=== PATIENT | male | born 1965 | race Caucasian/White ===

== ENCOUNTER → 2018-03-29 | Day surgery (SDC) | payer OTHER ==
[2018-03-27 14:57] VITALS: BMI 25.5
[~2018-03-29] MED LIST: ACETAMINOPHEN TAB 325 MG TAB PO PRN; HYDROcodone/APAP 5-325MG 1 EACH TAB PO PRN; LIDOCAINE 1% INJ 10MG/ML (20 ML MDV) ONE; LIDOCAINE 1% INJ 10MG/ML (20 ML MDV) SQ ONE; MIDAZOLAM 2 MG/2 ML VIAL IVP ONE; MIDAZOLAM 2 MG/2 ML VIAL ONE; SODIUM CHLORIDE 0.9% 1,000 ML IV SCH; ceFAZolin 1,000 MG in SODIUM CHLORIDE 0.9% IRRIGATIO 250 ML IRRIGATION ONE; fentaNYL (PF) 50 MCG/ML 2 ML AMP IVP ONE; fentaNYL (PF) 50 MCG/ML 2 ML AMP ONE
[2018-03-29 08:36] VITALS: PULSE 60; RESP 18; TEMP 97.8
[2018-03-29] MEDS: ceFAZolin IN SWFI 2 GM/20 ML SYRINGE IVP ONE ×2 (09:51→09:53)
--- NOTE | 2018-03-29 10:44 | P.PCN ---
Date of Procedure: 03/29/18 Preoperative Diagnosis: History of permanent pacemaker implantation, battery depletion Postoperative Diagnosis: The same Procedure(s) Performed: Generator change Description of Procedure: HISTORY: This is a 53-year-old gentleman with history of permanent pacemaker implantation who has reached [facility] several months ago. Patient is advised to have battery replacement. CONSENT: I have discussed the risks and benefits as related to the above mentioned procedure and both sedation/analgesia as well as necessary blood product administration. The patient has indicated understanding and acceptance of the risks of the procedure discussed. PROCEDURE: Patient was brought to the lab in a fasting state. Patient was given IV Versed and fentanyl for sedation. The skin over the existing pulse generator was infiltrated with lidocaine. An incision was made in the skin and was deepened until the pectoral fascia was exposed. Hemostasis was obtained. The existing pulse generator was pulled out of the pocket. The leads were disconnected and were checked for thresholds. Conscious Sedation: Versed 1.5mg Fentanyl 25 g Duration 32 minutes THRESHOLDS: ATRIAL: The minimum patient threshold is 0.3 at pulse width of 0.5 and impedance is 939 ohms. P-wave: 1.5 mV VENTRICULAR: The minimum patient threshold was 1.3 V at a pulse width of 0.5 ms. The impedance is 814 ohms R- wave: 8.1 mV THE LEADS: ATRIAL: This is manufactured by [employer]. Model number is 5554 and the serial number is [facility] [id number] VENTRICULAR: This is manufactured by [employer] and model number is [id number]. Serial number is [facility] [id number] THE EXPLANTED DEVICE: This is manufactured by [employer]. Model number is [id number] and the serial number is [id number]. THE NEW DEVICE: This is manufactured by [employer]. Model number is [id number] and the serial number is [id number]. The leads were then connected to a new pulse generator. Pacemaker seems to function normally. The pocket was irrigated with antibiotics. The pocket was closed in the usual fashion. Pectoral fascia was closed with 2-0 Prolene, the subcutaneous tissue was closed with 3-0 Prolene and the skin was closed with 4- 0 Prolene. Patient tolerated the procedure well . Patient will be monitored on the telemetry unit for 2-3 hours. If stable patient be discharged home later today. PLAN: Patient will monitor for the next few hours. Patient will be discharged home, if stable. Patient will resume his home medications. He is also given a prescription for Keflex for prophylaxis FALLOW UP: With the Dr. Deluna in one week
[2018-03-29 13:03] VITALS: BP 125/79
== END ==
LOC: CATHEP 08:09
PROVIDERS: ATTEND Internal Medicine Cardiovascular Disease
DX: Z45.010 Encounter for checking and testing of cardiac pacemaker pulse generator [battery] (principal); I44.2 Atrioventricular block, complete; I34.0 Nonrheumatic mitral (valve) insufficiency; I12.9 Hypertensive chronic kidney disease with stage 1 through stage 4 chronic kidney disease, or unspecified chronic kidney disease; N18.9 Chronic kidney disease, unspecified; R60.9 Edema, unspecified; F17.210 Nicotine dependence, cigarettes, uncomplicated; Z79.82 Long term (current) use of aspirin; Z79.51 Long term (current) use of inhaled steroids; Z79.899 Other long term (current) drug therapy
CPT/HCPCS: 33228; C1785; J2250; J2001; J3010; J0690

== ENCOUNTER → 2018-06-10 | Outpatient (CLI) | payer OTHER ==
[2018-06-10 10:30] LABS: HCT 49.1 % (39.0-53.0); HGB 15.9 gm/dL (13.0-17.5); MCH 28.7 pg (25.0-35.0); MCHC 32.4 g/dL (31.0-37.0); MCV 88.6 fL (80.0-100.0); Mean Platelet Volume 7.8; Platelet Count 178 k/uL (150-450); RBC 5.54 m/uL (4.30-5.90); RDW 13.8 % (11.5-15.5); WBC 4.5 k/uL (3.8-10.6)
[2018-06-10 10:35] LABS: Potassium 4.8 mmol/L (3.5-5.1)
== END | disposition home or self-care (01) ==
LOC: LABPAT 09:04
PROVIDERS: ATTEND Internal Medicine Interventional Cardiology
DX: Z01.812 Encounter for preprocedural laboratory examination (principal); I34.0 Nonrheumatic mitral (valve) insufficiency; R06.02 Shortness of breath; I10 Essential (primary) hypertension
CPT/HCPCS: 36415; 80051; 82565; 84520; 85027

== ENCOUNTER 2018-10-17 11:18 | Observation (INO) | payer OTHER ==
[2018-10-17] MEDS ORDERED: SODIUM CHLORIDE 0.9% 500 ML 500 ML IV ONE (11:39)
--- NOTE | 2018-10-17 11:41 | ED ---
General Adult HPI - General Chief complaint: Shortness of Breath Stated complaint: SOB, dizzy Time Seen by Provider: 10/17/18 11:20 Source: patient, EMS, RN notes reviewed Mode of arrival: EMS Limitations: no limitations - History of Present Illness Initial comments: This is a 53-year-old male with a past medical history significant for anxiety pacemaker placement severe mitral valve dysfunction. Patient states she is post get a mitral valve replacement in the near future. Patient states today he was home and became very short of breath and anytime he stood up and try to do anything he thought he was going to pass out. Separate multiple times morning and at that point time he decided come to be evaluated. Patient denies chest pain or palpitations. Patient denies any recent fever chills or cough. Patient states she smoked but quit in 2001. Patient denies any abdominal pain patient denies any nausea vomiting. Patient denies any headache patient denies any numbness weakness. Patient denies any recent injury or trauma. Patient denies swelling to the legs or calf tenderness. - Related Data Home Medications Medication Instructions Recorded Confirmed Aspirin EC [Ecotrin Low Dose] 81 mg PO DAILY 06/01/14 10/17/18 clonazePAM [KlonoPIN] 1 mg PO TID 06/01/14 10/17/18 Allopurinol [Zyloprim] 100 mg PO DAILY 03/27/18 10/17/18 Enalapril [Vasotec] 2.5 mg PO DAILY 03/27/18 10/17/18 Fluticasone Propionate [Flonase 1 spray EA NOSTRIL DAILY PRN 03/27/18 10/17/18 Allergy Relief] Mirtazapine [Remeron] 45 tab PO HS 03/27/18 10/17/18 Metoprolol Tartrate [Lopressor] 25 mg PO BID 10/17/18 10/17/18 PARoxetine [Paxil] 20 mg PO DAILY 10/17/18 10/17/18 busPIRone HCL [Buspar] 7.5 mg PO BID 10/17/18 10/17/18 Allergies Allergy/AdvReac Type Severity Reaction Status Date / Time No Known Allergies Allergy Verified 10/17/18 11:42 Review of Systems ROS Statement: Those systems with pertinent positive or pertinent negative responses have been documented in the HPI. ROS Other: All systems not noted in ROS Statement are negative. Past Medical History Past Medical History: Chest Pain / Angina, COPD, Hypertension, Osteoarthritis (OA), Renal Disease Additional Past Medical History / Comment(s): PACEMAKER -2000/battery repl acement 2009, polycystic kidney disease/ stage 3; hx kidney stones ; 2 RLL nodules, pt states mitral valve prolapse need valve replacement ; hx pleurisy History of Any Multi-Drug Resistant Organisms: None Reported Past Surgical History: Hernia Repair, Orthopedic Surgery, Pacemaker Additional Past Surgical History / Comment(s): 2000 permanent pacer with battery change 2009, L LEG TIBIA/FIBIA FX WITH REPAIR, UMBILICAL HERNIA REPAIR, EGD and colonoscopy both normal. blood patch post spinal anesthesia. Past Anesthesia/Blood Transfusion Reactions: No Reported Reaction Additional Past Anesthesia/Blood Transfusion Reaction / Comment(s): NEVER RECIEVED BLOOD. Pt had spinal anesthesia with spinal headache and blood patch. Type of Cardiac Device: Permanent Pacemaker Device Placement Date:: 2000 Past Psychological History: Anxiety, Panic Disorder Past Alcohol Use History: None Reported - Past Family History Father Family Medical History: Cancer, Myocardial Infarction ([place]) Additional Family Medical History / Comment(s): FATHER BONE CA AT AGE 70. Mother Family Medical History: Cancer, Deep Vein Thrombosis (DVT), Renal Disease Additional Family Medical History / Comment(s): MOTHER OF LYMPHOMA. MOTHER HAD TRANSPLANT OF KIDNEY. General Exam - General Exam Comments Initial Comments: GENERAL: Patient is well-developed and well-nourished. Patient is nontoxic and well- hydrated and is in mild distress. ENT: Neck is soft and supple. No significant lymphadenopathy is noted. Oropharynx is clear. Moist mucous membranes. Neck has full range of motion without eliciting any pain. EYES: The sclera were anicteric and conjunctiva were pink and moist. Extraocular movements were intact and pupils were equal round and reactive to light. Eyelids were unremarkable. PULMONARY: Unlabored respirations. Good breath sounds bilaterally. No audible rales rhonchi or wheezing was noted. CARDIOVASCULAR: There is a regular rate and rhythm without any murmurs gallops or rubs. ABDOMEN: Soft and nontender with normal bowel sounds. No palpable organomegaly was noted. There is no palpable pulsatile mass. SKIN: Skin is clear with no lesions or rashes and otherwise unremarkable. NEUROLOGIC: Patient is alert and oriented x3. Cranial nerves II through XII are grossly intact. Motor and sensory are also intact. Normal speech, volume and content. Symmetrical smile. MUSCULOSKELETAL: Normal extremities with adequate strength and full range of motion. No lower extremity swelling or edema. No calf tenderness. LYMPHATICS: No significant lymphadenopathy is noted PSYCHIATRIC: Normal psychiatric evaluation. Limitations: no limitations Course Vital Signs 10/17/18 10/17/18 10/17/18 11:21 11:49 12:25 Temperature 98 F Pulse Rate 81 Pulse Rate [ 60 Sitting] Pulse Rate [ 65 Standing] Pulse Rate [ 60 Supine] Respiratory 20 18 Rate Blood Pressure 136/98 Blood Pressure 134/91 [Sitting] Blood Pressure 135/93 [Standing] Blood Pressure 140/94 [Supine] O2 Sat by Pulse 100 Oximetry Medical Decision Making - Medical Decision Making EKG shows atrial paced rhythm at 60 bpm MO interval is 220 QRS is 86 QT interval 400 QTC is 400. Patient's EKG shows no ST segment elevation or depression or T wave abnormalities are noted. Chest x-ray shows no acute abnormality. Patient states anytime she stands up in the room he still feels dizzy. Patient does not feel comfortable going home. I spoke with Dr. Mi she agreed to admit the patient admitted the patient wrote admitting orders. - Lab Data Result diagrams: 10/17/18 11:40 10/17/18 11:40 Lab Results 10/17/18 10/17/18 10/17/18 Range/Units 11:40 11:40 11:40 WBC 4.9 (3.8-10.6) k/uL RBC 5.30 (4.30-5.90) m/uL Hgb 15.0 (13.0-17.5) gm/dL Hct 46.9 (39.0-53.0) % MCV 88.5 (80.0-100.0) fL MCH 28.3 (25.0-35.0) pg MCHC 32.0 (31.0-37.0) g/dL RDW 14.4 (11.5-15.5) % Plt Count 187 (150-450) k/uL Neutrophils % 67 % Lymphocytes % 17 % Monocytes % 9 % Eosinophils % 5 % Basophils % 1 % Neutrophils # 3.3 (1.3-7.7) k/uL Lymphocytes # 0.8 L (1.0-4.8) k/uL Monocytes # 0.5 (0-1.0) k/uL Eosinophils # 0.3 (0-0.7) k/uL Basophils # 0.0 (0-0.2) k/uL PT 10.5 (9.0-12.0) sec INR 1.0 (<1.2) APTT 24.4 (22.0-30.0) sec Sodium 140 (137-145) mmol/L Potassium 4.4 (3.5-5.1) mmol/L Chloride 107 (98-107) mmol/L Carbon Dioxide 24 (22-30) mmol/L Anion Gap 9 mmol/L BUN 24 H (9-20) mg/dL Creatinine 1.89 H (0.66-1.25) mg/dL Est GFR (CKD-EPI)AfAm 46 (>60 ml/min/1.73 sqM) Est GFR (CKD-EPI)NonAf 40 (>60 ml/min/1.73 sqM) Glucose 118 H (74-99) mg/dL Calcium 9.7 (8.4-10.2) mg/dL Total Bilirubin 0.6 (0.2-1.3) mg/dL AST 29 (17-59) U/L ALT 23 (21-72) U/L Alkaline Phosphatase 86 (38-126) U/L Troponin I (0.000-0.034) ng/mL Total Protein 6.4 (6.3-8.2) g/dL Albumin 3.7 (3.5-5.0) g/dL 10/17/18 Range/Units 11:40 WBC (3.8-10.6) k/uL RBC (4.30-5.90) m/uL Hgb (13.0-17.5) gm/dL Hct (39.0-53.0) % MCV (80.0-100.0) fL MCH (25.0-35.0) pg MCHC (31.0-37.0) g/dL RDW (11.5-15.5) % Plt Count (150-450) k/uL Neutrophils % % Lymphocytes % % Monocytes % % Eosinophils % % Basophils % % Neutrophils # (1.3-7.7) k/uL Lymphocytes # (1.0-4.8) k/uL Monocytes # (0-1.0) k/uL Eosinophils # (0-0.7) k/uL Basophils # (0-0.2) k/uL PT (9.0-12.0) sec INR (<1.2) APTT (22.0-30.0) sec Sodium (137-145) mmol/L Potassium (3.5-5.1) mmol/L Chloride (98-107) mmol/L Carbon Dioxide (22-30) mmol/L Anion Gap mmol/L BUN (9-20) mg/dL Creatinine (0.66-1.25) mg/dL Est GFR (CKD-EPI)AfAm (>60 ml/min/1.73 sqM) Est GFR (CKD-EPI)NonAf (>60 ml/min/1.73 sqM) Glucose (74-99) mg/dL Calcium (8.4-10.2) mg/dL Total Bilirubin (0.2-1.3) mg/dL AST (17-59) U/L ALT (21-72) U/L Alkaline Phosphatase (38-126) U/L Troponin I <0.012 (0.000-0.034) ng/mL Total Protein (6.3-8.2) g/dL Albumin (3.5-5.0) g/dL Disposition Clinical Impression: Dyspnea, Near syncope Disposition: ADMITTED IP TO THIS HOSP Referrals: Mukesh Hernandez DO [Primary Care Provider] - 1-2 days Time of Disposition: 13:07
[2018-10-17 12:14] LABS: Basophils % (A) 1 %; Eosinophils # (A) 0.3 k/uL (0-0.7); Eosinophils % (A) 5 %; HCT 46.9 % (39.0-53.0); Lymphocytes # (A) 0.8 k/uL (1.0-4.8); Lymphocytes % (A) 17 %; MCH 28.3 pg (25.0-35.0); MCV 88.5 fL (80.0-100.0); Mean Platelet Volume 7.3; Monocytes # (A) 0.5 k/uL (0-1.0); Monocytes % (A) 9 %; Neutrophils # (A) 3.3 k/uL (1.3-7.7); Neutrophils % (A) 67 %; Platelet Count 187 k/uL (150-450); RDW 14.4 % (11.5-15.5); WBC 4.9 k/uL (3.8-10.6)
[2018-10-17 12:21] LABS: Partial Thromboplastin Time 24.4 sec (22.0-30.0); Prothrombin Time 10.5 sec (9.0-12.0)
[2018-10-17 12:22] LABS: Albumin 3.7 g/dL (3.5-5.0); Calcium 9.7 mg/dL (8.4-10.2); Potassium 4.4 mmol/L (3.5-5.1); Total Bilirubin 0.6 mg/dL (0.2-1.3); Total Protein 6.4 g/dL (6.3-8.2)
--- NOTE | 2018-10-17 12:35 | XR ---
EXAMINATION TYPE: XR chest 2V DATE OF EXAM: 10/17/2018 COMPARISON: 06/12/2018 HISTORY: Difficulty breathing TECHNIQUE: Frontal and lateral views of the chest are obtained. FINDINGS: There is no focal air space opacity, pleural effusion, or pneumothorax seen. Dual lead lef t-sided cardiac device is seen. The cardiac silhouette size is within normal limits. The osseous st ructures are intact. IMPRESSION: No acute cardiopulmonary process.
[2018-10-17] MEDS ORDERED: NITROGLYCERIN SL TABS 0.4 MG TAB SUBLINGUAL PRN (13:07)
[2018-10-17] MEDS ORDERED: ACETAMINOPHEN TAB 325 MG TAB PO PRN (15:05)
[2018-10-17] MEDS: busPIRone HCl 5 MG TAB PO SCH (20:02)
[2018-10-17] MEDS: MIRTAZAPINE 45 MG TABLET PO SCH (20:03)
[2018-10-17] MEDS: METOPROLOL TARTRATE 25 MG TAB PO SCH (20:03)
[2018-10-17] MEDS: clonazePAM 1 MG TAB PO SCH (20:04)
--- NOTE | 2018-10-17 21:58 | HP ---
HISTORY AND PHYSICAL DATE OF ADMISSION AND DATE OF SERVICE: 10/17/2018 PRESENTING COMPLAINT: Chest pressure, head spinning. HISTORY OF PRESENTING COMPLAINT: This is a pleasant 53-year-old patient of Dr. Mukesh Hernandez and naturopath Dr. Deluna. Chronic stable medical conditions include hypertension, osteoarthritis, polycystic kidney disease with stage IV renal failure, chronic cervical spine and back pain, gout, reflex sympathetic dystrophy of the left leg, obstructive sleep apnea -- does not use CPAP machine -- and anxiety. The patient is supposed to follow up with Dr. Ordaz, cardiothoracic service, on October 25 for surgery evaluation. The patient in May had a cardiac catheterization by Dr. Ragsdale and was found to have normal coronaries. PASCALE showed severe mitral regurgitation with myxomatous valves and the left atrium was enlarged. The ejection fraction is preserved around 55%. The patient has been short of breath for about 2 months and the patient's blood pressure has been running a bit high. The patient has noticed some headache that he has in the morning, which he was told was probably from his high blood pressure. The patient now has presented with an episode of head spinning, especially and more so on bending over. He also is becoming more dizzy with chest pressure to where he was nearly going to pass out. Therefore he decided to present to the ER. No obvious arrhythmia was noted. Patient was admitted for the same. REVIEW OF SYSTEMS: CONSTITUTIONAL: Tired. HEENT: As above. RESPIRATORY: As above. CARDIOVASCULAR: As above. GASTROINTESTINAL: None. GENITOURINARY: None. MUSCULOSKELETAL: Arthritic pain in the joints. DERMATOLOGICAL: None. HEMATOLOGICAL: None. LYMPHATICS: None. PSYCHIATRY: Anxiety, controlled. NEUROLOGICAL: None. Patient has chronic RSD pain in the left lower extremity. PAST MEDICAL HISTORY: 1. COPD. 2. Hypertension. 3. Osteoarthritis. 4. Severe mitral regurgitation. 5. Polycystic kidney disease. 6. Stage IV kidney disease. 7. Chronic cervix and back pain. 8. Gout. 9. RSD of the left leg. 10.Obstructive sleep apnea. Does not use CPAP machine. 11.Anxiety. PAST SURGICAL HISTORY: 1. Hernia repair. 2. Pacemaker placed in 2001. Last generator change was in 2018. 3. PASCALE. 4. Umbilical hernia repair. 5. Left leg tib-fib fracture with hardware, since removed. 6. Left thumb surgery with rods. 7. EGD. 8. Colonoscopy. 9. Blood patch after spinal anesthesia for headache. PSYCH HISTORY: History of anxiety and panic attacks. SOCIAL HISTORY: Lives by himself. The patient does painting and sand blasting. No alcohol. Smoked about 18 years; stopped in 2001. FAMILY HISTORY: Father of bone cancer at age of 70. Had aortic aneurysm, myocardial infarction. HOME MEDICATIONS: 1. Paxil 20 mg a day. 2. Remeron 45 mg at bedtime. 3. Lopressor 25 mg b.i.d. 4. BuSpar 7.5 p.o. b.i.d. 5. Klonopin 1 mg p.o. t.i.d. 6. Flonase 1 spray each nostril daily p.r.n. 7. Vasotec 2.5 p.o. daily. 8. Aspirin 81 mg p.o. daily. 9. Allopurinol 100 mg p.o. daily. ALLERGIES: NONE. PHYSICAL EXAMINATION: Temperature 98, pulse 72, respiration 18, blood pressure 127/75, pulse ox 95% on room air. GENERAL APPEARANCE: Average build. Sitting up, awake but anxious-appearing. EYES: Pupils equal. Conjunctivae normal. HEENT: External appearance of nose and ears normal. Oral cavity normal. NECK: JVD not raised. Mass not palpable. RESPIRATORY: Effort normal. LUNGS: Fair air entry. CARDIOVASCULAR: Systolic murmur is present. No edema. ABDOMEN: Soft, nontender. Liver and spleen not palpable. LYMPHATIC: No lymph node palpable in neck or axillae. PSYCHIATRY: Alert and oriented x3. Mood and affect normal. NEUROLOGICAL: Pupils equal. Cranial nerves grossly intact. Power and sensation grossly intact. INVESTIGATIONS: White count 4.9, hemoglobin 15.0, potassium 4.4, BUN 24, creatinine 1.89. Troponin x2 negative. EKG tracing, personally reviewed by me, shows normal sinus rhythm and possibly atrial paced rhythm. Chest x-ray film, personally reviewed by me, shows lung farrell to be clear. Pacemaker is noted. ASSESSMENT: 1. This is a patient who has known severe mitral regurgitation, due for mitral valve surgery, has been short of breath for 2 months. Cardiac catheterization done recently showed normal coronaries. He presented with an of spinning head and some chest pressure, nearly passing out. The patient has underlying enlarged left atrium. Strongly possible that patient may have had paroxysmal arrhythmia/atrial flutter/fibrillation that may be causing his symptoms. The patient was admitted for the same. No evidence of congestive heart failure. 2. Chronic obstructive pulmonary disease in an ex-smoker. 3. Essential hypertension. 4. Primary osteoarthritis. 5. Severe mitral regurgitation with normal coronaries. 6. Polycystic kidney disease with chronic kidney disease, stage IV. 7. Chronic cervical and lower back pain from arthritis. 8. Chronic gout. 9. Reflex sympathetic dystrophy of the left lower extremity. 10.Obstructive sleep apnea. Does not use CPAP machine. 11.Anxiety not otherwise specified. PLAN: Home medications are resumed. Serial cardiac enzymes are in place. We will keep the patient on telemetry. Further decision as per Cardiology. Will also get Dr. Ordaz's cardiothoracic team to see the patient. Care was discussed with the patient. [id number] / PATRICIA: [id number] /
[2018-10-18 04:06] LABS: Cholesterol 106 mg/dL (<200); HDL Cholesterol 24 mg/dL (40-60); LDL Cholesterol,Calculated 56 mg/dL (0-99); Triglycerides 131 mg/dL (<150)
[2018-10-18] MEDS: busPIRone HCl 5 MG TAB PO SCH ×2 (10:12→20:42)
[2018-10-18] MEDS: METOPROLOL TARTRATE 25 MG TAB PO SCH ×2 (10:12→20:42)
[2018-10-18] MEDS: ALLOPURINOL 100 MG TAB PO SCH (10:13)
[2018-10-18] MEDS: clonazePAM 1 MG TAB PO SCH ×3 (10:13→20:43)
[2018-10-18] MEDS: PARoxetine 20 MG TAB PO SCH (10:13)
[2018-10-18] MEDS: ASPIRIN 325 MG TAB PO SCH (10:13)
[2018-10-18] MEDS: LISINOPRIL 5 MG TAB PO SCH (10:13)
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
[2018-10-18] MEDS ORDERED: MECLIZINE 25 MG TAB PO STA (12:41)
--- NOTE | 2018-10-18 12:53 | P.CRDCN ---
History of Present Illness History of present illness: This is a pleasant 53-year-old male past medical history significant for severe mitral regurgitation, mitral valve prolapse, permanent pacemaker implantation, hypertension, COPD and polycystic kidney disease. He follows with Dr. Deluna in the office. We have been asked to see him in consultation secondary to shortness of breath. In May 2018 he underwent cardiac catheterization and PASCALE revealing normal coronary arteries with severe mitral regurgitation and a bileaflet mitral valve prolapse. He has been recommended at that time to see cardiothoracic surgery regarding the possibility of mitral valve repair. He states he has been feeling increasingly short of breath and lightheaded with exertion for the previous 2 weeks. His symptoms initially started approximately around the time of his heart catheterization but has gotten progressively worse. He has been scheduled to see Dr. Ordaz next week to set up his mitral valve repair or replacement pending dental clearance. Orthostatic vital signs obtained on admission are negative for changes. He denies symptoms of chest discomfort, palpitations, nausea or vomiting associated with the shortness of breath and dizziness. He is seen and examined resting comfortably in bed in no acute distress and is asymptomatic at this time. Telemetry tracings reviewed and at 5:00 in the morning reveal an 8 beat run of ventricular tachycardia followed by a 19 beat run. EKG reveals atrial paced rhythm with inferior Q waves. No acute ST or T wave abnormalities noted. Chest x-ray is negative for an acute cardiopulmonary process. Laboratory data reviewed, WBC 4.9, hemoglobin 15, platelets 187, sodium 140, potassium 4.4, creatinine 1.89, cardiac enzymes negative 3, LDL 56 HDL 24. Current cardiac medications include aspirin 81 mg daily, enalapril 2.5 mg daily, Lopressor 25 mg twice a day. At the time of my exam: CONSTITUTIONAL: Denies fever. Denies chills. EYES: Denies blurred vision. Denies vision changes. Denies eye pain. EARS, NOSE, MOUTH & THROAT: Denies headache. Denies sore throat. Denies ear pain. CARDIOVASCULAR: Denies chest pain. Denies shortness of breath. Denies orthopnea. Denies PND. Denies palpitations. RESPIRATORY: Denies cough. GASTROINTESTINAL: Denies abdominal pain. Denies diarrhea. Denies constipation. Denies nausea. Denies vomiting. MUSCULOSKELETAL: Denies myalgias. INTEGUMENTARY: Denies pruitis. Denies rash. NEUROLOGIC: Denies numbness. Denies tingling. Denies weakness. PSYCHIATRIC: Denies anxiety. Denies depression. ENDOCRINE: Denies fatigue. Denies weight change. Denies polydipsia. Denies polyurina. GENITOURINARY: Denies burning, hematuria or urgency with micturation. HEMATOLOGIC: Denies history of anemia. Denies bleeding. Blood pressure 124/82 heart rate 56 afebrile maintaining oxygen saturation on room air GENERAL: This is a 53-year-old male in no apparent distress at the time of my examination. HEENT: Head is atraumatic, normocephalic. Pupils are equal, round. Sclerae anicteric. Conjunctivae are clear. Mucous membranes of the mouth are moist. Neck is supple. There is no jugular venous distention. No carotid bruit is heard. LUNGS: Clear to auscultation no wheezes, rales or rhonchi. No chest wall tenderness is noted on palpation or with deep breathing. HEART: Regular rate and rhythm with holosystolic murmur at the apex, no rubs or gallops. S1 and S2 heard. ABDOMEN: Soft, nontender. Bowel sounds are heard. No organomegaly noted. EXTREMITIES: No evidence of peripheral edema and no calf tenderness noted. VASCULAR: Radial and dorsalis pedis pulses palpated, no evidence of clubbing. NEUROLOGIC: Patient is awake, alert and oriented x3. ASSESSMENT Dizziness and shortness of breath with exertion possibly could be vertigo-like response Nonsustained ventricular tachycardia Severe mitral regurgitation Mitral valve prolapse History of permanent pacemaker implantation Hypertension COPD PLAN Repeat echocardiogram and assess LV function. Give a dose of Antivert 25 mg now and increase activity and assess her ongoing symptoms of dizziness. Continue metoprolol, enalapril and aspirin as previously ordered. Check TSH and magnesium level. Appreciate recommendation from cardiothoracic surgery. Thank you kindly for this consultation. Nurse Practitioner note has been reviewed, I agree with a documented findings and plan of care. Patient was seen and examined. Past Medical History Past Medical History: Chest Pain / Angina, COPD, Hypertension, Osteoarthritis (OA), Renal Disease Additional Past Medical History / Comment(s): Severe mitral dysfunction-to have surgery soon, pleurisy x2, polycyctic kidney disease stage IV, migraines, chronic cervical and back pain, DDD, gout bilateral feet, RSD affecting legs, PATSY without device d/t kept getting respiratory infections History of Any Multi-Drug Resistant Organisms: None Reported Past Surgical History: Hernia Repair, Orthopedic Surgery, Pacemaker Additional Past Surgical History / Comment(s): Permanent pacemaker originally placed 2001, last gen change 2018, PASCALE, umbilical hernia repair, L leg tib/fib fracture with hardware-since removed, L thumb surgery-has rods, EGD, colonoscopy, blood patch after spinal anesthesia for headache Past Anesthesia/Blood Transfusion Reactions: No Reported Reaction Additional Past Anesthesia/Blood Transfusion Reaction / Comment(s): NEVER RECIEVED BLOOD. Pt had spinal anesthesia with spinal headache and blood patch. Type of Cardiac Device: Permanent Pacemaker Device Placement Date:: 2001 Smoking Status: Former smoker - Past Family History Father Family Medical History: Cancer, Myocardial Infarction (MD) Additional Family Medical History / Comment(s): FATHER BONE CA AT AGE 70. HE HAD AORTIC ANEURYSM WITH SURGERY. Mother Family Medical History: Cancer, Deep Vein Thrombosis (DVT), Renal Disease Additional Family Medical History / Comment(s): MOTHER OF LYMPHOMA. MOTHER HAD TRANSPLANT OF KIDNEY. Sister(s) Family Medical History: Deep Vein Thrombosis (DVT), Pulmonary Embolus, Renal Disease Additional Family Medical History / Comment(s): POLYCYSTIC KIDNEY DISEASE WITH TRANSPLANT, Medications and Allergies Home Medications Medication Instructions Recorded Confirmed Type Aspirin EC [Ecotrin Low Dose] 81 mg PO DAILY 06/01/14 10/17/18 History clonazePAM [KlonoPIN] 1 mg PO TID 06/01/14 10/17/18 History Allopurinol [Zyloprim] 100 mg PO DAILY 03/27/18 10/17/18 History Enalapril [Vasotec] 2.5 mg PO DAILY 03/27/18 10/17/18 History Fluticasone Propionate [Flonase 1 spray EA NOSTRIL DAILY PRN 03/27/18 10/17/18 History Allergy Relief] Mirtazapine [Remeron] 45 tab PO HS 03/27/18 10/17/18 History Metoprolol Tartrate [Lopressor] 25 mg PO BID 10/17/18 10/17/18 History PARoxetine [Paxil] 20 mg PO DAILY 10/17/18 10/17/18 History busPIRone HCL [Buspar] 7.5 mg PO BID 10/17/18 10/17/18 History Allergies Allergy/AdvReac Type Severity Reaction Status Date / Time No Known Allergies Allergy Verified 10/17/18 11:42 Physical Exam Vitals: Vital Signs Temp Pulse Pulse Pulse Pulse Pulse Resp 10/18/18 07:10 97.9 F 64 18 10/18/18 03:48 97.6 F 58 L 16 10/18/18 03:29 58 L 16 10/18/18 00:00 58 L 16 10/17/18 23:23 97.7 F 58 L 16 10/17/18 20:00 98.0 F 60 16 10/17/18 16:00 98 F 52 L 18 10/17/18 15:45 60 16 10/17/18 14:50 98.1 F 60 16 10/17/18 12:25 60 65 60 10/17/18 11:49 18 10/17/18 11:21 98 F 81 20 BP BP BP BP BP Pulse Ox 10/18/18 07:10 99/60 96 10/18/18 03:48 113/76 98 10/18/18 03:29 10/18/18 00:00 10/17/18 23:23 117/71 95 10/17/18 20:00 132/87 95 10/17/18 16:00 127/75 95 10/17/18 15:45 97 10/17/18 14:50 129/83 97 10/17/18 12:25 134/91 135/93 140/94 10/17/18 11:49 10/17/18 11:21 136/98 100 Intake and Output 10/17/18 10/18/18 10/18/18 22:59 06:59 14:59 Other: Voiding Method Toilet Toilet # Voids 1 2 Results 10/17/18 11:40 10/17/18 11:40 Cardiac Enzymes 10/17/18 10/17/18 10/17/18 Range/Units 11:40 11:40 17:17 AST 29 (17-59) U/L Troponin I <0.012 <0.012 (0.000-0.034) ng/mL 10/17/18 Range/Units 23:36 AST (17-59) U/L Troponin I <0.012 (0.000-0.034) ng/mL Coagulation 10/17/18 Range/Units 11:40 PT 10.5 (9.0-12.0) sec APTT 24.4 (22.0-30.0) sec Lipids 10/17/18 Range/Units 11:40 Triglycerides 131 (<150) mg/dL Cholesterol 106 (<200) mg/dL HDL Cholesterol 24 L (40-60) mg/dL CBC 10/17/18 Range/Units 11:40 WBC 4.9 (3.8-10.6) k/uL RBC 5.30 (4.30-5.90) m/uL Hgb 15.0 (13.0-17.5) gm/dL Hct 46.9 (39.0-53.0) % Plt Count 187 (150-450) k/uL Comprehensive Metabolic Panel 10/17/18 Range/Units 11:40 Sodium 140 (137-145) mmol/L Potassium 4.4 (3.5-5.1) mmol/L Chloride 107 (98-107) mmol/L Carbon Dioxide 24 (22-30) mmol/L BUN 24 H (9-20) mg/dL Creatinine 1.89 H (0.66-1.25) mg/dL Glucose 118 H (74-99) mg/dL Calcium 9.7 (8.4-10.2) mg/dL AST 29 (17-59) U/L ALT 23 (21-72) U/L Alkaline Phosphatase 86 (38-126) U/L Total Protein 6.4 (6.3-8.2) g/dL Albumin 3.7 (3.5-5.0) g/dL Current Medications Generic Name Dose Route Start Last Admin Trade Name Freq PRN Reason Stop Dose Admin Acetaminophen 650 mg 10/17/18 15:05 10/17/18 15:20 Tylenol Tab PO 650 mg Q6HR PRN Administration Fever and/ or Pain Allopurinol 100 mg 10/18/18 09:00 Zyloprim PO DAILY [facility] Aspirin 325 mg 10/18/18 09:00 Aspirin PO DAILY [facility] Buspirone HCl 7.5 mg 10/17/18 21:00 10/17/18 20:02 Buspar PO 7.5 mg BID [facility] Administration Clonazepam 1 mg 10/17/18 22:00 10/17/18 20:04 Klonopin PO Not Given TID [facility] Lisinopril 5 mg 10/18/18 09:00 Zestril PO DAILY [facility] Metoprolol Tartrate 25 mg 10/17/18 21:00 10/17/18 20:03 Lopressor PO 25 mg BID [facility] Administration Mirtazapine 45 mg 10/17/18 21:00 10/17/18 20:03 Remeron PO 45 mg HS [facility] Administration Nitroglycerin 0.4 mg 10/17/18 13:07 Nitrostat SUBLINGUAL Q5M PRN Chest Pain Paroxetine HCl 20 mg 10/18/18 09:00 Paxil PO DAILY [facility] Intake and Output 10/17/18 10/18/18 10/18/18 22:59 06:59 14:59 Other: Voiding Method Toilet Toilet # Voids 1 2 10/17/18 11:40 10/17/18 11:40
[2018-10-18 14:06] LABS: Magnesium 1.9 mg/dL (1.6-2.3)
--- NOTE | 2018-10-18 19:11 | ECHOF ---
Referral Reason:sob, hx mr and mvp MEASUREMENTS -------- HEIGHT: 152.4 cm WEIGHT: 82.6 kg BP: RVIDd: 3.0 cm (< 3.3) IVSd: 1.2 cm (0.6 - 1.1) LVIDd: 4.5 cm (3.9 - 5.3) LVPWd: 1.5 cm (0.6 - 1.1) IVSs: 1.3 cm LVIDs: 3.5 cm LVPWs: 1.7 cm LA Diam: 4.3 cm (2.7 - 3.8) LAESV Index (A-L): 37.49 ml/m Ao Diam: 2.9 cm (2.0 - 3.7) AV Cusp: 1.9 cm (1.5 - 2.6) LA Diam: 4.1 cm (2.7 - 3.8) MV EXCURSION: 22.213 mm (> 18.000) MV EF SLOPE: 75 mm/s (70 - 150) EPSS: 0.2 cm MV E Carlos: 0.88 m/s MV DecT: 149 ms MV A Carlos: 0.64 m/s MV E/A Ratio: 1.37 RAP: 5.00 mmHg RVSP: 17.98 mmHg FINDINGS -------- Paced rhythm. This was a technically good study. The left ventricular size is normal. There is mild concentric left ventricular hypertrophy. Overa ll left ventricular systolic function is low-normal with, an EF between 50 - 55 %. The right ventricle is normal in size. The left atrium is mildly dilated. LA is moderately dilated 34-39 ml/m2 The right atrial size is normal. There is mild aortic valve sclerosis. There is no evidence of aortic regurgitation. [id number] mitral regurgitation is present. Pt had PASCALE 06/12/18 noted myomatous MV Leaflets with Prolapse with severe MR. Mild tricuspid regurgitation present. There is no evidence of pulmonary hypertension. The right v entricular systolic pressure, as measured by Doppler, is 17.98mmHg. Trace/mild (physiologic) pulmonic regurgitation. The aortic root size is normal. There is no pericardial effusion. CONCLUSIONS -------- 1. The left ventricular size is normal. 2. There is mild concentric left ventricular hypertrophy. 3. Overall left ventricular systolic function is low-normal with, an EF between 50 - 55 %. 4. The right ventricle is normal in size. 5. The left atrium is mildly dilated. 6. LA is moderately dilated 34-39 ml/m2 7. The right atrial size is normal. 8. There is mild aortic valve sclerosis. 9. Pt had PASCALE 06/12/18 noted myomatous MV Leaflets with Prolapse with severe MR. 10. Mild tricuspid regurgitation present. 11. There is no evidence of pulmonary hypertension. 12. The right ventricular systolic pressure, as measured by Doppler, is 17.98mmHg. 13. Trace/mild (physiologic) pulmonic regurgitation. 14. The aortic root size is normal. 15. There is no pericardial effusion. ALTERNATIVE ENERGY TECHNICIAN: Joycelyn Vela RDCS
[2018-10-18] MEDS: MIRTAZAPINE 45 MG TABLET PO SCH (20:43)
--- NOTE | 2018-10-18 22:26 | PN ---
PROGRESS NOTE DATE OF SERVICE: 10/18/2018 PRESENTING COMPLAINT: Near-syncope. INTERVAL HISTORY: This is a patient with severe mitral regurgitation, pending surgery, with a negative cardiac catheterization. He presented with head spinning. The patient is pending today to get his AICD checked. The patient may have had an episode of BPPV. Doing better today. Sitting in bed. Has been out of bed. REVIEW OF SYSTEMS: Done for constitutional, cardiovascular, GI, pulmonary; relevant findings as above. CURRENT MEDICATIONS: Reviewed. PHYSICAL EXAMINATION: Temperature 98, pulse 62, respiration 16, blood pressure 138/87, pulse ox 96% on room air. GENERAL APPEARANCE: Sitting up, comfortable. EYES: Pupils equal. Conjunctivae normal. NECK: JVD not raised. Mass not palpable. RESPIRATORY: Effort normal. Lungs are clear. CARDIOVASCULAR: Systolic murmur. No edema. ABDOMEN: Soft, non-tender. Liver and spleen not palpable. PSYCHIATRY: Alert and oriented x3. Mood and affect normal. INVESTIGATIONS: Magnesium 1.9. TSH 1.4. ASSESSMENT: 1. Episode of severe dizziness. Could be underlying BPPV. Rule out underlying arrhythmia. AICD pacemaker check to be done. 2. Severe mitral regurgitation, non-rheumatic, pending surgery. 3. Recent cardiac catheterization showing normal coronaries. 4. Chronic obstructive pulmonary disease in an ex-smoker. 5. Essential hypertension. 6. Primary osteoarthritis. 7. Polycystic kidney disease with chronic kidney disease, stage IV. 8. Chronic cervical and low back pain from arthritis. 9. Chronic gout. 10.Reflex sympathetic dystrophy of the left lower extremity. 11.Obstructive sleep apnea. Does not use CPAP machine. 12.Anxiety not otherwise specified. PLAN: Care was discussed with the patient. Encouraged to ambulate. Waiting for a pacemaker check. Follow with Cardiology. MMODL / IJN: [id number] /
[2018-10-19] MEDS: ASPIRIN 325 MG TAB PO SCH (08:56)
[2018-10-19] MEDS: METOPROLOL TARTRATE 25 MG TAB PO SCH (08:57)
[2018-10-19] MEDS: PARoxetine 20 MG TAB PO SCH (08:57)
[2018-10-19] MEDS: clonazePAM 1 MG TAB PO SCH (08:57)
[2018-10-19] MEDS: ALLOPURINOL 100 MG TAB PO SCH (08:57)
[2018-10-19] MEDS: busPIRone HCl 5 MG TAB PO SCH (08:57)
[2018-10-19] MEDS: LISINOPRIL 5 MG TAB PO SCH (08:57)
--- NOTE | 2018-10-19 10:34 | P.PN ---
Subjective This is a pleasant 53-year-old male past medical history significant for severe mitral regurgitation, mitral valve prolapse, permanent pacemaker implantation, hypertension, COPD and polycystic kidney disease. He follows with Dr. Deluna in the office. Patient was seen and examined resting comfortably in bed in no acute distress. [employer] pacemaker interrogation reveals 2 episodes of nonsustained ventricular tachycardia yesterday morning. He has been up and ambulating without difficulty with no further symptoms of dizziness. He continues to have mild shortness of breath at baseline. Blood pressure 112/79 heart rate 61 afebrile maintaining oxygen saturation on room air. Laboratory data reviewed, magnesium 1.9 and TSH 1.48. Repeat echocardiogram reveals normal LV size and systolic function with ejection fraction 50-55%, mildly dilated left atrium, mild aortic valve sclerosis, mild tricuspid regurgitation and persistent mitral regurgitation. GENERAL: This is a 53-year-old male in no apparent distress at the time of my examination. HEENT: Head is atraumatic, normocephalic. Pupils are equal, round. Sclerae anicteric. Conjunctivae are clear. Mucous membranes of the mouth are moist. Neck is supple. There is no jugular venous distention. No carotid bruit is heard. LUNGS: Clear to auscultation no wheezes, rales or rhonchi. No chest wall tenderness is noted on palpation or with deep breathing. HEART: Regular rate and rhythm with holosystolic murmur at the apex, no rubs or gallops. S1 and S2 heard. EXTREMITIES: No evidence of peripheral edema and no calf tenderness noted. ASSESSMENT Dizziness and shortness of breath with exertion possibly could be vertigo-like response Nonsustained ventricular tachycardia Severe mitral regurgitation Mitral valve prolapse History of permanent pacemaker implantation Hypertension COPD PLAN Patient is stable from a cardiac perspective. Continue beta mirta therapy as previously ordered. Follow-up as are the scheduled on Sunday with cardiothoracic surgery. Nurse Practitioner note has been reviewed, I agree with a documented findings and plan of care. Patient was seen and examined. Objective - Vital Signs Vital signs: Vital Signs Temp 97.7 F 10/19/18 08:00 Pulse 61 10/19/18 08:00 Resp 18 10/19/18 08:00 BP 112/79 10/19/18 08:00 Pulse Ox 95 10/19/18 08:00 Intake & Output 10/18/18 10/19/1819 18:59 06:59 18:59 Intake Total 240 1275 Balance 240 1275 Intake: Oral 240 1275 Other: Voiding Method Toilet Toilet # Voids 2 2 - Labs CBC & Chem 7: 10/17/18 11:40 10/17/18 11:40
[2018-10-19 12:03] VITALS: BP 113/78; PULSE 56; RESP 16; TEMP 97.5
--- NOTE | 2018-10-20 08:51 | DS ---
DISCHARGE SUMMARY DATE OF ADMISSION: 10/17/18 DATE OF DISCHARGE: 10/19/18 FINAL DIAGNOSES: 1. Episodes of severe dizziness, could be BPPV. Episodes of nonsustained ventricular tachycardia, which could be causing his symptoms. 2. Severe mitral regurgitation, nonrheumatic, pending surgery. 3. Recent cardiac catheterization showing normal coronaries. 4. Chronic obstructive pulmonary disease in an ex-smoker. 5. Essential hypertension. 6. Primary osteoarthritis. 7. Polycystic kidney disease chronic kidney disease stage 4. 8. Chronic cervical and lower back pain from arthritis. 9. Chronic gout. 10.Reflex sympathetic dystrophy of the left lower extremity. 11.Obstructive sleep apnea does not use CPAP machine. 12.Anxiety, not otherwise specified. HOSPITAL COURSE: This patient has got severe mitral regurgitation with recent normal cardiac catheterization pending mitral surgery presented with episodes of severe dizziness, primarily postural that will be BPPV which Antivert would not be helpful. Pacemaker did confirm 2 episodes of nonsustained ventricular tachycardia, which could have resulted in the symptoms. Sallie maneuver was described to the patient and also pulled up on the Internet and discussed with him and his . They understand the same. The patient was cleared by Cardiology to go home. PHYSICAL EXAMINATION: Temperature 97.5, pulse 66, respiratory 16, blood pressure 113/78, pulse 95% on room air. Heart: Systolic murmur. INVESTIGATIONS: Potassium 4.4, BUN 24, creatinine 1.18. TSH normal. Troponins negative. 2D echo shows preserved LV function. Severe MR. DISCHARGE MEDICATIONS: 1. Aspirin 81 mg a day. 2. Klonopin 1 mg p.o. t.i.d. 3. Allopurinol 100 mg p.o. daily. 4. Vasotec 2.5 p.o. daily. 5. Flonase 1 spray each nostril daily p.r.n. 6. Remeron 45 mg p.o. q.h.s. 7. Lopressor 25 p.o. b.i.d. 8. Paxil 20 mg p.o. daily. 9. BuSpar 7.5 p.o. b.i.d. FOLLOWUP: Follow up with Dr. Ordaz on 10/25/18 at 11:00 a.m. Follow up with Dr. Hernandez in 2 days. Sallie maneuver described to the patient. Discussion and discharge planning more than 35 minutes. MMODL / IJN: [id number] /
== END 2018-10-19 15:24 | disposition home or self-care (01) ==
LOC: EC 11:18 → 1SOBS 13:07
PROVIDERS: ADMIT Hospitalist; ATTEND Hospitalist
DX: R42 Dizziness and giddiness (principal); R51 Headache; R07.89 Other chest pain; I47.2 Ventricular tachycardia; I34.0 Nonrheumatic mitral (valve) insufficiency; J44.9 Chronic obstructive pulmonary disease, unspecified; Z87.891 Personal history of nicotine dependence; I12.9 Hypertensive chronic kidney disease with stage 1 through stage 4 chronic kidney disease, or unspecified chronic kidney disease; N18.4 Chronic kidney disease, stage 4 (severe); Q61.3 Polycystic kidney, unspecified; I34.1 Nonrheumatic mitral (valve) prolapse; M47.816 Spondylosis without myelopathy or radiculopathy, lumbar region; M47.812 Spondylosis without myelopathy or radiculopathy, cervical region; M1A.9XX0 Chronic gout, unspecified, without tophus (tophi); G90.522 Complex regional pain syndrome I of left lower limb; G47.33 Obstructive sleep apnea (adult) (pediatric); F41.0 Panic disorder [episodic paroxysmal anxiety]; Z95.810 Presence of automatic (implantable) cardiac defibrillator; Z87.442 Personal history of urinary calculi; Z79.82 Long term (current) use of aspirin; Z79.899 Other long term (current) drug therapy; Z80.7 Family history of other malignant neoplasms of lymphoid, hematopoietic and related tissues; Z82.49 Family history of ischemic heart disease and other diseases of the circulatory system; Z83.2 Family history of diseases of the blood and blood-forming organs and certain disorders involving the immune mechanism; Z80.8 Family history of malignant neoplasm of other organs or systems
CPT/HCPCS: 99285; 36415; 93005; 93306; 80061; 80053; 84443; 83735; 84484; 85025; 85610; 85730; 71046; G0378 ×3

== ENCOUNTER → 2018-11-05 | Outpatient (CLI) | payer OTHER ==
[2018-11-05 14:04] LABS: Calcium 9.6 mg/dL (8.4-10.2); Magnesium 1.8 mg/dL (1.6-2.3); Potassium 5.3 mmol/L (3.5-5.1); Total Bilirubin 0.6 mg/dL (0.2-1.3); Total Protein 6.4 g/dL (6.3-8.2)
--- NOTE | 2018-11-05 14:17 | P.PN ---
Progress Note - Text Progress Note Date: 11/05/18 5 meter walk test completed: #1 3.51 sec #2 3.17 sec #3 3.16 sec
[2018-11-05 14:25] LABS: Partial Thromboplastin Time 25.6 sec (22.0-30.0)
[2018-11-05 14:43] LABS: Appearance,Urine Clear (Clear); Bilirubin,Urine Negative (Negative); Blood,Urine Negative (Negative); Color,Urine Colorless; Glucose,Urine (UA) Negative (Negative); Ketones,Urine Negative (Negative); Leukocyte Esterase,Urine Negative (Negative); Nitrite,Urine Negative (Negative); Protein,Urine Negative (Negative); Specific Gravity,Urine 1.004 (1.001-1.035); Urobilinogen,Urine <2.0 mg/dL (<2.0)
[2018-11-05 15:03] LABS: HGB 14.9 gm/dL (13.0-17.5); MCH 27.8 pg (25.0-35.0); MCHC 31.8 g/dL (31.0-37.0); MCV 87.4 fL (80.0-100.0); Mean Platelet Volume 7.8; Platelet Count 201 k/uL (150-450); RBC 5.37 m/uL (4.30-5.90); RDW 14.7 % (11.5-15.5); WBC 7.3 k/uL (3.8-10.6)
--- NOTE | 2018-11-05 16:44 | XR ---
EXAMINATION: XR chest 2V DATE AND TIME: 11/05/2018 4:21 PM CLINICAL INDICATION: PHH; Mitral valve insufficiency I34.1 TECHNIQUE: Departmental protocol COMPARISON: 10/17/2018 FINDINGS: There is evidence of a 1 cm opacity superimposed over the lateral right lower lung zone on the fronta l radiograph; not definitely confirmed on the lateral radiograph. The lungs are otherwise clear and w ell-expanded bilaterally. The pleural spaces are negative. Cardiac pacemaker noted. The cardiomediastinal silhouette is unremarkable. The skeletal structures and soft tissues are negative for acute findings. IMPRESSION: 1 cm opacity superimposed over the right lateral lung zone, for which nonurgent CT characterization i s advised, preferably with IV contrast.
[2018-11-05 19:10] LABS: Hepatitis A Antibody IgM Non-Reactive (Non-Reactive); Hepatitis B Core IgM Non-Reactive (Non-Reactive)
[2018-11-05 23:03] LABS: Hemoglobin A1C 6.1 % (4.0-6.0)
--- NOTE | 2018-11-06 11:56 | P.ARTDOP ---
Arterial Doppler LOWER EXTREMITY ARTERIAL DOPPLER: DATE OF SERVICE: 11/05/2018 Reason for study: Preop CABG. Doppler waveforms: Multiphasic bilaterally throughout. Pulse volume recording: .. Pressure gradients: None. Ankle-brachial indices: Greater than 1 bilaterally. Toe pressures: [] on the right, [] on the left Impression: Normal study.
--- NOTE | 2018-11-06 11:58 | P.VSCSTY ---
Greater Saphenous Vein Mapping This is bilateral lower extremity greater saphenous vein mapping. Date of service 11/05/2018 Vein quality and ultrasound appearance no intraluminal thrombus or wall changes. Vein size groin right 3.5 x 2.5 groin left 4.6 x 3.2 High thigh right 4.1 x 3.0 high thigh left 3.9 x 2.9 Mid thigh right 3.5 x 2.5 mid thigh left 3.5 x 2.7 Above-knee right 3.1 x 2.3 above-knee left to 2.9 x 2.3 Below knee right to 2.5 x 2.3 below-knee left 3.3 by 3.0 Mid calf right 2.7 x 2.1 mid calf left 3.4 x 2.4 Ankle right 3.1 x 2.0 ankle left 2.5 x 2.2 Impression usable bilateral greater saphenous vein.
== END | disposition home or self-care (01) ==
LOC: LABWHC1 13:10
PROVIDERS: ATTEND Surgery
DX: Z01.810 Encounter for preprocedural cardiovascular examination (principal); Z01.812 Encounter for preprocedural laboratory examination; R93.89 Abnormal findings on diagnostic imaging of other specified body structures
CPT/HCPCS: 36415; 71046; 80053; 80061; 80074; 81003; 83036; 83735; 84443; 85027; 85610; 85730; 87070; 87086; 93005; 93922; 93970

== ENCOUNTER → 2018-11-07 | Outpatient (CLI) | payer OTHER ==
--- NOTE | 2018-11-07 16:37 | CT ---
EXAMINATION TYPE: CT chest wo con DATE OF EXAM: 11/07/2018 COMPARISON: Prior chest x-ray 11/05/[address] dated 06/01/2014 HISTORY: Abnormal cxr. Presurgical for mitral valve replacement. CT DLP: 594 mGycm. Automated Exposure Control for Dose Reduction was Utilized. TECHNIQUE: CT scan of the thorax is performed without IV contrast. FINDINGS: LUNGS: The lungs are remarkable for a spiculated oval mass at the posterior costophrenic angle level which is developed in the interval from prior CT and measures approximately 1.9 x 3.2 x 2.3 cm, some groundglass opacity is present surrounding the lesion. No pleural or pericardial effusion. Some linea r densities persist in the in the right lower lobe and there is improvement in much of the previous i dentified nodular density at this level MEDIASTINUM: Lack of IV contrast is noted to limit evaluation for mediastinal and especially hilar ad enopathy. In the right paratracheal location there is a node which now measures approximately 1.1 cm OTHER: Multiple cystic foci within the liver and kidneys is again noted. Duodenal diverticulum again noted. IMPRESSION: Interval development of a soft tissue mass in the right lower lobe and possible mediastin al adenopathy. Noncontrast exam. 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 This message alert has been sent to Brayan Polanco via the preferences provided by the clinician for the receipt of Radiology Critical Findings. [employer] ID [id number].
== END ==
LOC: RADCTMAIN 14:37
PROVIDERS: ATTEND Surgery
DX: R22.2 Localized swelling, mass and lump, trunk (principal)
CPT/HCPCS: 71250

== ENCOUNTER 2018-11-09 11:52 | Emergency (ER) | payer OTHER ==
[2018-11-09 12:16] VITALS: RESP 18
[2018-11-09] MEDS ORDERED: IBUPROFEN 800 MG TAB PO STA (12:32)
[2018-11-09] MEDS ORDERED: ACETAMINOPHEN TAB 500 MG TAB PO STA (12:32)
--- NOTE | 2018-11-09 12:36 | ED ---
General Adult HPI - General Chief complaint: Dizziness Stated complaint: Sob Time Seen by Provider: 11/09/18 12:00 Source: EMS, RN notes reviewed Mode of arrival: EMS Limitations: no limitations - History of Present Illness Initial comments: This is a 53-year-old male who presents emergency Department complaining of a headache dizziness and a slight cough. Patient states he has had a headache on and off for 3 weeks and occasionally some dizziness but lately has gotten considerably worse and today got to the point where he was very unsteady and states that he decided come the emergency department. Patient denies any fever chills. Patient denies any chest pain or palpitations. Patient states she has a cough is nonproductive. Patient denies any abdominal pain patient denies nausea vomiting. Patient states she does have some diarrhea. Patient states about a month ago he was evaluated for similar symptoms in the did not find anything wrong with him. Patient states he has history of polycystic kidney disease. Patient also states he is supposed to have a valve replacement. Patient also states that they recently found a nodule that has grown in his chest on the right side. - Related Data Home Medications Medication Instructions Recorded Confirmed Aspirin EC [Ecotrin Low Dose] 81 mg PO DAILY 06/01/14 11/09/18 clonazePAM [KlonoPIN] 1 mg PO TID 06/01/14 11/09/18 Allopurinol [Zyloprim] 100 mg PO DAILY 03/27/18 11/09/18 Enalapril [Vasotec] 2.5 mg PO DAILY 03/27/18 11/09/18 Fluticasone Propionate [Flonase 1 spray EA NOSTRIL DAILY PRN 03/27/18 11/09/18 Allergy Relief] Mirtazapine [Remeron] 45 tab PO HS 03/27/18 11/09/18 Metoprolol Tartrate [Lopressor] 25 mg PO BID 10/17/18 11/09/18 PARoxetine [Paxil] 20 mg PO DAILY 10/17/18 11/09/18 busPIRone HCL [Buspar] 7.5 mg PO BID 10/17/18 11/09/18 Acetaminophen [Tylenol Arthritis] 650 mg PO DAILY PRN 11/05/18 11/09/18 Albuterol Inhaler [Ventolin Hfa 1 - 2 puff INHALATION RT-Q6H PRN 11/05/18 11/09/18 Inhaler] Previous Rx's Medication Instructions Recorded Amoxicillin/Potassium Clav 1 each PO Q12HR #20 tab 11/09/18 [Augmentin 875-125 Tablet] Allergies Allergy/AdvReac Type Severity Reaction Status Date / Time No Known Allergies Allergy Verified 11/09/18 12:04 Review of Systems ROS Statement: Those systems with pertinent positive or pertinent negative responses have been documented in the HPI. ROS Other: All systems not noted in ROS Statement are negative. Past Medical History Past Medical History: Asthma, Cancer, Chest Pain / Angina, COPD, Hypertension, Osteoarthritis (OA), Renal Disease Additional Past Medical History / Comment(s): Severe mitral dysfunction-to have surgery soon, pleurisy x2, polycyctic kidney disease stage IV, migraines, chronic cervical and back pain, DDD, gout bilateral feet, RSD affecting legs, PATSY without device d/t kept getting respiratory infections, right lower lobe cancer History of Any Multi-Drug Resistant Organisms: None Reported Past Surgical History: Hernia Repair, Pacemaker Additional Past Surgical History / Comment(s): Permanent pacemaker originally placed 2001, last gen change 2017, PASCALE, umbilical hernia repair, L leg tib/fib fracture with hardware-since removed, L thumb surgery-has rods, EGD, colonoscopy, blood patch after spinal anesthesia for headache Past Anesthesia/Blood Transfusion Reactions: No Reported Reaction Additional Past Anesthesia/Blood Transfusion Reaction / Comment(s): NEVER RECIEVED BLOOD. Pt had spinal anesthesia with spinal headache and blood patch. Type of Cardiac Device: Permanent Pacemaker Device Placement Date:: 2001 Past Psychological History: Anxiety, Panic Disorder Smoking Status: Former smoker Past Alcohol Use History: None Reported Past Drug Use History: None Reported - Past Family History Father Family Medical History: Cancer, Myocardial Infarction ([place]) Additional Family Medical History / Comment(s): FATHER BONE CA AT AGE 70. HE HAD AORTIC ANEURYSM WITH SURGERY. Mother Family Medical History: Cancer, Deep Vein Thrombosis (DVT), Renal Disease Additional Family Medical History / Comment(s): MOTHER OF LYMPHOMA. MOTHER HAD TRANSPLANT OF KIDNEY. Sister(s) Family Medical History: Deep Vein Thrombosis (DVT), Pulmonary Embolus, Renal Disease Additional Family Medical History / Comment(s): POLYCYSTIC KIDNEY DISEASE WITH TRANSPLANT, General Exam - General Exam Comments Initial Comments: GENERAL: Patient is well-developed and well-nourished. Patient is nontoxic and well- hydrated and is in mild distress. I think the patient's temperature he had 101.3 temperature ENT: Neck is soft and supple. No significant lymphadenopathy is noted. Oropharynx is clear. Moist mucous membranes. Neck has full range of motion without eliciting any pain. EYES: The sclera were anicteric and conjunctiva were pink and moist. Extraocular movements were intact and pupils were equal round and reactive to light. Eyelids were unremarkable. PULMONARY: Unlabored respirations. Good breath sounds bilaterally. No audible rales rhonchi or wheezing was noted. CARDIOVASCULAR: There is a regular rate and rhythm without any murmurs gallops or rubs. ABDOMEN: Soft and nontender with normal bowel sounds. No palpable organomegaly was noted. There is no palpable pulsatile mass. SKIN: Skin is clear with no lesions or rashes and otherwise unremarkable. NEUROLOGIC: Patient is alert and oriented x3. Cranial nerves II through XII are grossly intact. Motor and sensory are also intact. Normal speech, volume and content. Symmetrical smile. MUSCULOSKELETAL: Normal extremities with adequate strength and full range of motion. No lower extremity swelling or edema. No calf tenderness. LYMPHATICS: No significant lymphadenopathy is noted PSYCHIATRIC: Patient is moderately anxious. Limitations: no limitations Course Vital Signs 11/09/18 11/09/18 11/09/18 12:10 12:19 12:39 Temperature 97.9 F 101.3 F H Pulse Rate 72 Pulse Rate [ 74 Sitting] Pulse Rate [ 67 Standing] Pulse Rate [ 71 Supine] Respiratory 18 Rate Blood Pressure 121/74 Blood Pressure 146/87 [Sitting] Blood Pressure 144/94 [Standing] Blood Pressure 140/87 [Supine] O2 Sat by Pulse 99 97 Oximetry Medical Decision Making - Medical Decision Making EKG shows normal sinus rhythm at 69 bpm DC interval is 190 QRS is 86 QT interval 364 QTC is 390. Patient's EKG shows no ST segment elevation or depression no T-wave abnormalities are noted. CT of the brain shows acute right maxilla sinusitis. Chest x-ray showed no acute abnormality. I went back to reevaluate the patient he was feeling much better he had no headache at this time and he didn't feel dizzy at this time. - Lab Data Result diagrams: 11/09/18 13:00 11/09/18 13:00 Lab Results 11/09/18 11/09/18 11/09/18 Range/Units 13:00 13:00 13:00 WBC 8.3 (3.8-10.6) k/uL RBC 5.31 (4.30-5.90) m/uL Hgb 14.9 (13.0-17.5) gm/dL Hct 47.2 (39.0-53.0) % MCV 88.9 (80.0-100.0) fL MCH 28.0 (25.0-35.0) pg MCHC 31.5 (31.0-37.0) g/dL RDW 14.1 (11.5-15.5) % Plt Count 173 (150-450) k/uL Neutrophils % 80 % Lymphocytes % 8 % Monocytes % 7 % Eosinophils % 3 % Basophils % 0 % Neutrophils # 6.6 (1.3-7.7) k/uL Lymphocytes # 0.7 L (1.0-4.8) k/uL Monocytes # 0.6 (0-1.0) k/uL Eosinophils # 0.3 (0-0.7) k/uL Basophils # 0.0 (0-0.2) k/uL Sodium 141 (137-145) mmol/L Potassium 4.6 (3.5-5.1) mmol/L Chloride 105 (98-107) mmol/L Carbon Dioxide 27 (22-30) mmol/L Anion Gap 9 mmol/L BUN 23 H (9-20) mg/dL Creatinine 2.30 H (0.66-1.25) mg/dL Est GFR (CKD-EPI)AfAm 37 (>60 ml/min/1.73 sqM) Est GFR (CKD-EPI)NonAf 32 (>60 ml/min/1.73 sqM) Glucose 103 H (74-99) mg/dL Calcium 9.7 (8.4-10.2) mg/dL Total Bilirubin 0.7 (0.2-1.3) mg/dL AST 24 (17-59) U/L ALT 32 (21-72) U/L Alkaline Phosphatase 89 (38-126) U/L Total Protein 7.1 (6.3-8.2) g/dL Albumin 4.3 (3.5-5.0) g/dL Influenza Type A RNA Not Detected (Not Detectd) Influenza Type B (PCR) Not Detected (Not Detectd) Disposition Clinical Impression: Sinusitis Disposition: HOME SELF-CARE Condition: Good Instructions (If sedation given, give patient instructions): Sinusitis (ED) Prescriptions: Amoxicillin/Potassium Clav [Augmentin 875-125 Tablet] 1 each PO Q12HR #20 tab Is patient prescribed a controlled substance at d/c from ED?: No Referrals: Mukesh Hernandez DO [Primary Care Provider] - 1-2 days Time of Disposition: 14:10
[2018-11-09] MEDS ORDERED: LORazepam 2 MG/ML INJ IV STA (12:42)
[2018-11-09 13:11] LABS: Basophils % (A) 0 %; Eosinophils # (A) 0.3 k/uL (0-0.7); Eosinophils % (A) 3 %; HCT 47.2 % (39.0-53.0); HGB 14.9 gm/dL (13.0-17.5); Lymphocytes # (A) 0.7 k/uL (1.0-4.8); Lymphocytes % (A) 8 %; MCHC 31.5 g/dL (31.0-37.0); MCV 88.9 fL (80.0-100.0); Mean Platelet Volume 7.6; Monocytes # (A) 0.6 k/uL (0-1.0); Monocytes % (A) 7 %; Neutrophils # (A) 6.6 k/uL (1.3-7.7); Neutrophils % (A) 80 %; Platelet Count 173 k/uL (150-450); RBC 5.31 m/uL (4.30-5.90); RDW 14.1 % (11.5-15.5); WBC 8.3 k/uL (3.8-10.6)
[2018-11-09 13:27] LABS: Albumin 4.3 g/dL (3.5-5.0); Calcium 9.7 mg/dL (8.4-10.2); Potassium 4.6 mmol/L (3.5-5.1); Total Bilirubin 0.7 mg/dL (0.2-1.3); Total Protein 7.1 g/dL (6.3-8.2)
--- NOTE | 2018-11-09 13:47 | CT ---
EXAMINATION TYPE: CT brain wo con DATE OF EXAM: 11/09/2018 COMPARISON: NONE HISTORY: Headache and fever for 3 weeks. History of lung cancer CT DLP: 1099.4 mGycm Automated exposure control for dose reduction was used. FINDINGS: Central structures are midline. There is no evidence of hydrocephalus. No acute focal lesion, mass ef fect or midline shift is seen. I do not see evidence of intracranial blood. There is an air-fluid level in the right maxillary sinus. The remainder the paranasal sinuses and mas toids are clear. The bony calvarium is intact. IMPRESSION: 1. NO ACUTE INTRACRANIAL ABNORMALITY. 2. ACUTE ON CHRONIC RIGHT MAXILLARY SINUSITIS.
--- NOTE | 2018-11-09 13:50 | XR ---
EXAMINATION TYPE: XR chest 2V DATE OF EXAM: 11/09/2018 HISTORY: Difficulty breathing . REFERENCE: Previous study dated 11/05/2018. FINDINGS: Bipolar pacemaker is in place on the left. The lungs are clear. Pleural space are clear. The heart is not enlarged. IMPRESSION: NO ACTIVE INTRATHORACIC DISEASE.
[2018-11-09 14:20] VITALS: BP 116/78; PULSE 65; TEMP 101.1
== END 2018-11-09 14:22 | disposition home or self-care (01) ==
LOC: EC 11:52
DX: J32.0 Chronic maxillary sinusitis (principal); R19.7 Diarrhea, unspecified; R42 Dizziness and giddiness; J44.9 Chronic obstructive pulmonary disease, unspecified; I10 Essential (primary) hypertension; M19.90 Unspecified osteoarthritis, unspecified site; M10.9 Gout, unspecified; F41.0 Panic disorder [episodic paroxysmal anxiety]; Z87.891 Personal history of nicotine dependence; Z79.82 Long term (current) use of aspirin; Z79.899 Other long term (current) drug therapy; Z85.118 Personal history of other malignant neoplasm of bronchus and lung; Z86.79 Personal history of other diseases of the circulatory system; Z95.0 Presence of cardiac pacemaker
CPT/HCPCS: 36415; 93005; 80053; 85025; 87040; 87502; 71046; 70450; 99285; 96374; J2060

== ENCOUNTER → 2018-11-15 | Outpatient (CLI) | payer OTHER ==
--- NOTE | 2018-11-18 07:28 | PE ---
EXAMINATION TYPE: PET CT fusion skull to thigh DATE OF EXAM: 11/15/2018 CLINICAL HISTORY: 53-year-old male with a solitary right pulmonary nodule, initial staging TECHNIQUE: Following the intravenous administration of 13.4 mCi of F-18 FDG, whole body images are performed from the skull base to the midthigh. Images are reviewed on the computer in the coronal, a xial, and sagittal planes. Reconstructed rotating images are created on independent workstation and reviewed on the computer. A localization and attenuation correction CT is performed in conjunction with the PET scan. Glucose level: 73 mg/dL CTDI: 4.93 mGy DLP: 497.09 mGy-cm COMPARISON: Correlation CT chest 11/07/2018 and 06/01/2014 FINDINGS: PET: Physiologic FDG uptake within the neck. The previous 3.2 cm posterior right lower lobe mass shows marked interval enlargement now measuring 6 .9 x 4.1 cm representing a masslike area of consolidation in the posterior right base. There is some surrounding groundglass and septal thickening suggesting inflammatory change. Max SUV 9.8. Enlarged, hypermetabolic right infrahilar lymph node measures 1.7 cm. Hypermetabolic subcarinal lymph node measures 1 cm. Right peritracheal lymph node measures 1 cm. Max SUV 4.7. Average liver SUV 2.1. Numerous small hepatic cysts are redemonstrated measuring up to 2.1 cm. These show no increased uptak e. Innumerable cysts replacing the kidneys, right greater than left. Small cysts show varying density co mpatible with internal hemorrhagic or proteinaceous debris. There is asymmetric FDG excretion from the right renal collecting system seen. This suggests relative ly decreased function of the left kidney which is overall smaller in size as well. Intense long segment FDG uptake involving the right side of the colon and proximal two thirds of the transverse colon most compatible with physiologic muscular uptake. Otherwise, physiologic FDG uptake in the abdomen and pelvis. ATTENUATION CORRECTION CT: Mild lobulated mucosal thickening right maxillary sinus. Leftward nasal septal deviation. Mastoid air cells well pneumatized. No cervical lymphadenopathy. Left anterior chest wall pacemaker generator with right atrial and right ventricular leads. Heart nor mal size with small pericardial effusion measuring 1 cm thick. This is new/increased from 11/07/2018. Aorta normal caliber with bovine configuration to the aortic arch. Mild emphysematous change. Stable 6 mm right mid lung pulmonary nodule back to 2014 compatible with a benign etiology. No pleural effus ion. No dilated small bowel, free fluid, or free air. No mesenteric or retroperitoneal lymphadenopathy. No rmal appendix. Pelvic phleboliths. Moderate circumferential bladder wall thickening. No abnormal fluid collection in the pelvis or pelvic lymphadenopathy. IMPRESSION: 1. Marked interval enlargement of the previous 3.2 cm posterior right basilar opacity as seen on 11/07. There is intense hypermetabolism noted, now with masslike consolidation measuring up to 6.9 cm . The dramatic interval increase in size in such a short period of time makes neoplasm less likely an d is more suggestive of an infectious/inflammatory etiology. Pneumonia including primary TB are consi derations. Careful clinical correlation is recommended. Follow-up CT to ensure clearance with treatme nt. 2. Hypermetabolic right infrahilar (1.7 cm) and mediastinal (1.0 cm) lymphadenopathy likely reactive. Again, close follow-up recommended. 3. 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 Cysts contain varying degrees of proteinaceous and hemorrhagic debris. The lack of contrast limits complete assessment of t he innumerable kidney lesions/cysts. 4. Incidental: Small pericardial effusion (1cm thick). Moderate circumferential bladder wall thicken ing; correlate to exclude cystitis.
== END ==
LOC: RADPETMAIN 14:58
PROVIDERS: ATTEND Internal Medicine Critical Care Medicine
DX: R91.8 Other nonspecific abnormal finding of lung field (principal); R59.0 Localized enlarged lymph nodes; N28.89 Other specified disorders of kidney and ureter; N28.1 Cyst of kidney, acquired
CPT/HCPCS: 78815; A9552

== ENCOUNTER 2018-11-25 09:40 | Day surgery (SDC) | payer OTHER ==
[2018-11-21 09:02] VITALS: BMI 25.4
[~2018-11-25 09:40] MED LIST changes: -ACETAMINOPHEN TAB 325 MG TAB PO PRN; +ALBUTEROL NEB (CONC) 2.5 MG/0.5 ML INHALATION ONE; -HYDROcodone/APAP 5-325MG 1 EACH TAB PO PRN; +LACTATED RINGERS 1,000 ML IV SCH; +LIDOCAINE 1% 20 ML VIAL (10MG/ML) FOR IV START INTRADERMA PRN; -LIDOCAINE 1% INJ 10MG/ML (20 ML MDV) ONE; -LIDOCAINE 1% INJ 10MG/ML (20 ML MDV) SQ ONE; +LIDOCAINE 2% (PF) 20 MG/ML 10 ML AMP INHALATION ONE; +LIDOCAINE VISCOUS 300 MG/15 ML CUP MUCOUS MEM ONE; -MIDAZOLAM 2 MG/2 ML VIAL IVP ONE; -MIDAZOLAM 2 MG/2 ML VIAL ONE; +ONDANSETRON 4 MG/2 ML VIAL IVP ONE; -ceFAZolin 1,000 MG in SODIUM CHLORIDE 0.9% IRRIGATIO 250 ML IRRIGATION ONE; -fentaNYL (PF) 50 MCG/ML 2 ML AMP IVP ONE; -fentaNYL (PF) 50 MCG/ML 2 ML AMP ONE
--- NOTE | 2018-11-25 12:03 | CT ---
EXAMINATION TYPE: CT Chest poly Hinkle Protocol DATE OF EXAM: 11/25/2018 COMPARISON: PET/CT dated 11/15/2018 HISTORY: Bronchial navigation. CT DLP: 583 mGycm Automated exposure control for dose reduction was used. FINDINGS: The previously seen hypermetabolic right lower lobe pulmonary mass currently measures approximately 6 .9 x 3.8 cm, similar to the prior measurements of 6.9 x 4.1 cm. Minimal surrounding atelectasis is ag ain seen. Elongated ovoid nodule in the interlobar fissure likely represents a pericardial lymph node on series 6 image 39. Mild background degenerative changes seen of the lungs. Minimal dependent subs egmental atelectasis is present. Innumerable partially visualized hepatic and renal cysts are seen one of which is hyperdense in the r ight kidney with an average Hounsfield unit of 65 measuring approximately 1.5 cm on series 5 image 65 . This is incompletely imaged. Duodenal diverticulum is incidentally noted. Some of the hepatic lesio ns are too small to accurately characterized. No increased uptake within on the prior PET/CT in the l iver. Right infrahilar lymph node on the prior PET/CT measures 1.7 cm and currently measures 1.3 cm in shor t axis. Right paratracheal lymph node previously measured 1.0 cm in short axis and now measures 1.1 c m in short axis, similar to the prior. No abnormal supraclavicular adenopathy is seen. Trace pericard ial effusion is noted. Left-sided multilead cardiac device is seen. Minimal degenerative changes of t he spine. IMPRESSION: 1. REDEMONSTRATION OF RIGHT LOWER LOBE PULMONARY MASS WITH MEDIASTINAL ADENOPATHY. EXAM WAS PERFORMED FOR NAVIGATIONAL BRONCHOSCOPY. 2. AUTOSOMAL DOMINANT POLYCYSTIC KIDNEY DISEASE WITH INNUMERABLE ASSOCIATED HEPATIC CYSTS.
[2018-11-25] MEDS ORDERED: MIDAZOLAM 2 MG/2 ML VIAL ONE (12:40)
[2018-11-25] MEDS ORDERED: ROCURONIUM BROMIDE 10 MG/ML 10 ML VIAL IV ONE (12:40)
[2018-11-25] MEDS ORDERED: GLYCOPYRROLATE 0.2 MG/ML 2 ML VIAL ONE (12:40)
[2018-11-25] MEDS ORDERED: ETOMIDATE 2 MG/ML 10 ML VIAL ONE (12:40)
[2018-11-25 13:55] VITALS: TEMP 97.5
--- NOTE | 2018-11-25 14:27 | XR ---
EXAMINATION TYPE: XR chest 1V portable DATE OF EXAM: 11/25/2018 COMPARISON: 11/19/2018 HISTORY: Postop after bronchoscopy with right middle lobe biopsy. TECHNIQUE: Single frontal view of the chest is obtained. FINDINGS: The known right lower lobe pulmonary mass is not seen radiographically due to overlying li kaleigh. Minimal left basilar subsegmental atelectasis is noted. Cardiomediastinal silhouette is within n ormal limits. Dual lead left-sided cardiac device is noted. No postprocedural pneumothorax is appreci ated. IMPRESSION: No postprocedural pneumothorax status post right middle lobe bronchoscopic biopsy. The r ight basilar mass is obscured by overlying liver. Minimal left basilar atelectasis is seen.
[2018-11-25 14:37] VITALS: BP 143/83; PULSE 66; RESP 18
--- NOTE | 2018-11-25 17:10 | P.PCN ---
Date of Procedure: 11/25/18 Preoperative Diagnosis: Right lower lobe mass Postoperative Diagnosis: Right lower lobe mass Procedure(s) Performed: navigational bronchoscopy with transbronchial biopsy, bronchial lavage (BAL) Anesthesia: ROCIO Surgeon: Frank Saavedra Estimated Blood Loss (ml): 0 Pathology: other Condition: stable Disposition: same day Operative Findings: This is a 53-year-old male patient was identified to have a right lower lobe mass which has been growing in size and that showed increased metabolic activity on a recent PET scan. Based on this, a diagnostic bronchoscopy was indicated This procedure was done in the operating room. The Vpads were applied to the patient's chest. The patient initially had a CAT scan of the chest for planning purposes. The CAT scan was uploaded into the [employer] navigational system. The right lower lobe lesion was mapped and all of the information was uploaded into a yesterday for and then downloaded into the [employer] Navigational tower. The patient was brought into the operating room. The patient was intubated and placed on a mechanical ventilator. The intubation procedure was done by [employer]. An adapter was attached to the orotracheal tube. Following that the flexible bronchoscope was introduced into the airway and a navigational bronchoscopy was initiated. Airway inspection was done and the visualized airways included the distal trachea, bilateral mainstem bronchi, right upper lobe bronchus, bronchus intermedius, right middle lobe bronchus, right lower lobe bronchus, left upper lobe bronchus and left lower lobe bronchus along with various segments and subsegments. All of these airways were patent with the exception of the lateral and the posterior segment of the right lower lobe which required atelectatic.. Following this, using the navigational guidance, the flexible bronchoscope was then directed to the posterior and the lateral segment of the right lower lobe. Using a navigational forceps, the different segments were used to approach the right lower lobe lesion. All of them led into. Multiple transbronchial biop sies were obtained. . At the end of the procedure, a bronchial alveolar lavage (BAL) was done without a total of 60 mL of saline was infused and 30 mL of aspirate was obtained from the lateral segment of the right middle lobe. No complications were encountered during the procedure. No bleeding. Total amount of blood loss was less than 5 mL. The bronchoscope was removed and the patient was subsequently extubated and transferred to recovery in stable condition. Chest x-ray will be done to rule out pneumothorax. If no complications, the patient was discharged home to be followed up with me to discuss results of the biopsy within a few weeks time.
[2018-11-25 20:28] LABS: Appearance,BF Bloody; Color,BF Red; Nucleated Cells, Body Fluid 450 /uL
[2018-11-25 20:29] LABS: RBC, Body Fluid 26750 /uL
[2018-11-25 20:56] LABS: Mononuclear WBC,Body Fluid 59 %; Polynuclear WBC,Body Fluid 32 %
== END 2018-11-25 15:08 | disposition home or self-care (01) ==
LOC: ORWHC2ENDO 09:40
PROVIDERS: ATTEND Internal Medicine Critical Care Medicine
DX: J84.89 Other specified interstitial pulmonary diseases (principal); J45.909 Unspecified asthma, uncomplicated; I34.0 Nonrheumatic mitral (valve) insufficiency; F41.9 Anxiety disorder, unspecified; Z80.7 Family history of other malignant neoplasms of lymphoid, hematopoietic and related tissues; M15.9 Polyosteoarthritis, unspecified; G90.4 Autonomic dysreflexia; R00.1 Bradycardia, unspecified; Z95.0 Presence of cardiac pacemaker; Z87.891 Personal history of nicotine dependence; M10.9 Gout, unspecified; Q61.3 Polycystic kidney, unspecified; I12.9 Hypertensive chronic kidney disease with stage 1 through stage 4 chronic kidney disease, or unspecified chronic kidney disease; N18.4 Chronic kidney disease, stage 4 (severe); G47.33 Obstructive sleep apnea (adult) (pediatric); Z79.82 Long term (current) use of aspirin; Z79.891 Long term (current) use of opiate analgesic
CPT/HCPCS: 88108; 88305; 89050; 88312; 87070; 87205; 71045; 71250; 31628; 31624; 31627; J2250; J2405

== ENCOUNTER → 2018-12-09 | Day surgery (SDC) | payer OTHER ==
[~2018-12-09] MED LIST changes: -ALBUTEROL NEB (CONC) 2.5 MG/0.5 ML INHALATION ONE; +ALPRAZolam 0.5 MG TAB PO STA; +HYDROcodone/APAP 5-325MG 1 EACH TAB PO PRN; -LACTATED RINGERS 1,000 ML IV SCH; -LIDOCAINE 1% 20 ML VIAL (10MG/ML) FOR IV START INTRADERMA PRN; -LIDOCAINE 2% (PF) 20 MG/ML 10 ML AMP INHALATION ONE; -LIDOCAINE VISCOUS 300 MG/15 ML CUP MUCOUS MEM ONE; -ONDANSETRON 4 MG/2 ML VIAL IVP ONE; -SODIUM CHLORIDE 0.9% 1,000 ML IV SCH
[2018-12-09 09:48] VITALS: RESP 20; TEMP 98.1
[2018-12-09 10:15] LABS: Mean Platelet Volume 7.7; Platelet Count 157 k/uL (150-450)
[2018-12-09 10:21] LABS: Prothrombin Time 10.9 sec (9.0-12.0)
--- NOTE | 2018-12-09 11:55 | XR ---
EXAMINATION TYPE: XR chest 2V DATE OF EXAM: 12/09/2018 COMPARISON: 11/25/2018 HISTORY: 53-year-old male status post right lung biopsy TECHNIQUE: Frontal and lateral views FINDINGS: Heart normal size. Aorta and pulmonary vasculature within normal limits. Left anterior chest wall pac emaker generator with right atrial and right ventricular leads. No appreciable pneumothorax. Focal me dial right basilar opacity corresponding to the patient's known mass. IMPRESSION: Focal medial right basilar opacity corresponding to patient's known masslike consolidation. No apprec iable pneumothorax.
--- NOTE | 2018-12-09 12:52 | CT ---
EXAMINATION TYPE: CT biopsy lung RT DATE OF EXAM: 12/09/2018 COMPARISON: CT scan 11/25/2018 HISTORY: Right lung mass with positive PET scan CT DLP: 817 mGycm The procedure is discussed with the patient, the risks, complications, benefits and alternatives, wer e discussed and any questions were answered. Informed consent was obtained. The patient is placed p prakash on the CT table, prepped and draped in the usual sterile fashion. Utilizing a 18-gauge core biopsy needle access into the right lower lobe mass was achieved with a sin gle sample obtained. Pathology pending. All elements of maximal barrier technique were utilized. T he patient remained stable throughout the procedure with no immediate postprocedural complication. IMPRESSION: 1. Successful CT guided core biopsy of a right lung mass
[2018-12-09 13:20] VITALS: PULSE 60
[2018-12-09 13:53] VITALS: BP 136/77
--- NOTE | 2018-12-09 13:55 | XR ---
EXAMINATION TYPE: XR chest 2V DATE OF EXAM: 12/09/2018 COMPARISON: Prior chest x-ray same dated earlier time. HISTORY: Post lung biopsy TECHNIQUE: Frontal and lateral views of the chest are obtained. FINDINGS: No interval change IMPRESSION: No evident complication status post lung biopsy.
== END ==
LOC: RADPROMAIN 09:16
PROVIDERS: ATTEND Internal Medicine Critical Care Medicine
DX: J84.89 Other specified interstitial pulmonary diseases (principal)
CPT/HCPCS: 36415; 71046; 77012; 85049; 85610; 88305

== ENCOUNTER 2018-12-22 15:17 | Observation (INO) | payer OTHER ==
[2018-12-22] MEDS ORDERED: SODIUM CHLORIDE 0.9% 1,000 ML IV STA (16:08)
[2018-12-22] MEDS ORDERED: MORPHINE SULFATE 4 MG/ML SYRINGE IV STA (16:08)
--- NOTE | 2018-12-22 16:17 | ED ---
General Adult HPI - General Chief complaint: Fall Stated complaint: RIB PAIN FROM FALL Time Seen by Provider: 12/22/18 15:55 Source: patient, RN notes reviewed, old records reviewed Mode of arrival: EMS Limitations: no limitations - History of Present Illness Initial comments: Patient is a 53-year-old male presents emergency Department today with compla ints of onset of right sided pleuritic chest pain worse with taking a deep breath and movements arms. Patient reports that yesterday he did trip and fall on outstretched hand. He states that since that time though he did not land on his ribs or have any chest pains. Patient reports that his symptoms started today while he is at home. Patient states that he has a history of lung nodules and had a recent CT-guided lung biopsy by Dr. Saavedra. Patient states that he does feel short of breath and had a few episodes of near syncopal. She also relates that he has been having intermittent fevers and chills, complains of night sweats. He states is been going on for the past 2-3 days. - Related Data Home Medications Medication Instructions Recorded Confirmed Aspirin EC [Ecotrin Low Dose] 81 mg PO DAILY 06/01/14 12/09/18 clonazePAM [KlonoPIN] 1 mg PO BID 06/01/14 12/09/18 Allopurinol [Zyloprim] 100 mg PO DAILY 03/27/18 12/09/18 Enalapril [Vasotec] 2.5 mg PO DAILY 03/27/18 12/09/18 Fluticasone Propionate [Flonase 1 spray EA NOSTRIL DAILY PRN 03/27/18 12/09/18 Allergy Relief] Mirtazapine [Remeron] 45 tab PO HS 03/27/18 12/09/18 Metoprolol Tartrate [Lopressor] 25 mg PO BID 10/17/18 12/09/18 PARoxetine [Paxil] 20 mg PO DAILY 10/17/18 12/09/18 busPIRone HCL [Buspar] 7.5 mg PO BID 10/17/18 12/09/18 Acetaminophen [Tylenol Arthritis] 650 mg PO DAILY PRN 11/05/18 12/09/18 Albuterol Inhaler [Ventolin Hfa 1 - 2 puff INHALATION RT-Q6H PRN 11/05/18 12/09/18 Inhaler] Allergies Allergy/AdvReac Type Severity Reaction Status Date / Time No Known Allergies Allergy Verified 12/09/18 10:29 Review of Systems ROS Statement: Those systems with pertinent positive or pertinent negative responses have been documented in the HPI. ROS Other: All systems not noted in ROS Statement are negative. Past Medical History Past Medical History: Asthma, Cancer, Chest Pain / Angina, COPD, Hypertension, Osteoarthritis (OA), Renal Disease Additional Past Medical History / Comment(s): Current cough, recent sinus infection, Severe mitral dysfunction-to have surgery soon, pleurisy x2, polycyctic kidney disease stage IV, migraines, chronic cervical and back pain, DDD, gout bilateral feet, RSD affecting legs, PATSY without device d/t kept getting respiratory infections, right lower lobe cancer History of Any Multi-Drug Resistant Organisms: None Reported Past Surgical History: Hernia Repair, Pacemaker Additional Past Surgical History / Comment(s): Pacemaker originally placed 2001, last gen change 2017, PASCALE, umbilical hernia repair, L leg tib/fib fracture with hardware-since removed, L thumb surgery-has rods, EGD, colonoscopy, blood patch after spinal anesthesia for headache Past Anesthesia/Blood Transfusion Reactions: Previous Problems w/ Anesthesia Additional Past Anesthesia/Blood Transfusion Reaction / Comment(s): NEVER RECIEVED BLOOD. Pt had spinal anesthesia with spinal headache and blood patch. Type of Cardiac Device: Permanent Pacemaker Device Placement Date:: 2001 Past Psychological History: Anxiety, Panic Disorder Smoking Status: Former smoker Past Alcohol Use History: None Reported Past Drug Use History: None Reported - Past Family History Father Family Medical History: Cancer, Myocardial Infarction ([place]) Additional Family Medical History / Comment(s): FATHER BONE CA AT AGE 70. HE HAD AORTIC ANEURYSM WITH SURGERY. Mother Family Medical History: Cancer, Deep Vein Thrombosis (DVT), Renal Disease Additional Family Medical History / Comment(s): MOTHER OF LYMPHOMA. MOTHER HAD TRANSPLANT OF KIDNEY. Sister(s) Family Medical History: Deep Vein Thrombosis (DVT), Pulmonary Embolus, Renal Disease Additional Family Medical History / Comment(s): POLYCYSTIC KIDNEY DISEASE WITH TRANSPLANT, General Exam - General Exam Comments Initial Comments: 53-year-old male. Alert and oriented. Patient appears in moderate discomfort. Limitations: no limitations General appearance: alert, in no apparent distress Head exam: Present: atraumatic, normocephalic, normal inspection Eye exam: Present: normal appearance, PERRL, EOMI. Absent: scleral icterus, conjunctival injection, periorbital swelling ENT exam: Present: normal exam Neck exam: Present: normal inspection. Absent: tenderness, meningismus, lymphadenopathy Respiratory exam: Present: normal lung sounds bilaterally, other (Reports pain with inspiration over the right lower lung field. Patient reports his history and the area over his masses or biopsy was completed.). Absent: respiratory distress, wheezes, rales, rhonchi, stridor Cardiovascular Exam: Present: regular rate, normal rhythm, normal heart sounds. Absent: systolic murmur, diastolic murmur, rubs, gallop, clicks GI/Abdominal exam: Present: soft, normal bowel sounds. Absent: distended, tenderness, guarding, rebound, rigid Extremities exam: Present: normal inspection, full ROM, normal capillary refill, other (Worsening and palpable mass over the left lower calf. Patient reports he fell 2 weeks ago causing bruising and swelling.). Absent: tenderness, pedal edema, joint swelling, calf tenderness Back exam: Present: normal inspection Psychiatric exam: Present: normal affect, normal mood Skin exam: Present: warm, dry, intact, normal color. Absent: rash Course Vital Signs 12/22/18 12/22/18 15:43 18:04 Temperature 98.2 F Pulse Rate 60 61 Respiratory 18 18 Rate Blood Pressure 129/77 144/100 O2 Sat by Pulse 97 98 Oximetry Medical Decision Making - Medical Decision Making 23-year-old male with recent history of lung biopsy presents emergency department today with onset of pleuritic right-sided chest pain, intermittent fevers and chills. He complains of near syncopal episodes as well as well. Upon arrival vital signs are stable. He arrived via EMS concerning was unable to drive as he was feeling lightheaded and weak. Patient reports that he had a trip and fall yesterday and landed on his outstretched hands but he denied any chest pain at that time. Patient has a history of polycystic kidney disease. At this time Patient shows evidence of acute kidney injury, creatinine increased at 2.62. Urinalysis completed. Patient does follow with Dr. Johnson. At this time with patient's intermittent fevers near syncope and description of patient's pain of concern for possibility of PE. Patient has elevated d-dimer of 3.0. Due to decreased kidney function and cannot do a computed tomography scan with contrast. Patient will receive a VQ scan. Patient and this time was initiated on high intensity heparin. I did discuss the case with Dr. obregon. I elected that the Patient for acute kidney injury, elevated d-dimer, pleuritic chest pain. Follow-up with results from his recent lung biopsy by Dr. Saavedra. Also noted the patient's chest x-ray does show possibility of atelectasis or posterior pneumonia. He denies any significant coughing and no leukocytosis. Will hold on antibiotics at this time. - Lab Data Result diagrams: 12/22/18 16:42 12/22/18 16:42 Lab Results 12/22/18 12/22/18 12/22/18 Range/Units 16:42 16:42 16:42 WBC 7.8 (3.8-10.6) k/uL RBC 5.09 (4.30-5.90) m/uL Hgb 14.0 (13.0-17.5) gm/dL Hct 44.8 (39.0-53.0) % MCV 88.1 (80.0-100.0) fL MCH 27.6 (25.0-35.0) pg MCHC 31.3 (31.0-37.0) g/dL RDW 14.5 (11.5-15.5) % Plt Count 377 D (150-450) k/uL Neutrophils % 66 % Lymphocytes % 13 % Monocytes % 8 % Eosinophils % 13 % Basophils % 1 % Neutrophils # 5.1 (1.3-7.7) k/uL Lymphocytes # 1.0 (1.0-4.8) k/uL Monocytes # 0.6 (0-1.0) k/uL Eosinophils # 1.0 H (0-0.7) k/uL Basophils # 0.0 (0-0.2) k/uL Hypochromasia Slight PT 10.4 (9.0-12.0) sec INR 1.0 (<1.2) APTT 27.7 (22.0-30.0) sec D-Dimer 3.00 H (<0.60) mg/L FEU Sodium 142 (137-145) mmol/L Potassium 4.8 (3.5-5.1) mmol/L Chloride 106 (98-107) mmol/L Carbon Dioxide 24 (22-30) mmol/L Anion Gap 12 mmol/L BUN 33 H (9-20) mg/dL Creatinine 2.62 H (0.66-1.25) mg/dL Est GFR (CKD-EPI)AfAm 31 (>60 ml/min/1.73 sqM) Est GFR (CKD-EPI)NonAf 27 (>60 ml/min/1.73 sqM) Glucose 96 (74-99) mg/dL Calcium 9.5 (8.4-10.2) mg/dL Magnesium 2.3 (1.6-2.3) mg/dL Total Bilirubin 0.5 (0.2-1.3) mg/dL AST 42 (17-59) U/L ALT 56 (21-72) U/L Alkaline Phosphatase 128 H (38-126) U/L Troponin I (0.000-0.034) ng/mL Total Protein 7.9 (6.3-8.2) g/dL Albumin 4.4 (3.5-5.0) g/dL Urine Color Urine Appearance (Clear) Urine pH (5.0-8.0) Ur Specific Marion (1.001-1.035) Urine Protein (Negative) Urine Glucose (UA) (Negative) Urine Ketones (Negative) Urine Blood (Negative) Urine Nitrite (Negative) Urine Bilirubin (Negative) Urine Urobilinogen (<2.0) mg/dL Ur Leukocyte Esterase (Negative) Urine RBC (0-5) /hpf Urine WBC (0-5) /hpf Amorphous Sediment (None) /hpf Urine Bacteria (None) /hpf Hyaline Casts (0-2) /lpf Urine Mucus (None) /hpf 12/22/18 12/22/18 Range/Units 16:42 18:00 WBC (3.8-10.6) k/uL RBC (4.30-5.90) m/uL Hgb (13.0-17.5) gm/dL Hct (39.0-53.0) % MCV (80.0-100.0) fL MCH (25.0-35.0) pg MCHC (31.0-37.0) g/dL RDW (11.5-15.5) % Plt Count (150-450) k/uL Neutrophils % % Lymphocytes % % Monocytes % % Eosinophils % % Basophils % % Neutrophils # (1.3-7.7) k/uL Lymphocytes # (1.0-4.8) k/uL Monocytes # (0-1.0) k/uL Eosinophils # (0-0.7) k/uL Basophils # (0-0.2) k/uL Hypochromasia PT (9.0-12.0) sec INR (<1.2) APTT (22.0-30.0) sec D-Dimer (<0.60) mg/L FEU Sodium (137-145) mmol/L Potassium (3.5-5.1) mmol/L Chloride (98-107) mmol/L Carbon Dioxide (22-30) mmol/L Anion Gap mmol/L BUN (9-20) mg/dL Creatinine (0.66-1.25) mg/dL Est GFR (CKD-EPI)AfAm (>60 ml/min/1.73 sqM) Est GFR (CKD-EPI)NonAf (>60 ml/min/1.73 sqM) Glucose (74-99) mg/dL Calcium (8.4-10.2) mg/dL Magnesium (1.6-2.3) mg/dL Total Bilirubin (0.2-1.3) mg/dL AST (17-59) U/L ALT (21-72) U/L Alkaline Phosphatase (38-126) U/L Troponin I <0.012 (0.000-0.034) ng/mL Total Protein (6.3-8.2) g/dL Albumin (3.5-5.0) g/dL Urine Color Colorless Urine Appearance Clear (Clear) Urine pH 5.0 (5.0-8.0) Ur Specific Marion 1.004 (1.001-1.035) Urine Protein Negative (Negative) Urine Glucose (UA) Negative (Negative) Urine Ketones Negative (Negative) Urine Blood Moderate H (Negative) Urine Nitrite Negative (Negative) Urine Bilirubin Negative (Negative) Urine Urobilinogen <2.0 (<2.0) mg/dL Ur Leukocyte Esterase Negative (Negative) Urine RBC 1 (0-5) /hpf Urine WBC 5 (0-5) /hpf Amorphous Sediment Rare H (None) /hpf Urine Bacteria Rare H (None) /hpf Hyaline Casts 1 (0-2) /lpf Urine Mucus Rare H (None) /hpf 12/22/18 18:39 Atrial paced rhythm, abnormal EKG. Ventricular rate of 61 beats were minute period. It was 22 ms. QS ration 80 ms. QT QTc is 48/410 ms. - Radiology Data Radiology results: report reviewed Mild subsegmental atelectasis or posterior pneumonia. Follow-up as recommended. No pneumothorax is evident. Disposition Clinical Impression: Polycystic kidney, RENETTA (acute kidney injury), Elevated d-dimer, Pleuritic chest pain, Right lower lobe lung mass, Near syncope Disposition: ADMITTED IP TO THIS HOSP Condition: Stable Is patient prescribed a controlled substance at d/c from ED?: No Referrals: Mukesh Hernandez DO [Primary Care Provider] - 1-2 days Time of Disposition: 19:01
[2018-12-22 16:57] LABS: Basophils % (A) 1 %; Eosinophils % (A) 13 %; HCT 44.8 % (39.0-53.0); Hypochromasia Slight; Lymphocytes % (A) 13 %; MCH 27.6 pg (25.0-35.0); MCHC 31.3 g/dL (31.0-37.0); MCV 88.1 fL (80.0-100.0); Mean Platelet Volume 7.4; Monocytes # (A) 0.6 k/uL (0-1.0); Monocytes % (A) 8 %; Neutrophils # (A) 5.1 k/uL (1.3-7.7); Neutrophils % (A) 66 %; RBC 5.09 m/uL (4.30-5.90); RDW 14.5 % (11.5-15.5); WBC 7.8 k/uL (3.8-10.6)
[2018-12-22 16:59] LABS: Platelet Count 377 k/uL (150-450)
[2018-12-22 17:09] LABS: Albumin 4.4 g/dL (3.5-5.0); Calcium 9.5 mg/dL (8.4-10.2); Magnesium 2.3 mg/dL (1.6-2.3); Potassium 4.8 mmol/L (3.5-5.1); Total Bilirubin 0.5 mg/dL (0.2-1.3); Total Protein 7.9 g/dL (6.3-8.2)
[2018-12-22 17:14] LABS: Partial Thromboplastin Time 27.7 sec (22.0-30.0); Prothrombin Time 10.4 sec (9.0-12.0)
[2018-12-22] MEDS ORDERED: HEPARIN SODIUM,PORCINE 5,000 UNIT/ML 1 ML VIAL IV PRN (18:16)
[2018-12-22] MEDS ORDERED: HEPARIN SODIUM,PORCINE 10,000 UNIT/ML 1 ML VIAL IV ONE (18:16)
--- NOTE | 2018-12-22 18:18 | XR ---
EXAMINATION TYPE: XR chest 2V DATE OF EXAM: 12/22/2018 COMPARISON: 12/09/2018 INDICATION: Chest pain right lower rib pain following fall TECHNIQUE: Frontal and lateral views of the chest are obtained. FINDINGS: The heart size is normal. The pulmonary vasculature is normal. Mild bibasilar infiltrates are present. This may be slightly greater on the lateral projection. Corre late for subsegmental atelectasis. Small posterior pneumonia should be considered. No pneumothorax is evident. No displaced rib fractures are identified. Pacemaker overlies left chest.. Preliminary res ults were discussed with the PA by Dr. Melendez by telephone at time of interpretation. IMPRESSION: 1. Mild subsegmental atelectasis or posterior pneumonia. Follow-up is recommended. 2. No pneumothorax is evident.
[2018-12-22] MEDS ORDERED: HYDROmorphone 1 MG/ML 1 ML SYRINGE IVP STA (18:30)
[2018-12-22 18:41] LABS: Amorphous Sediment,Urine Rare /hpf; Appearance,Urine Clear (Clear); Bacteria,Urine Rare /hpf; Bilirubin,Urine Negative (Negative); Blood,Urine Moderate (Negative); Color,Urine Colorless; Glucose,Urine (UA) Negative (Negative); Hyaline Casts,Urine 1 /lpf (0-2); Ketones,Urine Negative (Negative); Leukocyte Esterase,Urine Negative (Negative); Mucus,Urine Rare /hpf; Nitrite,Urine Negative (Negative); Protein,Urine Negative (Negative); RBC,Urine 1 /hpf (0-5); Specific Gravity,Urine 1.004 (1.001-1.035); Urobilinogen,Urine <2.0 mg/dL (<2.0); WBC,Urine 5 /hpf (0-5)
[2018-12-22] MEDS: HEPARIN SOD,PORK IN 0.45% NACL 25,000 UNIT in 0.45% NACL 1 250ML.BAG IV SCH (18:59)
[2018-12-22] MEDS ORDERED: ONDANSETRON 4 MG/2 ML VIAL IVP PRN (19:02)
[2018-12-22] MEDS ORDERED: NALOXONE 0.4 MG/ML 1 ML VIAL IV PRN (19:02)
[2018-12-22] MEDS: SODIUM CHLORIDE 0.9% 1,000 ML IV SCH (19:04)
[2018-12-22] MEDS ORDERED: LORazepam 1 MG TAB PO STA (19:33)
--- NOTE | 2018-12-22 19:54 | US ---
EXAMINATION TYPE: US venous doppler duplex LE LT DATE OF EXAM: 12/22/2018 7:23 PM COMPARISON: NONE CLINICAL HISTORY: Pain. Fell and hit left calf 1 week ago, pain in left leg, lump left calf SIDE PERFORMED: Left TECHNIQUE: The lower extremity deep venous system is examined utilizing real time linear array sonog nico with graded compression, doppler sonography and color-flow sonography. VESSELS IMAGED: External Iliac Vein (EIV) Common Femoral Vein Deep Femoral Vein Greater Saphenous Vein * Femoral Vein Popliteal Vein Small Saphenous Vein * Proximal Calf Veins (* superficial vessels) Left Leg: Negative for DVT At the left calf at the patient's area of his palpable lump, there is a anechoic area visualized john uring 3.0 x 1.0 x 2.6 cm IMPRESSION: 1. Left lower extremity ultrasound negative for deep venous thrombosis. 2. At the palpable abnormality in the calf there is a complex appearing collection. Correlate for hem atoma.
--- NOTE | 2018-12-22 21:10 | NM ---
EXAMINATION TYPE: NM pul vent and perfuse DATE OF EXAM: 12/22/2018 COMPARISON: 12/22/2018 HISTORY: Right pleuritic chest pain elevated d-dimer TECHNIQUE: Utilizing inhalation of 37 mCi Tc 99m DTPA aerosol and intravenous injection of 4.85 mCi of Tc 99m MAA, ventilation and perfusion images are acquired post injection in multiple projections. FINDINGS: Small defect is in the inferior right lung base on the LPO image. This appears to be matched. Moderat dorian large mismatched defects are not evident. No triple matched defects are evident. IMPRESSION: Low probability for pulmonary embolism
[2018-12-22 21:51] VITALS: BMI 25.5
[2018-12-22] MEDS ORDERED: FLUTICASONE 50MCG/SPRAY NASAL 16GM EA NOSTRIL PRN (22:44)
[2018-12-23] MEDS: traMADol 50 MG TAB PO PRN ×3 (00:08→11:03)
[2018-12-23] MEDS: SODIUM CHLORIDE 0.9% 1,000 ML IV SCH ×2 (05:48→14:16)
[2018-12-23] MEDS ORDERED: MORPHINE SULFATE 2 MG/ML SYRINGE IVP STA (06:40)
[2018-12-23] MEDS: METOPROLOL TARTRATE 25 MG TAB PO SCH ×2 (07:13→14:15)
[2018-12-23] MEDS: busPIRone HCl 5 MG TAB PO SCH ×2 (07:18→14:15)
[2018-12-23] MEDS ORDERED: HEPARIN SODIUM,PORCINE 5,000 UNIT/ML 1 ML VIAL IV STA (08:20)
[2018-12-23] MEDS ORDERED: PANTOPRAZOLE 40 MG/10 ML VIAL IV SCH (09:00)
[2018-12-23] MEDS ORDERED: ASPIRIN 81 MG PO SCH (09:00)
[2018-12-23] MEDS ORDERED: ALLOPURINOL 100 MG TAB PO SCH (09:00)
[2018-12-23 09:05] LABS: Basophils % (A) 1 %; Eosinophils # (A) 0.6 k/uL (0-0.7); Eosinophils % (A) 9 %; HCT 37.8 % (39.0-53.0); HGB 11.5 gm/dL (13.0-17.5); Hypochromasia Marked; Lymphocytes # (A) 0.6 k/uL (1.0-4.8); Lymphocytes % (A) 10 %; MCH 27.9 pg (25.0-35.0); MCHC 30.3 g/dL (31.0-37.0); MCV 91.8 fL (80.0-100.0); Mean Platelet Volume 7.5; Monocytes # (A) 0.5 k/uL (0-1.0); Monocytes % (A) 8 %; Neutrophils # (A) 4.5 k/uL (1.3-7.7); Neutrophils % (A) 71 %; Platelet Count 275 k/uL (150-450); RBC 4.12 m/uL (4.30-5.90); RDW 14.3 % (11.5-15.5); WBC 6.3 k/uL (3.8-10.6)
[2018-12-23] MEDS: HEPARIN SOD,PORK IN 0.45% NACL 25,000 UNIT in 0.45% NACL 1 250ML.BAG IV SCH (10:23)
[2018-12-23 10:51] LABS: Poikilocytosis (M) Present
[2018-12-23 12:08] VITALS: BP 124/87; RESP 22; TEMP 98.2
[2018-12-23] MEDS ORDERED: HYDROmorphone 0.5 MG/0.5 ML SYRINGE IM PRN (12:19)
[2018-12-23] MEDS ORDERED: HYDROmorphone 0.5 MG/0.5 ML SYRINGE IVP PRN (12:28)
[2018-12-23 14:54] VITALS: PULSE 60
--- NOTE | 2018-12-23 15:05 | P.NPCON ---
History of Present Illness - Reason for Consult Consult date: 12/23/18 acute renal failure - Chief Complaint Chest pain with pleuritic characteristic - History of Present Illness This is a 53-year-old male known with ultrasound dominant polycystic kidney disease who came in because of right-sided anterior chest wall pleuritic chest pain for last 2 or 3 days. The pain now has also moved over to the right flank area as well as right groin area. No fever chills no cough. He did fall just before this pain but the pain did not occur immediately after the fall. Workup has shown no evidence of pulmonary embolism based on a lung perfusion scan. Patient known with chronic kidney disease creatinine has been 1.89 dated 10/17/2018 and currently is 2.6 History have some minimal hematuria. Other than this he has been known with a suspicion lung cancer and had a lung biopsy on 12/09/2018 supposedly is negative. His had multiple scans including PET scans He is scheduled to have valve surgery but with the possibility of lung cancer and this has been on hold. Patient is not on JYNARQUE for his autosomal dominant polycystic kidney disease, pending clearance from the cancer No history of any rash to suggest zoster at this time. Dysuria frequency. No shortness of breath. Past Medical History Past Medical History: Asthma, Cancer, Chest Pain / Angina, COPD, Hypertension, Osteoarthritis (OA), Renal Disease Additional Past Medical History / Comment(s): Current cough, recent sinus infection, Severe mitral dysfunction-to have surgery soon, pleurisy x2, polycyctic kidney disease stage IV, migraines, chronic cervical and back pain, DDD, gout bilateral feet, RSD affecting legs, PATSY without device d/t kept getting respiratory infections, right lower lobe nodule History of Any Multi-Drug Resistant Organisms: None Reported Past Surgical History: Hernia Repair, Pacemaker Additional Past Surgical History / Comment(s): Pacemaker originally placed 2001, last gen change 2017, PASCALE, umbilical hernia repair, L leg tib/fib fracture with hardware-since removed, L thumb surgery-has rods, EGD, colonoscopy, blood patch after spinal anesthesia for headache, 12/09/18 lung biopsy Past Anesthesia/Blood Transfusion Reactions: Previous Problems w/ Anesthesia Additional Past Anesthesia/Blood Transfusion Reaction / Comment(s): NEVER RECIEVED BLOOD. Pt had spinal anesthesia with spinal headache and blood patch. Type of Cardiac Device: Permanent Pacemaker Device Placement Date:: 2001 Past Psychological History: Anxiety, Panic Disorder Additional Psychological History / Comment(s): PT LIVES AT HOME. PT PERFORMS HIS OWN ADL'S AND IS SELF EFFICIENT. HE DRIVES. HE WORKS. Smoking Status: Former smoker Past Alcohol Use History: None Reported Additional Past Alcohol Use History / Comment(s): Pt started smoking in 1983 and quit in 2001. Past Drug Use History: None Reported - Past Family History Father Family Medical History: Cancer, Myocardial Infarction ([place]) Additional Family Medical History / Comment(s): FATHER BONE CA AT AGE 70. HE HAD AORTIC ANEURYSM WITH SURGERY. Mother Family Medical History: Cancer, Deep Vein Thrombosis (DVT), Renal Disease Additional Family Medical History / Comment(s): MOTHER OF LYMPHOMA. MOTHER HAD TRANSPLANT OF KIDNEY. Sister(s) Family Medical History: Deep Vein Thrombosis (DVT), Pulmonary Embolus, Renal Disease Additional Family Medical History / Comment(s): POLYCYSTIC KIDNEY DISEASE WITH TRANSPLANT, Medications and Allergies Home Medications Medication Instructions Recorded Confirmed Type Aspirin EC [Ecotrin Low Dose] 81 mg PO DAILY 06/01/14 12/22/18 History clonazePAM [KlonoPIN] 1 mg PO TID 06/01/14 12/22/18 History Allopurinol [Zyloprim] 100 mg PO DAILY 03/27/18 12/22/18 History Enalapril [Vasotec] 2.5 mg PO DAILY 03/27/18 12/22/18 History Fluticasone Propionate [Flonase 1 spray EA NOSTRIL DAILY PRN 03/27/18 12/22/18 History Allergy Relief] Mirtazapine [Remeron] 45 mg PO HS 03/27/18 12/23/18 History Metoprolol Tartrate [Lopressor] 25 mg PO BID@0900,1400 10/17/18 12/22/18 History PARoxetine [Paxil] 20 mg PO DAILY 10/17/18 12/22/18 History busPIRone HCL [Buspar] 7.5 mg PO BID@0900,1400 10/17/18 12/22/18 History Allergies Allergy/AdvReac Type Severity Reaction Status Date / Time No Known Allergies Allergy Verified 12/22/18 21:14 Physical Exam Vitals: Vital Signs Temp Pulse Pulse Resp BP BP Pulse Ox 12/23/18 14:52 60 22 12/23/18 11:30 98.2 F 62 22 124/87 98 12/23/18 05:08 98.1 F 61 24 148/80 98 12/22/18 23:00 98.2 F 58 L 18 135/83 98 12/22/18 21:10 98 F 63 18 135/83 96 12/22/18 19:39 61 18 126/90 98 12/22/18 18:04 61 18 144/100 98 12/22/18 15:43 98.2 F 60 18 129/77 97 Intake and Output 12/22/18 12/23/18 12/23/18 22:59 06:59 14:59 Intake Total 590 2480.591 Balance 590 2480.591 Intake: Intake, IV Titration 1330.591 Amount Heparin Sod,Pork in 0.45% 230.591 NaCl 25,000 unit In 0.45 % NaCl 1 250ml.bag @ 18 UNITS/KG/HR 14.533 mls/hr IV .[id number] [facility] Rx#: [id number] Sodium Chloride 0.9% 1, 1100 000 ml @ 100 mls/hr IV . Q10H [facility] Rx#:[id number] Oral 590 1150 Other: Voiding Method Toilet Toilet Urinal # Voids 1 1 4 Weight 80.739 kg On examination is awake alert oriented but in pain HEENT exam no JVP neck is supple no facial asymmetry Lungs are clear to auscultation with fair air entry somewhat diminished inspira tory effort because of the pain Heart sounds are unremarkable for any murmur rub gallop Abdomen soft nontender. He was guarding his abdomen because of the pain Extremity exam reveals no edema Neurologically awake alert oriented focal motor deficit Results - Lab Results Most recent lab results Calcium 9.5 mg/dL (8.4-10.2) 12/22/18 16:42 Magnesium 2.3 mg/dL (1.6-2.3) 12/22/18 16:42 12/23/18 07:14 12/22/18 16:42 Assessment and Plan Assessment: Impression 1. Autosomal dominant polycystic kidney disease. Chronic kidney disease stage III creatinine 1.89 baseline dated 10/17/2018. 2. Acute kidney injury secondary to pain and prerenal state creatinine up to 2.6. 3. Admitted with pleuritic acute chest pain. Rule out PE by lung scan. Possibility of herpes zoster is being considered although thought to be unlikely. Other possibilities cyst rupture and pain after the fall. 4. Anemia with hemoglobin going down from 14 yesterday to 11.5 today. Recommendation 1. Patient can be discharged. 2. Watch for appearance of zoster lesions. 3. Follow-up anemia
--- NOTE | 2018-12-23 15:23 | P.HPIM ---
History of Present Illness 53-year-old male came in with complaints of chest pain musculoskeletal has been going on for last 2-3 days had a fall before this but the the fall and chest pain doesn't coincide. Patient denied any diaphoresis no radiation of chest pain localized to the chest to some pleuritic competent denied any fever chills patient does not have any pneumonia on the chest x-ray patient does have autosomal dominant polycystic kidney disease with chronic Kidney disease stage IV baseline creatinine of 1.8 now up to 2.6. Patient is now complaining of pain in the right the flank area. Patient underwent extensive workup patient does not have any pneumonia chest pain is noncardiac in nature did have elevated d- dimer because of which patient underwent a VQ scan which was negative for any pulmonary embolism and patient also had swelling of the left the leg which did not show any DVT swelling appears to be secondary to hematoma from his recent fall no fractures were evident. She appears to have coasto-chondritis and musculoskeletal pain, my suspicion is low for pleurisy or pericarditis unfortunately we cannot use any other an assays patient may use extra strength Tylenol and if needed tramadol for pain. Review of Systems REVIEW OF SYSTEMS: CONSTITUTIONAL: No fever, no malaise, no fatigue. HEENT: No recent visual problems or hearing problems. Denied any sore throat. CARDIOVASCULAR: No orthopnea, PND, no palpitations, no syncope. PULMONARY: No shortness of breath, no cough, no hemoptysis. GASTROINTESTINAL: No diarrhea, no nausea, no vomiting, no abdominal pain. NEUROLOGICAL: No headaches, no weakness, no numbness. HEMATOLOGICAL: Denies any bleeding or petechiae. GENITOURINARY: Denies any burning micturition, frequency, or urgency. MUSCULOSKELETAL/RHEUMATOLOGICAL: Denies any joint pain, swelling, or any muscle pain. ENDOCRINE: Denies any polyuria or polydipsia. The rest of the 14-point review of systems is negative. Past Medical History Past Medical History: Asthma, Cancer, Chest Pain / Angina, COPD, Hypertension, Osteoarthritis (OA), Renal Disease Additional Past Medical History / Comment(s): Current cough, recent sinus infection, Severe mitral dysfunction-to have surgery soon, pleurisy x2, polycyctic kidney disease stage IV, migraines, chronic cervical and back pain, DDD, gout bilateral feet, RSD affecting legs, PATSY without device d/t kept getting respiratory infections, right lower lobe nodule History of Any Multi-Drug Resistant Organisms: None Reported Past Surgical History: Hernia Repair, Pacemaker Additional Past Surgical History / Comment(s): Pacemaker originally placed 2001, last gen change 2017, PASCALE, umbilical hernia repair, L leg tib/fib fracture with hardware-since removed, L thumb surgery-has rods, EGD, colonoscopy, blood patch after spinal anesthesia for headache, 12/09/18 lung biopsy Past Anesthesia/Blood Transfusion Reactions: Previous Problems w/ Anesthesia Additional Past Anesthesia/Blood Transfusion Reaction / Comment(s): NEVER RECIEVED BLOOD. Pt had spinal anesthesia with spinal headache and blood patch. Type of Cardiac Device: Permanent Pacemaker Device Placement Date:: 2001 Past Psychological History: Anxiety, Panic Disorder Additional Psychological History / Comment(s): PT LIVES AT HOME. PT PERFORMS HIS OWN ADL'S AND IS SELF EFFICIENT. HE DRIVES. HE WORKS. Smoking Status: Former smoker Past Alcohol Use History: None Reported Additional Past Alcohol Use History / Comment(s): Pt started smoking in 1983 and quit in 2001. Past Drug Use History: None Reported - Past Family History Father Family Medical History: Cancer, Myocardial Infarction ([place]) Additional Family Medical History / Comment(s): FATHER BONE CA AT AGE 70. HE HAD AORTIC ANEURYSM WITH SURGERY. Mother Family Medical History: Cancer, Deep Vein Thrombosis (DVT), Renal Disease Additional Family Medical History / Comment(s): MOTHER OF LYMPHOMA. MOTHER HAD TRANSPLANT OF KIDNEY. Sister(s) Family Medical History: Deep Vein Thrombosis (DVT), Pulmonary Embolus, Renal Disease Additional Family Medical History / Comment(s): POLYCYSTIC KIDNEY DISEASE WITH TRANSPLANT, Medications and Allergies Home Medications Medication Instructions Recorded Confirmed Type Aspirin EC [Ecotrin Low Dose] 81 mg PO DAILY 06/01/14 12/22/18 History clonazePAM [KlonoPIN] 1 mg PO TID 06/01/14 12/22/18 History Allopurinol [Zyloprim] 100 mg PO DAILY 03/27/18 12/22/18 History Enalapril [Vasotec] 2.5 mg PO DAILY 03/27/18 12/22/18 History Fluticasone Propionate [Flonase 1 spray EA NOSTRIL DAILY PRN 03/27/18 12/22/18 History Allergy Relief] Mirtazapine [Remeron] 45 mg PO HS 03/27/18 12/23/18 History Metoprolol Tartrate [Lopressor] 25 mg PO BID@0900,1400 10/17/18 12/22/18 History PARoxetine [Paxil] 20 mg PO DAILY 10/17/18 12/22/18 History busPIRone HCL [Buspar] 7.5 mg PO BID@0900,1400 10/17/18 12/22/18 History traMADol HCl [Ultram] 50 mg PO QID PRN #12 tab 12/23/18 Rx Allergies Allergy/AdvReac Type Severity Reaction Status Date / Time No Known Allergies Allergy Verified 12/22/18 21:14 Physical Exam Vitals: Vital Signs Temp Pulse Pulse Resp BP BP Pulse Ox 12/23/18 14:52 60 22 12/23/18 11:30 98.2 F 62 22 124/87 98 12/23/18 05:08 98.1 F 61 24 148/80 98 12/22/18 23:00 98.2 F 58 L 18 135/83 98 12/22/18 21:10 98 F 63 18 135/83 96 12/22/18 19:39 61 18 126/90 98 12/22/18 18:04 61 18 144/100 98 12/22/18 15:43 98.2 F 60 18 129/77 97 Intake and Output 12/23/18 12/23/18 12/23/18 06:59 14:59 22:59 Intake Total 590 2480.591 Balance 590 2480.591 Intake: Intake, IV Titration 1330.591 Amount Heparin Sod,Pork in 0.45% 230.591 NaCl 25,000 unit In 0.45 % NaCl 1 250ml.bag @ 18 UNITS/KG/HR 14.533 mls/hr IV .[id number] [facility] Rx#: [id number] Sodium Chloride 0.9% 1, 1100 000 ml @ 100 mls/hr IV . Q10H [facility] Rx#:[id number] Oral 590 1150 Other: Voiding Method Toilet Urinal # Voids 1 4 PHYSICAL EXAMINATION: GENERAL: The patient is alert and oriented x3, not in any acute distress. Well developed, well nourished. HEENT: Pupils are round and equally reacting to light. EOMI. No scleral icterus. No conjunctival pallor. Normocephalic, atraumatic. No pharyngeal erythema. No thyromegaly. CARDIOVASCULAR: S1 and S2 present. No murmurs, rubs, or gallops. Tenderness of the chest PULMONARY: Chest is clear to auscultation, no wheezing or crackles. ABDOMEN: Soft, nontender, nondistended, normoactive bowel sounds. No palpable organomegaly. MUSCULOSKELETAL: No joint swelling or deformity. EXTREMITIES: No cyanosis, clubbing, or pedal edema. NEUROLOGICAL: Gross neurological examination did not reveal any focal deficits. SKIN: No rashes. Results CBC & Chem 7: 12/23/18 07:14 12/22/18 16:42 Labs: Abnormal Lab Results - Last 24 Hours (Table) 12/22/18 12/22/18 12/22/18 Range/Units 16:42 16:42 16:42 RBC (4.30-5.90) m/uL Hgb (13.0-17.5) gm/dL Hct (39.0-53.0) % MCHC (31.0-37.0) g/dL Lymphocytes # (1.0-4.8) k/uL Eosinophils # 1.0 H (0-0.7) k/uL APTT (22.0-30.0) sec D-Dimer 3.00 H (<0.60) mg/L FEU BUN 33 H (9-20) mg/dL Creatinine 2.62 H (0.66-1.25) mg/dL Alkaline Phosphatase 128 H (38-126) U/L Urine Blood (Negative) Amorphous Sediment (None) /hpf Urine Bacteria (None) /hpf Urine Mucus (None) /hpf 12/22/18 12/23/18 12/23/18 Range/Units 18:00 00:19 07:14 RBC 4.12 L (4.30-5.90) m/uL Hgb 11.5 L (13.0-17.5) gm/dL Hct 37.8 L (39.0-53.0) % MCHC 30.3 L (31.0-37.0) g/dL Lymphocytes # 0.6 L (1.0-4.8) k/uL Eosinophils # (0-0.7) k/uL APTT 68.4 H (22.0-30.0) sec D-Dimer (<0.60) mg/L FEU BUN (9-20) mg/dL Creatinine (0.66-1.25) mg/dL Alkaline Phosphatase (38-126) U/L Urine Blood Moderate H (Negative) Amorphous Sediment Rare H (None) /hpf Urine Bacteria Rare H (None) /hpf Urine Mucus Rare H (None) /hpf 12/23/18 Range/Units 07:14 RBC (4.30-5.90) m/uL Hgb (13.0-17.5) gm/dL Hct (39.0-53.0) % MCHC (31.0-37.0) g/dL Lymphocytes # (1.0-4.8) k/uL Eosinophils # (0-0.7) k/uL APTT 37.9 H (22.0-30.0) sec D-Dimer (<0.60) mg/L FEU BUN (9-20) mg/dL Creatinine (0.66-1.25) mg/dL Alkaline Phosphatase (38-126) U/L Urine Blood (Negative) Amorphous Sediment (None) /hpf Urine Bacteria (None) /hpf Urine Mucus (None) /hpf Thrombosis Risk Factor Assmnt - Choose All That Apply Each Factor Represents 1 point: Abnormal pulmonary function (COPD), Age 41-60 years Thrombosis Risk Factor Assessment Total Risk Factor Score: 2 Thrombosis Risk Factor Assessment Level: Low Risk Assessment and Plan Plan: -Chest pain mostly secondary to costochondritis/musculoskeletal. Ruled out pul monary embolism no suspicion for pleurisy no pneumonia. -Acute renal failure on chronic kidney disease nephrology evaluated the patient patient has minimally elevated creatinine were the baseline patient will be monitored as an outpatient. From a nephrology perspective to be discharged -Autosomal dominant polycystic kidney disease -COPD without any acute exacerbation -Hypertension -Severe mitral regurgitation -Chronic low back pain degenerative joint disease -Anxiety disorder Patient will be discharged today and tramadol as mentioned above asked him to avoid even tramadol and try and use extra strength Tylenol.
--- NOTE | 2018-12-23 15:23 | P.DS ---
Providers Date of admission: 12/22/18 19:05 Attending physician: Levi Foster MD Consults: 12/22/18 19:02 Consult Physician Stat Consulting Provider: Aileen Johnson Consult Reason/Comments: opal, pckd Do you want consulting provider notified?: Yes Primary care physician: Mukesh Hernandez [facility] Course: Please of her dementia for further details Patient Condition at Discharge: Stable Plan - Discharge Summary Discharge Rx Participant: No New Discharge Prescriptions: New traMADol HCl [Ultram] 50 mg PO QID PRN #12 tab PRN Reason: Pain Continue clonazePAM [KlonoPIN] 1 mg PO TID Aspirin EC [Ecotrin Low Dose] 81 mg PO DAILY Enalapril [Vasotec] 2.5 mg PO DAILY Allopurinol [Zyloprim] 100 mg PO DAILY Mirtazapine [Remeron] 45 mg PO HS Fluticasone Propionate [Flonase Allergy Relief] 1 spray EA NOSTRIL DAILY PRN PRN Reason: Allergy Symptoms PARoxetine [Paxil] 20 mg PO DAILY Metoprolol Tartrate [Lopressor] 25 mg PO BID@0900,1400 busPIRone HCL [Buspar] 7.5 mg PO BID@0900,1400 Discharge Medication List Aspirin EC [Ecotrin Low Dose] 81 mg PO DAILY 06/01/14 [History] clonazePAM [KlonoPIN] 1 mg PO TID 06/01/14 [History] Allopurinol [Zyloprim] 100 mg PO DAILY 03/27/18 [History] Enalapril [Vasotec] 2.5 mg PO DAILY 03/27/18 [History] Fluticasone Propionate [Flonase Allergy Relief] 1 spray EA NOSTRIL DAILY PRN 03/27/18 [History] Mirtazapine [Remeron] 45 mg PO HS 03/27/18 [History] Metoprolol Tartrate [Lopressor] 25 mg PO BID@0900,1400 10/17/18 [History] PARoxetine [Paxil] 20 mg PO DAILY 10/17/18 [History] busPIRone HCL [Buspar] 7.5 mg PO BID@0900,1400 10/17/18 [History] traMADol HCl [Ultram] 50 mg PO QID PRN #12 tab 12/23/18 [Rx] Follow up Appointment(s)/Referral(s): Mukesh Hernandez, [Primary Care Provider] - 3 Days (Patient to call Dr. Hernandez's office Sunday morning to schedule follow up appointment. The office is closed at time of discharge. ) Patient Instructions/Handouts: Tramadol (By mouth), Acute Kidney Injury (DC), Syncope (DC), Autosomal Dominant Polycystic Kidney Disease (DC)
[2018-12-23] MEDS ORDERED: MIRTAZAPINE 45 MG TABLET PO SCH ×2 (21:00)
== END 2018-12-23 16:10 | disposition home or self-care (01) ==
LOC: EC 15:17 → INTOOBSV 19:05 → 3NMEDONC 19:05
PROVIDERS: ADMIT Internal Medicine; ATTEND Internal Medicine
DX: M94.0 Chondrocostal junction syndrome [Tietze] (principal); J98.11 Atelectasis; N17.9 Acute kidney failure, unspecified; I12.9 Hypertensive chronic kidney disease with stage 1 through stage 4 chronic kidney disease, or unspecified chronic kidney disease; N18.3 Chronic kidney disease, stage 3 (moderate); Q61.2 Polycystic kidney, adult type; R07.81 Pleurodynia; D64.9 Anemia, unspecified; F41.0 Panic disorder [episodic paroxysmal anxiety]; G47.33 Obstructive sleep apnea (adult) (pediatric); G89.29 Other chronic pain; M54.2 Cervicalgia; M54.5 Low back pain; M10.9 Gout, unspecified; G43.909 Migraine, unspecified, not intractable, without status migrainosus; I34.0 Nonrheumatic mitral (valve) insufficiency; R55 Syncope and collapse; R79.89 Other specified abnormal findings of blood chemistry; J44.9 Chronic obstructive pulmonary disease, unspecified; R91.8 Other nonspecific abnormal finding of lung field; F41.9 Anxiety disorder, unspecified; M47.9 Spondylosis, unspecified; Z99.89 Dependence on other enabling machines and devices; R22.42 Localized swelling, mass and lump, left lower limb; W01.0XXA Fall on same level from slipping, tripping and stumbling without subsequent striking against object, initial encounter; Z79.82 Long term (current) use of aspirin; Z79.899 Other long term (current) drug therapy; Z87.891 Personal history of nicotine dependence; Z95.0 Presence of cardiac pacemaker; Z80.7 Family history of other malignant neoplasms of lymphoid, hematopoietic and related tissues; Z82.49 Family history of ischemic heart disease and other diseases of the circulatory system; Z82.71 Family history of polycystic kidney; Z83.2 Family history of diseases of the blood and blood-forming organs and certain disorders involving the immune mechanism; Z80.8 Family history of malignant neoplasm of other organs or systems
CPT/HCPCS: 96376 ×2; 96366 ×3; 96375 ×2; 96361; 96365; 99285; 36415; 93005; 85379; 80053; 83735; 84484; 85025 ×2; 85610; 85730 ×2; 81001; 71046; 93971; 78582; G0378 ×2; A9540; A9567; J2270 ×2; J1644 ×4; J1170 ×2; C9113

== ENCOUNTER → 2019-01-17 | Outpatient (CLI) | payer OTHER ==
--- NOTE | 2019-01-17 14:50 | CT ---
EXAMINATION TYPE: CT chest wo con DATE OF EXAM: 01/17/2019 COMPARISON: Prior CT dated 11/25/2018, nuclear medicine PET/CT 11/15/2018 HISTORY: Abn findings of lung CT DLP: 555 mGycm. Automated Exposure Control for Dose Reduction was Utilized. TECHNIQUE: CT scan of the thorax is performed without IV contrast. FINDINGS: Lack of injury is contrast could compromise sensitivity LUNGS: The lungs are showing a similar area of increased density in the posterior costophrenic angle level measuring approximately 4.3 cm in greatest transverse dimension by approximately 2 cm in anteri or to posterior dimension by 3.7 cm, interval development of an effusion which is small There is no p neumothorax seen. The tracheobronchial tree is patent. MEDIASTINUM: Lack of IV contrast is noted to limit evaluation for mediastinal and especially hilar ad enopathy. There are no definitive greater than 1 cm hilar or mediastinal lymph nodes. No cardiomega ly or pericardial effusion is seen. OTHER: Multiple low dense foci are again noted scattered throughout the liver and kidneys as on prior , there may be a duodenal diverticulum. Leads present within the heart. IMPRESSION: Abnormal density in the right lung base has diminished in the interval. Interval developm ent of a right pleural effusion.
== END | disposition home or self-care (01) ==
LOC: RADCTMAIN 12:58
PROVIDERS: ATTEND Internal Medicine Critical Care Medicine
DX: J90 Pleural effusion, not elsewhere classified (principal); R91.8 Other nonspecific abnormal finding of lung field
CPT/HCPCS: 71250; 82565; 84520

== ENCOUNTER → 2019-02-11 | Outpatient (CLI) | payer OTHER | END | disposition home or self-care (01) | LOC: LABWHC1 15:02 | PROVIDERS: ATTEND Internal Medicine Critical Care Medicine | DX: Z01.82 Encounter for allergy testing (principal); J85.2 Abscess of lung without pneumonia | CPT/HCPCS: 36415; 82164; 86001; 86606; 86609 ==

== ENCOUNTER → 2019-05-13 | Outpatient (CLI) | payer OTHER ==
[2019-05-13 10:20] LABS: HGB 14.7 gm/dL (13.0-17.5); MCH 28.8 pg (25.0-35.0); MCHC 31.3 g/dL (31.0-37.0); Mean Platelet Volume 7.8; Platelet Count 177 k/uL (150-450); RBC 5.11 m/uL (4.30-5.90); RDW 14.9 % (11.5-15.5); WBC 5.9 k/uL (3.8-10.6)
[2019-05-13 10:42] LABS: Appearance,Urine Clear (Clear); Bilirubin,Urine Negative (Negative); Blood,Urine Moderate (Negative); Color,Urine Light Yellow; Glucose,Urine (UA) Negative (Negative); Ketones,Urine Negative (Negative); Leukocyte Esterase,Urine Negative (Negative); Mucus,Urine Rare /hpf; Nitrite,Urine Negative (Negative); Protein,Urine Negative (Negative); RBC,Urine 2 /hpf (0-5); Urobilinogen,Urine <2.0 mg/dL (<2.0); WBC,Urine 1 /hpf (0-5)
[2019-05-13 10:43] LABS: Partial Thromboplastin Time 24.9 sec (22.0-30.0); Prothrombin Time 10.5 sec (9.0-12.0)
[2019-05-13 10:46] LABS: Calcium 9.8 mg/dL (8.4-10.2); Magnesium 1.6 mg/dL (1.6-2.3); Potassium 4.7 mmol/L (3.5-5.1); Total Bilirubin 0.6 mg/dL (0.2-1.3); Total Protein 6.7 g/dL (6.3-8.2)
--- NOTE | 2019-05-13 12:46 | US ---
EXAMINATION TYPE: US carotid duplex BILAT DATE OF EXAM: 05/13/2019 COMPARISON: NONE CLINICAL HISTORY: OPEN HEART. EXAM MEASUREMENTS: RIGHT: Peak Systolic Velocity (PSV) cm/sec ----- Right CCA: 52.2 ----- Right ICA: 51.0 ----- Right ECA: 61.0 ICA/CCA ratio: 1.0 RIGHT: End Diastole cm/sec ----- Right CCA: 20.0 ----- Right ICA: 28.1 ----- Right ECA: 1 8.8 LEFT: Peak Systolic Velocity (PSV) cm/sec ----- Left CCA: 69.8 ----- Left ICA: 65.4 ----- Left ECA: 62.1 ICA/CCA ratio: 1.3 LEFT: End Diastole cm/sec ----- Left CCA: 31.1 ----- Left ICA: 25.5 ----- Left ECA: 19.0 VERTEBRALS (direction of flow): Right Vertebral: Antegrade Left Vertebral: Antegrade Rhythm: Normal No significant velocity elevations, minimal plaque IMPRESSION: Mild degree of grayscale atheromatous plaquing with no sonographically evident hemodynam ically significant stenosis within either visualized carotid arterial system. Criteria for Assigning % of Stenosis / Diameter reduction (Estimation based on the indirect measurements of the internal carotid artery velocities (ICA PSV). 1. Normal (no stenosis)=ICA PSV < 125 cm/s: ratio < 2.0: ICA EDV<40 cm/s. 2. Less than 50% stenosis=ICA PSV < 125 cm/s: ratio < 2.0: ICA EDV<40 cm/s. 3. 50 to 69% stenosis=ICA PSV of 125 to 230 cm/s: ration 2.0 ? 4.0: ICA EDV 40-100 cm/s. 4. Greater than 70% stenosis to near occlusion= ICA PSV > 230 cm/s: ratio > 4.0: ICA EDV > 100 cm/s. 5. Near occlusion= ICA PSV velocities may be low or undetectable: variable ratio and ICA EDV. 6. Total occlusion=unable to detect flow.
--- NOTE | 2019-05-13 14:45 | XR ---
EXAMINATION TYPE: XR chest 2V DATE OF EXAM: 05/13/2019 COMPARISON: Prior chest x-ray 12/22/2018, 03/21/2019 HISTORY: Preop TECHNIQUE: Frontal and lateral views of the chest are obtained. FINDINGS: Generator is in left pectoral region, there are leads in right atrium and ventricle. There is no focal air space opacity, pleural effusion, or pneumothorax seen. The cardiac silhouette size i s within normal limits. The osseous structures are intact. IMPRESSION: No acute cardiopulmonary process.
[2019-05-13 16:18] LABS: Hepatitis A Antibody IgM Non-Reactive (Non-Reactive); Hepatitis B Core IgM Non-Reactive (Non-Reactive); Hepatitis B Surface Antigen Non-Reactive (Non-Reactive); Hepatitis C IgG Antibody Non-Reactive (Non-Reactive)
== END | disposition home or self-care (01) ==
LOC: LABWHC1 09:25
PROVIDERS: ATTEND Surgery
DX: Z01.818 Encounter for other preprocedural examination (principal); I65.23 Occlusion and stenosis of bilateral carotid arteries; Z01.812 Encounter for preprocedural laboratory examination
CPT/HCPCS: 71046; 80053; 80061; 80074; 81001; 83036; 83735; 84443; 85027; 85610; 85730; 87070; 87086; 93005; 93880

== ENCOUNTER 2019-05-19 05:32 | Inpatient (IN) | payer OTHER ==
[~2019-05-19 05:32] MED LIST changes: +ALBUMIN HUMAN 25% 50 ML IV ONE; -ALPRAZolam 0.5 MG TAB PO STA; +ASPIRIN 325 MG TAB PO ONE; +ATORVASTATIN 10 MG TAB PO ONE; +CALCIUM CHLORIDE 100 MG/ML 10 ML SYRINGE IV ONE; +CHLORHEXIDINE GLUCONATE 15 ML CUP MUCOUS MEM ONE; +CLEVIDIPINE BUTYRATE 25 MG in EMPTY BAG 1 BAG IV ONE; +DEXTROSE 5% IN WATER 1,000 ML with POTASSIUM CHLORIDE 110 MEQ, MAGNESIUM SULFATE 16 MEQ... IV ONE; +DEXTROSE 5% IN WATER 1,000 ML with POTASSIUM CHLORIDE 25 MEQ, SODIUM CHLORIDE 2.5MEQ/ML... IRRIGATION ONE; +HEPARIN SODIUM 1,000 UN/ML (10ML VL) IV ONE; +HEPARIN SODIUM,PORCINE 5,000 UNIT in SODIUM CHLORIDE 0.9% 500 ML 500 ML IV ONE; -HYDROcodone/APAP 5-325MG 1 EACH TAB PO PRN; +INSULIN REGULAR 100 UNIT in SODIUM CHLORIDE 0.9% 100 ML IV ONE; +LACTATED RINGERS 1,000 ML IV ONE; +MAGNESIUM SULFATE MG 500 MG/ML IV ONE; +MANNITOL 25% 12.5 GM/50 ML VIAL IV ONE; +METOPROLOL TARTRATE 12.5 MG TAB PO ONE; +NITROGLYCERIN-D5W PMX 25 MG/250 ML BTL IV ONE; +NITROGLYCERIN-D5W PMX 50 MG in DEXTROSE/WATER 1 250ML.BAG IV ONE; +PAPAVERINE 360 MG in SODIUM CHLORIDE 0.9% 90 ML IV ONE; +PHENYLEPHRINE 10 MG/ML VIAL IV ONE; +PHENYLEPHRINE 40 MG in SODIUM CHLORIDE 0.9% 250 ML IV ONE; +PROPOFOL 1,000 MG/100 ML VIAL IV ONE; +PROTAMINE SULFATE 10 MG/ML 25 ML VIAL IV ONE; +PROTAMINE SULFATE 250 MG in EMPTY BAG 1 BAG IV ONE; +SODIUM BICARB 8.4% 50 ML SYR (1 MEQ/ML) IV ONE; +SODIUM CHLORIDE 0.9% 1,000 ML IV ONE; +TRANEXAMIC ACID 2,000 MG in SODIUM CHLORIDE 0.9% 80 ML IV ONE; +VANCOMYCIN 1,000 MG VIAL MISCELLANE ONE; +ceFAZolin 1,000 MG in SODIUM CHLORIDE 0.9% IRRIGATIO 1,000 ML IRRIGATION ONE; +ceFAZolin 2,000 MG in SODIUM CHLORIDE 0.9% 30 ML IVPB ONE
[2019-05-19] MEDS ORDERED: NOREPINEPHRINE 4 MG in SODIUM CHLORIDE 0.9% 250 ML IV ONE (06:00)
[2019-05-19] MEDS ORDERED: LIDOCAINE 1% 20 ML VIAL (10MG/ML) FOR IV START INTRADERMA ONE (06:15)
[2019-05-19] MEDS ORDERED: TRANEXAMIC ACID 1,000 MG/10 ML VIAL ONE (07:35)
[2019-05-19] MEDS ORDERED: SODIUM CHLORIDE 0.9% 250 ML BAG ONE (07:35)
[2019-05-19] MEDS ORDERED: CALCIUM CHLORIDE 100 MG/ML 10 ML SYRINGE ONE (07:35)
[2019-05-19] MEDS ORDERED: NITROGLYCERIN-D5W PMX 50 MG/250 ML BOTTLE IV ONE (07:35)
[2019-05-19] MEDS ORDERED: SUCCINYLCHOLINE CHLORIDE 100 MG/5 ML SYR IV ONE (07:35)
[2019-05-19] MEDS ORDERED: PROTAMINE SULFATE 10 MG/ML 25 ML VIAL IV ONE (07:35)
[2019-05-19] MEDS ORDERED: PROPOFOL 10 MG/ML 20 ML VIAL IV ONE (07:35)
[2019-05-19] MEDS ORDERED: fentaNYL (PF) 50 MCG/ML 2 ML AMP ONE (07:35)
[2019-05-19] MEDS ORDERED: ROCURONIUM BROMIDE 10 MG/ML 10 ML VIAL IV ONE (07:35)
[2019-05-19] MEDS ORDERED: MAGNESIUM SULFATE 4 MEQ/ML 10ML VIAL ONE (07:35)
[2019-05-19] MEDS ORDERED: fentaNYL (PF) 50 MCG/ML 50 ML VIAL ONE (07:35)
[2019-05-19] MEDS ORDERED: HEPARIN SODIUM,PORCINE 5,000 UNIT/ML 1 ML VIAL ONE (07:35)
[2019-05-19] MEDS ORDERED: MIDAZOLAM 2 MG/2 ML VIAL ONE (07:35)
[2019-05-19] MEDS ORDERED: HEPARIN SODIUM,PORCINE 10,000 UNIT/ML 1 ML VIAL ONE (07:35)
[2019-05-19] MEDS ORDERED: VECURONIUM 10 MG VIAL IV ONE (07:35)
[2019-05-19] MEDS ORDERED: INSULIN REGULAR 100 UNIT/ML VIAL ONE (07:35)
[2019-05-19] MEDS ORDERED: PROTAMINE SULFATE 10 MG/ML 5 ML VIAL IV ONE (07:35)
[2019-05-19] MEDS ORDERED: DESMOPRESSIN ACETATE 4 MCG/ML VIAL (MDV) ONE (07:35)
[2019-05-19] MEDS ORDERED: LIDOCAINE 2% SYG (PF) 100 MG/5 ML ONE (07:35)
[2019-05-19] MEDS ORDERED: DESMOPRESSIN ACETATE 26 MCG in SODIUM CHLORIDE 0.9% 50 ML IV ONE (08:50)
[2019-05-19 09:43] LABS: ABG Base Excess -0.7 mmol/L; ABG Glucose Whole Blood 125 mg/dL (75-99); ABG HCO3 24 mmol/L (21-25); ABG Hematocrit 40 % (34.0-46.0); ABG Ionized Calcium 4.5 mg/dL (4.5-5.3); ABG Lactic Acid Whole Blood 0.9 mmol/L (0.5-1.6); ABG Oxygen Saturation 98.6 % (94-97); ABG PCO2 40 mmHg (35-45); ABG PH 7.39 (7.35-7.45); ABG PO2 117 mmHg (83-108); ABG Potassium Whole Blood 4.9 mmol/L (3.4-4.5); ABG Sodium Whole Blood 140 mmol/L (135-146); ABG TCO2 25 mmol/L (19-24)
[2019-05-19 10:34] LABS: ABG Base Excess -2.4 mmol/L; ABG Glucose Whole Blood 235 mg/dL (75-99); ABG HCO3 23 mmol/L (21-25); ABG Hematocrit 26 % (34.0-46.0); ABG Lactic Acid Whole Blood 0.8 mmol/L (0.5-1.6); ABG Oxygen Saturation 99.8 % (94-97); ABG PCO2 44 mmHg (35-45); ABG PH 7.33 (7.35-7.45); ABG PO2 353 mmHg (83-108); ABG Sodium Whole Blood 132 mmol/L (135-146); ABG TCO2 25 mmol/L (19-24)
[2019-05-19 11:07] LABS: ABG Base Excess -3.6 mmol/L; ABG Glucose Whole Blood 194 mg/dL (75-99); ABG HCO3 23 mmol/L (21-25); ABG Hematocrit 28 % (34.0-46.0); ABG Ionized Calcium 4.2 mg/dL (4.5-5.3); ABG Oxygen Saturation 99.6 % (94-97); ABG PCO2 50 mmHg (35-45); ABG PH 7.27 (7.35-7.45); ABG PO2 333 mmHg (83-108); ABG Sodium Whole Blood 136 mmol/L (135-146); ABG TCO2 25 mmol/L (19-24)
[2019-05-19 11:41] LABS: ABG Base Excess -1.5 mmol/L; ABG Glucose Whole Blood 139 mg/dL (75-99); ABG HCO3 23 mmol/L (21-25); ABG Hematocrit 28 % (34.0-46.0); ABG Lactic Acid Whole Blood 1.8 mmol/L (0.5-1.6); ABG Oxygen Saturation 99.8 % (94-97); ABG PCO2 39 mmHg (35-45); ABG PH 7.39 (7.35-7.45); ABG PO2 316 mmHg (83-108); ABG Potassium Whole Blood 5.6 mmol/L (3.4-4.5); ABG Sodium Whole Blood 138 mmol/L (135-146); ABG TCO2 25 mmol/L (19-24)
[2019-05-19 12:13] LABS: ABG Potassium Whole Blood 7.1 mmol/L (3.4-4.5)
[2019-05-19 12:52] LABS: ABG Base Excess -0.7 mmol/L; ABG Glucose Whole Blood 121 mg/dL (75-99); ABG HCO3 24 mmol/L (21-25); ABG Hematocrit 33 % (34.0-46.0); ABG Ionized Calcium 4.2 mg/dL (4.5-5.3); ABG Oxygen Saturation 98.3 % (94-97); ABG PCO2 38 mmHg (35-45); ABG PH 7.41 (7.35-7.45); ABG PO2 106 mmHg (83-108); ABG Potassium Whole Blood 4.5 mmol/L (3.4-4.5); ABG Sodium Whole Blood 140 mmol/L (135-146); ABG TCO2 25 mmol/L (19-24)
[2019-05-19] MEDS ORDERED: LACTATED RINGERS 1,000 ML IV SCH (13:26)
[2019-05-19] MEDS ORDERED: ALBUMIN HUMAN 5% 250 ML in EMPTY BAG 1 BAG IVPB PRN (13:26)
[2019-05-19] MEDS ORDERED: BENZOCAINE/MENTHOL LOZENG 1 EACH LOZENGE MUCOUS MEM PRN (13:26)
[2019-05-19] MEDS ORDERED: Potassium Replacement Protocol 1 EACH MISC MISCELLANE PRN (13:26)
[2019-05-19] MEDS ORDERED: CALCIUM GLUCONATE 2 GM in SODIUM CHLORIDE 0.9% 100 ML IVPB PRN (13:26)
[2019-05-19] MEDS ORDERED: AMIODARONE 360 MG in DEXTROSE 5% IN WATER 200 ML IV PRN ×2 (13:26)
[2019-05-19] MEDS ORDERED: MORPHINE SULFATE 2 MG/ML SYRINGE IVP PRN (13:26)
[2019-05-19] MEDS ORDERED: IPRATROPIUM-ALBUTEROL 3 ML NEB INHALATION PRN (13:26)
[2019-05-19] MEDS ORDERED: PROPOFOL 1,000 MG in EMPTY BAG 1 BAG IV SCH (13:26)
[2019-05-19] MEDS ORDERED: ONDANSETRON 4 MG/2 ML VIAL IVP PRN (13:26)
[2019-05-19] MEDS ORDERED: Magnesium Replacement Protocol 1 EACH MISC MISCELLANE PRN (13:26)
[2019-05-19] MEDS ORDERED: Phosphorus Replacement Protoco 1 EACH MISC MISCELLANE PRN (13:26)
[2019-05-19] MEDS ORDERED: METOCLOPRAMIDE 5 MG/ML 2 ML VIAL IVP PRN (13:26)
[2019-05-19] MEDS ORDERED: CLEVIDIPINE BUTYRATE 25 MG in EMPTY BAG 1 BAG IV SCH (13:26)
[2019-05-19] MEDS ORDERED: AMIODARONE 300 MG in DEXTROSE 5% IN WATER 250 ML IV PRN ×2 (13:26)
[2019-05-19] MEDS ORDERED: DEXTROSE 5% IN WATER 100 ML with AMIODARONE 150 MG IV PRN (13:26)
[2019-05-19 13:44] LABS: Glucose,Whole Blood 110 mg/dL (75-99)
[2019-05-19 13:57] LABS: Basophils % (A) 0 %; Eosinophils # (A) 0.2 k/uL (0-0.7); Eosinophils % (A) 2 %; HCT 33.9 % (39.0-53.0); Lymphocytes # (A) 0.8 k/uL (1.0-4.8); Lymphocytes % (A) 9 %; MCH 30.1 pg (25.0-35.0); MCHC 33.4 g/dL (31.0-37.0); MCV 90.2 fL (80.0-100.0); Monocytes # (A) 0.6 k/uL (0-1.0); Monocytes % (A) 6 %; Neutrophils # (A) 7.6 k/uL (1.3-7.7); Neutrophils % (A) 82 %; Platelet Count 120 k/uL (150-450); RBC 3.76 m/uL (4.30-5.90); RDW 14.3 % (11.5-15.5); WBC 9.2 k/uL (3.8-10.6)
[2019-05-19 14:00] LABS: HGB 11.3 gm/dL (13.0-17.5)
--- NOTE | 2019-05-19 14:04 | OP ---
OPERATIVE REPORT DATE OF THE SURGERY: 05/19/2019. SURGEON: Dr. Pamela Ordaz. HAND ETCHER: 1. Allen Ann. 2. Ronnell Chavarria. PREOPERATIVE DIAGNOSIS: Severe mitral valve regurgitation with Díaz disease, mild tricuspid valve regurgitation, status post dual-chamber pacemaker remotely, chronic kidney disease, hypertension. POSTOPERATIVE DIAGNOSIS: Severe mitral valve regurgitation with Díaz disease, mild tricuspid valve regurgitation, status post dual-chamber pacemaker remotely, chronic kidney disease, hypertension. PROCEDURE: 1. Mitral valve repair using a complete ring annuloplasty with a 32 mm physio 2 ring. 2. Exclusion of the left atrial appendage using a 35 mm AtriClip. 3. Intraoperative transesophageal echocardiogram and epiaortic scanning. INDICATION FOR SURGERY: Patient in supine position. Right internal jugular Viper-Fidencio catheter and right radial arterial line were placed. Cardiac index was 2.3 and PA pressure was 45/22. Subsequently, he was brought to the operative room where general endotracheal anesthesia was induced uneventfully. Patient received 2 g of cefazolin intravenously. Collazo catheter was inserted. The chest, abdomen and both lower extremities were prepped and draped using ChloraPrep. Ioban was used to cover the skin. Transesophageal echocardiogram basically showed a myxomatous mitral valve with no obvious prolapse with leak along the coaptation line, but more so along A1, P1 and commissure. There was mild tricuspid valve regurgitation. Systolic function was mildly decreased. Right ventricular function was normal. Left atrial appendage was clear of clot. Midline sternotomy was performed and no bone wax was used. Both pleura remained intact. A Dejuan mitral retractor was used. Mediastinal fat was transected between 2 ties and epiaortic scanning revealed normal ascending aorta. Pericardium was opened in an inverted T-fashion and a pericardial cradle was created. Findings include a normal soft aorta and a normal-sized heart. After systemic heparinization, after placement of respective pledgeted pursestring, aortic cannulation with a 21-Burkinan soft flow cannula, direct SVC cannulation with a 28- Burkinan right angle cannula and IVC cannulation at the junction with the right atrium with a 30-Burkinan straight cannula was performed. Antegrade as well as retrograde cardioplegia catheter were placed. Cardiopulmonary bypass was initiated and patient's temperature was allowed to drift down to 34 degrees Celsius. Subsequently, the aorta was clamped and during aortic clamping myocardial protection was achieved with initial dose of antegrade cold blood cardioplegia was adequate arrest at 200 mL followed by a dose of retrograde cold blood cardioplegia. All subsequent doses were given retrograde at 15 minute intervals. Both cava were encircled, stretched but not tightened. Interatrial groove was developed and a standard transverse left atrial artery was performed. The atrium was not dilated and exposure was reasonable. However, the mitral valve was myxomatous with Díaz disease and redundant leaflets and evidence of dilated anulus. To better study the valve, I started by placing annuloplasty sutures posteriorly from trigone to trigone using Tycron 2-0 nonpledgeted. I completed the annuloplasty suture on the anterior anulus also. With those sutures under tension, I tested the valve and at this point, there was no leak. There was no obvious prolapse as I checked the valve with a nerve hook, but obviously redundant tissue. I selected a 32 ring, although the valve was probably measured at around 32 also and this is just to avoid MÓNICA in view of the fact that the patient had a long anterior leaflet and a high posterior leaflet as well as an angle between the aorta and the mitral valve that was more than 120 degree so 32 mm physio 2 ring was selected, brought into the field and a 13 annuloplasty suture passed symmetrically into the ring that seated nicely. All the needles were cut and the sutures tied using the cor knot device. Testing at this point revealed excellent seal with very good height of coaptation as evident by methylene blue marking of the coaptation line. With that, rewarming was started as we closed the left atriotomy in 1 layer using Prolene 3 0 pledgeted on each corner and meeting in the midline. CO2 was flowing over the field as long as the left atrium was opened. De-airing maneuver were done before completing the closure of the left atriotomy. The patient was given lidocaine and magnesium and the head was put in Trendelenburg position and de- airing maneuvers were followed before unclamping the aorta with aortic roots vent on maximum. Patient regained paced beats at 60. After a period of reperfusion, we were able to wean off cardioplegia bypass without the need of any inotropic or vasopressor support. PASCALE at this point showed excellent mitral valve repair with no mitral regurgitation, no MÓNICA and no mitral stenosis. With that test dose and full dose protamine was given. Decannulation followed. The IVC cannulation site required reinforcement with a nonpledgeted Prolene 4-0. No pacing wires were placed. Two 19-Burkinan Kolton drains were placed substernally. The pericardium was approximated over the heart loosely all along its aspect and over the aorta. Both pleura remained intact, although there were very thin and there was no evidence of pneumothorax. After ensuring adequate hemostasis and hemodynamic and after correct sponge, instrument, and needle count, the sternum was closed using 5 [id number] pineal cable after interposing fibrillar between the sternal edges. Thorough irrigation of cefazolin followed. The rest of the closure proceeded in layers. Skin glue was applied. The patient did not receive any blood bank product but di receive 300 mL of Cell Saver blood. He was transferred to the ICU with excellent hemodynamics with a PA pressure of 30/21, cardiac index of 2.4, mean artery pressure of 75, and a continuous sinus rhythm with normal AV conduction. MMODL / IJN: [id number] / [id number]
[2019-05-19 14:05] LABS: ABG Base Excess -1.3 mmol/L; ABG HCO3 24 mmol/L (21-25); ABG Oxygen Saturation 99.6 % (94-97); ABG PCO2 43 mmHg (35-45); ABG PH 7.36 (7.35-7.45); ABG PO2 332 mmHg (83-108); ABG TCO2 25 mmol/L (19-24); Allen Test Performed? Yes
[2019-05-19 14:08] LABS: INR 1.2 (<1.2); Partial Thromboplastin Time 23.2 sec (22.0-30.0); Prothrombin Time 12.1 sec (9.0-12.0)
[2019-05-19 14:18] LABS: Albumin 2.3 g/dL (3.5-5.0); Magnesium 2.9 mg/dL (1.6-2.3); Potassium 4.8 mmol/L (3.5-5.1); Total Bilirubin 0.4 mg/dL (0.2-1.3); Total Protein 4.2 g/dL (6.3-8.2)
--- NOTE | 2019-05-19 14:21 | XR ---
EXAMINATION TYPE: XR chest 1V portable DATE OF EXAM: 05/19/2019 COMPARISON: 05/13/2019 INDICATION: Postop cardiac surgery TECHNIQUE: Single frontal view of the chest is obtained. FINDINGS: The heart size is normal. The pulmonary vasculature is normal. The lungs are clear. Sternotomy wires are present from prior cardiac valve surgery. Endotracheal tube has its tip above enrique. Nasogastric tube coils within the distal esophageal regio n directed superiorly. Adjustment can be performed. Right Sonora-Fidencio catheter is present with the tip in the right main pulmonary artery region. IMPRESSION: 1. No acute pulmonary process. 2. Lines and catheters discussed above. 3. The tip of the nasogastric tube is curled directed superiorly within the distal esophageal region. This could be readvanced for more typical positioning into the left upper quadrant.
[2019-05-19 14:38] LABS: Glucose,Whole Blood 119 mg/dL (75-99)
[2019-05-19] MEDS ORDERED: DEXMEDETOMIDINE/0.9% NACL(PMX) 400 MCG in EMPTY BAG 1 BAG IV SCH (14:45)
[2019-05-19 15:44] LABS: Glucose,Whole Blood 162 mg/dL (75-99)
[2019-05-19] MEDS ORDERED: IPRATROPIUM-ALBUTEROL 3 ML NEB INHALATION SCH (16:00)
[2019-05-19] MEDS: clonazePAM 1 MG TAB PO SCH ×2 (16:17→21:51)
[2019-05-19 16:31] LABS: Basophils % (A) 0 %; Eosinophils # (A) 0.1 k/uL (0-0.7); Eosinophils % (A) 1 %; HCT 37.2 % (39.0-53.0); HGB 11.5 gm/dL (13.0-17.5); Lymphocytes # (A) 1.3 k/uL (1.0-4.8); Lymphocytes % (A) 11 %; MCH 28.2 pg (25.0-35.0); MCHC 30.9 g/dL (31.0-37.0); MCV 91.2 fL (80.0-100.0); Mean Platelet Volume 7.6; Monocytes # (A) 0.9 k/uL (0-1.0); Monocytes % (A) 8 %; Neutrophils # (A) 9.3 k/uL (1.3-7.7); Neutrophils % (A) 79 %; Platelet Count 139 k/uL (150-450); RBC 4.08 m/uL (4.30-5.90); RDW 14.8 % (11.5-15.5); WBC 11.8 k/uL (3.8-10.6)
[2019-05-19 16:42] LABS: ABG Base Excess -2.7 mmol/L; ABG HCO3 24 mmol/L (21-25); ABG Oxygen Saturation 98.7 % (94-97); ABG PCO2 48 mmHg (35-45); ABG PO2 152 mmHg (83-108); ABG TCO2 25 mmol/L (19-24); Allen Test Performed? Yes
[2019-05-19 17:14] LABS: Glucose,Whole Blood 154 mg/dL (75-99)
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
[2019-05-19 18:22] LABS: Glucose,Whole Blood 145 mg/dL (75-99)
[2019-05-19 19:09] LABS: Glucose,Whole Blood 132 mg/dL (75-99)
[2019-05-19] MEDS: IPRATROPIUM-ALBUTEROL 3 ML NEB INHALATION SCH ×2 (19:34→19:35)
[2019-05-19 19:50] LABS: Basophils # (A) 0.1 k/uL (0-0.2); Basophils % (A) 0 %; Eosinophils % (A) 0 %; HCT 36.3 % (39.0-53.0); HGB 11.9 gm/dL (13.0-17.5); Lymphocytes # (A) 0.5 k/uL (1.0-4.8); Lymphocytes % (A) 5 %; MCH 29.6 pg (25.0-35.0); MCHC 32.6 g/dL (31.0-37.0); MCV 90.7 fL (80.0-100.0); Mean Platelet Volume 7.2; Monocytes # (A) 0.7 k/uL (0-1.0); Monocytes % (A) 7 %; Neutrophils # (A) 9.5 k/uL (1.3-7.7); Neutrophils % (A) 87 %; Platelet Count 138 k/uL (150-450); RBC 4.01 m/uL (4.30-5.90); RDW 14.4 % (11.5-15.5); WBC 10.8 k/uL (3.8-10.6)
[2019-05-19] MEDS: METOPROLOL TARTRATE 12.5 MG TAB PO SCH (20:15)
[2019-05-19] MEDS ORDERED: MUPIROCIN 2% OINT 22 GM TUBE NASAL SCH (21:00)
[2019-05-19] MEDS: busPIRone HCl 5 MG TAB PO SCH (21:59)
[2019-05-19] MEDS: HEPARIN SODIUM,PORCINE 5,000 UNIT/ML 1 ML VIAL SQ SCH (21:59)
--- NOTE | 2019-05-19 22:02 | P.CONS ---
History of Present Illness - Reason for Consult Consult date: 05/19/19 Medical management Requesting physician: Pamela Ordaz - Chief Complaint Mitral valve repair - History of Present Illness Consultation: This is a 54-year-old patient of Dr. Cira Hernandez. Chronic stable medical conditions include COPD, hypertension, osteoarthritis, polycystic kidney disease stage IV, gout,RSD affecting the legs, obstructive sleep apnea without a device. Also has a pacemaker. Patient has undergone mitral valve annuloplasty. Currently in the ICU. On nasal cannula. Drips include IV amiodarone, IV clevidipine, IVdexmedetomidine, IV LR,. Patient's awake following simple commands. Admitting review of systems cannot be done as patient rather tired Past medical history to include: COPD, hypertension, or strength redness, polycystic kidney disease with stage IV chronic kidney disease, gout, obstructive sleep apnea without a device, has a pacemaker,RSD affecting the legs, anxiety Social history: Patient smoked from 1993 through 2001. No alcohol. Physical examination: VITAL SIGNS: 97.9, 71, 33, 107/72, 98% on nasal cannula GENERAL: Average built, sitting up, tired. EYES: Pupils equal. Conjunctiva normal. HEENT: External appearance of nose and ears normal, oral cavity grossly normal. NECK: JVD unable to assess; masses not palpable. HEART: First and second heart sounds are normal; no edema. LUNGS: Respiratory rate increased, diminished breath sounds. ABDOMEN: Soft, nontender, liver spleen not palpable, no masses palpable. PSYCH: Tired, unable to assessl. NEUROLOGICAL: Cranial nerves grossly intact; no facial asymmetry, power and sensation grossly intact. LYMPHATICS: No lymph nodes palpable in the axilla and neck INVESTIGATIONS, reviewed in the clinical context: White count 10.8 hemoglobin 11.9 platelets 138 bun 26 creatinine 2.1 Accu-Cheks noted On 05/13/2019 hemoglobin was 14.7 platelets were 137 bun 27 creatinine 2.7 Assessment: -Severe mitral valve regurgitation leading to complete ring annuloplasty -COPD in an ex-smoker -Essential hypertension -Polycystic kidney disease -Stage IV chronic kidney disease polycystic kidney disease -Gout -Obstructive sleep apnea does not use a device -Has a permanent pacemaker -RSD affecting the lower extremities -Anxiety not otherwise specified -Acute postop blood loss anemia as expected from surgery -Thrombocytopenia, dilutional Plan: Patient the ICU. On nasal cannula. Patient on the above drips. Able to follow simple commands. Follow closely. Thank you Dr. Ordaz Past Medical History Past Medical History: Asthma, Chest Pain / Angina, COPD, Hypertension, Osteoarthritis (OA), Pneumonia, Renal Disease, Sleep Apnea/CPAP/BIPAP Additional Past Medical History / Comment(s): Severe mitral dysfunction, pleurisy x2, polycystic kidney disease stage IV, rare migraines, chronic cervical and back pain, DDD, gout bilateral feet, RSD affecting legs, PATSY without device, pneumonia in October History of Any Multi-Drug Resistant Organisms: None Reported Past Surgical History: Hernia Repair, Pacemaker Additional Past Surgical History / Comment(s): Pacemaker originally placed 2001, last gen change 2017, PASCALE, umbilical hernia repair, L leg tib/fib fracture with hardware-since removed, L thumb surgery-has rods, EGD, colonoscopy, 12/09/18 lung biopsy, bronchoscopy Past Anesthesia/Blood Transfusion Reactions: Previous Problems w/ Anesthesia Additional Past Anesthesia/Blood Transfusion Reaction / Comm: NEVER RECEIVED BLOOD. Pt had spinal anesthesia with spinal headache and blood patch. Type of Cardiac Device: Permanent Pacemaker Device Placement Date:: 2001 Smoking Status: Former smoker - Past Family History Father Family Medical History: Cancer, Myocardial Infarction ([place]) Additional Family Medical History / Comment(s): FATHER BONE CA AT AGE 70. HE HAD AORTIC ANEURYSM WITH SURGERY. Mother Family Medical History: Cancer, Deep Vein Thrombosis (DVT), Renal Disease Additional Family Medical History / Comment(s): MOTHER OF LYMPHOMA. MOTHER HAD TRANSPLANT OF KIDNEY. Sister(s) Family Medical History: Deep Vein Thrombosis (DVT), Pulmonary Embolus, Renal Disease Additional Family Medical History / Comment(s): POLYCYSTIC KIDNEY DISEASE WITH TRANSPLANT, Medications and Allergies Home Medications Medication Instructions Recorded Confirmed Type Aspirin EC [Ecotrin Low Dose] 81 mg PO DAILY 06/01/14 05/19/19 History clonazePAM [KlonoPIN] 1 mg PO TID 06/01/14 05/19/19 History Allopurinol [Zyloprim] 100 mg PO DAILY 03/27/18 05/19/19 History Enalapril [Vasotec] 2.5 mg PO DAILY 03/27/18 05/19/19 History Fluticasone Propionate [Flonase 1 spray EA NOSTRIL DAILY 03/27/18 05/19/19 History Allergy Relief] Mirtazapine [Remeron] 45 mg PO HS 03/27/18 05/19/19 History Metoprolol Tartrate [Lopressor] 25 mg PO BID@0900,1400 10/17/18 05/19/19 History PARoxetine [Paxil] 20 mg PO DAILY 10/17/18 05/19/19 History busPIRone HCL [Buspar] 7.5 mg PO BID@0900,1400 10/17/18 05/19/19 History Albuterol Inhaler [Ventolin Hfa 1 - 2 puff INHALATION RT-Q6H PRN 05/13/19 05/19/19 History Inhaler] Famotidine [Pepcid AC] 10 mg PO DAILY 05/13/19 05/19/19 History Allergies Allergy/AdvReac Type Severity Reaction Status Date / Time No Known Allergies Allergy Verified 05/19/19 05:57 Physical Exam Vitals: Vital Signs Temp Pulse Pulse Resp BP BP BP 05/19/19 20:00 97.9 F 71 33 H 107/72 05/19/19 19:47 69 05/19/19 19:40 14 05/19/19 19:36 69 05/19/19 19:00 74 14 107/72 05/19/19 18:00 75 12 107/72 05/19/19 17:00 89 17 05/19/19 16:11 95 05/19/19 16:00 97.5 F L 86 14 107/72 05/19/19 15:46 93 05/19/19 15:00 71 15 05/19/19 14:00 61 12 05/19/19 13:32 62 12 87/56 05/19/19 05:54 97.8 F 66 16 137/90 139/88 Pulse Ox 05/19/19 20:00 98 05/19/19 19:47 05/19/19 19:40 98 05/19/19 19:36 05/19/19 19:00 98 05/19/19 18:00 97 05/19/19 17:00 97 05/19/19 16:11 05/19/19 16:00 98 05/19/19 15:46 05/19/19 15:00 98 05/19/19 14:00 100 05/19/19 13:32 100 05/19/19 05:54 94 L Intake and Output 05/19/19 05/19/19 05/19/19 06:59 14:59 22:59 Intake Total 200 32 400 Output Total 1550 370 Balance 200 -1518 30 Intake: IV 200 32 400 Injectate 150 LR 250 Intake, IV Titration 0 Amount Dexmedetomidine/0.9% NaCl 0 (Pmx) 400 mcg In Empty Bag 1 bag @ Titrate IV . [facility] Rx#:[id number] Output: Urine 1000 370 Estimated Blood Loss 550 Other: Voiding Method Indwelling Catheter ABP, PAP, CO, CI - Last 8 Hours Arterial Blood Pressure 120/73 Arterial Blood Pressure 121/76 Arterial Blood Pressure 129/79 Arterial Blood Pressure 127/74 Arterial Blood Pressure 107/66 Arterial Blood Pressure 99/59 Arterial Blood Pressure 92/52 Pulmonary Artery Pressure 25/16 Pulmonary Artery Pressure 30/23 Pulmonary Artery Pressure 26/20 Pulmonary Artery Pressure 26/21 Pulmonary Artery Pressure 25/18 Pulmonary Artery Pressure 26/18 Pulmonary Artery Pressure 22/13 Cardiac Output 5.2 Cardiac Output 5.2 Cardiac Output 5.4 Cardiac Output 5.4 Cardiac Output 6.0 Cardiac Output 7.3 Cardiac Output 4.8 Cardiac Index 2.5 Cardiac Index 2.5 Cardiac Index 2.6 Cardiac Index 2.6 Cardiac Index 2.9 Cardiac Index 3.5 Cardiac Index 2.3 Results CBC & Chem 7: 05/19/19 19:02 05/19/19 13:30 Labs: Abnormal Lab Results - Last 24 Hours (Table) 05/13/19 05/19/19 05/19/19 Range/Units 09:35 09:46 10:37 WBC (3.8-10.6) k/uL RBC (4.30-5.90) m/uL Hgb (13.0-17.5) gm/dL Hct (39.0-53.0) % MCHC (31.0-37.0) g/dL Plt Count (150-450) k/uL Neutrophils # (1.3-7.7) k/uL Lymphocytes # (1.0-4.8) k/uL PT (9.0-12.0) sec INR (<1.2) ABG pH 7.33 L (7.35-7.45) ABG pCO2 (35-45) mmHg ABG pO2 117 H 353 H (83-108) mmHg ABG Total CO2 25 H 25 H (19-24) mmol/L ABG O2 Saturation 98.6 H 99.8 H (94-97) % ABG Hematocrit 26 L (34.0-46.0) % ABG Sodium 132 L (135-146) mmol/L ABG Potassium 4.9 H 7.1 H* (3.4-4.5) mmol/L ABG Ionized Calcium 4.0 L (4.5-5.3) mg/dL ABG Glucose 125 H 235 H (75-99) mg/dL ABG Lactic Acid (0.5-1.6) mmol/L Hemoglobin 12.9 L 8.5 L (13.0-17.5) gm/dL Chloride (98-107) mmol/L BUN (9-20) mg/dL Creatinine (0.66-1.25) mg/dL Glucose (74-99) mg/dL POC Glucose (mg/dL) (75-99) mg/dL Calcium (8.4-10.2) mg/dL Magnesium (1.6-2.3) mg/dL Total Protein (6.3-8.2) g/dL Albumin (3.5-5.0) g/dL Arterial Blood Potassium 4.9 H 7.1 H* (3.4-4.5) mmol/L Arterial Blood Glucose 125 H 235 H (75-99) mg/dL Crossmatch See Detail 05/19/19 05/19/19 05/19/19 Range/Units 11:10 11:45 12:55 WBC (3.8-10.6) k/uL RBC (4.30-5.90) m/uL Hgb (13.0-17.5) gm/dL Hct (39.0-53.0) % MCHC (31.0-37.0) g/dL Plt Count (150-450) k/uL Neutrophils # (1.3-7.7) k/uL Lymphocytes # (1.0-4.8) k/uL PT (9.0-12.0) sec INR (<1.2) ABG pH 7.27 L (7.35-7.45) ABG pCO2 50 H (35-45) mmHg ABG pO2 333 H 316 H (83-108) mmHg ABG Total CO2 25 H 25 H 25 H (19-24) mmol/L ABG O2 Saturation 99.6 H 99.8 H 98.3 H (94-97) % ABG Hematocrit 28 L 28 L 33 L (34.0-46.0) % ABG Sodium (135-146) mmol/L ABG Potassium 6.0 H 5.6 H (3.4-4.5) mmol/L ABG Ionized Calcium 4.2 L 4.0 L 4.2 L (4.5-5.3) mg/dL ABG Glucose 194 H 139 H 121 H (75-99) mg/dL ABG Lactic Acid 1.8 H 2.0 H (0.5-1.6) mmol/L Hemoglobin 9.0 L 9.0 L 10.6 L (13.0-17.5) gm/dL Chloride (98-107) mmol/L BUN (9-20) mg/dL Creatinine (0.66-1.25) mg/dL Glucose (74-99) mg/dL POC Glucose (mg/dL) (75-99) mg/dL Calcium (8.4-10.2) mg/dL Magnesium (1.6-2.3) mg/dL Total Protein (6.3-8.2) g/dL Albumin (3.5-5.0) g/dL Arterial Blood Potassium 6.0 H 5.6 H (3.4-4.5) mmol/L Arterial Blood Glucose 194 H 139 H 121 H (75-99) mg/dL Crossmatch 05/19/19 05/19/19 05/19/19 Range/Units 13:30 13:30 13:30 WBC (3.8-10.6) k/uL RBC 3.76 L (4.30-5.90) m/uL Hgb 11.3 L D (13.0-17.5) gm/dL Hct 33.9 L (39.0-53.0) % MCHC (31.0-37.0) g/dL Plt Count 120 L (150-450) k/uL Neutrophils # (1.3-7.7) k/uL Lymphocytes # 0.8 L (1.0-4.8) k/uL PT 12.1 H (9.0-12.0) sec INR 1.2 H (<1.2) ABG pH (7.35-7.45) ABG pCO2 (35-45) mmHg ABG pO2 (83-108) mmHg ABG Total CO2 (19-24) mmol/L ABG O2 Saturation (94-97) % ABG Hematocrit (34.0-46.0) % ABG Sodium (135-146) mmol/L ABG Potassium (3.4-4.5) mmol/L ABG Ionized Calcium (4.5-5.3) mg/dL ABG Glucose (75-99) mg/dL ABG Lactic Acid (0.5-1.6) mmol/L Hemoglobin (13.0-17.5) gm/dL Chloride 111 H (98-107) mmol/L BUN 26 H (9-20) mg/dL Creatinine 2.10 H (0.66-1.25) mg/dL Glucose 109 H (74-99) mg/dL POC Glucose (mg/dL) (75-99) mg/dL Calcium 8.0 L (8.4-10.2) mg/dL Magnesium 2.9 H (1.6-2.3) mg/dL Total Protein 4.2 L (6.3-8.2) g/dL Albumin 2.3 L (3.5-5.0) g/dL Arterial Blood Potassium (3.4-4.5) mmol/L Arterial Blood Glucose (75-99) mg/dL Crossmatch 05/19/19 05/19/19 05/19/19 Range/Units 13:42 14:03 14:36 WBC (3.8-10.6) k/uL RBC (4.30-5.90) m/uL Hgb (13.0-17.5) gm/dL Hct (39.0-53.0) % MCHC (31.0-37.0) g/dL Plt Count (150-450) k/uL Neutrophils # (1.3-7.7) k/uL Lymphocytes # (1.0-4.8) k/uL PT (9.0-12.0) sec INR (<1.2) ABG pH (7.35-7.45) ABG pCO2 (35-45) mmHg ABG pO2 332 H (83-108) mmHg ABG Total CO2 25 H (19-24) mmol/L ABG O2 Saturation 99.6 H (94-97) % ABG Hematocrit (34.0-46.0) % ABG Sodium (135-146) mmol/L ABG Potassium (3.4-4.5) mmol/L ABG Ionized Calcium (4.5-5.3) mg/dL ABG Glucose (75-99) mg/dL ABG Lactic Acid (0.5-1.6) mmol/L Hemoglobin (13.0-17.5) gm/dL Chloride (98-107) mmol/L BUN (9-20) mg/dL Creatinine (0.66-1.25) mg/dL Glucose (74-99) mg/dL POC Glucose (mg/dL) 110 H 119 H (75-99) mg/dL Calcium (8.4-10.2) mg/dL Magnesium (1.6-2.3) mg/dL Total Protein (6.3-8.2) g/dL Albumin (3.5-5.0) g/dL Arterial Blood Potassium (3.4-4.5) mmol/L Arterial Blood Glucose (75-99) mg/dL Crossmatch 05/19/19 05/19/19 05/19/19 Range/Units 15:41 16:02 16:40 WBC 11.8 H (3.8-10.6) k/uL RBC 4.08 L (4.30-5.90) m/uL Hgb 11.5 L (13.0-17.5) gm/dL Hct 37.2 L (39.0-53.0) % MCHC 30.9 L (31.0-37.0) g/dL Plt Count 139 L (150-450) k/uL Neutrophils # 9.3 H (1.3-7.7) k/uL Lymphocytes # (1.0-4.8) k/uL PT (9.0-12.0) sec INR (<1.2) ABG pH 7.30 L (7.35-7.45) ABG pCO2 48 H (35-45) mmHg ABG pO2 152 H (83-108) mmHg ABG Total CO2 25 H (19-24) mmol/L ABG O2 Saturation 98.7 H (94-97) % ABG Hematocrit (34.0-46.0) % ABG Sodium (135-146) mmol/L ABG Potassium (3.4-4.5) mmol/L ABG Ionized Calcium (4.5-5.3) mg/dL ABG Glucose (75-99) mg/dL ABG Lactic Acid (0.5-1.6) mmol/L Hemoglobin (13.0-17.5) gm/dL Chloride (98-107) mmol/L BUN (9-20) mg/dL Creatinine (0.66-1.25) mg/dL Glucose (74-99) mg/dL POC Glucose (mg/dL) 162 H (75-99) mg/dL Calcium (8.4-10.2) mg/dL Magnesium (1.6-2.3) mg/dL Total Protein (6.3-8.2) g/dL Albumin (3.5-5.0) g/dL Arterial Blood Potassium (3.4-4.5) mmol/L Arterial Blood Glucose (75-99) mg/dL Crossmatch 05/19/19 05/19/19 05/19/19 Range/Units 17:13 18:21 19:02 WBC 10.8 H (3.8-10.6) k/uL RBC 4.01 L (4.30-5.90) m/uL Hgb 11.9 L (13.0-17.5) gm/dL Hct 36.3 L (39.0-53.0) % MCHC (31.0-37.0) g/dL Plt Count 138 L (150-450) k/uL Neutrophils # 9.5 H (1.3-7.7) k/uL Lymphocytes # 0.5 L (1.0-4.8) k/uL PT (9.0-12.0) sec INR (<1.2) ABG pH (7.35-7.45) ABG pCO2 (35-45) mmHg ABG pO2 (83-108) mmHg ABG Total CO2 (19-24) mmol/L ABG O2 Saturation (94-97) % ABG Hematocrit (34.0-46.0) % ABG Sodium (135-146) mmol/L ABG Potassium (3.4-4.5) mmol/L ABG Ionized Calcium (4.5-5.3) mg/dL ABG Glucose (75-99) mg/dL ABG Lactic Acid (0.5-1.6) mmol/L Hemoglobin (13.0-17.5) gm/dL Chloride (98-107) mmol/L BUN (9-20) mg/dL Creatinine (0.66-1.25) mg/dL Glucose (74-99) mg/dL POC Glucose (mg/dL) 154 H 145 H (75-99) mg/dL Calcium (8.4-10.2) mg/dL Magnesium (1.6-2.3) mg/dL Total Protein (6.3-8.2) g/dL Albumin (3.5-5.0) g/dL Arterial Blood Potassium (3.4-4.5) mmol/L Arterial Blood Glucose (75-99) mg/dL Crossmatch 05/19/19 Range/Units 19:04 WBC (3.8-10.6) k/uL RBC (4.30-5.90) m/uL Hgb (13.0-17.5) gm/dL Hct (39.0-53.0) % MCHC (31.0-37.0) g/dL Plt Count (150-450) k/uL Neutrophils # (1.3-7.7) k/uL Lymphocytes # (1.0-4.8) k/uL PT (9.0-12.0) sec INR (<1.2) ABG pH (7.35-7.45) ABG pCO2 (35-45) mmHg ABG pO2 (83-108) mmHg ABG Total CO2 (19-24) mmol/L ABG O2 Saturation (94-97) % ABG Hematocrit (34.0-46.0) % ABG Sodium (135-146) mmol/L ABG Potassium (3.4-4.5) mmol/L ABG Ionized Calcium (4.5-5.3) mg/dL ABG Glucose (75-99) mg/dL ABG Lactic Acid (0.5-1.6) mmol/L Hemoglobin (13.0-17.5) gm/dL Chloride (98-107) mmol/L BUN (9-20) mg/dL Creatinine (0.66-1.25) mg/dL Glucose (74-99) mg/dL POC Glucose (mg/dL) 132 H (75-99) mg/dL Calcium (8.4-10.2) mg/dL Magnesium (1.6-2.3) mg/dL Total Protein (6.3-8.2) g/dL Albumin (3.5-5.0) g/dL Arterial Blood Potassium (3.4-4.5) mmol/L Arterial Blood Glucose (75-99) mg/dL Crossmatch
[2019-05-19 22:05] LABS: Glucose,Whole Blood 131 mg/dL (75-99)
[2019-05-19 23:17] LABS: Glucose,Whole Blood 128 mg/dL (75-99)
[2019-05-19] MEDS ORDERED: INSULIN REGULAR 100 UNIT in SODIUM CHLORIDE 0.9% 100 ML IV SCH (23:45)
[2019-05-20] MEDS ORDERED: HYDROcodone/APAP 5-325MG 1 EACH TAB PO PRN (01:03)
[2019-05-20 01:23] LABS: Glucose,Whole Blood 118 mg/dL (75-99)
[2019-05-20 02:08] LABS: Glucose,Whole Blood 125 mg/dL (75-99)
[2019-05-20 03:05] LABS: Glucose,Whole Blood 124 mg/dL (75-99)
[2019-05-20 04:19] LABS: Glucose,Whole Blood 150 mg/dL (75-99)
[2019-05-20 04:37] LABS: Ionized Calcium 4.8 mg/dL (4.5-5.3)
[2019-05-20 04:51] LABS: Albumin 3.1 g/dL (3.5-5.0); Calcium 7.9 mg/dL (8.4-10.2); Magnesium 2.3 mg/dL (1.6-2.3); Potassium 5.9 mmol/L (3.5-5.1); Total Bilirubin 0.2 mg/dL (0.2-1.3); Total Protein 5.2 g/dL (6.3-8.2)
[2019-05-20 04:53] LABS: Basophils % (A) 0 %; Eosinophils % (A) 0 %; HCT 34.3 % (39.0-53.0); HGB 11.2 gm/dL (13.0-17.5); Lymphocytes # (A) 0.4 k/uL (1.0-4.8); Lymphocytes % (A) 6 %; MCH 30.1 pg (25.0-35.0); MCHC 32.7 g/dL (31.0-37.0); MCV 91.8 fL (80.0-100.0); Mean Platelet Volume 7.2; Monocytes # (A) 0.5 k/uL (0-1.0); Monocytes % (A) 7 %; Neutrophils # (A) 6.5 k/uL (1.3-7.7); Neutrophils % (A) 86 %; Platelet Count 105 k/uL (150-450); RBC 3.73 m/uL (4.30-5.90); RDW 14.5 % (11.5-15.5); WBC 7.6 k/uL (3.8-10.6)
[2019-05-20] MEDS: HYDROcodone/APAP 5-325MG 1 EACH TAB PO PRN ×2 (05:10→17:38)
[2019-05-20] MEDS: HEPARIN SODIUM,PORCINE 5,000 UNIT/ML 1 ML VIAL SQ SCH ×3 (05:11→21:31)
[2019-05-20 05:56] LABS: Glucose,Whole Blood 147 mg/dL (75-99)
[2019-05-20 07:02] LABS: Glucose,Whole Blood 125 mg/dL (75-99)
[2019-05-20] MEDS: IPRATROPIUM-ALBUTEROL 3 ML NEB INHALATION SCH ×4 (07:26→20:23)
[2019-05-20] MEDS ORDERED: SODIUM CHLORIDE 0.9% 500 ML 500 ML IV SCH (07:45)
[2019-05-20] MEDS ORDERED: CALCIUM GLUCONATE 1 GM in SODIUM CHLORIDE 0.9% 100 ML IVPB ONE (08:00)
[2019-05-20 08:03] LABS: Glucose,Whole Blood 127 mg/dL (75-99)
[2019-05-20] MEDS: ALLOPURINOL 100 MG TAB PO SCH (08:14)
[2019-05-20] MEDS: PANTOPRAZOLE 40 MG TABLET PO SCH (08:14)
[2019-05-20] MEDS: ASPIRIN 325 MG TAB PO SCH (08:15)
[2019-05-20] MEDS: ATORVASTATIN 40 MG TAB PO SCH (08:15)
[2019-05-20] MEDS: busPIRone HCl 5 MG TAB PO SCH ×2 (08:15→21:30)
[2019-05-20] MEDS: PARoxetine 20 MG TAB PO SCH (08:16)
[2019-05-20] MEDS: clonazePAM 1 MG TAB PO SCH ×3 (08:16→21:30)
[2019-05-20] MEDS: METOPROLOL TARTRATE 12.5 MG TAB PO SCH ×2 (08:16→21:29)
--- NOTE | 2019-05-20 08:31 | XR ---
EXAMINATION TYPE: XR chest 1V portable DATE OF EXAM: 05/20/2019 Comparison: 05/19/2019 Clinical History: 54-year-old male Post Operative Cardiac Surgery Findings: Left anterior chest wall pacemaker generator with right atrial and right ventricular leads. Median st ernotomy wires. Annuloplasty ring. Right greater than left bibasilar opacities are demonstrated. Righ t IJ [place]-Fidencio catheter with tip in the interval right pulmonary artery. Mild diffuse interstitial pr ominence persists. Suspect a trace 5 mm right apical pneumothorax. Impression: 1. Increasing small right greater left pleural effusions with adjacent atelectasis and/or consolidati on. Background of mild pulmonary vascular congestion. 2. Trace 5 mm right apical pneumothorax now seen. 3. Right IJ [place]-Fidencio catheter tip in the interlobar right pulmonary artery. Findings called to nurse Brian on 2S[facility] at 8:28 AM.
--- NOTE | 2019-05-20 08:59 | P.PN ---
Subjective Progress Note Date: 05/20/19 Principal diagnosis: Severe mitral valve regurgitation with Díaz disease, mild tricuspid valve regurgitation, past medical history significant for polycystic renal disease with chronic kidney disease, hypertension, remote history of smoking quit in 2001, chronic obstructive pulmonary disease, occasional marijuana use, anxiety, gastroesophageal reflux disease and post-dual chamber permanent pacemaker placement. POD #1 mitral valve repair using a complete ring annuloplasty with a 32 mm physio-2 ring, exclusion of the left atrial appendage using a 35 mm Atriclip, intraoperative transesophageal echocardiogram and epi-aortic scanning. Postoperative thrombocytopenia, an expected outcome from hemodilution. The patient is sitting up to the bedside chair in the intensive care unit. He is in no acute distress. He is complaining of surgical type pain to his chest tube insertion sites and denies any complaints of shortness of breath. He was successfully extubated last evening at 5:24 PM and his oxygen saturation are 97% on 3 L nasal cannula, he is achieving 750-1000 mL on his incentive spirometry. He remained hemodynamically stable and is currently on no inotropic or pressor support. Right IJ Yuma-Fidencio catheter is in place and his current hemodynamics are showing a cardiac output of 4.6, cardiac index 2.2, PA pressures 24/15, and CVP of 10 mmHg. Mediastinal chest tubes remain in place to low continuous wall suction -20 cm H2O. No air leak is present. Draining thin serosanguineous drainage with 300 mL output since surgery. He is afebrile. Laboratory results are showing a WBCs 7.6, Hgb 11.2, platelets 105, potassium 5.9, BUN 25, and a of creatinine 2.06. Objective - Vital Signs Vital signs: Vital Signs Temp 98.6 F 05/20/19 00:00 Pulse 65 05/20/19 07:38 Resp 11 L 05/20/19 07:00 BP 100/73 05/20/19 00:00 Pulse Ox 97 05/20/19 07:00 Intake & Output 05/19/19 05/20/19 05/20/19 18:59 06:59 18:59 Intake Total 277.921 921.152 Output Total 1550 1710 Balance -1272.079 -788.848 Weight 87.8 kg Intake: IV 272 910 Injectate 90 200 LR 150 650 Pressure bags 60 Intake, IV Titration 5.921 11.152 Amount Dexmedetomidine/0.9% NaCl 1.706 (Pmx) 400 mcg In Empty Bag 1 bag @ Titrate IV . Q0M [facility] Rx#:[id number] Insulin Regular 100 unit 4.040 11.152 In Sodium Chloride 0.9% 100 ml @ Per Protocol IV .Q0M [facility] Rx#:[id number] Propofol 1,000 mg In 0.175 Empty Bag 1 bag @ Titrate IV .Q0M [facility] Rx#: [id number] Output: Chest Tube Drainage 60 Mediastinal 60 Urine 1000 1650 Estimated Blood Loss 550 Other: Voiding Method Indwelling Catheter Indwelling Catheter ABP, PAP, CO, CI - Last Documented Arterial Blood Pressure 109/64 Pulmonary Artery Pressure 23/14 Cardiac Output 4.5 Cardiac Index 2.2 - Constitutional General appearance: Present: average body habitus, cooperative, no acute distress - Respiratory Details: Lungs sounds essentially clear to his bilateral upper lobes, diminished to his bilateral bases. Respirations are symmetrical and nonlabored. No wheezes, rho nchi or crackles appreciated. Oxygen saturation is 97% on 3 L nasal cannula. Achieving 750-1000 mL on his incentive spirometry. Mediastinal chest tubes in place to low continuous wall suction -20 cm H2O. Draining thin serosanguineous drainage. No air leak is present. - Cardiovascular Details: Regular rhythm and rate. S1 and S2 present, negative for S3, gallop or murmur. Bedside telemetry showing normal sinus rhythm heart rate 60. Sternum is stable. Heart hugger is in place and he is demonstrating appropriate use. Knee-high ROSARIO hose and sequential compression devices in place to his bilateral lower extremities. No edema present. Permanent pacemaker in place to his left subclavicular chest. - Gastrointestinal Gastrointestinal Comment(s): Abdomen is soft, nontender and nondistended. Active bowel sounds present all 4 abdominal quadrants. Passing flatus. No guarding or rigidity. No organomegaly appreciated. - Genitourinary Genitourinary Comment(s): Collazo catheter for accurate I&O. Draining clear yellow urine. - Integumentary Integumentary Comment(s): Skin is warm and dry. No clubbing or cyanosis is present. No rash or abnormal pigmentation is present. Midline sternal incision is clean, dry and approxim ated. No drainage or redness is present. Exofin dressing is clean dry and in place. - Neurologic Neurologic Comment(s): No focal deficits. Neurologic: Present: CNII-XII intact - Musculoskeletal Musculoskeletal: Present: gait normal, generalized weakness, strength equal bilaterally - Psychiatric Psychiatric: Present: A&O x's 3, appropriate affect, intact judgment & insight - Allied health notes Allied health notes reviewed: nursing - Labs CBC & Chem 7: 05/20/19 04:00 05/20/19 04:00 Labs: Abnormal Lab Results - Last 24 Hours (Table) 05/13/19 05/19/19 05/19/19 Range/Units 09:35 09:46 10:37 WBC (3.8-10.6) k/uL RBC (4.30-5.90) m/uL Hgb (13.0-17.5) gm/dL Hct (39.0-53.0) % MCHC (31.0-37.0) g/dL Plt Count (150-450) k/uL Neutrophils # (1.3-7.7) k/uL Lymphocytes # (1.0-4.8) k/uL PT (9.0-12.0) sec INR (<1.2) ABG pH 7.33 L (7.35-7.45) ABG pCO2 (35-45) mmHg ABG pO2 117 H 353 H (83-108) mmHg ABG Total CO2 25 H 25 H (19-24) mmol/L ABG O2 Saturation 98.6 H 99.8 H (94-97) % ABG Hematocrit 26 L (34.0-46.0) % ABG Sodium 132 L (135-146) mmol/L ABG Potassium 4.9 H 7.1 H* (3.4-4.5) mmol/L ABG Ionized Calcium 4.0 L (4.5-5.3) mg/dL ABG Glucose 125 H 235 H (75-99) mg/dL ABG Lactic Acid (0.5-1.6) mmol/L Hemoglobin 12.9 L 8.5 L (13.0-17.5) gm/dL Potassium (3.5-5.1) mmol/L Chloride (98-107) mmol/L BUN (9-20) mg/dL Creatinine (0.66-1.25) mg/dL Glucose (74-99) mg/dL POC Glucose (mg/dL) (75-99) mg/dL Calcium (8.4-10.2) mg/dL Magnesium (1.6-2.3) mg/dL Total Protein (6.3-8.2) g/dL Albumin (3.5-5.0) g/dL Arterial Blood Potassium 4.9 H 7.1 H* (3.4-4.5) mmol/L Arterial Blood Glucose 125 H 235 H (75-99) mg/dL Crossmatch See Detail 05/19/19 05/19/19 05/19/19 Range/Units 11:10 11:45 12:55 WBC (3.8-10.6) k/uL RBC (4.30-5.90) m/uL Hgb (13.0-17.5) gm/dL Hct (39.0-53.0) % MCHC (31.0-37.0) g/dL Plt Count (150-450) k/uL Neutrophils # (1.3-7.7) k/uL Lymphocytes # (1.0-4.8) k/uL PT (9.0-12.0) sec INR (<1.2) ABG pH 7.27 L (7.35-7.45) ABG pCO2 50 H (35-45) mmHg ABG pO2 333 H 316 H (83-108) mmHg ABG Total CO2 25 H 25 H 25 H (19-24) mmol/L ABG O2 Saturation 99.6 H 99.8 H 98.3 H (94-97) % ABG Hematocrit 28 L 28 L 33 L (34.0-46.0) % ABG Sodium (135-146) mmol/L ABG Potassium 6.0 H 5.6 H (3.4-4.5) mmol/L ABG Ionized Calcium 4.2 L 4.0 L 4.2 L (4.5-5.3) mg/dL ABG Glucose 194 H 139 H 121 H (75-99) mg/dL ABG Lactic Acid 1.8 H 2.0 H (0.5-1.6) mmol/L Hemoglobin 9.0 L 9.0 L 10.6 L (13.0-17.5) gm/dL Potassium (3.5-5.1) mmol/L Chloride (98-107) mmol/L BUN (9-20) mg/dL Creatinine (0.66-1.25) mg/dL Glucose (74-99) mg/dL POC Glucose (mg/dL) (75-99) mg/dL Calcium (8.4-10.2) mg/dL Magnesium (1.6-2.3) mg/dL Total Protein (6.3-8.2) g/dL Albumin (3.5-5.0) g/dL Arterial Blood Potassium 6.0 H 5.6 H (3.4-4.5) mmol/L Arterial Blood Glucose 194 H 139 H 121 H (75-99) mg/dL Crossmatch 05/19/19 05/19/19 05/19/19 Range/Units 13:30 13:30 13:30 WBC (3.8-10.6) k/uL RBC 3.76 L (4.30-5.90) m/uL Hgb 11.3 L D (13.0-17.5) gm/dL Hct 33.9 L (39.0-53.0) % MCHC (31.0-37.0) g/dL Plt Count 120 L (150-450) k/uL Neutrophils # (1.3-7.7) k/uL Lymphocytes # 0.8 L (1.0-4.8) k/uL PT 12.1 H (9.0-12.0) sec INR 1.2 H (<1.2) ABG pH (7.35-7.45) ABG pCO2 (35-45) mmHg ABG pO2 (83-108) mmHg ABG Total CO2 (19-24) mmol/L ABG O2 Saturation (94-97) % ABG Hematocrit (34.0-46.0) % ABG Sodium (135-146) mmol/L ABG Potassium (3.4-4.5) mmol/L ABG Ionized Calcium (4.5-5.3) mg/dL ABG Glucose (75-99) mg/dL ABG Lactic Acid (0.5-1.6) mmol/L Hemoglobin (13.0-17.5) gm/dL Potassium (3.5-5.1) mmol/L Chloride 111 H (98-107) mmol/L BUN 26 H (9-20) mg/dL Creatinine 2.10 H (0.66-1.25) mg/dL Glucose 109 H (74-99) mg/dL POC Glucose (mg/dL) (75-99) mg/dL Calcium 8.0 L (8.4-10.2) mg/dL Magnesium 2.9 H (1.6-2.3) mg/dL Total Protein 4.2 L (6.3-8.2) g/dL Albumin 2.3 L (3.5-5.0) g/dL Arterial Blood Potassium (3.4-4.5) mmol/L Arterial Blood Glucose (75-99) mg/dL Crossmatch 05/19/19 05/19/19 05/19/19 Range/Units 13:42 14:03 14:36 WBC (3.8-10.6) k/uL RBC (4.30-5.90) m/uL Hgb (13.0-17.5) gm/dL Hct (39.0-53.0) % MCHC (31.0-37.0) g/dL Plt Count (150-450) k/uL Neutrophils # (1.3-7.7) k/uL Lymphocytes # (1.0-4.8) k/uL PT (9.0-12.0) sec INR (<1.2) ABG pH (7.35-7.45) ABG pCO2 (35-45) mmHg ABG pO2 332 H (83-108) mmHg ABG Total CO2 25 H (19-24) mmol/L ABG O2 Saturation 99.6 H (94-97) % ABG Hematocrit (34.0-46.0) % ABG Sodium (135-146) mmol/L ABG Potassium (3.4-4.5) mmol/L ABG Ionized Calcium (4.5-5.3) mg/dL ABG Glucose (75-99) mg/dL ABG Lactic Acid (0.5-1.6) mmol/L Hemoglobin (13.0-17.5) gm/dL Potassium (3.5-5.1) mmol/L Chloride (98-107) mmol/L BUN (9-20) mg/dL Creatinine (0.66-1.25) mg/dL Glucose (74-99) mg/dL POC Glucose (mg/dL) 110 H 119 H (75-99) mg/dL Calcium (8.4-10.2) mg/dL Magnesium (1.6-2.3) mg/dL Total Protein (6.3-8.2) g/dL Albumin (3.5-5.0) g/dL Arterial Blood Potassium (3.4-4.5) mmol/L Arterial Blood Glucose (75-99) mg/dL Crossmatch 05/19/19 05/19/19 05/19/19 Range/Units 15:41 16:02 16:40 WBC 11.8 H (3.8-10.6) k/uL RBC 4.08 L (4.30-5.90) m/uL Hgb 11.5 L (13.0-17.5) gm/dL Hct 37.2 L (39.0-53.0) % MCHC 30.9 L (31.0-37.0) g/dL Plt Count 139 L (150-450) k/uL Neutrophils # 9.3 H (1.3-7.7) k/uL Lymphocytes # (1.0-4.8) k/uL PT (9.0-12.0) sec INR (<1.2) ABG pH 7.30 L (7.35-7.45) ABG pCO2 48 H (35-45) mmHg ABG pO2 152 H (83-108) mmHg ABG Total CO2 25 H (19-24) mmol/L ABG O2 Saturation 98.7 H (94-97) % ABG Hematocrit (34.0-46.0) % ABG Sodium (135-146) mmol/L ABG Potassium (3.4-4.5) mmol/L ABG Ionized Calcium (4.5-5.3) mg/dL ABG Glucose (75-99) mg/dL ABG Lactic Acid (0.5-1.6) mmol/L Hemoglobin (13.0-17.5) gm/dL Potassium (3.5-5.1) mmol/L Chloride (98-107) mmol/L BUN (9-20) mg/dL Creatinine (0.66-1.25) mg/dL Glucose (74-99) mg/dL POC Glucose (mg/dL) 162 H (75-99) mg/dL Calcium (8.4-10.2) mg/dL Magnesium (1.6-2.3) mg/dL Total Protein (6.3-8.2) g/dL Albumin (3.5-5.0) g/dL Arterial Blood Potassium (3.4-4.5) mmol/L Arterial Blood Glucose (75-99) mg/dL Crossmatch 05/19/19 05/19/19 05/19/19 Range/Units 17:13 18:21 19:02 WBC 10.8 H (3.8-10.6) k/uL RBC 4.01 L (4.30-5.90) m/uL Hgb 11.9 L (13.0-17.5) gm/dL Hct 36.3 L (39.0-53.0) % MCHC (31.0-37.0) g/dL Plt Count 138 L (150-450) k/uL Neutrophils # 9.5 H (1.3-7.7) k/uL Lymphocytes # 0.5 L (1.0-4.8) k/uL PT (9.0-12.0) sec INR (<1.2) ABG pH (7.35-7.45) ABG pCO2 (35-45) mmHg ABG pO2 (83-108) mmHg ABG Total CO2 (19-24) mmol/L ABG O2 Saturation (94-97) % ABG Hematocrit (34.0-46.0) % ABG Sodium (135-146) mmol/L ABG Potassium (3.4-4.5) mmol/L ABG Ionized Calcium (4.5-5.3) mg/dL ABG Glucose (75-99) mg/dL ABG Lactic Acid (0.5-1.6) mmol/L Hemoglobin (13.0-17.5) gm/dL Potassium (3.5-5.1) mmol/L Chloride (98-107) mmol/L BUN (9-20) mg/dL Creatinine (0.66-1.25) mg/dL Glucose (74-99) mg/dL POC Glucose (mg/dL) 154 H 145 H (75-99) mg/dL Calcium (8.4-10.2) mg/dL Magnesium (1.6-2.3) mg/dL Total Protein (6.3-8.2) g/dL Albumin (3.5-5.0) g/dL Arterial Blood Potassium (3.4-4.5) mmol/L Arterial Blood Glucose (75-99) mg/dL Crossmatch 05/19/19 05/19/19 05/19/19 Range/Units 19:04 22:04 23:15 WBC (3.8-10.6) k/uL RBC (4.30-5.90) m/uL Hgb (13.0-17.5) gm/dL Hct (39.0-53.0) % MCHC (31.0-37.0) g/dL Plt Count (150-450) k/uL Neutrophils # (1.3-7.7) k/uL Lymphocytes # (1.0-4.8) k/uL PT (9.0-12.0) sec INR (<1.2) ABG pH (7.35-7.45) ABG pCO2 (35-45) mmHg ABG pO2 (83-108) mmHg ABG Total CO2 (19-24) mmol/L ABG O2 Saturation (94-97) % ABG Hematocrit (34.0-46.0) % ABG Sodium (135-146) mmol/L ABG Potassium (3.4-4.5) mmol/L ABG Ionized Calcium (4.5-5.3) mg/dL ABG Glucose (75-99) mg/dL ABG Lactic Acid (0.5-1.6) mmol/L Hemoglobin (13.0-17.5) gm/dL Potassium (3.5-5.1) mmol/L Chloride (98-107) mmol/L BUN (9-20) mg/dL Creatinine (0.66-1.25) mg/dL Glucose (74-99) mg/dL POC Glucose (mg/dL) 132 H 131 H 128 H (75-99) mg/dL Calcium (8.4-10.2) mg/dL Magnesium (1.6-2.3) mg/dL Total Protein (6.3-8.2) g/dL Albumin (3.5-5.0) g/dL Arterial Blood Potassium (3.4-4.5) mmol/L Arterial Blood Glucose (75-99) mg/dL Crossmatch 05/20/19 05/20/19 05/20/19 Range/Units 01:22 02:07 03:04 WBC (3.8-10.6) k/uL RBC (4.30-5.90) m/uL Hgb (13.0-17.5) gm/dL Hct (39.0-53.0) % MCHC (31.0-37.0) g/dL Plt Count (150-450) k/uL Neutrophils # (1.3-7.7) k/uL Lymphocytes # (1.0-4.8) k/uL PT (9.0-12.0) sec INR (<1.2) ABG pH (7.35-7.45) ABG pCO2 (35-45) mmHg ABG pO2 (83-108) mmHg ABG Total CO2 (19-24) mmol/L ABG O2 Saturation (94-97) % ABG Hematocrit (34.0-46.0) % ABG Sodium (135-146) mmol/L ABG Potassium (3.4-4.5) mmol/L ABG Ionized Calcium (4.5-5.3) mg/dL ABG Glucose (75-99) mg/dL ABG Lactic Acid (0.5-1.6) mmol/L Hemoglobin (13.0-17.5) gm/dL Potassium (3.5-5.1) mmol/L Chloride (98-107) mmol/L BUN (9-20) mg/dL Creatinine (0.66-1.25) mg/dL Glucose (74-99) mg/dL POC Glucose (mg/dL) 118 H 125 H 124 H (75-99) mg/dL Calcium (8.4-10.2) mg/dL Magnesium (1.6-2.3) mg/dL Total Protein (6.3-8.2) g/dL Albumin (3.5-5.0) g/dL Arterial Blood Potassium (3.4-4.5) mmol/L Arterial Blood Glucose (75-99) mg/dL Crossmatch 05/20/19 05/20/19 05/20/19 Range/Units 04:00 04:00 04:18 WBC (3.8-10.6) k/uL RBC 3.73 L (4.30-5.90) m/uL Hgb 11.2 L (13.0-17.5) gm/dL Hct 34.3 L (39.0-53.0) % MCHC (31.0-37.0) g/dL Plt Count 105 L (150-450) k/uL Neutrophils # (1.3-7.7) k/uL Lymphocytes # 0.4 L (1.0-4.8) k/uL PT (9.0-12.0) sec INR (<1.2) ABG pH (7.35-7.45) ABG pCO2 (35-45) mmHg ABG pO2 (83-108) mmHg ABG Total CO2 (19-24) mmol/L ABG O2 Saturation (94-97) % ABG Hematocrit (34.0-46.0) % ABG Sodium (135-146) mmol/L ABG Potassium (3.4-4.5) mmol/L ABG Ionized Calcium (4.5-5.3) mg/dL ABG Glucose (75-99) mg/dL ABG Lactic Acid (0.5-1.6) mmol/L Hemoglobin (13.0-17.5) gm/dL Potassium 5.9 H (3.5-5.1) mmol/L Chloride 110 H (98-107) mmol/L BUN 25 H (9-20) mg/dL Creatinine 2.06 H (0.66-1.25) mg/dL Glucose 133 H (74-99) mg/dL POC Glucose (mg/dL) 150 H (75-99) mg/dL Calcium 7.9 L (8.4-10.2) mg/dL Magnesium (1.6-2.3) mg/dL Total Protein 5.2 L (6.3-8.2) g/dL Albumin 3.1 L (3.5-5.0) g/dL Arterial Blood Potassium (3.4-4.5) mmol/L Arterial Blood Glucose (75-99) mg/dL Crossmatch 05/20/19 05/20/19 05/20/19 Range/Units 05:54 06:56 08:02 WBC (3.8-10.6) k/uL RBC (4.30-5.90) m/uL Hgb (13.0-17.5) gm/dL Hct (39.0-53.0) % MCHC (31.0-37.0) g/dL Plt Count (150-450) k/uL Neutrophils # (1.3-7.7) k/uL Lymphocytes # (1.0-4.8) k/uL PT (9.0-12.0) sec INR (<1.2) ABG pH (7.35-7.45) ABG pCO2 (35-45) mmHg ABG pO2 (83-108) mmHg ABG Total CO2 (19-24) mmol/L ABG O2 Saturation (94-97) % ABG Hematocrit (34.0-46.0) % ABG Sodium (135-146) mmol/L ABG Potassium (3.4-4.5) mmol/L ABG Ionized Calcium (4.5-5.3) mg/dL ABG Glucose (75-99) mg/dL ABG Lactic Acid (0.5-1.6) mmol/L Hemoglobin (13.0-17.5) gm/dL Potassium (3.5-5.1) mmol/L Chloride (98-107) mmol/L BUN (9-20) mg/dL Creatinine (0.66-1.25) mg/dL Glucose (74-99) mg/dL POC Glucose (mg/dL) 147 H 125 H 127 H (75-99) mg/dL Calcium (8.4-10.2) mg/dL Magnesium (1.6-2.3) mg/dL Total Protein (6.3-8.2) g/dL Albumin (3.5-5.0) g/dL Arterial Blood Potassium (3.4-4.5) mmol/L Arterial Blood Glucose (75-99) mg/dL Crossmatch - Imaging and Cardiology Chest x-ray: report reviewed, image reviewed Assessment and Plan Assessment: 1. Severe mitral valve regurgitation with Díaz disease, status post mitral valve repair 2. Mild tricuspid valve regurgitation 3. History of polycystic renal disease with chronic kidney disease 4. Hypertension 5. Remote history of nicotine dependence quit smoking in 2001 6. Chronic obstructive pulmonary disease 7. Occasional marijuana use 8. Anxiety 9. Gastroesophageal reflux disease 10. Post dual-chamber pacemaker placement. Plan: 1. Continue aspirin, statin, and beta mirta. Will increase beta mirta therapy as tolerated. 2. Have his permanent pacemaker interrogated today, please increase the pacemaker rate to 70 BPM. 3. Wean O2 as tolerated. Encourage incentive spirometry use 10 times every hour while awake. 4. Increase activity, ambulate as tolerated. PT/OT/cardiac rehab consulted. 5. Will monitor daily labs and chest x-rays. Electrolyte replacement per protocol. 6. Discontinue Yuma-Fidencio catheter. Connect Cordis to continue CVP monitoring. 7. GI/DVT prophylaxis. 8. Insulin management per primary care service. 9. Pain control with current medication regimen. No Toradol secondary to his history of chronic kidney disease. Avoid nephrotoxic agents. 10. Continue chest tubes for another 24 hours. Continue Collazo for another 24 hours for strict accurate intake and output. 11. 1 g of calcium gluconate 1 now IV piggyback. 12. Discontinue his lactated Ringer's and start 0.9 normal saline at KVO. 13. More recommendations to follow based on patient's clinical course. Time with Patient: Greater than 30
[2019-05-20] MEDS ORDERED: METOPROLOL TARTRATE 12.5 MG TAB PO SCH (09:00)
[2019-05-20] MEDS ORDERED: MAGNESIUM HYDROXIDE 2,400 MG/10 ML CUP PO PRN (09:00)
[2019-05-20] MEDS ORDERED: PANTOPRAZOLE 40 MG/10 ML VIAL IVP SCH (09:00)
[2019-05-20] MEDS ORDERED: BISACODYL 10 MG SUPP RECTAL PRN (09:00)
[2019-05-20 10:58] LABS: Glucose,Whole Blood 166 mg/dL (75-99)
[2019-05-20 10:59] VITALS: BMI 27.8
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
--- NOTE | 2019-05-20 11:59 | P.NPCON ---
History of Present Illness - Reason for Consult chronic renal failure - History of Present Illness Reason for consultation: Chronic kidney disease History of present illness: Patient is a 54-year-old male seen in renal consultation for chronic kidney disease. Patient has chronic kidney disease stage IIIB/4 with baseline creatinine in the range of 2-2.3. Etiology is polycystic kidney disease. Patient has history of severe mitral regurgitation and underwent mitral valve repair on May 19. He is currently resting in bed. Denies any active chest pain or shortness of breath. Urine output is good. No hematuria or dysuria. Denies use of nonsteroidals. Hemodynamically stable. Potassium level was 5.9 this morning and IV fluids were changed from lactated Ringer's to normal saline. Oral intake is good. Patient states she was ambulating this morning. No other complaints at this time. Vital signs are stable. General: The patient appeared well nourished and normally developed. HEENT: Head exam is unremarkable. Neck is without jugular venous distension. LUNGS: Lungs are clear to auscultation and percussion. Breath sounds decreased. HEART: Rate and Rhythm are regular. First and second heart sounds normal. No murmurs, rubs or gallops. ABDOMEN: Abdominal exam reveals normal bowel sounds. Non-tender and non- distended. EXTREMITITES: No clubbing, cyanosis, or edema. Past Medical History Past Medical History: Asthma, Chest Pain / Angina, COPD, Hypertension, Osteoarthritis (OA), Pneumonia, Renal Disease, Sleep Apnea/CPAP/BIPAP Additional Past Medical History / Comment(s): Severe mitral dysfunction, pleurisy x2, polycystic kidney disease stage IV, rare migraines, chronic cervical and back pain, DDD, gout bilateral feet, RSD affecting legs, PATSY without device, pneumonia in October History of Any Multi-Drug Resistant Organisms: None Reported Past Surgical History: Hernia Repair, Pacemaker Additional Past Surgical History / Comment(s): Pacemaker originally placed 2001, last gen change 2018, PASCALE, umbilical hernia repair, L leg tib/fib fracture with hardware-since removed, L thumb surgery-has rods, EGD, colonoscopy, 12/09/18 lung biopsy, bronchoscopy Past Anesthesia/Blood Transfusion Reactions: Previous Problems w/ Anesthesia Additional Past Anesthesia/Blood Transfusion Reaction / Comment(s): NEVER RECEIVED BLOOD. Pt had spinal anesthesia with spinal headache and blood patch. Type of Cardiac Device: Permanent Pacemaker Device Placement Date:: 2001 Smoking Status: Former smoker - Past Family History Father Family Medical History: Cancer, Myocardial Infarction (IA) Additional Family Medical History / Comment(s): FATHER BONE CA AT AGE 70. HE HAD AORTIC ANEURYSM WITH SURGERY. Mother Family Medical History: Cancer, Deep Vein Thrombosis (DVT), Renal Disease Additional Family Medical History / Comment(s): MOTHER OF LYMPHOMA. MOTHER HAD TRANSPLANT OF KIDNEY. Sister(s) Family Medical History: Deep Vein Thrombosis (DVT), Pulmonary Embolus, Renal Disease Additional Family Medical History / Comment(s): POLYCYSTIC KIDNEY DISEASE WITH TRANSPLANT, Medications and Allergies Home Medications Medication Instructions Recorded Confirmed Type Aspirin EC [Ecotrin Low Dose] 81 mg PO DAILY 06/01/14 05/19/19 History clonazePAM [KlonoPIN] 1 mg PO TID 06/01/14 05/19/19 History Allopurinol [Zyloprim] 100 mg PO DAILY 03/27/18 05/19/19 History Enalapril [Vasotec] 2.5 mg PO DAILY 03/27/18 05/19/19 History Fluticasone Propionate [Flonase 1 spray EA NOSTRIL DAILY 03/27/18 05/19/19 History Allergy Relief] Mirtazapine [Remeron] 45 mg PO HS 03/27/18 05/19/19 History Metoprolol Tartrate [Lopressor] 25 mg PO BID@0900,1400 10/17/18 05/19/19 History PARoxetine [Paxil] 20 mg PO DAILY 10/17/18 05/19/19 History busPIRone HCL [Buspar] 7.5 mg PO BID@0900,1400 10/17/18 05/19/19 History Albuterol Inhaler [Ventolin Hfa 1 - 2 puff INHALATION RT-Q6H PRN 05/13/19 05/19/19 History Inhaler] Famotidine [Pepcid AC] 10 mg PO DAILY 05/13/19 05/19/19 History Allergies Allergy/AdvReac Type Severity Reaction Status Date / Time No Known Allergies Allergy Verified 05/19/19 05:57 Physical Exam Vitals: Vital Signs Temp Pulse Resp BP Pulse Ox 05/20/19 11:30 60 05/20/19 11:25 60 05/20/19 07:38 65 05/20/19 07:29 60 05/20/19 07:00 60 11 L 97 05/20/19 06:00 60 27 H 96 05/20/19 05:00 60 17 97 05/20/19 04:00 60 10 L 97 05/20/19 03:00 60 10 L 97 05/20/19 02:00 60 11 L 97 05/20/19 01:00 60 11 L 97 05/20/19 00:00 98.6 F 60 20 100/73 100 05/19/19 23:13 60 16 100/73 99 05/19/19 23:00 60 15 100/73 99 05/19/19 22:00 63 23 100/73 98 05/19/19 21:00 65 15 96/70 98 05/19/19 20:00 97.9 F 71 33 H 107/72 98 05/19/19 19:47 69 05/19/19 19:40 14 98 05/19/19 19:36 69 05/19/19 19:00 74 14 107/72 98 05/19/19 18:00 75 12 107/72 97 05/19/19 17:00 89 17 97 05/19/19 16:11 95 05/19/19 16:00 97.5 F L 86 14 107/72 98 05/19/19 15:46 93 05/19/19 15:00 71 15 98 05/19/19 14:00 61 12 100 05/19/19 13:32 62 12 87/56 100 Intake and Output 05/19/19 05/20/19 05/20/19 22:59 06:59 14:59 Intake Total 565.921 601.152 3.956 Output Total 370 1340 Balance 195.921 -738.848 3.956 Intake: IV 560 590 Injectate 210 80 LR 350 450 Pressure bags 60 Intake, IV Titration 5.921 11.152 3.956 Amount Dexmedetomidine/0.9% NaCl 1.706 (Pmx) 400 mcg In Empty Bag 1 bag @ Titrate IV . Q0M [facility] Rx#:[id number] Insulin Regular 100 unit 4.040 11.152 3.956 In Sodium Chloride 0.9% 100 ml @ Per Protocol IV .Q0M [facility] Rx#:[id number] Propofol 1,000 mg In 0.175 Empty Bag 1 bag @ Titrate IV .Q0M [facility] Rx#: [id number] Output: Chest Tube Drainage 60 Mediastinal 60 Urine 370 1280 Other: Voiding Method Indwelling Catheter Indwelling Catheter Weight 87.8 kg 87.8 kg ABP, PAP, CO, CI - Last 8 Hours Arterial Blood Pressure 109/64 Arterial Blood Pressure 114/68 Arterial Blood Pressure 131/75 Arterial Blood Pressure 116/71 Pulmonary Artery Pressure 23/14 Pulmonary Artery Pressure 26/16 Pulmonary Artery Pressure 37/27 Pulmonary Artery Pressure 29/17 Cardiac Output 4.5 Cardiac Index 2.2 Results - Lab Results Most recent lab results ABG pH 7.30 (7.35-7.45) L 05/19/19 16:40 ABG pCO2 48 mmHg (35-45) H 05/19/19 16:40 ABG pO2 152 mmHg (83-108) H 05/19/19 16:40 ABG HCO3 24 mmol/L (21-25) 05/19/19 16:40 ABG O2 Saturation 98.7 % (94-97) H 05/19/19 16:40 Calcium 7.9 mg/dL (8.4-10.2) L 05/20/19 04:00 Magnesium 2.3 mg/dL (1.6-2.3) 05/20/19 04:00 05/20/19 04:00 05/20/19 04:00 Assessment and Plan Plan: Assessment: 1. Chronic kidney disease stage IIIB/4 secondary to polycystic kidney disease with baseline creatinine in the range of 2-2.3. GFR at baseline. 2. Hyperkalemia secondary to chronic kidney disease and lactated Ringer's. No evidence of acidosis. Blood sugar controlled. 3. Severe mitral regurgitation status post mitral valve repair on May 19. Plan: Encouraged oral intake. No need for IV fluids. Repeat potassium level this evening. Avoid nephrotoxins. Thank you for the consultation. I will continue to follow the patient with you during his hospital stay.
[2019-05-20 12:31] LABS: Glucose,Whole Blood 115 mg/dL (75-99)
--- NOTE | 2019-05-20 14:13 | P.PN ---
Subjective This is Jenna Schneider PA-C dictating a progress note on this patient The patient was interviewed and examined by me as well as by Dr. Raines Case discussed with Dr. Raines and he agrees with the plan of care IMPRESSION / ASSESSMENT: Severe mitral regurgitation postop day #1 status post mitral valve replacement Hypertension Polycystic kidney disease Status post permanent pacemaker placement Hyperkalemia PLAN: Continue aspirin and statins Enalapril on hold secondary to hyperkalemia Continue metoprolol HPI/interval history Patient is a 54-year-old male with a past medical history of severe mitral regurgitation, hypertension, polycystic kidney disease, PATSY, permanent pacemaker placement who presented for a mitral valve repair. He follows with Dr. Deluna in the office. Yesterday he underwent a successful mitral valve repair using ring annuloplasty and a left atrial appendage exclusion. He is doing well postoperatively. No arrhythmias on telemetry. Patient seen and examined sitting up in his chair. States he is sore but his pain has been fairly well-controlled. Denies any shortness of breath or dizziness. EXAMINATION Patient is afebrile, pulse 60, respirations 11, blood pressure 109/64, oxygen saturation 97% Patient seen and examined sitting up in his chair, in no acute distress Lungs clear to auscultation bilaterally Heart is regular, no murmurs audible No elevated JVD No lower extremity edema Abdomen soft REVIEW OF LABS, ECG WBC 7.6, hemoglobin 11.2, platelets 105, potassium 5.9, BUN 25, creatinine 2.06, magnesium 2.3 Objective - Vital Signs Vital signs: Vital Signs Temp 98.6 F 05/20/19 00:00 Pulse 60 05/20/19 11:30 Resp 11 L 05/20/19 07:00 BP 100/73 05/20/19 00:00 Pulse Ox 97 05/20/19 07:00 Intake & Output 05/19/19 05/20/19 05/20/19 18:59 06:59 18:59 Intake Total 277.921 921.152 826.744 Output Total 1550 1710 240 Balance -1272.079 -788.848 586.744 Weight 87.8 kg 87.8 kg Intake: IV 272 910 319 Calcium Gluconate 1 gm In 100 Sodium Chloride 0.9% 100 ml @ 100 mls/hr IVPB ONCE ONE Rx#:[id number] Injectate 90 200 LR 150 650 50 Pressure bags 60 39 Sodium Chloride 0.9% 500 80 ml 500 ml @ 20 mls/hr IV .Q24H [facility] Rx#:[id number] ceFAZolin 2 gm In Sodium 50 Chloride 0.9% 50 ml @ 100 mls/hr IVPB Q8HR [facility] Rx# :[id number] Intake, IV Titration 5.921 11.152 7.744 Amount Dexmedetomidine/0.9% NaCl 1.706 (Pmx) 400 mcg In Empty Bag 1 bag @ Titrate IV . Q0M [facility] Rx#:[id number] Insulin Regular 100 unit 4.040 11.152 7.744 In Sodium Chloride 0.9% 100 ml @ Per Protocol IV .Q0M [facility] Rx#:[id number] Propofol 1,000 mg In 0.175 Empty Bag 1 bag @ Titrate IV .Q0M [facility] Rx#: [id number] Oral 500 Output: Chest Tube Drainage 60 30 Mediastinal 60 30 Urine 1000 1650 210 Estimated Blood Loss 550 Other: Voiding Method Indwelling Catheter Indwelling Catheter ABP, PAP, CO, CI - Last Documented Arterial Blood Pressure 109/64 Pulmonary Artery Pressure 23/14 Cardiac Output 4.5 Cardiac Index 2.2 - Labs CBC & Chem 7: 05/20/19 04:00 05/20/19 04:00 Labs: Abnormal Lab Results - Last 24 Hours (Table) 05/13/19 05/19/19 05/19/19 Range/Units 09:35 12:55 13:30 WBC (3.8-10.6) k/uL RBC 3.76 L (4.30-5.90) m/uL Hgb 11.3 L D (13.0-17.5) gm/dL Hct 33.9 L (39.0-53.0) % MCHC (31.0-37.0) g/dL Plt Count 120 L (150-450) k/uL Neutrophils # (1.3-7.7) k/uL Lymphocytes # 0.8 L (1.0-4.8) k/uL PT (9.0-12.0) sec INR (<1.2) ABG pH (7.35-7.45) ABG pCO2 (35-45) mmHg ABG pO2 (83-108) mmHg ABG Total CO2 25 H (19-24) mmol/L ABG O2 Saturation 98.3 H (94-97) % ABG Hematocrit 33 L (34.0-46.0) % ABG Ionized Calcium 4.2 L (4.5-5.3) mg/dL ABG Glucose 121 H (75-99) mg/dL ABG Lactic Acid 2.0 H (0.5-1.6) mmol/L Hemoglobin 10.6 L (13.0-17.5) gm/dL Potassium (3.5-5.1) mmol/L Chloride (98-107) mmol/L BUN (9-20) mg/dL Creatinine (0.66-1.25) mg/dL Glucose (74-99) mg/dL POC Glucose (mg/dL) (75-99) mg/dL Calcium (8.4-10.2) mg/dL Magnesium (1.6-2.3) mg/dL Total Protein (6.3-8.2) g/dL Albumin (3.5-5.0) g/dL Arterial Blood Glucose 121 H (75-99) mg/dL Crossmatch See Detail 05/19/19 05/19/19 05/19/19 Range/Units 13:30 13:30 13:42 WBC (3.8-10.6) k/uL RBC (4.30-5.90) m/uL Hgb (13.0-17.5) gm/dL Hct (39.0-53.0) % MCHC (31.0-37.0) g/dL Plt Count (150-450) k/uL Neutrophils # (1.3-7.7) k/uL Lymphocytes # (1.0-4.8) k/uL PT 12.1 H (9.0-12.0) sec INR 1.2 H (<1.2) ABG pH (7.35-7.45) ABG pCO2 (35-45) mmHg ABG pO2 (83-108) mmHg ABG Total CO2 (19-24) mmol/L ABG O2 Saturation (94-97) % ABG Hematocrit (34.0-46.0) % ABG Ionized Calcium (4.5-5.3) mg/dL ABG Glucose (75-99) mg/dL ABG Lactic Acid (0.5-1.6) mmol/L Hemoglobin (13.0-17.5) gm/dL Potassium (3.5-5.1) mmol/L Chloride 111 H (98-107) mmol/L BUN 26 H (9-20) mg/dL Creatinine 2.10 H (0.66-1.25) mg/dL Glucose 109 H (74-99) mg/dL POC Glucose (mg/dL) 110 H (75-99) mg/dL Calcium 8.0 L (8.4-10.2) mg/dL Magnesium 2.9 H (1.6-2.3) mg/dL Total Protein 4.2 L (6.3-8.2) g/dL Albumin 2.3 L (3.5-5.0) g/dL Arterial Blood Glucose (75-99) mg/dL Crossmatch 05/19/19 05/19/19 05/19/19 Range/Units 14:03 14:36 15:41 WBC (3.8-10.6) k/uL RBC (4.30-5.90) m/uL Hgb (13.0-17.5) gm/dL Hct (39.0-53.0) % MCHC (31.0-37.0) g/dL Plt Count (150-450) k/uL Neutrophils # (1.3-7.7) k/uL Lymphocytes # (1.0-4.8) k/uL PT (9.0-12.0) sec INR (<1.2) ABG pH (7.35-7.45) ABG pCO2 (35-45) mmHg ABG pO2 332 H (83-108) mmHg ABG Total CO2 25 H (19-24) mmol/L ABG O2 Saturation 99.6 H (94-97) % ABG Hematocrit (34.0-46.0) % ABG Ionized Calcium (4.5-5.3) mg/dL ABG Glucose (75-99) mg/dL ABG Lactic Acid (0.5-1.6) mmol/L Hemoglobin (13.0-17.5) gm/dL Potassium (3.5-5.1) mmol/L Chloride (98-107) mmol/L BUN (9-20) mg/dL Creatinine (0.66-1.25) mg/dL Glucose (74-99) mg/dL POC Glucose (mg/dL) 119 H 162 H (75-99) mg/dL Calcium (8.4-10.2) mg/dL Magnesium (1.6-2.3) mg/dL Total Protein (6.3-8.2) g/dL Albumin (3.5-5.0) g/dL Arterial Blood Glucose (75-99) mg/dL Crossmatch 05/19/19 05/19/19 05/19/19 Range/Units 16:02 16:40 17:13 WBC 11.8 H (3.8-10.6) k/uL RBC 4.08 L (4.30-5.90) m/uL Hgb 11.5 L (13.0-17.5) gm/dL Hct 37.2 L (39.0-53.0) % MCHC 30.9 L (31.0-37.0) g/dL Plt Count 139 L (150-450) k/uL Neutrophils # 9.3 H (1.3-7.7) k/uL Lymphocytes # (1.0-4.8) k/uL PT (9.0-12.0) sec INR (<1.2) ABG pH 7.30 L (7.35-7.45) ABG pCO2 48 H (35-45) mmHg ABG pO2 152 H (83-108) mmHg ABG Total CO2 25 H (19-24) mmol/L ABG O2 Saturation 98.7 H (94-97) % ABG Hematocrit (34.0-46.0) % ABG Ionized Calcium (4.5-5.3) mg/dL ABG Glucose (75-99) mg/dL ABG Lactic Acid (0.5-1.6) mmol/L Hemoglobin (13.0-17.5) gm/dL Potassium (3.5-5.1) mmol/L Chloride (98-107) mmol/L BUN (9-20) mg/dL Creatinine (0.66-1.25) mg/dL Glucose (74-99) mg/dL POC Glucose (mg/dL) 154 H (75-99) mg/dL Calcium (8.4-10.2) mg/dL Magnesium (1.6-2.3) mg/dL Total Protein (6.3-8.2) g/dL Albumin (3.5-5.0) g/dL Arterial Blood Glucose (75-99) mg/dL Crossmatch 05/19/19 05/19/19 05/19/19 Range/Units 18:21 19:02 19:04 WBC 10.8 H (3.8-10.6) k/uL RBC 4.01 L (4.30-5.90) m/uL Hgb 11.9 L (13.0-17.5) gm/dL Hct 36.3 L (39.0-53.0) % MCHC (31.0-37.0) g/dL Plt Count 138 L (150-450) k/uL Neutrophils # 9.5 H (1.3-7.7) k/uL Lymphocytes # 0.5 L (1.0-4.8) k/uL PT (9.0-12.0) sec INR (<1.2) ABG pH (7.35-7.45) ABG pCO2 (35-45) mmHg ABG pO2 (83-108) mmHg ABG Total CO2 (19-24) mmol/L ABG O2 Saturation (94-97) % ABG Hematocrit (34.0-46.0) % ABG Ionized Calcium (4.5-5.3) mg/dL ABG Glucose (75-99) mg/dL ABG Lactic Acid (0.5-1.6) mmol/L Hemoglobin (13.0-17.5) gm/dL Potassium (3.5-5.1) mmol/L Chloride (98-107) mmol/L BUN (9-20) mg/dL Creatinine (0.66-1.25) mg/dL Glucose (74-99) mg/dL POC Glucose (mg/dL) 145 H 132 H (75-99) mg/dL Calcium (8.4-10.2) mg/dL Magnesium (1.6-2.3) mg/dL Total Protein (6.3-8.2) g/dL Albumin (3.5-5.0) g/dL Arterial Blood Glucose (75-99) mg/dL Crossmatch 05/19/19 05/19/19 05/20/19 Range/Units 22:04 23:15 01:22 WBC (3.8-10.6) k/uL RBC (4.30-5.90) m/uL Hgb (13.0-17.5) gm/dL Hct (39.0-53.0) % MCHC (31.0-37.0) g/dL Plt Count (150-450) k/uL Neutrophils # (1.3-7.7) k/uL Lymphocytes # (1.0-4.8) k/uL PT (9.0-12.0) sec INR (<1.2) ABG pH (7.35-7.45) ABG pCO2 (35-45) mmHg ABG pO2 (83-108) mmHg ABG Total CO2 (19-24) mmol/L ABG O2 Saturation (94-97) % ABG Hematocrit (34.0-46.0) % ABG Ionized Calcium (4.5-5.3) mg/dL ABG Glucose (75-99) mg/dL ABG Lactic Acid (0.5-1.6) mmol/L Hemoglobin (13.0-17.5) gm/dL Potassium (3.5-5.1) mmol/L Chloride (98-107) mmol/L BUN (9-20) mg/dL Creatinine (0.66-1.25) mg/dL Glucose (74-99) mg/dL POC Glucose (mg/dL) 131 H 128 H 118 H (75-99) mg/dL Calcium (8.4-10.2) mg/dL Magnesium (1.6-2.3) mg/dL Total Protein (6.3-8.2) g/dL Albumin (3.5-5.0) g/dL Arterial Blood Glucose (75-99) mg/dL Crossmatch 05/20/19 05/20/19 05/20/19 Range/Units 02:07 03:04 04:00 WBC (3.8-10.6) k/uL RBC 3.73 L (4.30-5.90) m/uL Hgb 11.2 L (13.0-17.5) gm/dL Hct 34.3 L (39.0-53.0) % MCHC (31.0-37.0) g/dL Plt Count 105 L (150-450) k/uL Neutrophils # (1.3-7.7) k/uL Lymphocytes # 0.4 L (1.0-4.8) k/uL PT (9.0-12.0) sec INR (<1.2) ABG pH (7.35-7.45) ABG pCO2 (35-45) mmHg ABG pO2 (83-108) mmHg ABG Total CO2 (19-24) mmol/L ABG O2 Saturation (94-97) % ABG Hematocrit (34.0-46.0) % ABG Ionized Calcium (4.5-5.3) mg/dL ABG Glucose (75-99) mg/dL ABG Lactic Acid (0.5-1.6) mmol/L Hemoglobin (13.0-17.5) gm/dL Potassium (3.5-5.1) mmol/L Chloride (98-107) mmol/L BUN (9-20) mg/dL Creatinine (0.66-1.25) mg/dL Glucose (74-99) mg/dL POC Glucose (mg/dL) 125 H 124 H (75-99) mg/dL Calcium (8.4-10.2) mg/dL Magnesium (1.6-2.3) mg/dL Total Protein (6.3-8.2) g/dL Albumin (3.5-5.0) g/dL Arterial Blood Glucose (75-99) mg/dL Crossmatch 05/20/19 05/20/19 05/20/19 Range/Units 04:00 04:18 05:54 WBC (3.8-10.6) k/uL RBC (4.30-5.90) m/uL Hgb (13.0-17.5) gm/dL Hct (39.0-53.0) % MCHC (31.0-37.0) g/dL Plt Count (150-450) k/uL Neutrophils # (1.3-7.7) k/uL Lymphocytes # (1.0-4.8) k/uL PT (9.0-12.0) sec INR (<1.2) ABG pH (7.35-7.45) ABG pCO2 (35-45) mmHg ABG pO2 (83-108) mmHg ABG Total CO2 (19-24) mmol/L ABG O2 Saturation (94-97) % ABG Hematocrit (34.0-46.0) % ABG Ionized Calcium (4.5-5.3) mg/dL ABG Glucose (75-99) mg/dL ABG Lactic Acid (0.5-1.6) mmol/L Hemoglobin (13.0-17.5) gm/dL Potassium 5.9 H (3.5-5.1) mmol/L Chloride 110 H (98-107) mmol/L BUN 25 H (9-20) mg/dL Creatinine 2.06 H (0.66-1.25) mg/dL Glucose 133 H (74-99) mg/dL POC Glucose (mg/dL) 150 H 147 H (75-99) mg/dL Calcium 7.9 L (8.4-10.2) mg/dL Magnesium (1.6-2.3) mg/dL Total Protein 5.2 L (6.3-8.2) g/dL Albumin 3.1 L (3.5-5.0) g/dL Arterial Blood Glucose (75-99) mg/dL Crossmatch 05/20/19 05/20/19 05/20/19 Range/Units 06:56 08:02 10:47 WBC (3.8-10.6) k/uL RBC (4.30-5.90) m/uL Hgb (13.0-17.5) gm/dL Hct (39.0-53.0) % MCHC (31.0-37.0) g/dL Plt Count (150-450) k/uL Neutrophils # (1.3-7.7) k/uL Lymphocytes # (1.0-4.8) k/uL PT (9.0-12.0) sec INR (<1.2) ABG pH (7.35-7.45) ABG pCO2 (35-45) mmHg ABG pO2 (83-108) mmHg ABG Total CO2 (19-24) mmol/L ABG O2 Saturation (94-97) % ABG Hematocrit (34.0-46.0) % ABG Ionized Calcium (4.5-5.3) mg/dL ABG Glucose (75-99) mg/dL ABG Lactic Acid (0.5-1.6) mmol/L Hemoglobin (13.0-17.5) gm/dL Potassium (3.5-5.1) mmol/L Chloride (98-107) mmol/L BUN (9-20) mg/dL Creatinine (0.66-1.25) mg/dL Glucose (74-99) mg/dL POC Glucose (mg/dL) 125 H 127 H 166 H (75-99) mg/dL Calcium (8.4-10.2) mg/dL Magnesium (1.6-2.3) mg/dL Total Protein (6.3-8.2) g/dL Albumin (3.5-5.0) g/dL Arterial Blood Glucose (75-99) mg/dL Crossmatch 05/20/19 Range/Units 12:19 WBC (3.8-10.6) k/uL RBC (4.30-5.90) m/uL Hgb (13.0-17.5) gm/dL Hct (39.0-53.0) % MCHC (31.0-37.0) g/dL Plt Count (150-450) k/uL Neutrophils # (1.3-7.7) k/uL Lymphocytes # (1.0-4.8) k/uL PT (9.0-12.0) sec INR (<1.2) ABG pH (7.35-7.45) ABG pCO2 (35-45) mmHg ABG pO2 (83-108) mmHg ABG Total CO2 (19-24) mmol/L ABG O2 Saturation (94-97) % ABG Hematocrit (34.0-46.0) % ABG Ionized Calcium (4.5-5.3) mg/dL ABG Glucose (75-99) mg/dL ABG Lactic Acid (0.5-1.6) mmol/L Hemoglobin (13.0-17.5) gm/dL Potassium (3.5-5.1) mmol/L Chloride (98-107) mmol/L BUN (9-20) mg/dL Creatinine (0.66-1.25) mg/dL Glucose (74-99) mg/dL POC Glucose (mg/dL) 115 H (75-99) mg/dL Calcium (8.4-10.2) mg/dL Magnesium (1.6-2.3) mg/dL Total Protein (6.3-8.2) g/dL Albumin (3.5-5.0) g/dL Arterial Blood Glucose (75-99) mg/dL Crossmatch
[2019-05-20 14:21] LABS: Glucose,Whole Blood 109 mg/dL (75-99)
[2019-05-20 16:46] LABS: Glucose,Whole Blood 171 mg/dL (75-99)
[2019-05-20 18:25] LABS: Glucose,Whole Blood 166 mg/dL (75-99)
[2019-05-20 19:32] LABS: Glucose,Whole Blood 153 mg/dL (75-99)
[2019-05-20 21:23] LABS: Glucose,Whole Blood 153 mg/dL (75-99)
[2019-05-20] MEDS: SENNOSIDES-DOCUSATE SODIUM 1 EACH TAB PO SCH (21:29)
[2019-05-20 23:40] LABS: Glucose,Whole Blood 117 mg/dL (75-99)
--- NOTE | 2019-05-21 00:29 | P.PN ---
Progress Note - Text Progress Note Date: 05/20/19 Consultation: This is a 54-year-old patient of Dr. Cira Hernandez. Chronic stable medical conditions include COPD, hypertension, osteoarthritis, polycystic kidney disease stage IV, gout,RSD affecting the legs, obstructive sleep apnea without a device. Also has a pacemaker. Patient has undergone mitral valve annuloplasty. Currently in the ICU. Today-sitting up in a chair. Feeling better. Some pain at the operative site. Did eat his meals. Did walk in the hallway. Some shortness of breath. Review of systems: Was done for constitutional, cardiovascular, GI, pulmonary. relevant finding as above Active Medications Hydrocodone Bitart/Acetaminophen (Plains 5-325) 2 each PO Q4HR PRN PRN Reason: Severe Pain Last Admin: 05/20/19 17:38 Dose: 2 each Documented by: Hydrocodone Bitart/Acetaminophen (Plains 5-325) 1 each PO Q4HR PRN PRN Reason: Moderate Pain Last Admin: 05/20/19 14:02 Dose: 1 each Documented by: Albuterol/Ipratropium (Duoneb 0.5 Mg-3 Mg/3 Ml Soln) 3 ml INHALATION RT-Q2H PRN PRN Reason: Shortness Of Breath Or Wheezing Albuterol/Ipratropium (Duoneb 0.5 Mg-3 Mg/3 Ml Soln) 3 ml INHALATION RT-QID [facility] Last Admin: 05/20/19 20:23 Dose: 3 ml Documented by: Allopurinol (Zyloprim) 100 mg PO DAILY [facility] Last Admin: 05/20/19 08:14 Dose: 100 mg Documented by: Aspirin (Aspirin) 325 mg PO DAILY [facility] Last Admin: 05/20/19 08:15 Dose: 325 mg Documented by: Atorvastatin Calcium (Lipitor) 40 mg PO DAILY [facility] Last Admin: 05/20/19 08:15 Dose: 40 mg Documented by: Benzocaine/Menthol (Cepacol Lozenge) 1 each MUCOUS MEM Q2H PRN PRN Reason: Sore Throat Bisacodyl (Dulcolax) 10 mg RECTAL DAILY PRN PRN Reason: Constipation Buspirone HCl (Buspar) 7.5 mg PO BID [facility] Last Admin: 05/20/19 21:30 Dose: 7.5 mg Documented by: Clonazepam (Klonopin) 1 mg PO TID [facility] Last Admin: 05/20/19 21:30 Dose: 1 mg Documented by: Heparin Sodium (Porcine) (Heparin) 5,000 unit SQ Q8H [facility] Last Admin: 05/20/19 21:31 Dose: 5,000 unit Documented by: Amiodarone HCl 150 mg/ (Dextrose/Water) 103 mls @ 618 mls/hr IV .Q10M PRN; Protocol PRN Reason: A.FIB/FLUTTER Amiodarone HCl 360 mg/ (Dextrose/Water) 200 mls @ 33.333 mls/hr IV .Q6H PRN; Protocol PRN Reason: A.FIB/FLUTTER Amiodarone HCl 300 mg/ (Dextrose/Water) 250 mls @ 25 mls/hr IV .Q10H PRN; Protocol PRN Reason: A.FIB/FLUTTER Albumin Human 250 ml/ IV (Solution) 250 mls @ 250 mls/hr IVPB Q1HR PRN PRN Reason: For Volume Stop: 05/21/19 13:27 Calcium Gluconate 2 gm/ Sodium (Chloride) 120 mls @ 100 mls/hr IVPB ONCE PRN PRN Reason: Ionized Calcium less than 4.4 Stop: 05/26/19 13:27 Insulin Human Regular 100 unit (/ Sodium Chloride) 101 mls @ 0 mls/hr IV .Q0M [facility]; Protocol Last Titration: 05/20/19 23:47 Dose: 0.5 units/hr, 0.505 mls/hr Documented by: Sodium Chloride (Saline 0.9%) 500 mls @ 20 mls/hr IV .Q24H [facility] Last Admin: 05/20/19 08:13 Dose: 20 mls/hr Documented by: Magnesium Hydroxide (Milk Of Magnesia) 2,400 mg PO BID PRN PRN Reason: Constipation Metoclopramide HCl (Reglan) 10 mg IVP Q4H PRN PRN Reason: Nausea And Vomiting Metoprolol Tartrate (Lopressor) 12.5 mg PO BID [facility] Last Admin: 05/20/19 21:29 Dose: 12.5 mg Documented by: Miscellaneous Information (Potassium Per Protocol) 1 each MISCELLANE DAILY PRN; Protocol PRN Reason: Per Protocol Miscellaneous Information (Magnesium Per Protocol) 1 each MISCELLANE DAILY PRN; Protocol PRN Reason: Per Protocol Miscellaneous Information (Phosphorus Per Protocol) 1 each MISCELLANE DAILY PRN; Protocol PRN Reason: Per Protocol Ondansetron HCl (Zofran) 4 mg IVP Q6HR PRN PRN Reason: Nausea And Vomiting Last Admin: 05/19/19 22:24 Dose: 4 mg Documented by: Pantoprazole Sodium (Protonix) 40 mg PO AC-BRKFST [facility] Last Admin: 05/20/19 08:14 Dose: 40 mg Documented by: Paroxetine HCl (Paxil) 20 mg PO DAILY [facility] Last Admin: 05/20/19 08:16 Dose: 20 mg Documented by: Senna/Docusate Sodium (Senokot-S) 2 each PO HS [facility] Last Admin: 05/20/19 21:29 Dose: 2 each Documented by: Sodium Chloride (Saline Flush) 10 ml IV BID [facility] Last Admin: 05/20/19 21:31 Dose: 10 ml Documented by: Physical examination: VITAL SIGNS: 98, 60, 20, 105/76, 99% on 3 L GENERAL: Sitting upon a chair, awake EYES: Pupils equal. Conjunctiva normal. HEENT: External appearance of nose and ears normal, oral cavity grossly normal. NECK: JVD unable to assess; masses not palpable. HEART: First and second heart sounds are normal; no edema. LUNGS: Respiratory rate increased, diminished breath sounds. ABDOMEN: Soft, nontender, liver spleen not palpable, no masses palpable. PSYCH: AAO 3, motor affect normal INVESTIGATIONS, reviewed in the clinical context: White count 7.6 hemoglobin 11.2 L on 05 potassium 5.9 bun 25 creatinine 2.06 On 05/13/2019 hemoglobin was 14.7 platelets were 137 bun 27 creatinine 2.7 Assessment: -Severe mitral valve regurgitation leading to complete ring annuloplasty -Hyperkalemia in the setting of renal failure -COPD in an ex-smoker -Essential hypertension -Polycystic kidney disease -Stage IV chronic kidney disease polycystic kidney disease -Gout -Obstructive sleep apnea does not use a device -Has a permanent pacemaker -RSD affecting the lower extremities -Anxiety not otherwise specified -Acute postop blood loss anemia as expected from surgery -Thrombocytopenia, dilutional Plan: Overall patient doing better. Nephrology was consulted. They're following up on the initial failure of the hyperkalemia. Care was discussed with the patient. Thank you Dr. Ordaz
[2019-05-21 01:11] LABS: Glucose,Whole Blood 122 mg/dL (75-99)
[2019-05-21 04:10] LABS: Glucose,Whole Blood 125 mg/dL (75-99)
[2019-05-21 05:21] LABS: Basophils % (A) 0 %; Eosinophils # (A) 0.1 k/uL (0-0.7); Eosinophils % (A) 1 %; HCT 30.6 % (39.0-53.0); Lymphocytes # (A) 0.8 k/uL (1.0-4.8); Lymphocytes % (A) 13 %; MCH 29.9 pg (25.0-35.0); MCHC 32.6 g/dL (31.0-37.0); MCV 91.8 fL (80.0-100.0); Mean Platelet Volume 11.3; Monocytes # (A) 0.5 k/uL (0-1.0); Monocytes % (A) 8 %; Neutrophils # (A) 4.8 k/uL (1.3-7.7); Neutrophils % (A) 76 %; RBC 3.33 m/uL (4.30-5.90); RDW 14.5 % (11.5-15.5); WBC 6.2 k/uL (3.8-10.6)
[2019-05-21 05:41] LABS: Albumin 2.9 g/dL (3.5-5.0); Calcium 8.4 mg/dL (8.4-10.2); Potassium 4.7 mmol/L (3.5-5.1); Total Bilirubin 0.3 mg/dL (0.2-1.3); Total Protein 5.1 g/dL (6.3-8.2)
[2019-05-21] MEDS: HYDROcodone/APAP 5-325MG 1 EACH TAB PO PRN (05:46)
[2019-05-21] MEDS: HEPARIN SODIUM,PORCINE 5,000 UNIT/ML 1 ML VIAL SQ SCH ×3 (05:47→21:01)
[2019-05-21 06:09] LABS: Platelet Count 91 k/uL (150-450)
[2019-05-21 06:10] LABS: Large Platelets Present
--- NOTE | 2019-05-21 07:57 | XR ---
EXAMINATION TYPE: XR chest 1V portable DATE OF EXAM: 05/21/2019 CLINICAL HISTORY: Post open cardiac surgery progress study. TECHNIQUE: Single AP portable upright view of the chest is obtained. COMPARISON: Chest x-ray from one day earlier and older studies. FINDINGS: There is interval removal of right internal jugular Minotola-Fidencio catheter with placement of a Cordis sheath. There is persistent cardiomegaly with dual lead pacemaker along with metallic cardiac valvular ring and superior closure device. There is persistent central vascular congestion and bibas ilar opacities. Possible tiny right apical pneumothorax less well seen on current study. Overlying EK G leads. Osseous structures are intact. IMPRESSION: Persistent low lung volumes and cardiomegaly with increasing central vascular congestion and slightly more prominent small bilateral pleural effusions. Correlate for worsening fluid overload state.
[2019-05-21] MEDS: PANTOPRAZOLE 40 MG TABLET PO SCH (08:42)
--- NOTE | 2019-05-21 08:58 | P.PN ---
Subjective Progress Note Date: 05/21/19 Principal diagnosis: Severe mitral valve regurgitation with Díaz disease, mild tricuspid valve regurgitation, past medical history significant for polycystic renal disease with chronic kidney disease, hypertension, remote history of smoking quit in 2001, chronic obstructive pulmonary disease, occasional marijuana use, anxiety, gastroesophageal reflux disease and post-dual chamber permanent pacemaker placement. POD #2 mitral valve repair using a complete ring annuloplasty with a 32 mm physio-2 ring, exclusion of the left atrial appendage using a 35 mm Atriclip, intraoperative transesophageal echocardiogram and epi-aortic scanning. Postoperative thrombocytopenia, an expected outcome from hemodilution. The patient is sitting up to the bedside chair in the intensive care unit. He is in no acute distress. He is complaining of surgical type pain to his chest tube insertion sites and denies any complaints of shortness of breath. His oxygen saturation are 93% on 2 L nasal cannula, he is achieving 1000 mL on his incentive spirometry. He remains hemodynamically stable and is currently on no inotropic or pressor support. Mediastinal chest tubes remain in place to low continuous wall suction -20 cm H2O. No air leak is present. Draining thin serosanguineous drainage with 150 mL output in the last 24 hours and 20 mL output in the last 8 hours. He remains afebrile. Laboratory results are showing a WBCs 6.2, Hgb 10.0, platelets 91, potassium 4.7, BUN 33, and a creatinine 2.09. The patient ambulated in the intensive care unit in all way yesterday 4 and tolerated well with minimal assistance. Objective - Vital Signs Vital signs: Vital Signs Temp 98.2 F 05/21/19 04:00 Pulse 69 05/21/19 07:00 Resp 11 L 05/21/19 07:00 BP 108/75 05/21/19 07:00 Pulse Ox 92 L 05/21/19 07:00 Intake & Output 05/20/19 05/21/19 05/21/19 18:59 06:59 18:59 Intake Total 1269.861 285.561 20 Output Total 580 1170 Balance 689.861 -884.439 20 Weight 87.8 kg 90.2 kg Intake: IV 457 276 20 Calcium Gluconate 1 gm In 100 Sodium Chloride 0.9% 100 ml @ 100 mls/hr IVPB ONCE ONE Rx#:[id number] LR 50 Pressure bags 57 36 Sodium Chloride 0.9% 500 200 240 20 ml 500 ml @ 20 mls/hr IV .Q24H [facility] Rx#:[id number] ceFAZolin 2 gm In Sodium 50 Chloride 0.9% 50 ml @ 100 mls/hr IVPB Q8HR [facility] Rx# :[id number] Intake, IV Titration 12.861 9.561 Amount Insulin Regular 100 unit 12.861 9.561 In Sodium Chloride 0.9% 100 ml @ Per Protocol IV .Q0M [facility] Rx#:[id number] Oral 800 Output: Chest Tube Drainage 30 40 Mediastinal 30 40 Drainage 20 MS Chest Tubes x2 20 Urine 530 1130 Other: Voiding Method Indwelling Catheter Indwelling Catheter ABP, PAP, CO, CI - Last Documented Arterial Blood Pressure 117/75 Pulmonary Artery Pressure 26/16 Cardiac Output 4.6 Cardiac Index 2.2 - Constitutional General appearance: Present: average body habitus, cooperative, no acute distress - Respiratory Details: Lung sounds are essentially clear to his bilateral upper lobes, few scattered crackles to his left lower lobe. No wheezes or rhonchi present. Respirations are symmetrical and nonlabored. Oxygen saturation is 93% on 2 L nasal cannula. Achieving 1000 mL on his incentive spirometry. Mediastinal chest tubes in place to low continuous wall suction -20 cm H2O. No air leak is present. Draining thin serosanguineous drainage. - Cardiovascular Details: Regular rhythm and rate. S1 and S2 present, negative for S3, gallop or murmur. Sternum is stable. Bedside telemetry showing atrial paced rhythm heart rate 70. Heart hugger is in place and he is demonstrating appropriate use. Knee-high ROSARIO hose and sequential compression devices in place with bilateral lower extremities. - Gastrointestinal Gastrointestinal Comment(s): Abdomen is soft, nontender and nondistended. Active bowel sounds present in all 4 abdominal quadrants. No guarding or rigidity. No organomegaly appreciated. Passing flatus. - Genitourinary Genitourinary Comment(s): Wright catheter for accurate I&O. Draining clear yellow urine. 800 mL output in the last 8 hours. - Integumentary Integumentary Comment(s): Skin is warm and dry. No clubbing or cyanosis is present. Midline sternal incision is clean, dry and approximated. No drainage or redness is present. Exofin dressing is clean, dry and intact. - Neurologic Neurologic Comment(s): No focal deficits present. Neurologic: Present: CNII-XII intact - Musculoskeletal Musculoskeletal: Present: gait normal, strength equal bilaterally - Psychiatric Psychiatric: Present: A&O x's 3, appropriate affect, intact judgment & insight - Allied health notes Allied health notes reviewed: nursing - Labs CBC & Chem 7: 05/21/19 05:00 05/21/19 05:00 Labs: Abnormal Lab Results - Last 24 Hours (Table) 05/20/19 05/20/19 05/20/19 Range/Units 10:47 12:19 14:10 RBC (4.30-5.90) m/uL Hgb (13.0-17.5) gm/dL Hct (39.0-53.0) % Plt Count (150-450) k/uL Lymphocytes # (1.0-4.8) k/uL Chloride (98-107) mmol/L BUN (9-20) mg/dL Creatinine (0.66-1.25) mg/dL Glucose (74-99) mg/dL POC Glucose (mg/dL) 166 H 115 H 109 H (75-99) mg/dL ALT (21-72) U/L Total Protein (6.3-8.2) g/dL Albumin (3.5-5.0) g/dL 05/20/19 05/20/19 05/20/19 Range/Units 16:35 18:14 19:27 RBC (4.30-5.90) m/uL Hgb (13.0-17.5) gm/dL Hct (39.0-53.0) % Plt Count (150-450) k/uL Lymphocytes # (1.0-4.8) k/uL Chloride (98-107) mmol/L BUN (9-20) mg/dL Creatinine (0.66-1.25) mg/dL Glucose (74-99) mg/dL POC Glucose (mg/dL) 171 H 166 H 153 H (75-99) mg/dL ALT (21-72) U/L Total Protein (6.3-8.2) g/dL Albumin (3.5-5.0) g/dL 05/20/19 05/20/19 05/21/19 Range/Units 21:22 23:39 01:09 RBC (4.30-5.90) m/uL Hgb (13.0-17.5) gm/dL Hct (39.0-53.0) % Plt Count (150-450) k/uL Lymphocytes # (1.0-4.8) k/uL Chloride (98-107) mmol/L BUN (9-20) mg/dL Creatinine (0.66-1.25) mg/dL Glucose (74-99) mg/dL POC Glucose (mg/dL) 153 H 117 H 122 H (75-99) mg/dL ALT (21-72) U/L Total Protein (6.3-8.2) g/dL Albumin (3.5-5.0) g/dL 05/21/19 05/21/19 05/21/19 Range/Units 04:09 05:00 05:00 RBC 3.33 L (4.30-5.90) m/uL Hgb 10.0 L (13.0-17.5) gm/dL Hct 30.6 L (39.0-53.0) % Plt Count 91 L (150-450) k/uL Lymphocytes # 0.8 L (1.0-4.8) k/uL Chloride 108 H (98-107) mmol/L BUN 33 H (9-20) mg/dL Creatinine 2.09 H (0.66-1.25) mg/dL Glucose 118 H (74-99) mg/dL POC Glucose (mg/dL) 125 H (75-99) mg/dL ALT 16 L (21-72) U/L Total Protein 5.1 L (6.3-8.2) g/dL Albumin 2.9 L (3.5-5.0) g/dL - Imaging and Cardiology Chest x-ray: report reviewed, image reviewed Assessment and Plan Assessment: 1. Severe mitral valve regurgitation with Díaz disease, status post mitral valve repair 2. Mild tricuspid valve regurgitation 3. History of polycystic renal disease with chronic kidney disease 4. Hypertension 5. Remote history of nicotine dependence quit smoking in 2001 6. Chronic obstructive pulmonary disease 7. Occasional marijuana use 8. Anxiety 9. Gastroesophageal reflux disease 10. Post dual-chamber pacemaker placement. Plan: 1. Continue aspirin, statin, and beta mirta. Will increase beta mirta therapy as tolerated. 2. His permanent pacemaker was interrogated yesterday, and his rate was increased to 70 bpm. 3. Wean O2 as tolerated. Encourage incentive spirometry use 10 times every hour while awake. 4. Increase activity, ambulate as tolerated. PT/OT/cardiac rehab following. 5. Will monitor daily labs and chest x-rays. Electrolyte replacement per protocol. 6. Discontinue right IJ cordis and wright catheter. 7. GI/DVT prophylaxis. 8. Insulin management per primary care service. 9. Pain control with current medication regimen. No Toradol secondary to his history of chronic kidney disease. Avoid nephrotoxic agents we will hold off on restarting his Vasotec at this time. 10. Discontinue chest tubes. 11. Transferred to cardiac stepdown unit. Anticipate discharge home with home care in the next 24 hours. It was or water in the chest and no air leak with the robotic have a nearly don't know stable and 12. No diuresis today. 13. More recommendations to follow based on patient's clinical course. Time with Patient: Greater than 30
[2019-05-21] MEDS: IPRATROPIUM-ALBUTEROL 3 ML NEB INHALATION SCH ×4 (09:01→20:29)
[2019-05-21] MEDS: ALLOPURINOL 100 MG TAB PO SCH (09:41)
[2019-05-21] MEDS: busPIRone HCl 5 MG TAB PO SCH ×2 (09:42→21:00)
[2019-05-21] MEDS: ASPIRIN 325 MG TAB PO SCH (09:42)
[2019-05-21] MEDS: ATORVASTATIN 40 MG TAB PO SCH (09:42)
[2019-05-21] MEDS: clonazePAM 1 MG TAB PO SCH ×3 (09:44→21:00)
[2019-05-21] MEDS: METOPROLOL TARTRATE 12.5 MG TAB PO SCH ×2 (09:44→21:00)
[2019-05-21] MEDS: PARoxetine 20 MG TAB PO SCH (09:48)
[2019-05-21] MEDS ORDERED: FUROSEMIDE 10 MG/ML 4 ML VIAL IV STA (10:23)
--- NOTE | 2019-05-21 11:02 | P.PN ---
Subjective Patient is seen in follow-up for chronic kidney disease. Patient has chronic kidney disease stage IIIB/4 with baseline creatinine in the range of 2-2.3 secondary to polycystic kidney disease. Renal function is stable. Denies chest pain or shortness of breath. He's been ambulating. Collazo catheter removed this morning. Complains of swelling in his upper extremities. Vital signs are stable. General: The patient appeared well nourished and normally developed. HEENT: Head exam is unremarkable. Neck is without jugular venous distension. LUNGS: Lungs are clear to auscultation and percussion. Breath sounds decreased. HEART: Rate and Rhythm are regular. First and second heart sounds normal. No murmurs, rubs or gallops. ABDOMEN: Abdominal exam reveals normal bowel sounds. Non-tender and non- distended. No evidence of peritonitis. EXTREMITITES: No clubbing, cyanosis, or edema. Objective - Vital Signs Vital signs: Vital Signs Temp 98.2 F 05/21/19 04:00 Pulse 70 05/21/19 09:14 Resp 24 05/21/19 09:00 BP 110/73 05/21/19 08:00 Pulse Ox 98 05/21/19 09:00 Intake & Output 05/20/19 05/21/19 05/21/19 18:59 06:59 18:59 Intake Total 1269.861 285.561 160 Output Total 580 1170 0 Balance 689.861 -884.439 160 Weight 87.8 kg 90.2 kg Intake: IV 457 276 40 Calcium Gluconate 1 gm In 100 Sodium Chloride 0.9% 100 ml @ 100 mls/hr IVPB ONCE ONE Rx#:[id number] LR 50 Pressure bags 57 36 Sodium Chloride 0.9% 500 200 240 40 ml 500 ml @ 20 mls/hr IV .Q24H [facility] Rx#:[id number] ceFAZolin 2 gm In Sodium 50 Chloride 0.9% 50 ml @ 100 mls/hr IVPB Q8HR [facility] Rx# :[id number] Intake, IV Titration 12.861 9.561 Amount Insulin Regular 100 unit 12.861 9.561 In Sodium Chloride 0.9% 100 ml @ Per Protocol IV .Q0M [facility] Rx#:[id number] Oral 800 120 Output: Chest Tube Drainage 30 40 Mediastinal 30 40 Drainage 20 0 MS Chest Tubes x2 20 0 Urine 530 1130 Other: Voiding Method Indwelling Catheter Indwelling Catheter ABP, PAP, CO, CI - Last Documented Arterial Blood Pressure 117/75 Pulmonary Artery Pressure 26/16 Cardiac Output 4.6 Cardiac Index 2.2 - Labs CBC & Chem 7: 05/21/19 05:00 05/21/19 05:00 Labs: Abnormal Lab Results - Last 24 Hours (Table) 05/20/19 05/20/19 05/20/19 Range/Units 12:19 14:10 16:35 RBC (4.30-5.90) m/uL Hgb (13.0-17.5) gm/dL Hct (39.0-53.0) % Plt Count (150-450) k/uL Lymphocytes # (1.0-4.8) k/uL Chloride (98-107) mmol/L BUN (9-20) mg/dL Creatinine (0.66-1.25) mg/dL Glucose (74-99) mg/dL POC Glucose (mg/dL) 115 H 109 H 171 H (75-99) mg/dL ALT (21-72) U/L Total Protein (6.3-8.2) g/dL Albumin (3.5-5.0) g/dL 05/20/19 05/20/19 05/20/19 Range/Units 18:14 19:27 21:22 RBC (4.30-5.90) m/uL Hgb (13.0-17.5) gm/dL Hct (39.0-53.0) % Plt Count (150-450) k/uL Lymphocytes # (1.0-4.8) k/uL Chloride (98-107) mmol/L BUN (9-20) mg/dL Creatinine (0.66-1.25) mg/dL Glucose (74-99) mg/dL POC Glucose (mg/dL) 166 H 153 H 153 H (75-99) mg/dL ALT (21-72) U/L Total Protein (6.3-8.2) g/dL Albumin (3.5-5.0) g/dL 05/20/19 05/21/19 05/21/19 Range/Units 23:39 01:09 04:09 RBC (4.30-5.90) m/uL Hgb (13.0-17.5) gm/dL Hct (39.0-53.0) % Plt Count (150-450) k/uL Lymphocytes # (1.0-4.8) k/uL Chloride (98-107) mmol/L BUN (9-20) mg/dL Creatinine (0.66-1.25) mg/dL Glucose (74-99) mg/dL POC Glucose (mg/dL) 117 H 122 H 125 H (75-99) mg/dL ALT (21-72) U/L Total Protein (6.3-8.2) g/dL Albumin (3.5-5.0) g/dL 05/21/19 05/21/19 Range/Units 05:00 05:00 RBC 3.33 L (4.30-5.90) m/uL Hgb 10.0 L (13.0-17.5) gm/dL Hct 30.6 L (39.0-53.0) % Plt Count 91 L (150-450) k/uL Lymphocytes # 0.8 L (1.0-4.8) k/uL Chloride 108 H (98-107) mmol/L BUN 33 H (9-20) mg/dL Creatinine 2.09 H (0.66-1.25) mg/dL Glucose 118 H (74-99) mg/dL POC Glucose (mg/dL) (75-99) mg/dL ALT 16 L (21-72) U/L Total Protein 5.1 L (6.3-8.2) g/dL Albumin 2.9 L (3.5-5.0) g/dL Assessment and Plan Plan: Assessment: 1. Chronic kidney disease stage IIIB/4 secondary to polycystic kidney disease with baseline creatinine in the range of 2-2.3. GFR at baseline. 2. Hyperkalemia secondary to chronic kidney disease and lactated Ringer's. No evidence of acidosis. Blood sugar controlled. Better. 3. Severe mitral regurgitation status post mitral valve repair on May 19. 4. Volume overload. Plan: Lasix 40 mg IV once today. Encouraged oral intake. Avoid nephrotoxins.
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
[2019-05-21 11:59] LABS: Glucose,Whole Blood 127 mg/dL (75-99)
[2019-05-21] MEDS: INSULIN ASPART (NovoLOG) 100 UNIT/ML VIAL SQ SCH ×3 (12:53→21:07)
[2019-05-21] MEDS: LISINOPRIL 2.5 MG TAB PO SCH (13:06)
[2019-05-21 17:25] LABS: Glucose,Whole Blood 81 mg/dL (75-99)
[2019-05-21] MEDS: ACETAMINOPHEN TAB 500 MG TAB PO PRN (21:00)
[2019-05-21] MEDS: SENNOSIDES-DOCUSATE SODIUM 1 EACH TAB PO SCH (21:00)
[2019-05-21 21:09] LABS: Glucose,Whole Blood 79 mg/dL (75-99)
[2019-05-22 06:51] LABS: Glucose,Whole Blood 83 mg/dL (75-99)
[2019-05-22] MEDS: INSULIN ASPART (NovoLOG) 100 UNIT/ML VIAL SQ SCH ×4 (06:57→22:13)
[2019-05-22] MEDS: PANTOPRAZOLE 40 MG TABLET PO SCH (06:58)
[2019-05-22] MEDS: HEPARIN SODIUM,PORCINE 5,000 UNIT/ML 1 ML VIAL SQ SCH ×3 (06:59→22:09)
--- NOTE | 2019-05-22 08:29 | XR ---
EXAMINATION TYPE: XR chest 2V DATE OF EXAM: 05/22/2019 COMPARISON: 05/21/2019 HISTORY: Postoperative mitral valve repair TECHNIQUE: Frontal upright chest and lateral view FINDINGS: The heart size is normal. Sternotomy wires are present from cardiac valve surgery. Pacemake r overlies left chest Pulmonary vasculature is normal. Small bilateral pleural fluid collections are present. Some atelecta sis at the lung bases is present. IMPRESSION: 1. Small bilateral pleural effusions.
[2019-05-22] MEDS: ATORVASTATIN 40 MG TAB PO SCH (09:13)
[2019-05-22] MEDS: busPIRone HCl 5 MG TAB PO SCH ×2 (09:13→22:09)
[2019-05-22] MEDS: ASPIRIN 325 MG TAB PO SCH (09:13)
[2019-05-22] MEDS: ALLOPURINOL 100 MG TAB PO SCH (09:13)
[2019-05-22] MEDS: CLOPIDOGREL 75 MG TAB PO SCH (09:14)
[2019-05-22] MEDS: clonazePAM 1 MG TAB PO SCH ×3 (09:14→22:09)
[2019-05-22] MEDS: METOPROLOL TARTRATE 12.5 MG TAB PO SCH ×2 (09:14→22:09)
[2019-05-22] MEDS: LISINOPRIL 2.5 MG TAB PO SCH (09:14)
[2019-05-22] MEDS: PARoxetine 20 MG TAB PO SCH (09:14)
--- NOTE | 2019-05-22 09:42 | P.PN ---
Subjective Progress Note Date: 05/22/19 Principal diagnosis: Severe mitral valve regurgitation with Díaz disease, mild tricuspid valve regurgitation. Previous medical history of polycystic renal disease with chronic kidney disease, hypertension, previous tobacco dependence, mild chronic obstructive pulmonary disease with FEV1 74% of predicted, obstructive sleep apnea without home CPAP use, occasional marijuana use, anxiety, gastroesophageal reflux disease, post-dual chamber [employer] permanent pacemaker placement and family history of premature coronary artery disease with grandfather of myocardial infarction at 54 years old. POD #3 mitral valve repair using a complete ring annuloplasty with a 32 mm physio-2 ring, exclusion of the left atrial appendage using a 35 mm Atriclip, intraoperative transesophageal echocardiogram and epi-aortic scanning. Postoperative thrombocytopenia, expected outcome from hemodilution. The patient is currently sitting up in a recliner in no acute distress. States pain is controlled on current medication regimen, denies shortness of breath. Does continue to complain of small amount of swelling in his upper extremities but better than yesterday after IV Lasix given. Has ambulated multiple times in the hallway without difficulty. Anxious awaiting return to home. No new complaints. Chest tubes, arterial line, Cordis, Collazo catheter were discontinued yesterday. Objective - Vital Signs Vital signs: Vital Signs Temp 98.2 F 05/22/19 04:00 Pulse 70 05/22/19 05:00 Resp 13 05/22/19 05:00 BP 106/51 05/22/19 04:00 Pulse Ox 98 05/22/19 04:00 Intake & Output 05/21/19 05/22/19 05/22/19 18:59 06:59 18:59 Intake Total 660 200 Output Total 0 Balance 660 200 Weight 92.1 kg Intake: IV 40 Sodium Chloride 0.9% 500 40 ml 500 ml @ 20 mls/hr IV .Q24H [facility] Rx#:[id number] Oral 620 200 Output: Drainage 0 MS Chest Tubes x2 0 Urine 0 Other: Voiding Method Indwelling Catheter Toilet # Voids 1 1 ABP, PAP, CO, CI - Last Documented Arterial Blood Pressure 117/75 Pulmonary Artery Pressure 26/16 Cardiac Output 4.6 Cardiac Index 2.2 - Constitutional General appearance: Present: cooperative, no acute distress - Respiratory Details: Lungs sounds diminished bilaterally. Respirations even, nonlabored. Was on 2 L nasal cannula with oxygen saturation 98%, currently on room air. Able to achieve 1000 mL on his incentive spirometry. Strong cough. - Cardiovascular Details: S1, S2 present. Regular rate and rhythm, sinus rhythm on telemetry. Sternum stable. Palpable peripheral pulses bilaterally. Trace bilateral upper extr emity edema present. No calf pain or tenderness noted. Heart hugger in place with patient demonstrating appropriate use. Antiembolism stockings, SCDs present. - Gastrointestinal Gastrointestinal Comment(s): Abdomen soft, nontender, nondistended. Active bowel sounds present 4 quadrants. Tolerating diet. Positive flatus, negative bowel movement. - Genitourinary Genitourinary Comment(s): Collazo discontinued yesterday. Patient continues to void clear, yellow urine. - Integumentary Integumentary Comment(s): Skin is warm and dry with evidence of good perfusion. Anterior chest incision well approximated and covered with dry intact dressing. - Neurologic Neurologic: Present: CNII-XII intact - Musculoskeletal Musculoskeletal: Present: gait normal, strength equal bilaterally - Psychiatric Psychiatric: Present: A&O x's 3, appropriate affect, intact judgment & insight - Allied health notes Allied health notes reviewed: nursing - Labs CBC & Chem 7: 05/21/19 05:00 05/21/19 05:00 Labs: Abnormal Lab Results - Last 24 Hours (Table) 05/21/19 Range/Units 11:48 POC Glucose (mg/dL) 127 H (75-99) mg/dL - Imaging and Cardiology Chest x-ray: report reviewed, image reviewed Assessment and Plan Assessment: 1. Severe mitral valve regurgitation with Díaz disease, status post mitral valve repair 2. Mild tricuspid regurgitation 3. Polycystic renal disease with chronic kidney disease, stage IV 4. Hypertension 5. Previous tobacco dependence 6. Mild COPD with preoperative FEV1 74% of predicted 7. Obstructive sleep apnea without home CPAP use 8. Occasional marijuana use 9. Anxiety 10. GERD 11. Status post dual-chamber [employer] permanent pacemaker placement 12. Family history of premature coronary artery disease 13. Postoperative thrombocytopenia Plan: 1. Continue aspirin, statin, Plavix, DAYRON inhibitor, beta mirta therapy. Will increase beta mirta therapy as tolerated. 2. Wean O2 as tolerated. Encourage incentive spirometry 10x times every hour while awake. 3. Increase activity, continue to ambulate as tolerated. PT/OT/cardiac rehab following. 4. Will monitor daily labs and x-rays. Electrolyte replacement per protocol. No blood transfusion. 5. GI/DVT prophylaxis 6. Insulin management per primary care service. 7. Pain control with current medication regimen. No Toradol or NSAIDS 8. Avoid nephrotoxins. May give 40 mg IV Lasix 1 today dependent on lab work, okay with nephrology. 9. Transfer orders placed yesterday for 3 S. cardiac stepdown unit. May transfer when bed available. 10. Discharge planning in progress. Anticipate discharge to home with home care in the next 24 hours. 11. More recommendations to follow. Time with Patient: Greater than 30
--- NOTE | 2019-05-22 10:03 | P.PN ---
Subjective Patient is seen in follow-up for chronic kidney disease. Patient has chronic kidney disease stage IIIB/4 with baseline creatinine in the range of 2-2.3 secondary to polycystic kidney disease. Renal function is stable. Denies chest pain or shortness of breath. He's been ambulating. Still complaining of edema. Remains nonoliguric. Vital signs are stable. General: The patient appeared well nourished and normally developed. HEENT: Head exam is unremarkable. Neck is without jugular venous distension. LUNGS: Lungs are clear to auscultation and percussion. Breath sounds decreased. HEART: Rate and Rhythm are regular. First and second heart sounds normal. No murmurs, rubs or gallops. ABDOMEN: Abdominal exam reveals normal bowel sounds. Non-tender and non- distended. No evidence of peritonitis. EXTREMITITES: Upper extremity edema noted. Objective - Vital Signs Vital signs: Vital Signs Temp 98.6 F 05/22/19 09:15 Pulse 80 05/22/19 09:45 Resp 24 05/22/19 09:45 BP 109/63 05/22/19 09:45 Pulse Ox 89 L 05/22/19 09:45 Intake & Output 05/21/19 05/22/19 05/22/19 18:59 06:59 18:59 Intake Total 660 200 Output Total 0 Balance 660 200 Weight 92.1 kg Intake: IV 40 Sodium Chloride 0.9% 500 40 ml 500 ml @ 20 mls/hr IV .Q24H [facility] Rx#:[id number] Oral 620 200 Output: Drainage 0 MS Chest Tubes x2 0 Urine 0 Other: Voiding Method Indwelling Catheter Toilet # Voids 1 1 ABP, PAP, CO, CI - Last Documented Arterial Blood Pressure 117/75 Pulmonary Artery Pressure 26/16 Cardiac Output 4.6 Cardiac Index 2.2 - Labs CBC & Chem 7: 05/21/19 05:00 05/21/19 05:00 Labs: Abnormal Lab Results - Last 24 Hours (Table) 05/21/19 Range/Units 11:48 POC Glucose (mg/dL) 127 H (75-99) mg/dL Assessment and Plan Plan: Assessment: 1. Chronic kidney disease stage IIIB/4 secondary to polycystic kidney disease with baseline creatinine in the range of 2-2.3. GFR at baseline. 2. Hyperkalemia secondary to chronic kidney disease and lactated Ringer's. No evidence of acidosis. Blood sugar controlled. Better. 3. Severe mitral regurgitation status post mitral valve repair on May 19. 4. Volume overload. Better with diuresis. Plan: Repeat Lasix 40 mg IV once today. Encouraged oral intake. Avoid nephrotoxins. Morning labs pending.
[2019-05-22] MEDS: IPRATROPIUM-ALBUTEROL 3 ML NEB INHALATION SCH ×4 (10:08→21:00)
[2019-05-22 10:13] LABS: Calcium 8.6 mg/dL (8.4-10.2)
[2019-05-22 10:14] LABS: Potassium 4.4 mmol/L (3.5-5.1)
[2019-05-22 10:20] LABS: Basophils # (A) 0.2 k/uL (0-0.2); Basophils % (A) 2 %; Eosinophils # (A) 0.1 k/uL (0-0.7); Eosinophils % (A) 1 %; HCT 36.1 % (39.0-53.0); Lymphocytes # (A) 0.8 k/uL (1.0-4.8); Lymphocytes % (A) 9 %; MCH 27.6 pg (25.0-35.0); MCHC 30.6 g/dL (31.0-37.0); Monocytes # (A) 0.5 k/uL (0-1.0); Monocytes % (A) 6 %; Neutrophils % (A) 81 %; Platelet Count 128 k/uL (150-450); RDW 14.6 % (11.5-15.5); WBC 8.7 k/uL (3.8-10.6)
--- NOTE | 2019-05-22 10:39 | P.PN ---
Subjective This is Jenna Schneider PA-C dictating a progress note on this patient The patient was interviewed and examined by me as well as by Dr. Raines Case discussed with Dr. Raines and he agrees with the plan of care IMPRESSION / ASSESSMENT: Severe mitral regurgitation postop day #3 status post mitral valve replacement Hypertension, blood pressure stable Polycystic kidney disease Status post permanent pacemaker placement Hyperkalemia, resolved PLAN: From a cardiology standpoint, continue aspirin, atorvastatin, Plavix, metoprolol Continue low-dose lisinopril HPI/interval history Patient is a 54-year-old male with a past medical history of severe mitral regurgitation, hypertension, polycystic kidney disease, PATSY, permanent pacemaker placement who presented for a mitral valve repair. He follows with Dr. Deluna in the office. He underwent a successful mitral valve repair using ring annuloplasty and a left atrial appendage exclusion. He is doing well postoperatively. No arrhythmias on telemetry post operatively. Bedside telemetry reveals sinus rhythm. They have not been able to wean him off the oxygen yet. Patient seen and examined sitting up in his chair in the ICU. States he is still sore. He has been up walking around in the hallways, no dizziness. States his breathing has been "okay". EXAMINATION Temperature 98.6F, pulse 80, respirations 16, blood pressure 109/63, oxygen saturation 88% on room air, 98% with 2 L nasal cannula Patient seen and examined sitting up in his chair, in no acute distress Lungs clear to auscultation bilaterally Heart is regular, no murmurs audible No elevated JVD No lower extremity edema Abdomen soft REVIEW OF LABS, ECG WBC 8.7, hemoglobin 11, platelets 128, potassium 4.4, BUN 38, creatinine 2.11 Objective - Vital Signs Vital signs: Vital Signs Temp 98.6 F 05/22/19 09:15 Pulse 80 05/22/19 09:45 Resp 24 05/22/19 09:45 BP 109/63 05/22/19 09:45 Pulse Ox 89 L 05/22/19 09:45 Intake & Output 05/21/19 05/22/19 05/22/19 18:59 06:59 18:59 Intake Total 660 200 Output Total 0 0 Balance 660 200 0 Weight 92.1 kg Intake: IV 40 Sodium Chloride 0.9% 500 40 ml 500 ml @ 20 mls/hr IV .Q24H [facility] Rx#:[id number] Oral 620 200 Output: Drainage 0 MS Chest Tubes x2 0 Urine 0 0 Other: Voiding Method Indwelling Catheter Toilet Toilet # Voids 1 1 1 ABP, PAP, CO, CI - Last Documented Arterial Blood Pressure 117/75 Pulmonary Artery Pressure 26/16 Cardiac Output 4.6 Cardiac Index 2.2 - Labs CBC & Chem 7: 05/22/19 09:32 05/22/19 09:32 Labs: Abnormal Lab Results - Last 24 Hours (Table) 05/21/19 05/22/19 05/22/19 Range/Units 11:48 09:32 09:32 RBC 4.00 L (4.30-5.90) m/uL Hgb 11.0 L (13.0-17.5) gm/dL Hct 36.1 L (39.0-53.0) % MCHC 30.6 L (31.0-37.0) g/dL Plt Count 128 L (150-450) k/uL Lymphocytes # 0.8 L (1.0-4.8) k/uL BUN 38 H (9-20) mg/dL Creatinine 2.11 H (0.66-1.25) mg/dL Glucose 100 H (74-99) mg/dL POC Glucose (mg/dL) 127 H (75-99) mg/dL
[2019-05-22] MEDS ORDERED: FUROSEMIDE 10 MG/ML 4 ML VIAL IV STA (10:40)
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
[2019-05-22 11:52] LABS: Glucose,Whole Blood 73 mg/dL (75-99)
[2019-05-22 16:31] LABS: Glucose,Whole Blood 88 mg/dL (75-99)
--- NOTE | 2019-05-22 16:54 | P.PN ---
Progress Note - Text Progress Note Date: 05/22/19 Interval history: This is a 54-year-old patient of Dr. Cira Hernandez. Chronic stable medical conditions include COPD, hypertension, osteoarthritis, polycystic kidney disease stage IV, gout,RSD affecting the legs, obstructive sleep apnea without a device. Also has a pacemaker. Patient has undergone mitral valve annuloplasty. Currently in the ICU. Today-continues to feel better.Up in the hallway. Walking. Breathing is improved. Eating better. No new issues. Patient received a dose of IV Lasix earlier today. Review of systems: Was done for constitutional, cardiovascular, GI, pulmonary. relevant finding as above Active Medications Acetaminophen (Tylenol Tab) 1,000 mg PO Q6HR PRN PRN Reason: Fever and/ or Mild Pain Last Admin: 05/21/19 21:00 Dose: 1,000 mg Documented by: Albuterol/Ipratropium (Duoneb 0.5 Mg-3 Mg/3 Ml Soln) 3 ml INHALATION RT-Q2H PRN PRN Reason: Shortness Of Breath Or Wheezing Albuterol/Ipratropium (Duoneb 0.5 Mg-3 Mg/3 Ml Soln) 3 ml INHALATION RT-QID [facility] Last Admin: 05/22/19 15:50 Dose: 3 ml Documented by: Allopurinol (Zyloprim) 100 mg PO DAILY [facility] Last Admin: 05/22/19 09:13 Dose: 100 mg Documented by: Aspirin (Aspirin) 325 mg PO DAILY [facility] Last Admin: 05/22/19 09:13 Dose: 325 mg Documented by: Atorvastatin Calcium (Lipitor) 40 mg PO DAILY [facility] Last Admin: 05/22/19 09:13 Dose: 40 mg Documented by: Bisacodyl (Dulcolax) 10 mg RECTAL DAILY PRN PRN Reason: Constipation Buspirone HCl (Buspar) 7.5 mg PO BID [facility] Last Admin: 05/22/19 09:13 Dose: 7.5 mg Documented by: Clonazepam (Klonopin) 1 mg PO TID [facility] Last Admin: 05/22/19 16:31 Dose: 1 mg Documented by: Clopidogrel Bisulfate (Plavix) 75 mg PO DAILY [facility] Last Admin: 05/22/19 09:14 Dose: 75 mg Documented by: Heparin Sodium (Porcine) (Heparin) 5,000 unit SQ Q8H [facility] Last Admin: 05/22/19 13:58 Dose: 5,000 unit Documented by: Amiodarone HCl 150 mg/ (Dextrose/Water) 103 mls @ 618 mls/hr IV .Q10M PRN; Protocol PRN Reason: A.FIB/FLUTTER Amiodarone HCl 360 mg/ (Dextrose/Water) 200 mls @ 33.333 mls/hr IV .Q6H PRN; Protocol PRN Reason: A.FIB/FLUTTER Amiodarone HCl 300 mg/ (Dextrose/Water) 250 mls @ 25 mls/hr IV .Q10H PRN; Protocol PRN Reason: A.FIB/FLUTTER Insulin Aspart (Novolog) 0 unit SQ ACHS [facility]; Protocol Last Admin: 05/22/19 16:32 Dose: Not Given Documented by: Lisinopril (Zestril) 2.5 mg PO DAILY [facility] Last Admin: 05/22/19 09:14 Dose: 2.5 mg Documented by: Magnesium Hydroxide (Milk Of Magnesia) 2,400 mg PO BID PRN PRN Reason: Constipation Metoprolol Tartrate (Lopressor) 12.5 mg PO BID [facility] Last Admin: 05/22/19 09:14 Dose: 12.5 mg Documented by: Miscellaneous Information (Potassium Per Protocol) 1 each MISCELLANE DAILY PRN; Protocol PRN Reason: Per Protocol Miscellaneous Information (Magnesium Per Protocol) 1 each MISCELLANE DAILY PRN; Protocol PRN Reason: Per Protocol Miscellaneous Information (Phosphorus Per Protocol) 1 each MISCELLANE DAILY PRN; Protocol PRN Reason: Per Protocol Ondansetron HCl (Zofran) 4 mg IVP Q6HR PRN PRN Reason: Nausea And Vomiting Last Admin: 05/19/19 22:24 Dose: 4 mg Documented by: Pantoprazole Sodium (Protonix) 40 mg PO -BRKFST [facility] Last Admin: 05/22/19 06:58 Dose: 40 mg Documented by: Paroxetine HCl (Paxil) 20 mg PO DAILY [facility] Last Admin: 05/22/19 09:14 Dose: 20 mg Documented by: Senna/Docusate Sodium (Senokot-S) 2 each PO HS [facility] Last Admin: 05/21/19 21:00 Dose: 2 each Documented by: Sodium Chloride (Saline Flush) 10 ml IV BID [facility] Last Admin: 05/22/19 10:56 Dose: 10 ml Documented by: Physical examination: VITAL SIGNS: 98.6, 82, 19, 120/84, 97% room air GENERAL: Propped up in bed, comfortable EYES: Pupils equal. Conjunctiva normal. HEENT: External appearance of nose and ears normal, oral cavity grossly normal. NECK: JVD unable to assess; masses not palpable. HEART: First and second heart sounds are normal; no edema. LUNGS: Respiratory rate increased, diminished breath sounds. ABDOMEN: Soft, nontender, liver spleen not palpable, no masses palpable. PSYCH: AAO 3, motor affect normal INVESTIGATIONS, reviewed in the clinical context: White count 8.7 hemoglobin 11 crit is 128 potassium 4.4 138 creatinine 2.11 Previous testing On 05/13/2019 hemoglobin was 14.7 platelets were 137 bun 27 creatinine 2.7 Assessment: -Severe mitral valve regurgitation leading to complete ring annuloplasty -Hyperkalemia in the setting of renal failure, corrected -COPD in an ex-smoker -Essential hypertension -Polycystic kidney disease -Stage IIIB chronic kidney disease, from polycystic kidney disease -Gout -Obstructive sleep apnea does not use a device -Has a permanent pacemaker -RSD affecting the lower extremities -Anxiety not otherwise specified -Acute postop blood loss anemia as expected from surgery -Thrombocytopenia, dilutional Plan: Continue his to do well. Eating well. Up and about. Care was discussed with the patient. Thank you Dr. Ordaz
[2019-05-22 20:31] LABS: Glucose,Whole Blood 104 mg/dL (75-99)
[2019-05-22] MEDS: SENNOSIDES-DOCUSATE SODIUM 1 EACH TAB PO SCH (22:13)
[2019-05-23] MEDS: HEPARIN SODIUM,PORCINE 5,000 UNIT/ML 1 ML VIAL SQ SCH (05:39)
[2019-05-23 06:35] LABS: Glucose,Whole Blood 104 mg/dL (75-99)
[2019-05-23] MEDS: PANTOPRAZOLE 40 MG TABLET PO SCH (06:47)
[2019-05-23] MEDS: INSULIN ASPART (NovoLOG) 100 UNIT/ML VIAL SQ SCH (06:47)
[2019-05-23 06:49] LABS: HGB 10.9 gm/dL (13.0-17.5); MCHC 32.9 g/dL (31.0-37.0); MCV 91.1 fL (80.0-100.0); Mean Platelet Volume 6.8; Platelet Count 141 k/uL (150-450); RBC 3.62 m/uL (4.30-5.90); RDW 14.1 % (11.5-15.5); WBC 6.7 k/uL (3.8-10.6)
[2019-05-23 07:00] LABS: Calcium 8.5 mg/dL (8.4-10.2); Potassium 4.1 mmol/L (3.5-5.1)
--- NOTE | 2019-05-23 07:03 | XR ---
EXAMINATION TYPE: XR chest 1V portable DATE OF EXAM: 05/23/2019 COMPARISON: Yesterday HISTORY: Postop heart surgery TECHNIQUE: Single frontal view of the chest is obtained. FINDINGS: There is blunting of costophrenic angles. There is some pulmonary vascular congestion. The re are sternal wires. There is left axillary pacemaker. IMPRESSION: There is probably mild heart failure. Bilateral pleural effusions. No significant change .
--- NOTE | 2019-05-23 07:44 | P.PN ---
Subjective Progress Note Date: 05/23/19 Principal diagnosis: Severe mitral valve regurgitation with Díaz disease, mild tricuspid valve regurgitation. Previous medical history of polycystic renal disease with chronic kidney disease, hypertension, previous tobacco dependence, mild chronic obstructive pulmonary disease with FEV1 74% of predicted, obstructive sleep apnea without home CPAP use, occasional marijuana use, anxiety, gastroesophageal reflux disease, post-dual chamber [employer] permanent pacemaker placement and family history of premature coronary artery disease with grandfather of myocardial infarction at 54 years old. POD #4 mitral valve repair using a complete ring annuloplasty with a 32 mm physio-2 ring, exclusion of the left atrial appendage using a 35 mm Atriclip, intraoperative transesophageal echocardiogram and epi-aortic scanning. Postoperative thrombocytopenia, expected outcome from hemodilution. The patient is currently sitting up in bed in no acute distress. States pain is controlled on current medication regimen, denies shortness of breath. Has ambulated multiple times in the hallway without difficulty. Was off oxygen most of the day yesterday, however did need to be placed back on 2 L nasal cannula last night. No new complaints. Objective - Vital Signs Vital signs: Vital Signs Temp 98.0 F 05/23/19 04:00 Pulse 83 05/23/19 04:00 Resp 21 05/23/19 04:00 BP 101/83 05/23/19 04:00 Pulse Ox 95 05/23/19 04:00 Intake & Output 05/22/19 05/23/19 05/23/19 18:59 06:59 18:59 Output Total 0 Balance 0 Weight 89.9 kg Output: Urine 0 Other: Voiding Method Toilet Toilet # Voids 3 2 # Bowel Movements 2 ABP, PAP, CO, CI - Last Documented Arterial Blood Pressure 117/75 Pulmonary Artery Pressure 26/16 Cardiac Output 4.6 Cardiac Index 2.2 - Constitutional General appearance: Present: cooperative, no acute distress - Respiratory Details: Lungs sounds diminished bilaterally. Respirations even, nonlabored. Currently on 2 L nasal cannula with oxygen saturation 93%. Able to achieve 1000 mL on his incentive spirometry. Strong cough. - Cardiovascular Details: S1, S2 present. Regular rate and rhythm, sinus rhythm on telemetry. Sternum stable. Palpable peripheral pulses bilaterally. Trace bilateral upper extremity edema present. No calf pain or tenderness noted. Heart hugger in place with patient demonstrating appropriate use. Antiembolism stockings, SCDs present. - Gastrointestinal Gastrointestinal Comment(s): Abdomen soft, nontender, nondistended. Active bowel sounds present 4 quadrants. Tolerating diet. Positive bowel movement 2 yesterday. - Genitourinary Genitourinary Comment(s): Patient continues to void clear, yellow urine. - Integumentary Integumentary Comment(s): Skin is warm and dry with evidence of good perfusion. Anterior chest incision well approximated and covered with dry intact dressing. - Neurologic Neurologic: Present: CNII-XII intact - Musculoskeletal Musculoskeletal: Present: gait normal, strength equal bilaterally - Psychiatric Psychiatric: Present: A&O x's 3, appropriate affect, intact judgment & insight - Allied health notes Allied health notes reviewed: nursing - Labs CBC & Chem 7: 05/23/19 06:33 05/23/19 06:33 Labs: Abnormal Lab Results - Last 24 Hours (Table) 05/22/19 05/22/19 05/22/19 Range/Units 09:32 09:32 11:51 RBC 4.00 L (4.30-5.90) m/uL Hgb 11.0 L (13.0-17.5) gm/dL Hct 36.1 L (39.0-53.0) % MCHC 30.6 L (31.0-37.0) g/dL Plt Count 128 L (150-450) k/uL Lymphocytes # 0.8 L (1.0-4.8) k/uL BUN 38 H (9-20) mg/dL Creatinine 2.11 H (0.66-1.25) mg/dL Glucose 100 H (74-99) mg/dL POC Glucose (mg/dL) 73 L (75-99) mg/dL 05/22/19 05/23/19 05/23/19 Range/Units 20:29 06:33 06:33 RBC 3.62 L (4.30-5.90) m/uL Hgb 10.9 L (13.0-17.5) gm/dL Hct 33.0 L (39.0-53.0) % MCHC (31.0-37.0) g/dL Plt Count 141 L (150-450) k/uL Lymphocytes # (1.0-4.8) k/uL BUN 42 H (9-20) mg/dL Creatinine 2.24 H (0.66-1.25) mg/dL Glucose 106 H (74-99) mg/dL POC Glucose (mg/dL) 104 H (75-99) mg/dL 05/23/19 Range/Units 06:34 RBC (4.30-5.90) m/uL Hgb (13.0-17.5) gm/dL Hct (39.0-53.0) % MCHC (31.0-37.0) g/dL Plt Count (150-450) k/uL Lymphocytes # (1.0-4.8) k/uL BUN (9-20) mg/dL Creatinine (0.66-1.25) mg/dL Glucose (74-99) mg/dL POC Glucose (mg/dL) 104 H (75-99) mg/dL - Imaging and Cardiology Chest x-ray: report reviewed, image reviewed Assessment and Plan Assessment: 1. Severe mitral valve regurgitation with Díaz disease, status post mitral valve repair 2. Mild tricuspid regurgitation 3. Polycystic renal disease with chronic kidney disease, stage IV 4. Hypertension 5. Previous tobacco dependence 6. Mild COPD with preoperative FEV1 74% of predicted 7. Obstructive sleep apnea without home CPAP use 8. Occasional marijuana use 9. Anxiety 10. GERD 11. Status post dual-chamber [employer] permanent pacemaker placement 12. Family history of premature coronary artery disease 13. Postoperative thrombocytopenia Plan: 1. Continue aspirin, statin, Plavix, DAYRON inhibitor, beta mirta therapy. Will increase beta mirta therapy as tolerated. 2. Wean O2 as tolerated. Encourage incentive spirometry 10x times every hour while awake. Nursing to perform oxygen walk test to determine appropriateness for oxygen therapy on discharge 3. Increase activity, continue to ambulate as tolerated. PT/OT/cardiac rehab following. 4. Will monitor daily labs and x-rays. Electrolyte replacement per protocol. 5. GI/DVT prophylaxis 6. Insulin management per primary care service. 7. Pain control with current medication regimen. No Toradol or NSAIDS 8. Avoid nephrotoxins. Will discuss Lasix for discharge with nephrology 9. Discharge planning in progress. Anticipate discharge to home with home care today. 10. More recommendations to follow. Time with Patient: Greater than 30
[2019-05-23] MEDS ORDERED: FUROSEMIDE 10 MG/ML 4 ML VIAL IV STA (07:52)
[2019-05-23 08:05] VITALS: TEMP 97.9
[2019-05-23] MEDS: ALLOPURINOL 100 MG TAB PO SCH (08:09)
[2019-05-23] MEDS: ASPIRIN 325 MG TAB PO SCH (08:09)
[2019-05-23] MEDS: CLOPIDOGREL 75 MG TAB PO SCH (08:09)
[2019-05-23] MEDS: busPIRone HCl 5 MG TAB PO SCH (08:10)
[2019-05-23] MEDS: clonazePAM 1 MG TAB PO SCH (08:11)
[2019-05-23] MEDS: METOPROLOL TARTRATE 12.5 MG TAB PO SCH (08:11)
[2019-05-23] MEDS: ATORVASTATIN 40 MG TAB PO SCH (08:11)
--- NOTE | 2019-05-23 08:14 | P.PN ---
Subjective Patient is seen in follow-up for chronic kidney disease. Patient has chronic kidney disease stage IIIB/4 with baseline creatinine in the range of 2-2.3 secondary to polycystic kidney disease. Renal function is fairly stable. Denies chest pain or shortness of breath. He's been ambulating. Edema better. Remains nonoliguric. Vital signs are stable. General: The patient appeared well nourished and normally developed. HEENT: Head exam is unremarkable. Neck is without jugular venous distension. LUNGS: Lungs are clear to auscultation and percussion. Breath sounds decreased. HEART: Rate and Rhythm are regular. First and second heart sounds normal. No murmurs, rubs or gallops. ABDOMEN: Abdominal exam reveals normal bowel sounds. Non-tender and non- distended. No evidence of peritonitis. EXTREMITITES: No edema. Objective - Vital Signs Vital signs: Vital Signs Temp 97.9 F 05/23/19 08:00 Pulse 88 05/23/19 08:00 Resp 18 05/23/19 08:00 BP 108/84 05/23/19 08:00 Pulse Ox 90 L 05/23/19 08:00 Intake & Output 05/22/19 05/23/19 05/23/19 18:59 06:59 18:59 Output Total 0 Balance 0 Weight 89.9 kg Output: Urine 0 Other: Voiding Method Toilet Toilet # Voids 3 2 # Bowel Movements 2 ABP, PAP, CO, CI - Last Documented Arterial Blood Pressure 117/75 Pulmonary Artery Pressure 26/16 Cardiac Output 4.6 Cardiac Index 2.2 - Labs CBC & Chem 7: 05/23/19 06:33 05/23/19 06:33 Labs: Abnormal Lab Results - Last 24 Hours (Table) 05/22/19 05/22/19 05/22/19 Range/Units 09:32 09:32 11:51 RBC 4.00 L (4.30-5.90) m/uL Hgb 11.0 L (13.0-17.5) gm/dL Hct 36.1 L (39.0-53.0) % MCHC 30.6 L (31.0-37.0) g/dL Plt Count 128 L (150-450) k/uL Lymphocytes # 0.8 L (1.0-4.8) k/uL BUN 38 H (9-20) mg/dL Creatinine 2.11 H (0.66-1.25) mg/dL Glucose 100 H (74-99) mg/dL POC Glucose (mg/dL) 73 L (75-99) mg/dL 05/22/19 05/23/19 05/23/19 Range/Units 20:29 06:33 06:33 RBC 3.62 L (4.30-5.90) m/uL Hgb 10.9 L (13.0-17.5) gm/dL Hct 33.0 L (39.0-53.0) % MCHC (31.0-37.0) g/dL Plt Count 141 L (150-450) k/uL Lymphocytes # (1.0-4.8) k/uL BUN 42 H (9-20) mg/dL Creatinine 2.24 H (0.66-1.25) mg/dL Glucose 106 H (74-99) mg/dL POC Glucose (mg/dL) 104 H (75-99) mg/dL 05/23/19 Range/Units 06:34 RBC (4.30-5.90) m/uL Hgb (13.0-17.5) gm/dL Hct (39.0-53.0) % MCHC (31.0-37.0) g/dL Plt Count (150-450) k/uL Lymphocytes # (1.0-4.8) k/uL BUN (9-20) mg/dL Creatinine (0.66-1.25) mg/dL Glucose (74-99) mg/dL POC Glucose (mg/dL) 104 H (75-99) mg/dL Assessment and Plan Plan: Assessment: 1. Chronic kidney disease stage IIIB/4 secondary to polycystic kidney disease with baseline creatinine in the range of 2-2.3. GFR at baseline. 2. Hyperkalemia secondary to chronic kidney disease and lactated Ringer's. No evidence of acidosis. Blood sugar controlled. Better. 3. Severe mitral regurgitation status post mitral valve repair on May 19. 4. Volume overload. Better with diuresis. Plan: Repeat Lasix 40 mg IV once today. Encouraged oral intake. Avoid nephrotoxins. Stable to be discharged home from nephrology standpoint. He will be given a prescription for Lasix 40 mg orally once daily to be taken for the next 2 days. He is to follow-up with cardiothoracic surgery next Sunday. Follow up in our office in the next 1-2 weeks.
[2019-05-23] MEDS: ACETAMINOPHEN TAB 500 MG TAB PO PRN (08:35)
[2019-05-23] MEDS: PARoxetine 20 MG TAB PO SCH (08:35)
[2019-05-23] MEDS: IPRATROPIUM-ALBUTEROL 3 ML NEB INHALATION SCH ×2 (09:01→11:24)
--- NOTE | 2019-05-23 10:26 | P.DS ---
Providers Date of admission: 05/19/19 05:32 Expected date of discharge: 05/23/19 Attending physician: Pamela Ordaz Consults: 05/19/19 13:23 Consult Physician Routine Consulting Provider: Dax Ponce Consult Reason/Comments: crf Do you want consulting provider notified?: Yes 05/19/19 13:26 Consult Physician Routine Consulting Provider: Marisela Herrera Consult Reason/Comments: Conductor Orchestra Consult: post cardiac surgery Do you want consulting provider notified?: Yes Consult Physician Routine Consulting Provider: Gavin Mi Consult Reason/Comments: David flores patient Do you want consulting provider notified?: Yes Consult Physician Routine Consulting Provider: Reg Deluna Consult Reason/Comments: Chief Procurement Officer Consult: post cardiac surgery Do you want consulting provider notified?: Yes Primary care physician: Mukesh Hernandez [facility] Course: FINAL DIAGNOSIS: 1. Severe mitral valve regurgitation with Díaz disease 2. Mild tricuspid regurgitation 3. Polycystic renal disease with chronic kidney disease, stage IV 4. Hypertension 5. Previous tobacco dependence 6. Mild COPD with preoperative FEV1 74% of predicted 7. Obstructive sleep apnea without home CPAP use 8. Occasional marijuana use 9. Anxiety 10. GERD 11. Status post dual-chamber Medtronic permanent pacemaker placement 12. Family history of premature coronary artery disease 13. Postoperative thrombocytopenia PRINCIPAL PROCEDURE: 1. Mitral valve repair using a complete ring annuloplasty with a 32 mm Physio-2 ring 2. Exclusion of the left atrial appendage using a 35 mm AtriClip 3. Intraoperative transesophageal echocardiogram and epi-aortic scanning HISTORY OF PRESENT ILLNESS: This is a 53-year-old active gentleman who follows on an outpatient basis with Dr. Cira Hernandez. In addition he has been followed by Dr. Deluna for the last several years for mitral regurgitation and he presented to [facility] in May 2018 for heart catheterization which demonstrated normal coronary arteries. 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 The patient was referred to Dr. Ordaz from cardiothoracic surgery. He was recommended to undergo mitral valve repair. The usual perioperative course was discussed in detail with the patient and his family, all risks and benefits were explained, all questions were answered, and consent was obtained to proceed with surgery. The patient was to be optimized with medical therapy while obtaining dental clearance. Prior to surgery being scheduled he became more symptomatic with shortness of breath and near syncopal episodes and was brought to [facility] emergency room in September 2018. He was treated and released. Upon follow-up in October he had a chest x-ray which demonstrated a 1 cm opacity in the right lower lung for which he received a follow-up CT of the chest, again demonstrating a spiculated mass with surrounding groundglass opacity. Subsequently he had a PET scan with hypermetabolic uptake in the mass which also had grown dramatically in size. He was seen by Dr. Saavedra from pulmonology, had a navigational bronchoscopy with transbronchial biopsy and bronchial lavage with results demonstrating no malignancy, rather inflammation and infection. In addition he had a CT-guided core lung biopsy, again demonstrating no malignancy but positive for pneumonia. Once cleared by pulmonology, he was scheduled for mitral valve replacement surgery at the earliest possible date. HOSPITAL COURSE: The patient was brought to the hospital on 05/19/2019, taken to the preoperative area, prepared in the usual fashion, and subsequently taken to the operating room where Dr. Oradz performed mitral valve repair using a complete ring annuloplasty with a 32 mm Physio-2 ring, exclusion of the left atrial appendage using a 35 mm AtriClip, intraoperative transesophageal echocardiogram and epi-aortic scanning. Upon completion of surgery the patient was transferred to the cardiovascular intensive care unit where he was recovered, monitored hemodynamically, and where he progressed to cardiac rehabilitation phase 1. He was extubated, all lines, tubes, and drips were discontinued when appropriate, and transfer orders were placed for 3 S. cardiac stepdown unit, however there was no bed availability and the patient remained on ICU as a stepdown patient until discharge. His oxygen was titrated down, he continued to work with physical and occupational therapy, he was tolerating oral diet, his pain was controlled, and he was ready to be discharged to home with [facility] home care on postoperative day #4. He received written and verbal instruction regarding his medications, activity restrictions, signs and symptoms requiring physician notification, and follow-up appointments. Patient Condition at Discharge: Stable Plan - Discharge Summary Discharge Rx Participant: Yes New Discharge Prescriptions: New Furosemide [Lasix] 40 mg PO DAILY 2 Days #2 tab Atorvastatin [Lipitor] 40 mg PO DAILY #30 tab Metoprolol Tartrate [Lopressor] 12.5 mg PO BID #60 tab Clopidogrel [Plavix] 75 mg PO DAILY #30 tab Pantoprazole [Protonix] 40 mg PO AC-BRKFST #30 tablet.dr [place]-Docusate Sodium [Senokot-S] 2 each PO HS PRN #30 tab PRN Reason: Constipation Acetaminophen Tab [Tylenol] 1,000 mg PO Q6HR PRN tab PRN Reason: Fever and/ or Mild Pain Continue clonazePAM [KlonoPIN] 1 mg PO TID PARoxetine [Paxil] 20 mg PO DAILY busPIRone HCL [Buspar] 7.5 mg PO BID@0900,1400 Aspirin EC [Ecotrin Low Dose] 81 mg PO DAILY #30 tab Fluticasone Propionate [Flonase Allergy Relief] 1 spray EA NOSTRIL DAILY #1 applicator Albuterol Inhaler [Ventolin Hfa Inhaler] 1 - 2 puff INHALATION RT-Q6H PRN #1 inhaler PRN Reason: Dyspnea Allopurinol [Zyloprim] 100 mg PO DAILY #30 tab Discontinued Enalapril [Vasotec] 2.5 mg PO DAILY Mirtazapine [Remeron] 45 mg PO HS Metoprolol Tartrate [Lopressor] 25 mg PO BID@0900,1400 Famotidine [Pepcid AC] 10 mg PO DAILY Discharge Medication List clonazePAM [KlonoPIN] 1 mg PO TID 06/01/14 [History] PARoxetine [Paxil] 20 mg PO DAILY 10/17/18 [History] busPIRone HCL [Buspar] 7.5 mg PO BID@0900,1400 10/17/18 [History] Acetaminophen Tab [Tylenol] 1,000 mg PO Q6HR PRN tab 05/23/19 [Rx] Albuterol Inhaler [Ventolin Hfa Inhaler] 1 - 2 puff INHALATION RT-Q6H PRN #1 inhaler 05/23/19 [Rx] Allopurinol [Zyloprim] 100 mg PO DAILY #30 tab 05/23/19 [Rx] Aspirin EC [Ecotrin Low Dose] 81 mg PO DAILY #30 tab 05/23/19 [Rx] Atorvastatin [Lipitor] 40 mg PO DAILY #30 tab 05/23/19 [Rx] Clopidogrel [Plavix] 75 mg PO DAILY #30 tab 05/23/19 [Rx] Fluticasone Propionate [Flonase Allergy Relief] 1 spray EA NOSTRIL DAILY #1 applicator 05/23/19 [Rx] Furosemide [Lasix] 40 mg PO DAILY 2 Days #2 tab 05/23/19 [Rx] Metoprolol Tartrate [Lopressor] 12.5 mg PO BID #60 tab 05/23/19 [Rx] Pantoprazole [Protonix] 40 mg PO AC-BRKFST #30 tablet.dr 05/23/19 [Rx] Sennosides-Docusate Sodium [Senokot-S] 2 each PO HS PRN #30 tab 05/23/19 [Rx] Follow up Appointment(s)/Referral(s): Barbara De Jesus NPC [Nurse Practitioner] - 05/27/19 1:30 pm Reg Deluna MD [STAFF PHYSICIAN] - 06/06/19 3:30 pm ([facility] in front of [facility]) Pamlea Ordaz MD [STAFF PHYSICIAN] - 06/20/19 10:15 am [facility], [NON-STAFF] - 1-2 Days Mukesh Hernandez DO [Primary Care Provider] - 06/10/19 1:15 pm Dax Ponce DO [STAFF PHYSICIAN] - 07/02/19 9:20 am (Appointment is with ELIJAH Barksdale) Frank Saavedra MD [STAFF PHYSICIAN] - 06/13/19 1:00 pm Ambulatory/Diagnostic Orders: Complete Blood Count w/diff [LAB.AMB] Time Frame: 3 Days, Location: None Selected Comprehensive Metabolic Panel [LAB.AMB] Time Frame: 3 Days, Location: None Selected Activity/Diet/Wound Care/Special Instructions: DISCHARGE INSTRUCTIONS: 1. No driving for 4 weeks, or until physician gives their ok. 2. The patient should sleep in their own bed, no medical bed needed. 3. Stairs are not an issue. If the bedroom is upstairs, it is advised that the patient go up at night and down in the morning for the first week. Go slowly, using handrail and take 1 step at a time. 4. ROSARIO hose are to be worn for 30 days or until physician discontinues. 5. Heart hugger is to be worn 100% of the time until physician discontinues.(except when showering) 6. No lifting, pushing, or pulling more than 10 pounds for 12 weeks. The physician will advise of any restriction changes. 7. The patient is expected to continue the prescribed walking program. 8. Continue pain control per as needed orders. 9. Continue with incentive spirometry and splinting/heart hugger until otherwise directed by the physician. 10. Must shower daily using liquid antibacterial soap and a separate white washcloth for each individual incision. 11. Routine sternal incision care. No powders, lotions, ointments on incisions. 12. Please call surgeon/COASTAL AND ESTUARY SPECIALIST for temp greater than 101 F or purulent drainage from incisions. 13. All prescriptions given by surgeon for 30 days. Refills need to be filled through manager servicing/primary care physician. 14. A Red armband has been placed on the patient. It should be worn for 30 days post surgery and will be removed by the cardiac surgeons. If an ER visit is necessary, please make sure the number on the Red armband is called. 15. Weigh daily in the morning, after voiding, before eating. Record weights and bring record to follow up appointments HOME HEALTH SERVICES TO PROVIDE: RN SKILLED HOME CARE SERVICES FOR POST-OP SURGICAL PATIENTS WITH THE FOLLOWING: Coronary Artery Bypass Surgery (CABG), Mitral Valve Replacement/Repair ( MVR), Aortic Valve Replacement/Repair (AVR) RN TO CONTINUE EDUCATION FROM ``ROAD TO A HEALTH HEART PATIENT EDUCATION MANUAL (GIVEN TO PATIENT IN THE HOSPITAL) MEDICATION RECONCILIATION WITH EDUCATION NEEDED ON FIRST HOME VISIT EMPHASIZE IMPORTANCE OF WEARING BREAST SUPPORT/HEART HUGGER ENCOURAGE USE OF INCENTIVE SPIROMETER 10 X EVERY HOUR WHILE AWAKE ENCOURAGE UTILIZATION OF LOWER EXTREMITY COMPRESSION STOCKINGS/ROSARIO HOSE and ELEVATE LEGS ABOVE LEVEL OF HEART WHILE AT REST. ENCOURAGE AMBULATION 3-5x/day INCREASING TOLERATES, WHILE AVOID EXTREMES IN TEMPERATURE FREQUENCY: RN TO OPEN THE PATIENT WITHIN 24 HOURS OF DISCHARGE FROM THE HOSPITAL WITH TELEHEALTH INSTALLED AT [facility] [place], RN TO VISIT 2-3 X A WEEK FOR 4 WEEKS ESTABLISHED BY PATIENT NEEDS. LABORATORY: CBC, CMP TO BE DRAWN ON THE THIRD DAY HOME, (RAN STAT) FAX RESULTS TO [phone]. TELEHEALTH PARAMETERS: WEIGHT: NOTIFY MD OF WEIGHT GAIN OF 2 LBS IN 24 HOURS OR 5 LBS IN ONE WEEK HR: NOTIFY MD OF HR <55 BPM OR HR>100 BPM BP: NOTIFY MD IF BP <90/55 OR BP>140/100 O2 SAT: NOTIFY MD IF PO2<93% ON ROOM AIR SEND TELEHEALTH REPORT TO FULL SERVICE VENDING DRIVER AND CARDIOVASCULAR SURGEON THE FIRST WEEK OF CARE AND THEN BI-WEEKLY. PLEASE ADDITIONALLY COMMUNICATE ANY ABNORMALS AND NEW FINDINGS TO THE SURGEONS OFFICE. Discharge Disposition: HOME WITH HOME HEALTH SERVICES
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
[2019-05-23 12:39] VITALS: BP 112/74; PULSE 91; RESP 15
--- NOTE | 2019-05-23 13:37 | P.PN ---
Subjective Patient is doing well sitting in a chair Breath sounds are clear He has minimal pain in the incision site He looks comfortable no dizziness lightheadedness or palpitations rhythm is regular Blood pressure 112/74 mmHg pulse rate in the 80s and 90s Breath sounds are clear Rhonchi no crackles Heart sounds. Soft Impression Mitral valve repair Doing well postoperatively From a cardiac standpoint he may go home and follow-up with his primary cardio logist Objective - Vital Signs Vital signs: Vital Signs Temp 97.9 F 05/23/19 08:00 Pulse 91 05/23/19 12:00 Resp 15 05/23/19 12:00 BP 112/74 05/23/19 12:00 Pulse Ox 92 L 05/23/19 12:00 Intake & Output 05/22/19 05/23/19 05/23/19 18:59 06:59 18:59 Output Total 0 Balance 0 Weight 89.9 kg Output: Urine 0 Other: Voiding Method Toilet Toilet Toilet # Voids 3 2 1 # Bowel Movements 2 ABP, PAP, CO, CI - Last Documented Arterial Blood Pressure 117/75 Pulmonary Artery Pressure 26/16 Cardiac Output 4.6 Cardiac Index 2.2 - Labs CBC & Chem 7: 05/23/19 06:33 05/23/19 06:33 Labs: Abnormal Lab Results - Last 24 Hours (Table) 05/22/19 05/23/19 05/23/19 Range/Units 20:29 06:33 06:33 RBC 3.62 L (4.30-5.90) m/uL Hgb 10.9 L (13.0-17.5) gm/dL Hct 33.0 L (39.0-53.0) % Plt Count 141 L (150-450) k/uL BUN 42 H (9-20) mg/dL Creatinine 2.24 H (0.66-1.25) mg/dL Glucose 106 H (74-99) mg/dL POC Glucose (mg/dL) 104 H (75-99) mg/dL 05/23/19 Range/Units 06:34 RBC (4.30-5.90) m/uL Hgb (13.0-17.5) gm/dL Hct (39.0-53.0) % Plt Count (150-450) k/uL BUN (9-20) mg/dL Creatinine (0.66-1.25) mg/dL Glucose (74-99) mg/dL POC Glucose (mg/dL) 104 H (75-99) mg/dL
[2019-05-24] MEDS ORDERED: ASPIRIN 81 MG PO SCH (09:00)
[2019-05-24] MEDS ORDERED: FUROSEMIDE 40 MG TAB PO SCH (09:00)
== END 2019-05-23 13:38 | disposition home health service (06) | DRG 220 ==
LOC: 2ORMAIN 05:32 → 2SICU 13:26
PROVIDERS: ADMIT Surgery; ATTEND Surgery
PROC: 5A1221Z Performance of Cardiac Output, Continuous (ICD-10-PCS; 2019-05-19)
PROC: B246ZZ4 Ultrasonography of Right and Left Heart, Transesophageal (ICD-10-PCS; 2019-05-19)
PROC: 30233N0 Transfusion of Autologous Red Blood Cells into Peripheral Vein, Percutaneous Approach (ICD-10-PCS; 2019-05-19)
PROC: 0D9670Z Drainage of Stomach with Drainage Device, Via Natural or Artificial Opening (ICD-10-PCS; 2019-05-19)
PROC: 02UG0JZ Supplement Mitral Valve with Synthetic Substitute, Open Approach (ICD-10-PCS; principal; 2019-05-19 08:00)
PROC: 02L70CK Occlusion of Left Atrial Appendage with Extraluminal Device, Open Approach (ICD-10-PCS; 2019-05-19 08:00)
DX: I08.1 Rheumatic disorders of both mitral and tricuspid valves (principal); Q61.3 Polycystic kidney, unspecified; N18.4 Chronic kidney disease, stage 4 (severe); G90.523 Complex regional pain syndrome I of lower limb, bilateral; D62 Acute posthemorrhagic anemia; J98.11 Atelectasis; D69.59 Other secondary thrombocytopenia; E87.5 Hyperkalemia; E87.70 Fluid overload, unspecified; J44.9 Chronic obstructive pulmonary disease, unspecified; I12.9 Hypertensive chronic kidney disease with stage 1 through stage 4 chronic kidney disease, or unspecified chronic kidney disease; R00.1 Bradycardia, unspecified; E54 Ascorbic acid deficiency; G47.33 Obstructive sleep apnea (adult) (pediatric); F41.1 Generalized anxiety disorder; K21.9 Gastro-esophageal reflux disease without esophagitis; G43.909 Migraine, unspecified, not intractable, without status migrainosus; M10.9 Gout, unspecified; G89.29 Other chronic pain; M54.9 Dorsalgia, unspecified; M54.2 Cervicalgia; M19.90 Unspecified osteoarthritis, unspecified site; Z79.82 Long term (current) use of aspirin; Z79.899 Other long term (current) drug therapy; Z87.891 Personal history of nicotine dependence; Z95.0 Presence of cardiac pacemaker; Z87.81 Personal history of (healed) traumatic fracture; Z87.01 Personal history of pneumonia (recurrent); Z98.890 Other specified postprocedural states; Z88.8 Allergy status to other drugs, medicaments and biological substances; Z82.49 Family history of ischemic heart disease and other diseases of the circulatory system; Z80.8 Family history of malignant neoplasm of other organs or systems; Z83.2 Family history of diseases of the blood and blood-forming organs and certain disorders involving the immune mechanism; Z80.7 Family history of other malignant neoplasms of lymphoid, hematopoietic and related tissues; Z84.1 Family history of disorders of kidney and ureter; Z82.71 Family history of polycystic kidney
CPT/HCPCS: 71045; 71046; 80048; 80053; 82330; 82805; 83735; 84132; 85025; 85027; 85520; 85610; 85730; 86850; 86891; 86900; 86901; 86920; 94640

== ENCOUNTER → 2019-07-15 | Outpatient (CLI) | payer OTHER ==
--- NOTE | 2019-07-15 16:25 | US ---
EXAMINATION TYPE: US kidneys/renal and bladder DATE OF EXAM: 07/15/2019 COMPARISON: PET/CT November 15, 2018 CLINICAL HISTORY: N18.3 Chronic kidney disease stage 3. polycystic kidneys, gross hematuria on and of f EXAM MEASUREMENTS: Right Kidney: 20.4 x 9.2 x 9.1 cm Left Kidney: 14.9 x 5.7 x 6.7 cm Right Kidney: enlarged with innumerable number of cystic areas seen Left Kidney: enlarged with innumerable number of cystic areas seen Bladder: not fully distended Bilateral Jets seen: no Suboptimal study due to enlarged bilateral kidneys greater on the right with loss of normal cortical medullary differentiation and innumerable cystic lesions of varying size and shape some which are not completely anechoic. Even more prominent increased cortical echogenicity noted in the left kidney. N o gross hydronephrosis is present bilaterally. Bladder poorly distended and is thus suboptimally eval uated. IMPRESSION: Suboptimal study without hydronephrosis identified bilaterally. Cause of hematuria not cl early seen. Advised further workup with multiphase contrast-enhanced CT if symptoms persist and patie nt is on dialysis.
== END | disposition home or self-care (01) ==
LOC: RADUSWWP 15:39
PROVIDERS: ATTEND Internal Medicine Nephrology
DX: N18.3 Chronic kidney disease, stage 3 (moderate) (principal)
CPT/HCPCS: 76770

== ENCOUNTER → 2019-07-19 | Outpatient (CLI) | payer OTHER ==
[2019-07-19 18:16] LABS: African American GFR (CKD) 34.6 (60.0-200.0); Albumin 4.6 g/dL (3.80-4.90); Albumin/Globulin Ratio 2.09 (1.60-3.17); BUN/Creat Ratio 8.33 Ratio (12.00-20.00); Calcium 9.8 mg/dL (8.7-10.3); Chol/HDL Ratio 3.17; Globulin 2.2 g/dL (1.6-3.3); Non-African American GFR(CKD) 29.9 (60.0-200.0); Potassium 4.5 mmol/L (3.5-5.5); Total Bilirubin 0.7 mg/dL (0.2-1.2); Total Protein 6.8 g/dL (6.2-8.2)
== END | disposition home or self-care (01) ==
LOC: LABWHC1 08:04
PROVIDERS: ATTEND Internal Medicine Interventional Cardiology
DX: E78.2 Mixed hyperlipidemia (principal)
CPT/HCPCS: 36415; 80053; 80061

== ENCOUNTER 2020-05-18 03:13 | Emergency (ER) | payer OTHER ==
[2020-05-18 03:19] VITALS: RESP 18; TEMP 98
--- NOTE | 2020-05-18 03:37 | ED ---
General Adult HPI - General Chief complaint: Chest Pain Stated complaint: Chest pain Time Seen by Provider: 05/18/20 03:19 Source: patient, EMS Mode of arrival: EMS Limitations: no limitations - History of Present Illness Initial comments: Rommel is a 55-year-old male with extensive past medical history most notable for polycystic kidney disease, history of open heart surgery for mitral valve repair last year. Patient presents to the ER today with multiple complaints. Patient states that for the past 4 days he feels like there is a pulling sensati on around his mid sternal scar. He states that he feels shaky, sometimes somewhat nauseated. Denies any exertional chest pain palpitation shortness of breath or diaphoresis. States he is just feeling off. She does note that he was previously on Klonopin for the previous 31 years, he had been tapering over the past month but last week decided to just quit taking it. Patient is concerned that his symptoms may be due to withdrawal. - Related Data Home Medications Medication Instructions Recorded Confirmed PARoxetine [Paxil] 20 mg PO DAILY 10/17/18 05/18/20 busPIRone HCL [Buspar] 7.5 mg PO BID@0900,1400 10/17/18 05/18/20 Metoprolol Tartrate [Lopressor] 50 mg PO TID 05/18/20 05/18/20 Tamsulosin [Flomax] 0.4 mg PO DAILY 05/18/20 05/18/20 hydrALAZINE HCL 25 mg PO BID 05/18/20 05/18/20 Previous Rx's Medication Instructions Recorded Aspirin EC [Ecotrin Low Dose] 81 mg PO DAILY #30 tab 05/23/19 Pantoprazole [Protonix] 40 mg PO AC-BRKFST #30 tablet.dr 05/23/19 allopurinoL [Zyloprim] 100 mg PO DAILY #30 tab 05/23/19 Allergies Allergy/AdvReac Type Severity Reaction Status Date / Time No Known Allergies Allergy Verified 05/18/20 03:19 Review of Systems ROS Statement: Those systems with pertinent positive or pertinent negative responses have been documented in the HPI. ROS Other: All systems not noted in ROS Statement are negative. Past Medical History Past Medical History: Asthma, Cancer, Chest Pain / Angina, COPD, Hypertension, Osteoarthritis (OA), Renal Disease Additional Past Medical History / Comment(s): Current cough, recent sinus infection, Severe mitral dysfunction-to have surgery soon, pleurisy x2, polycyctic kidney disease stage IV, migraines, chronic cervical and back pain, DDD, gout bilateral feet, RSD affecting legs, PATSY without device d/t kept getting respiratory infections, right lower lobe nodule History of Any Multi-Drug Resistant Organisms: None Reported Past Surgical History: Hernia Repair, Pacemaker Additional Past Surgical History / Comment(s): Pacemaker originally placed 2001, last gen change 2018, PASCALE, umbilical hernia repair, L leg tib/fib fracture with hardware-since removed, L thumb surgery-has rods, EGD, colonoscopy, blood patch after spinal anesthesia for headache, 12/09/18 lung biopsy Past Anesthesia/Blood Transfusion Reactions: Previous Problems w/ Anesthesia Additional Past Anesthesia/Blood Transfusion Reaction / Comment(s): NEVER RECIEVED BLOOD. Pt had spinal anesthesia with spinal headache and blood patch. Type of Cardiac Device: Permanent Pacemaker Device Placement Date:: 2001 Past Psychological History: Anxiety, Panic Disorder Smoking Status: Former smoker Past Alcohol Use History: None Reported Past Drug Use History: None Reported - Past Family History Father Family Medical History: Cancer, Myocardial Infarction ([place]) Additional Family Medical History / Comment(s): FATHER BONE CA AT AGE 70. HE HAD AORTIC ANEURYSM WITH SURGERY. Mother Family Medical History: Cancer, Deep Vein Thrombosis (DVT), Renal Disease Additional Family Medical History / Comment(s): MOTHER OF LYMPHOMA. MOTHER HAD TRANSPLANT OF KIDNEY. Sister(s) Family Medical History: Deep Vein Thrombosis (DVT), Pulmonary Embolus, Renal Disease Additional Family Medical History / Comment(s): POLYCYSTIC KIDNEY DISEASE WITH TRANSPLANT, General Exam - General Exam Comments Initial Comments: Physical Exam GENERAL: Patient is well-developed and well-nourished. Patient is nontoxic and well- hydrated and is in no distress. HENT: Normocephalic, Atraumatic. EYES: PERRL, EOMI PULMONARY: Unlabored respirations. No audible rales rhonchi or wheezing was noted. CARDIOVASCULAR: Well-healed Mid sternal scar There is a regular rate and rhythm without any murmurs gallops or rubs. ABDOMEN: Soft and nontender with normal bowel sounds. SKIN: Skin is clear with no lesions or rashes and otherwise unremarkable. : Deferred NEUROLOGIC: Patient is alert and oriented x3. Moving all extremities spontaneously MUSCULOSKELETAL: Normal extremities with adequate strength and full range of motion. No lower extremity swelling or edema. No calf tenderness. PSYCHIATRIC: Normal psychiatric evaluation. Limitations: no limitations Course Vital Signs 05/18/20 05/18/20 03:16 04:25 Temperature 98 F Pulse Rate 60 80 Respiratory 18 18 Rate Blood Pressure 151/113 123/95 O2 Sat by Pulse 99 97 Oximetry EKG Findings - EKG Comments: EKG Findings:: EKG was obtained due to complaint of chest pain, EKG was obtained at 3:24 AM, rate is 61, rhythm is atrial paced, there is prolonged VA 232, QRS 90, QTC [address] elevations or depressions no evidence of acute ischemia or infarction. Medical Decision Making - Medical Decision Making She was seen and evaluated history is obtained from patient and EMS 55-year-old gentleman with 4 days of pulling sensation in his chest scar, no exertional chest pain no diaphoresis no lightheadedness patient's Patient currently off Klonopin which she has been on for the past 31 years, was weaning but abruptly stopped weaning and stopped taking it 1 week ago Labs were obtained and were relatively unremarkable lipase is mildly elevated however patient has polycystic kidney disease no epigastric discomfort this mildly elevated lipases not clinically significant Troponin not elevated despite 4 days of chest discomfort Results were discussed with patient expresses relief is comfortable with the plan for discharge home. Advised that he should take his Klonopin and a small dose and follow with his primary care physician about appropriate weaning. - Lab Data Result diagrams: 05/18/20 03:32 05/18/20 03:32 Lab Results 05/18/20 05/18/20 05/18/20 Range/Units 03:32 03:32 03:32 WBC 4.3 (3.8-10.6) k/uL RBC 5.18 (4.30-5.90) m/uL Hgb 15.5 (13.0-17.5) gm/dL Hct 48.8 (39.0-53.0) % MCV 94.1 (80.0-100.0) fL MCH 29.9 (25.0-35.0) pg MCHC 31.8 (31.0-37.0) g/dL RDW 14.6 (11.5-15.5) % Plt Count 168 (150-450) k/uL Neutrophils % 57 % Lymphocytes % 27 % Monocytes % 10 % Eosinophils % 4 % Basophils % 0 % Neutrophils # 2.5 (1.3-7.7) k/uL Lymphocytes # 1.2 (1.0-4.8) k/uL Monocytes # 0.4 (0-1.0) k/uL Eosinophils # 0.2 (0-0.7) k/uL Basophils # 0.0 (0-0.2) k/uL PT 10.1 (9.0-12.0) sec INR 1.0 (<1.2) APTT 24.0 (22.0-30.0) sec Sodium 138 (137-145) mmol/L Potassium 4.3 (3.5-5.1) mmol/L Chloride 104 (98-107) mmol/L Carbon Dioxide 26 (22-30) mmol/L Anion Gap 8 mmol/L BUN 35 H (9-20) mg/dL Creatinine 2.53 H (0.66-1.25) mg/dL Est GFR (CKD-EPI)AfAm 32 (>60 ml/min/1.73 sqM) Est GFR (CKD-EPI)NonAf 28 (>60 ml/min/1.73 sqM) Glucose 111 H (74-99) mg/dL Calcium 9.6 (8.4-10.2) mg/dL Magnesium 1.9 (1.6-2.3) mg/dL Total Bilirubin 0.4 (0.2-1.3) mg/dL AST 27 (17-59) U/L ALT 19 (4-49) U/L Alkaline Phosphatase 71 (38-126) U/L Troponin I (0.000-0.034) ng/mL NT-Pro-B Natriuret Pep pg/mL Total Protein 6.1 L (6.3-8.2) g/dL Albumin 3.8 (3.5-5.0) g/dL Lipase 354 H (23-300) U/L 05/18/20 05/18/20 Range/Units 03:32 03:32 WBC (3.8-10.6) k/uL RBC (4.30-5.90) m/uL Hgb (13.0-17.5) gm/dL Hct (39.0-53.0) % MCV (80.0-100.0) fL MCH (25.0-35.0) pg MCHC (31.0-37.0) g/dL RDW (11.5-15.5) % Plt Count (150-450) k/uL Neutrophils % % Lymphocytes % % Monocytes % % Eosinophils % % Basophils % % Neutrophils # (1.3-7.7) k/uL Lymphocytes # (1.0-4.8) k/uL Monocytes # (0-1.0) k/uL Eosinophils # (0-0.7) k/uL Basophils # (0-0.2) k/uL PT (9.0-12.0) sec INR (<1.2) APTT (22.0-30.0) sec Sodium (137-145) mmol/L Potassium (3.5-5.1) mmol/L Chloride (98-107) mmol/L Carbon Dioxide (22-30) mmol/L Anion Gap mmol/L BUN (9-20) mg/dL Creatinine (0.66-1.25) mg/dL Est GFR (CKD-EPI)AfAm (>60 ml/min/1.73 sqM) Est GFR (CKD-EPI)NonAf (>60 ml/min/1.73 sqM) Glucose (74-99) mg/dL Calcium (8.4-10.2) mg/dL Magnesium (1.6-2.3) mg/dL Total Bilirubin (0.2-1.3) mg/dL AST (17-59) U/L ALT (4-49) U/L Alkaline Phosphatase (38-126) U/L Troponin I <0.012 (0.000-0.034) ng/mL NT-Pro-B Natriuret Pep 167 pg/mL Total Protein (6.3-8.2) g/dL Albumin (3.5-5.0) g/dL Lipase (23-300) U/L Disposition Clinical Impression: Benzodiazepine withdrawal, Elevated lipase, Atypical chest pain, Polycystic kidney Disposition: HOME SELF-CARE Condition: Stable Additional Instructions: Follow up with primary care doctor regarding appropriate taper of Klonopin Follow-up with nephrology regarding worsening kidney function Return to the ER for any worsening symptoms or development of new or concerning symptoms Is patient prescribed a controlled substance at d/c from ED?: No Referrals: Mukesh Hernandez DO [Primary Care Provider] - 1-2 days
[2020-05-18 03:48] LABS: Basophils % (A) 0 %; Eosinophils # (A) 0.2 k/uL (0-0.7); Eosinophils % (A) 4 %; HCT 48.8 % (39.0-53.0); HGB 15.5 gm/dL (13.0-17.5); Lymphocytes # (A) 1.2 k/uL (1.0-4.8); Lymphocytes % (A) 27 %; MCH 29.9 pg (25.0-35.0); MCHC 31.8 g/dL (31.0-37.0); MCV 94.1 fL (80.0-100.0); Mean Platelet Volume 7.9; Monocytes # (A) 0.4 k/uL (0-1.0); Monocytes % (A) 10 %; Neutrophils # (A) 2.5 k/uL (1.3-7.7); Neutrophils % (A) 57 %; Platelet Count 168 k/uL (150-450); RBC 5.18 m/uL (4.30-5.90); RDW 14.6 % (11.5-15.5); WBC 4.3 k/uL (3.8-10.6)
[2020-05-18 03:51] LABS: Albumin 3.8 g/dL (3.5-5.0); Calcium 9.6 mg/dL (8.4-10.2); Magnesium 1.9 mg/dL (1.6-2.3); Potassium 4.3 mmol/L (3.5-5.1); Total Bilirubin 0.4 mg/dL (0.2-1.3); Total Protein 6.1 g/dL (6.3-8.2)
[2020-05-18 04:12] LABS: Prothrombin Time 10.1 sec (9.0-12.0)
[2020-05-18 04:26] VITALS: BP 123/95; PULSE 80
[2020-05-18] MEDS ORDERED: SODIUM CHLORIDE 0.9% 1,000 ML IV ONE (04:37)
--- NOTE | 2020-05-18 04:57 | XR ---
EXAM: XR Chest, 2 Views CLINICAL HISTORY: ITS.REASON XR Reason: chest pain TECHNIQUE: Frontal and lateral views of the chest. COMPARISON: 06/13/2019. Chest x-ray, 01/17/19. Chest CT FINDINGS: Lungs: Small ovoid opacity adjacent to the fifth anterior rib may correspond to small nodular densities/scarring on the CT in the right lower lobe. Not seen on the lateral view. Lungs otherwise appear clear. Pleural space: Unremarkable. No pneumothorax. Heart: See below. No cardiomegaly. Mediastinum: Unremarkable. Bones/joints: Stable median sternotomy. Tubes, lines and devices: Stable left chest wall dual-lead pacemaker. Stable left atrial appendage closure device and prosthetic mitral valve. IMPRESSION: 1. No evidence of acute cardiopulmonary disease. 2. Right lower lung nodular opacity likely stable.
== END 2020-05-18 05:45 | disposition home or self-care (01) ==
LOC: EC 03:13
DX: F13.239 Sedative, hypnotic or anxiolytic dependence with withdrawal, unspecified (principal); R74.8 Abnormal levels of other serum enzymes; Q61.3 Polycystic kidney, unspecified; R07.89 Other chest pain; J44.9 Chronic obstructive pulmonary disease, unspecified; I10 Essential (primary) hypertension; G47.33 Obstructive sleep apnea (adult) (pediatric); F41.0 Panic disorder [episodic paroxysmal anxiety]; Z79.899 Other long term (current) drug therapy; Z87.891 Personal history of nicotine dependence; Z95.0 Presence of cardiac pacemaker
CPT/HCPCS: 36415; 71046; 80053; 83690; 83735; 83880; 84484; 85025; 85610; 85730; 93005; 96360; 99285

== ENCOUNTER 2020-05-29 17:53 | Emergency (ER) | payer OTHER ==
--- NOTE | 2020-05-29 18:40 | ED ---
General Adult HPI - General Chief complaint: Recheck/Abnormal Lab/Rx Stated complaint: Blood pressure Time Seen by Provider: 05/29/20 18:09 Source: patient, RN notes reviewed, old records reviewed Mode of arrival: ambulatory Limitations: no limitations - History of Present Illness Initial comments: 55-year-old male history of polycystic kidney disease, hypertension presenting for evaluation of elevated blood pressure. Patient states his blood pressures been trending up, he had blood pressure 150/100 at home. He states this is been occurring over the past several months. He had his primary doctor as well as his oracle architect evaluate his blood pressure and he has had 2 recent medication changes including hydralazine 25 mg increased from twice daily to 3 times daily and metoprolol 50 mg increased from 2 times a day to 3 times daily. His blood pressures continued to rise. He states he has been making urine. No fever. He's had some intermittent headaches. No central radiating chest pain. No peripheral edema. - Related Data Home Medications Medication Instructions Recorded Confirmed PARoxetine [Paxil] 20 mg PO DAILY 10/17/18 05/18/20 busPIRone HCL [Buspar] 7.5 mg PO BID@0900,1400 10/17/18 05/18/20 Metoprolol Tartrate [Lopressor] 50 mg PO TID 05/18/20 05/18/20 Tamsulosin [Flomax] 0.4 mg PO DAILY 05/18/20 05/18/20 hydrALAZINE HCL 25 mg PO BID 05/18/20 05/18/20 Previous Rx's Medication Instructions Recorded Aspirin EC [Ecotrin Low Dose] 81 mg PO DAILY #30 tab 05/23/19 Pantoprazole [Protonix] 40 mg PO AC-BRKFST #30 tablet. 05/23/19 allopurinoL [Zyloprim] 100 mg PO DAILY #30 tab 05/23/19 Allergies Allergy/AdvReac Type Severity Reaction Status Date / Time No Known Allergies Allergy Verified 05/29/20 17:58 Review of Systems ROS Statement: Those systems with pertinent positive or pertinent negative responses have been documented in the HPI. ROS Other: All systems not noted in ROS Statement are negative. Past Medical History Past Medical History: Asthma, Cancer, Chest Pain / Angina, COPD, Hypertension, Osteoarthritis (OA), Renal Disease Additional Past Medical History / Comment(s): Severe mitral dysfunction, pleurisy x2, polycyctic kidney disease stage IV, migraines, chronic cervical and back pain, DDD, gout bilateral feet, RSD affecting legs, PATSY without device d/t kept getting respiratory infections, right lower lobe nodule, History of Any Multi-Drug Resistant Organisms: None Reported Past Surgical History: Hernia Repair, Pacemaker Additional Past Surgical History / Comment(s): Pacemaker originally placed 2001, last gen change 2018, PASCALE, umbilical hernia repair, L leg tib/fib fracture with hardware-since removed, L thumb surgery-has rods, EGD, colonoscopy, blood patch after spinal anesthesia for headache, 12/09/18 lung biopsy, Past Anesthesia/Blood Transfusion Reactions: Previous Problems w/ Anesthesia Additional Past Anesthesia/Blood Transfusion Reaction / Comment(s): NEVER RECIEVED BLOOD. Pt had spinal anesthesia with spinal headache and blood patch. Type of Cardiac Device: Permanent Pacemaker Device Placement Date:: 2001 Past Psychological History: Anxiety, Panic Disorder Smoking Status: Former smoker Past Alcohol Use History: None Reported Past Drug Use History: None Reported - Past Family History Father Family Medical History: Cancer, Myocardial Infarction ([place]) Additional Family Medical History / Comment(s): FATHER BONE CA AT AGE 70. HE HAD AORTIC ANEURYSM WITH SURGERY. Mother Family Medical History: Cancer, Deep Vein Thrombosis (DVT), Renal Disease Additional Family Medical History / Comment(s): MOTHER OF LYMPHOMA. MOTHER HAD TRANSPLANT OF KIDNEY. Sister(s) Family Medical History: Deep Vein Thrombosis (DVT), Pulmonary Embolus, Renal Disease Additional Family Medical History / Comment(s): POLYCYSTIC KIDNEY DISEASE WITH TRANSPLANT, General Exam Limitations: no limitations General appearance: alert, in no apparent distress Head exam: Present: atraumatic, normocephalic Eye exam: Present: normal appearance, PERRL ENT exam: Present: normal exam Neck exam: Present: normal inspection. Absent: tenderness, meningismus Respiratory exam: Present: normal lung sounds bilaterally. Absent: respiratory distress, wheezes Cardiovascular Exam: Present: regular rate, normal rhythm GI/Abdominal exam: Present: soft. Absent: distended, tenderness, guarding Extremities exam: Present: normal inspection, normal capillary refill. Absent: pedal edema Neurological exam: Present: alert, oriented X3, CN II-XII intact. Absent: motor sensory deficit Psychiatric exam: Present: normal affect, normal mood Skin exam: Present: warm, dry, intact. Absent: cyanosis, diaphoretic Course Vital Signs 05/29/20 05/29/20 05/29/20 17:54 18:15 18:16 Temperature 98 F Pulse Rate 80 Pulse Rate [ 77 Telegraphic Typewriter Operator Chief ] Respiratory 17 Rate Blood Pressure 149/92 157/101 O2 Sat by Pulse 97 Oximetry 05/29/20 19:03 Temperature Pulse Rate 72 Pulse Rate [ Telegraphic Typewriter Operator Chief ] Respiratory 18 Rate Blood Pressure 129/64 O2 Sat by Pulse 98 Oximetry EKG Findings - EKG Comments: EKG Findings:: eKG: Atrial pacemaker, rightward axis, rate is 62, RI interval 166, QRS duration 88, QTC 389, no ST segment elevation. Medical Decision Making - Medical Decision Making 55-year-old presenting with hypertension, history of CK D and polycystic kidney disease as well as hypertension. Workup reveals normal CBC, CMP is showing chronic kidney disease which is at baseline. Negative troponin. EKG shows paced rhythm rate head CT negative for intracranial hemorrhage or mass effect. Chest x-rays negative for acute cardiopulmonary findings. His blood pressure is normalized without specific treatment in the emergency department. He will follow with his primary care regarding his blood pressure. - Lab Data Result diagrams: 05/29/20 19:00 05/29/20 19:00 Lab Results 05/29/20 05/29/20 05/29/20 Range/Units 19:00 19:00 19:00 WBC 6.8 (3.8-10.6) k/uL RBC 5.29 (4.30-5.90) m/uL Hgb 15.7 (13.0-17.5) gm/dL Hct 49.1 (39.0-53.0) % MCV 92.7 (80.0-100.0) fL MCH 29.7 (25.0-35.0) pg MCHC 32.0 (31.0-37.0) g/dL RDW 14.1 (11.5-15.5) % Plt Count 176 (150-450) k/uL Neutrophils % 75 % Lymphocytes % 13 % Monocytes % 7 % Eosinophils % 2 % Basophils % 1 % Neutrophils # 5.1 (1.3-7.7) k/uL Lymphocytes # 0.9 L (1.0-4.8) k/uL Monocytes # 0.5 (0-1.0) k/uL Eosinophils # 0.1 (0-0.7) k/uL Basophils # 0.1 (0-0.2) k/uL PT 10.3 (9.0-12.0) sec INR 1.0 (<1.2) APTT 23.7 (22.0-30.0) sec Sodium 138 (137-145) mmol/L Potassium 4.4 (3.5-5.1) mmol/L Chloride 108 H (98-107) mmol/L Carbon Dioxide 23 (22-30) mmol/L Anion Gap 7 mmol/L BUN 34 H (9-20) mg/dL Creatinine 2.44 H (0.66-1.25) mg/dL Est GFR (CKD-EPI)AfAm 34 (>60 ml/min/1.73 sqM) Est GFR (CKD-EPI)NonAf 29 (>60 ml/min/1.73 sqM) Glucose 123 H (74-99) mg/dL Calcium 9.6 (8.4-10.2) mg/dL Magnesium 1.9 (1.6-2.3) mg/dL Total Bilirubin 0.6 (0.2-1.3) mg/dL AST 29 (17-59) U/L ALT 17 (4-49) U/L Alkaline Phosphatase 52 (38-126) U/L Troponin I (0.000-0.034) ng/mL Total Protein 6.2 L (6.3-8.2) g/dL Albumin 3.7 (3.5-5.0) g/dL 05/29/20 Range/Units 19:00 WBC (3.8-10.6) k/uL RBC (4.30-5.90) m/uL Hgb (13.0-17.5) gm/dL Hct (39.0-53.0) % MCV (80.0-100.0) fL MCH (25.0-35.0) pg MCHC (31.0-37.0) g/dL RDW (11.5-15.5) % Plt Count (150-450) k/uL Neutrophils % % Lymphocytes % % Monocytes % % Eosinophils % % Basophils % % Neutrophils # (1.3-7.7) k/uL Lymphocytes # (1.0-4.8) k/uL Monocytes # (0-1.0) k/uL Eosinophils # (0-0.7) k/uL Basophils # (0-0.2) k/uL PT (9.0-12.0) sec INR (<1.2) APTT (22.0-30.0) sec Sodium (137-145) mmol/L Potassium (3.5-5.1) mmol/L Chloride (98-107) mmol/L Carbon Dioxide (22-30) mmol/L Anion Gap mmol/L BUN (9-20) mg/dL Creatinine (0.66-1.25) mg/dL Est GFR (CKD-EPI)AfAm (>60 ml/min/1.73 sqM) Est GFR (CKD-EPI)NonAf (>60 ml/min/1.73 sqM) Glucose (74-99) mg/dL Calcium (8.4-10.2) mg/dL Magnesium (1.6-2.3) mg/dL Total Bilirubin (0.2-1.3) mg/dL AST (17-59) U/L ALT (4-49) U/L Alkaline Phosphatase (38-126) U/L Troponin I <0.012 (0.000-0.034) ng/mL Total Protein (6.3-8.2) g/dL Albumin (3.5-5.0) g/dL Disposition Clinical Impression: HTN (hypertension) Disposition: HOME SELF-CARE Condition: Fair Instructions (If sedation given, give patient instructions): Hypertension (ED) Is patient prescribed a controlled substance at d/c from ED?: No Referrals: Mukesh Hernandez DO [Primary Care Provider] - 1-2 days Time of Disposition: 20:06
[2020-05-29 19:03] VITALS: RESP 18
--- NOTE | 2020-05-29 19:13 | CT ---
EXAMINATION TYPE: CT brain wo con DATE OF EXAM: 05/29/2020 COMPARISON: 11/09/2018 INDICATION: high blood pressure, headache, visual disturbance, weakness DLP: 1099.4 mGycm, Automated exposure control for dose reduction was used. CONTRAST: None CT of the brain is performed utilizing 3 mm thick sections through the posterior fossa and 3 mm thick sections through the remaining calvarium. Study is performed within 24 hours of arrival to the hosp [facility]. No abnormal hyperdensity is present to suggest an acute intracranial hemorrhage. No mass lesion is evident. No acute infarcts are evident. Ventricles and sulci are appropriate for the patient age. Paranasal sinuses and mastoid air cells within the [id number] are clear. IMPRESSIONS: 1. Normal CT Brain
--- NOTE | 2020-05-29 19:15 | XR ---
EXAMINATION TYPE: XR chest 2V DATE OF EXAM: 05/29/2020 COMPARISON: 05/18/2020 INDICATION: Weakness dizziness TECHNIQUE: Frontal and lateral views of the chest are obtained. FINDINGS: The heart size is normal. The pulmonary vasculature is normal. The lungs are clear. Sternotomy wires from prior cardiac valve surgery is present. There is a pacema ker overlying the left chest. IMPRESSION: 1. No acute pulmonary process.
[2020-05-29 19:32] LABS: Basophils # (A) 0.1 k/uL (0-0.2); Basophils % (A) 1 %; Eosinophils # (A) 0.1 k/uL (0-0.7); Eosinophils % (A) 2 %; HCT 49.1 % (39.0-53.0); HGB 15.7 gm/dL (13.0-17.5); Lymphocytes # (A) 0.9 k/uL (1.0-4.8); Lymphocytes % (A) 13 %; MCH 29.7 pg (25.0-35.0); MCV 92.7 fL (80.0-100.0); Mean Platelet Volume 8.4; Monocytes # (A) 0.5 k/uL (0-1.0); Monocytes % (A) 7 %; Neutrophils # (A) 5.1 k/uL (1.3-7.7); Neutrophils % (A) 75 %; Platelet Count 176 k/uL (150-450); RBC 5.29 m/uL (4.30-5.90); RDW 14.1 % (11.5-15.5); WBC 6.8 k/uL (3.8-10.6)
[2020-05-29 19:46] LABS: Albumin 3.7 g/dL (3.5-5.0); Calcium 9.6 mg/dL (8.4-10.2); Magnesium 1.9 mg/dL (1.6-2.3); Potassium 4.4 mmol/L (3.5-5.1); Total Bilirubin 0.6 mg/dL (0.2-1.3); Total Protein 6.2 g/dL (6.3-8.2)
[2020-05-29 19:55] LABS: Partial Thromboplastin Time 23.7 sec (22.0-30.0); Prothrombin Time 10.3 sec (9.0-12.0)
[2020-05-29 20:22] VITALS: BP 121/87; PULSE 60; TEMP 98.1
== END 2020-05-29 20:22 | disposition home or self-care (01) ==
LOC: EC 17:53
DX: I12.9 Hypertensive chronic kidney disease with stage 1 through stage 4 chronic kidney disease, or unspecified chronic kidney disease (principal); N18.4 Chronic kidney disease, stage 4 (severe); I20.9 Angina pectoris, unspecified; F41.9 Anxiety disorder, unspecified; F41.0 Panic disorder [episodic paroxysmal anxiety]; Z79.899 Other long term (current) drug therapy; Z87.891 Personal history of nicotine dependence; Z85.9 Personal history of malignant neoplasm, unspecified
CPT/HCPCS: 36415; 70450; 71046; 80053; 83735; 84484; 85025; 85610; 85730; 93005; 99284

== ENCOUNTER 2021-09-17 01:33 | Emergency (ER) | payer OTHER ==
[2021-09-17 02:12] VITALS: RESP 18; TEMP 97.2
[2021-09-17 03:18] LABS: Appearance,Urine Clear (Clear); Bilirubin,Urine Negative (Negative); Blood,Urine Negative (Negative); Color,Urine Colorless; Glucose,Urine (UA) Negative (Negative); Ketones,Urine Negative (Negative); Leukocyte Esterase,Urine Negative (Negative); Nitrite,Urine Negative (Negative); PH, Urine 5.5 (5.0-8.0); Protein,Urine Negative (Negative); Specific Gravity,Urine 1.002 (1.001-1.035); Urobilinogen,Urine <2.0 mg/dL (<2.0)
[2021-09-17] MEDS ORDERED: MORPHINE SULFATE 4 MG/ML SYRINGE IV STA (04:14)
[2021-09-17] MEDS ORDERED: SODIUM CHLORIDE 0.9% 1,000 ML IV STA (04:14)
--- NOTE | 2021-09-17 04:15 | ED ---
Abdominal Pain HPI - General Chief Complaint: Abdominal Pain Stated Complaint: Abdominal Pain Time Seen by Provider: 09/17/21 04:00 Source: patient, RN notes reviewed, old records reviewed Mode of arrival: ambulatory Limitations: no limitations - History of Present Illness Initial Comments: This is a 56-year-old male to the emergency department today. Patient is presented today for evaluation regards to pain chronic pain chronic flank pain history of polycystic kidney disease. Patient has no other known significant medical problems takes no medications no travel history or sick. Patient was concern for liver issues. Otherwise patient's pain is just like prior pain is had an the past maybe a little bit worse. No current nausea vomiting or di arrhea. No fevers. MD Complaint: abdominal pain -: days(s) Location: diffuse, RUQ, RLQ, R flank Radiation: R flank Migration to: R flank Severity: moderate Severity scale (1-10): 6 Quality: cramping Consistency: constant Improves With: nothing Worsens With: nothing Associated Symptoms: nausea, vomiting Treatments Prior to Arrival: other (none) - Related Data Home Medications Medication Instructions Recorded Confirmed PARoxetine [Paxil] 20 mg PO DAILY 10/17/18 05/18/20 busPIRone HCL [Buspar] 7.5 mg PO BID@0900,1400 10/17/18 05/18/20 Metoprolol Tartrate [Lopressor] 50 mg PO TID 05/18/20 05/18/20 Tamsulosin [Flomax] 0.4 mg PO DAILY 05/18/20 05/18/20 hydrALAZINE HCL 25 mg PO BID 05/18/20 05/18/20 Previous Rx's Medication Instructions Recorded Aspirin EC [Ecotrin Low Dose] 81 mg PO DAILY #30 tab 05/23/19 Pantoprazole [Protonix] 40 mg PO AC-BRKFST #30 tablet. 05/23/19 allopurinoL [Zyloprim] 100 mg PO DAILY #30 tab 05/23/19 Allergies Allergy/AdvReac Type Severity Reaction Status Date / Time No Known Allergies Allergy Verified 09/17/21 02:09 Review of Systems ROS Statement: Those systems with pertinent positive or pertinent negative responses have been documented in the HPI. ROS Other: All systems not noted in ROS Statement are negative. Past Medical History Past Medical History: Asthma, Cancer, Chest Pain / Angina, COPD, Hypertension, Osteoarthritis (OA), Renal Disease Additional Past Medical History / Comment(s): Severe mitral dysfunction, pleurisy x2, polycyctic kidney disease stage IV, migraines, chronic cervical and back pain, DDD, gout bilateral feet, RSD affecting legs, PATSY without device d/t kept getting respiratory infections, right lower lobe nodule, History of Any Multi-Drug Resistant Organisms: None Reported Past Surgical History: Hernia Repair, Pacemaker Additional Past Surgical History / Comment(s): Pacemaker originally placed 2001, last gen change 2017, PASCALE, umbilical hernia repair, L leg tib/fib fracture with hardware-since removed, L thumb surgery-has rods, EGD, colonoscopy, blood patch after spinal anesthesia for headache, 12/09/18 lung biopsy, Past Anesthesia/Blood Transfusion Reactions: Previous Problems w/ Anesthesia Additional Past Anesthesia/Blood Transfusion Reaction / Comment(s): NEVER RECIEVED BLOOD. Pt had spinal anesthesia with spinal headache and blood patch. Type of Cardiac Device: Permanent Pacemaker Device Placement Date:: 2001 Past Psychological History: Anxiety, Panic Disorder Smoking Status: Former smoker Past Alcohol Use History: None Reported Past Drug Use History: None Reported - Past Family History Father Family Medical History: Cancer, Myocardial Infarction ([place]) Additional Family Medical History / Comment(s): FATHER BONE CA AT AGE 70. HE HAD AORTIC ANEURYSM WITH SURGERY. Mother Family Medical History: Cancer, Deep Vein Thrombosis (DVT), Renal Disease Additional Family Medical History / Comment(s): MOTHER OF LYMPHOMA. MOTHER HAD TRANSPLANT OF KIDNEY. Sister(s) Family Medical History: Deep Vein Thrombosis (DVT), Pulmonary Embolus, Renal Disease Additional Family Medical History / Comment(s): POLYCYSTIC KIDNEY DISEASE WITH TRANSPLANT, General Exam Limitations: no limitations General appearance: alert, in no apparent distress Head exam: Present: atraumatic, normocephalic, normal inspection Eye exam: Present: normal appearance, PERRL, EOMI. Absent: scleral icterus, conjunctival injection, periorbital swelling ENT exam: Present: normal exam, mucous membranes moist Neck exam: Present: normal inspection. Absent: tenderness, meningismus, lymphadenopathy Respiratory exam: Present: normal lung sounds bilaterally. Absent: respiratory distress, wheezes, rales, rhonchi, stridor Cardiovascular Exam: Present: regular rate, normal rhythm, normal heart sounds. Absent: systolic murmur, diastolic murmur, rubs, gallop, clicks GI/Abdominal exam: Present: soft, normal bowel sounds. Absent: distended, tenderness, guarding, rebound, rigid Extremities exam: Present: normal inspection, full ROM, normal capillary refill. Absent: tenderness, pedal edema, joint swelling, calf tenderness Back exam: Present: normal inspection Neurological exam: Present: alert, oriented X3, CN II-XII intact Psychiatric exam: Present: normal affect, normal mood Skin exam: Present: warm, dry, intact, normal color. Absent: rash Course Vital Signs 09/17/21 02:10 Temperature 97.2 F L Pulse Rate 65 Respiratory 18 Rate Blood Pressure 154/101 O2 Sat by Pulse 98 Oximetry - Reevaluation(s) Reevaluation #1: 09/17/21 06:45 Medical record is reviewed Reevaluation #2: 09/17/21 06:45 Patient has pain control Reevaluation #3: 09/17/21 06:45 Patient is informed of results and questions answered Medical Decision Making - Medical Decision Making 56 male with acute on chronic pain. No new findings here and labs or computed tomography scan. Patient can be discharged home - Lab Data Result diagrams: 09/17/21 04:32 09/17/21 04:32 Lab Results 09/17/21 09/17/21 09/17/21 Range/Units 02:52 04:32 04:32 WBC 6.1 (3.8-10.6) k/uL RBC 5.00 (4.30-5.90) m/uL Hgb 15.0 (13.0-17.5) gm/dL Hct 46.3 (39.0-53.0) % MCV 92.6 (80.0-100.0) fL MCH 30.0 (25.0-35.0) pg MCHC 32.4 (31.0-37.0) g/dL RDW 13.5 (11.5-15.5) % Plt Count 181 (150-450) k/uL MPV 7.9 Neutrophils % 69 % Lymphocytes % 17 % Monocytes % 9 % Eosinophils % 3 % Basophils % 1 % Neutrophils # 4.2 (1.3-7.7) k/uL Lymphocytes # 1.0 (1.0-4.8) k/uL Monocytes # 0.6 (0-1.0) k/uL Eosinophils # 0.2 (0-0.7) k/uL Basophils # 0.1 (0-0.2) k/uL PT 11.5 (9.0-12.0) sec INR 1.1 (<1.2) APTT 25.7 (22.0-30.0) sec Sodium (137-145) mmol/L Potassium (3.5-5.1) mmol/L Chloride (98-107) mmol/L Carbon Dioxide (22-30) mmol/L Anion Gap mmol/L BUN (9-20) mg/dL Creatinine (0.66-1.25) mg/dL Est GFR (CKD-EPI)AfAm (>60 ml/min/1.73 sqM) Est GFR (CKD-EPI)NonAf (>60 ml/min/1.73 sqM) Glucose (74-99) mg/dL Calcium (8.4-10.2) mg/dL Total Bilirubin (0.2-1.3) mg/dL AST (17-59) U/L ALT (4-49) U/L Alkaline Phosphatase (38-126) U/L Total Protein (6.3-8.2) g/dL Albumin (3.5-5.0) g/dL Amylase (30-110) U/L Lipase (23-300) U/L Urine Color Colorless Urine Appearance Clear (Clear) Urine pH 5.5 (5.0-8.0) Ur Specific [place] 1.002 (1.001-1.035) Urine Protein Negative (Negative) Urine Glucose (UA) Negative (Negative) Urine Ketones Negative (Negative) Urine Blood Negative (Negative) Urine Nitrite Negative (Negative) Urine Bilirubin Negative (Negative) Urine Urobilinogen <2.0 (<2.0) mg/dL Ur Leukocyte Esterase Negative (Negative) 09/17/21 Range/Units 04:32 WBC (3.8-10.6) k/uL RBC (4.30-5.90) m/uL Hgb (13.0-17.5) gm/dL Hct (39.0-53.0) % MCV (80.0-100.0) fL MCH (25.0-35.0) pg MCHC (31.0-37.0) g/dL RDW (11.5-15.5) % Plt Count (150-450) k/uL MPV Neutrophils % % Lymphocytes % % Monocytes % % Eosinophils % % Basophils % % Neutrophils # (1.3-7.7) k/uL Lymphocytes # (1.0-4.8) k/uL Monocytes # (0-1.0) k/uL Eosinophils # (0-0.7) k/uL Basophils # (0-0.2) k/uL PT (9.0-12.0) sec INR (<1.2) APTT (22.0-30.0) sec Sodium 137 (137-145) mmol/L Potassium 4.0 (3.5-5.1) mmol/L Chloride 104 (98-107) mmol/L Carbon Dioxide 23 (22-30) mmol/L Anion Gap 10 mmol/L BUN 27 H (9-20) mg/dL Creatinine 2.68 H (0.66-1.25) mg/dL Est GFR (CKD-EPI)AfAm 30 (>60 ml/min/1.73 sqM) Est GFR (CKD-EPI)NonAf 26 (>60 ml/min/1.73 sqM) Glucose 85 (74-99) mg/dL Calcium 9.3 (8.4-10.2) mg/dL Total Bilirubin 0.7 (0.2-1.3) mg/dL AST 31 (17-59) U/L ALT 16 (4-49) U/L Alkaline Phosphatase 70 (38-126) U/L Total Protein 6.6 (6.3-8.2) g/dL Albumin 4.1 (3.5-5.0) g/dL Amylase 116 H (30-110) U/L Lipase 415 H (23-300) U/L Urine Color Urine Appearance (Clear) Urine pH (5.0-8.0) Ur Specific [place] (1.001-1.035) Urine Protein (Negative) Urine Glucose (UA) (Negative) Urine Ketones (Negative) Urine Blood (Negative) Urine Nitrite (Negative) Urine Bilirubin (Negative) Urine Urobilinogen (<2.0) mg/dL Ur Leukocyte Esterase (Negative) - Radiology Data Radiology results: report reviewed (CT abdomen and pelvis negative for acute disease), image reviewed Disposition Clinical Impression: Polycystic kidney, Abdominal pain Disposition: HOME SELF-CARE Condition: Good Instructions (If sedation given, give patient instructions): Abdominal Pain (ED) Is patient prescribed a controlled substance at d/c from ED?: No Referrals: Mukesh Hernandez DO [Primary Care Provider] - 1-2 days
[2021-09-17 04:44] LABS: Basophils # (A) 0.1 k/uL (0-0.2); Basophils % (A) 1 %; Eosinophils # (A) 0.2 k/uL (0-0.7); Eosinophils % (A) 3 %; HCT 46.3 % (39.0-53.0); Lymphocytes % (A) 17 %; MCHC 32.4 g/dL (31.0-37.0); MCV 92.6 fL (80.0-100.0); Mean Platelet Volume 7.9; Monocytes # (A) 0.6 k/uL (0-1.0); Monocytes % (A) 9 %; Neutrophils # (A) 4.2 k/uL (1.3-7.7); Neutrophils % (A) 69 %; Platelet Count 181 k/uL (150-450); RDW 13.5 % (11.5-15.5); WBC 6.1 k/uL (3.8-10.6)
[2021-09-17 04:53] LABS: INR 1.1 (<1.2); Partial Thromboplastin Time 25.7 sec (22.0-30.0); Prothrombin Time 11.5 sec (9.0-12.0)
[2021-09-17 05:00] LABS: Albumin 4.1 g/dL (3.5-5.0); Calcium 9.3 mg/dL (8.4-10.2); Total Bilirubin 0.7 mg/dL (0.2-1.3); Total Protein 6.6 g/dL (6.3-8.2)
--- NOTE | 2021-09-17 06:00 | CT ---
EXAMINATION TYPE: CT abdomen pelvis wo con DATE OF EXAM: 09/17/2021 COMPARISON: 11/15/2018 HISTORY: ABDOMINAL PAIN CT DLP: 525.7 mGycm Automated exposure control for dose reduction was used. Images obtained from the diaphragm to the floor the pelvis without contrast. Lung bases are clear of consolidation. There is no pleural effusion. Heart size is fairly normal. There are numerous cysts throughout the liver. The bile ducts are not dilated. Spleen is intact. Ther e is no pancreatic mass. Gallbladder appears normal. The stomach is intact. There are numerous cysts throughout the kidneys consistent with polycystic kidney disease. Cysts appe ar larger on the right side. There is no retroperitoneal adenopathy. Ureters are not dilated. The dani dder distends smoothly. There is no inguinal hernia. There is no free fluid in the pelvis. There are scattered renal protocol calcifications. There is no ascites or free air. There is no bowel obstruction. There is no inguinal hernia. There is no mesenteric edema. Appendix is posterior in the pelvis and appears normal. IMPRESSION: Polycystic liver and kidney disease. No acute abnormality in the abdomen pelvis. There is clearing of the infiltrate right lower lobe compared to the old exam. Polycystic disease not changed compared to the old exam.
[2021-09-17 07:25] VITALS: BP 140/90; PULSE 60
== END 2021-09-17 07:25 | disposition home or self-care (01) ==
LOC: EC 01:33
DX: Q61.3 Polycystic kidney, unspecified (principal); J45.909 Unspecified asthma, uncomplicated; I10 Essential (primary) hypertension; M19.90 Unspecified osteoarthritis, unspecified site; F41.9 Anxiety disorder, unspecified; Z79.82 Long term (current) use of aspirin; Z95.0 Presence of cardiac pacemaker; Z87.891 Personal history of nicotine dependence
CPT/HCPCS: 99284; 96374; 96361; 36415; 80053; 82150; 83690; 85025; 85610; 85730; 81003; 74176; J2270

== ENCOUNTER 2022-03-11 18:51 | Emergency (ER) | payer MEDICARE, OTHER ==
--- NOTE | 2022-03-11 19:12 | ED ---
General Adult HPI - General Chief complaint: Chest Pain Stated complaint: chest pain Time Seen by Provider: 03/11/22 19:01 Source: patient Mode of arrival: ambulatory Limitations: no limitations - History of Present Illness Initial comments: Patient is a 57-year-old male presents the emergency room with complaints of chest pain which is more epigastric in nature which happened once yesterday and again earlier today. He denies any nausea or vomiting associated with his symptoms. He reports that both episodes happened just prior to a meal. He denies any shortness of breath, reproducible chest pain, palpitations, but dizziness, orthopnea, lower sternum any edema, headaches or diaphoresis. He does have a significant past medical history of mitral valve disease with replacement, persistent bradycardia with atrial pacemaker, polycystic kidney disease with chronic kidney disease stage IV currently following with nephrology and being worked up for transplant, hypertension, GERD, asthma, COPD and osteoarthritis. - Related Data Home Medications Medication Instructions Recorded Confirmed PARoxetine [Paxil] 20 mg PO DAILY 10/17/18 05/18/20 busPIRone HCL [Buspar] 7.5 mg PO BID@0900,1400 10/17/18 05/18/20 Metoprolol Tartrate [Lopressor] 50 mg PO TID 05/18/20 05/18/20 Tamsulosin [Flomax] 0.4 mg PO DAILY 05/18/20 05/18/20 hydrALAZINE HCL 25 mg PO BID 05/18/20 05/18/20 Previous Rx's Medication Instructions Recorded Aspirin EC [Ecotrin Low Dose] 81 mg PO DAILY #30 tab 05/23/19 Pantoprazole [Protonix] 40 mg PO AC-BRKFST #30 tablet.dr 05/23/19 allopurinoL [Zyloprim] 100 mg PO DAILY #30 tab 05/23/19 Allergies Allergy/AdvReac Type Severity Reaction Status Date / Time No Known Allergies Allergy Verified 03/11/22 18:56 Review of Systems ROS Statement: Those systems with pertinent positive or pertinent negative responses have been documented in the HPI. ROS Other: All systems not noted in ROS Statement are negative. Past Medical History Past Medical History: Asthma, Cancer, Chest Pain / Angina, COPD, Hypertension, Osteoarthritis (OA), Renal Disease Additional Past Medical History / Comment(s): Severe mitral dysfunction, pleurisy x2, polycyctic kidney disease stage IV, migraines, chronic cervical and back pain, DDD, gout bilateral feet, RSD affecting legs, PATSY without device d/t kept getting respiratory infections, right lower lobe nodule, History of Any Multi-Drug Resistant Organisms: None Reported Past Surgical History: Hernia Repair, Pacemaker Additional Past Surgical History / Comment(s): Pacemaker originally placed 2001, last gen change 2017, PASCALE, umbilical hernia repair, L leg tib/fib fracture with hardware-since removed, L thumb surgery-has rods, EGD, colonoscopy, blood patch after spinal anesthesia for headache, 12/09/18 lung biopsy, Mitral Valve Repair Past Anesthesia/Blood Transfusion Reactions: Previous Problems w/ Anesthesia Additional Past Anesthesia/Blood Transfusion Reaction / Comment(s): NEVER RECIEVED BLOOD. Pt had spinal anesthesia with spinal headache and blood patch. Type of Cardiac Device: Permanent Pacemaker Device Placement Date:: 2001 Past Psychological History: Anxiety, Panic Disorder Smoking Status: Former smoker Past Alcohol Use History: None Reported Past Drug Use History: None Reported - Past Family History Father Family Medical History: Cancer, Myocardial Infarction ([place]) Additional Family Medical History / Comment(s): FATHER BONE CA AT AGE 70. HE HAD AORTIC ANEURYSM WITH SURGERY. Mother Family Medical History: Cancer, Deep Vein Thrombosis (DVT), Renal Disease Additional Family Medical History / Comment(s): MOTHER OF LYMPHOMA. MOTHER HAD TRANSPLANT OF KIDNEY. Sister(s) Family Medical History: Deep Vein Thrombosis (DVT), Pulmonary Embolus, Renal Disease Additional Family Medical History / Comment(s): POLYCYSTIC KIDNEY DISEASE WITH TRANSPLANT, General Exam Limitations: no limitations General appearance: alert, in no apparent distress Head exam: Present: atraumatic, normocephalic, normal inspection Eye exam: Present: normal appearance, PERRL, EOMI. Absent: scleral icterus, conjunctival injection, periorbital swelling ENT exam: Present: normal exam, mucous membranes moist Neck exam: Present: normal inspection. Absent: tenderness, meningismus, lymphadenopathy Respiratory exam: Present: normal lung sounds bilaterally. Absent: respiratory distress, wheezes, rales, rhonchi, stridor Cardiovascular Exam: Present: regular rate, normal rhythm, normal heart sounds. Absent: systolic murmur, diastolic murmur, rubs, gallop, clicks GI/Abdominal exam: Present: soft, normal bowel sounds. Absent: distended, tenderness, guarding, rebound, rigid Extremities exam: Present: normal inspection, full ROM, normal capillary refill. Absent: tenderness, pedal edema, joint swelling, calf tenderness Back exam: Present: normal inspection Neurological exam: Present: alert, oriented X3, CN II-XII intact Psychiatric exam: Present: normal affect, normal mood Skin exam: Present: warm, dry, intact, normal color, other (Keloid scar midline chest). Absent: rash Course Vital Signs 03/11/22 03/11/22 18:52 20:01 Temperature 97.6 F Pulse Rate 71 Pulse Rate [ [employer] ] Respiratory 16 Rate Blood Pressure 156/96 O2 Sat by Pulse 98 Oximetry Medical Decision Making - Medical Decision Making Patient is a 57-year-old male presents with "chest pain," location and description of symptoms consistent with epigastric pain rather than chest pain however due to comorbid conditions will complete workup for ACS including EKG, chest x-ray, CBC, CMP, magnesium, troponin and coags. He denies any analgesic or anti-medic need at this time. EKG shows electronically atrially paced with nonspecific ST and T-wave abnormalities. Consistent with previous EKG. Chest x-ray without any acute cardiopulmonary processes. CBC and coags normal CMP revealed renal function at baseline with a creatinine of 3.05, BUN 40, EGFR 25, troponin negative, magnesium normal. Patient continues to remain "chest pain-free without recurrence of stabbing pain in the epigastric region. Will discharge home with follow-up with his primary care provider and district leader. Case discussed with Dr. Lynch. - Lab Data Result diagrams: 03/11/22 19:40 03/11/22 19:40 Lab Results 03/11/22 03/11/22 03/11/22 Range/Units 19:40 19:40 19:40 WBC 5.4 (3.8-10.6) k/uL RBC 4.64 (4.30-5.90) m/uL Hgb 13.1 (13.0-17.5) gm/dL Hct 42.0 (39.0-53.0) % MCV 90.4 (80.0-100.0) fL MCH 28.3 (25.0-35.0) pg MCHC 31.3 (31.0-37.0) g/dL RDW 14.3 (11.5-15.5) % Plt Count 179 (150-450) k/uL MPV 8.0 Neutrophils % 71 % Lymphocytes % 13 % Monocytes % 8 % Eosinophils % 6 % Basophils % 1 % Neutrophils # 3.8 (1.3-7.7) k/uL Lymphocytes # 0.7 L (1.0-4.8) k/uL Monocytes # 0.4 (0-1.0) k/uL Eosinophils # 0.3 (0-0.7) k/uL Basophils # 0.0 (0-0.2) k/uL PT 10.5 (9.0-12.0) sec INR 1.0 (<1.2) APTT 24.4 (22.0-30.0) sec Sodium 136 L (137-145) mmol/L Potassium 4.2 (3.5-5.1) mmol/L Chloride 104 (98-107) mmol/L Carbon Dioxide 22 (22-30) mmol/L Anion Gap 10 mmol/L BUN 40 H (9-20) mg/dL Creatinine 3.05 H (0.66-1.25) mg/dL Est GFR (CKD-EPI)AfAm 25 (>60 ml/min/1.73 sqM) Est GFR (CKD-EPI)NonAf 22 (>60 ml/min/1.73 sqM) Glucose 124 H (74-99) mg/dL Calcium 9.0 (8.4-10.2) mg/dL Magnesium 1.7 (1.6-2.3) mg/dL Total Bilirubin 0.2 (0.2-1.3) mg/dL AST 21 (17-59) U/L ALT 14 (4-49) U/L Alkaline Phosphatase 91 (38-126) U/L Troponin I (0.000-0.034) ng/mL Total Protein 5.9 L (6.3-8.2) g/dL Albumin 3.7 (3.5-5.0) g/dL 03/11/22 Range/Units 19:40 WBC (3.8-10.6) k/uL RBC (4.30-5.90) m/uL Hgb (13.0-17.5) gm/dL Hct (39.0-53.0) % MCV (80.0-100.0) fL MCH (25.0-35.0) pg MCHC (31.0-37.0) g/dL RDW (11.5-15.5) % Plt Count (150-450) k/uL MPV Neutrophils % % Lymphocytes % % Monocytes % % Eosinophils % % Basophils % % Neutrophils # (1.3-7.7) k/uL Lymphocytes # (1.0-4.8) k/uL Monocytes # (0-1.0) k/uL Eosinophils # (0-0.7) k/uL Basophils # (0-0.2) k/uL PT (9.0-12.0) sec INR (<1.2) APTT (22.0-30.0) sec Sodium (137-145) mmol/L Potassium (3.5-5.1) mmol/L Chloride (98-107) mmol/L Carbon Dioxide (22-30) mmol/L Anion Gap mmol/L BUN (9-20) mg/dL Creatinine (0.66-1.25) mg/dL Est GFR (CKD-EPI)AfAm (>60 ml/min/1.73 sqM) Est GFR (CKD-EPI)NonAf (>60 ml/min/1.73 sqM) Glucose (74-99) mg/dL Calcium (8.4-10.2) mg/dL Magnesium (1.6-2.3) mg/dL Total Bilirubin (0.2-1.3) mg/dL AST (17-59) U/L ALT (4-49) U/L Alkaline Phosphatase (38-126) U/L Troponin I <0.012 (0.000-0.034) ng/mL Total Protein (6.3-8.2) g/dL Albumin (3.5-5.0) g/dL - EKG Data EKG Comments: Electronic atrial pacemaker, nonspecific ST-T wave abnormality, ventricular rate 61 bpm, DE interval 224 ms, QRS duration 92 ms, QT/QTC 403/497 ms, PRT axes 120, 77, 91 When compared to previous EKG there are: no significant change - Radiology Data Radiology results: report reviewed, image reviewed No acute cardiopulmonary disease/process. Disposition Clinical Impression: Acute epigastric pain Disposition: HOME SELF-CARE Condition: Stable Instructions (If sedation given, give patient instructions): Chest Pain (ED), Abdominal Pain (ED) Additional Instructions: Please continue your home medications including medications for acid reflux. Please follow-up with your primary care provider and district leader. Please return to the Emergency Department if symptoms worsen or any other concerns. Is patient prescribed a controlled substance at d/c from ED?: No Referrals: Mukesh Hernandez DO [Primary Care Provider] - 1-2 days Time of Disposition: 20:44
--- NOTE | 2022-03-11 19:35 | XR ---
EXAMINATION TYPE: XR chest 2V DATE OF EXAM: 03/11/2022 7:27 PM COMPARISON: Chest x-ray 05/29/2020, chest x-ray 05/18/2020 TECHNIQUE: XR chest 2V . CLINICAL INDICATION:Male, 57 years old with history of Chest Pain; FINDINGS: Lungs/Pleura: There is no evidence of pleural effusion, focal consolidation, or pneumothorax. Pulmonary vascularity: Unremarkable. Heart/mediastinum: Cardiomediastinal silhouette is unremarkable. Left atrial appendage occlusion frederic ce is present. Dual-chamber cardiac conduction device with battery pack over the left chest wall. Pro sthetic valve noted. Musculoskeletal: No acute osseous pathology. Midline sternotomy wires are noted and stable. IMPRESSION: No acute cardiopulmonary disease/process.
[2022-03-11 19:58] LABS: Basophils % (A) 1 %; Eosinophils # (A) 0.3 k/uL (0-0.7); Eosinophils % (A) 6 %; HGB 13.1 gm/dL (13.0-17.5); Lymphocytes # (A) 0.7 k/uL (1.0-4.8); Lymphocytes % (A) 13 %; MCH 28.3 pg (25.0-35.0); MCHC 31.3 g/dL (31.0-37.0); MCV 90.4 fL (80.0-100.0); Monocytes # (A) 0.4 k/uL (0-1.0); Monocytes % (A) 8 %; Neutrophils # (A) 3.8 k/uL (1.3-7.7); Neutrophils % (A) 71 %; Partial Thromboplastin Time 24.4 sec (22.0-30.0); Platelet Count 179 k/uL (150-450); Prothrombin Time 10.5 sec (9.0-12.0); RBC 4.64 m/uL (4.30-5.90); RDW 14.3 % (11.5-15.5); WBC 5.4 k/uL (3.8-10.6)
[2022-03-11 20:08] LABS: Albumin 3.7 g/dL (3.5-5.0); Magnesium 1.7 mg/dL (1.6-2.3); Potassium 4.2 mmol/L (3.5-5.1); Total Bilirubin 0.2 mg/dL (0.2-1.3); Total Protein 5.9 g/dL (6.3-8.2)
[2022-03-11 21:21] VITALS: BP 148/97; PULSE 62; RESP 18; TEMP 97.9
== END 2022-03-11 21:04 | disposition home or self-care (01) ==
LOC: EC 18:51
DX: R10.13 Epigastric pain (principal); J44.9 Chronic obstructive pulmonary disease, unspecified; I10 Essential (primary) hypertension; M19.90 Unspecified osteoarthritis, unspecified site; Z87.891 Personal history of nicotine dependence; M10.9 Gout, unspecified; Z79.899 Other long term (current) drug therapy
CPT/HCPCS: 36415; 71046; 80053; 83735; 84484; 85025; 85610; 85730; 99285

== ENCOUNTER 2023-10-21 22:48 | Emergency (ER) | payer MEDICARE, OTHER ==
--- NOTE | 2023-10-21 23:33 | ED ---
Dizziness HPI - General Chief Complaint: Syncope Stated Complaint: Syncope Time Seen by Provider: 10/21/23 22:55 Source: patient, EMS Mode of arrival: EMS Limitations: no limitations - History of Present Illness Initial Comments: 58-year-old male with past medical history significant for polycystic kidney disease, mitral regurgitation, mitral valve prolapse, permanent pacemaker implantation, hypertension, and COPD presenting to the ED with a chief complaint of near syncope. Patient states earlier today had 3 episodes where he felt lightheaded, became sweaty, and felt pressure on the left side of his chest. Did not actually have any syncopal time patient reports all symptoms are resolved. Patient does make urine. No abdominal pain. No change in bowel or bladder habits. Does note having procedure done to have dialysis initiated next week. - Related Data Home Medications Medication Instructions Recorded Confirmed PARoxetine [Paxil] 20 mg PO DAILY 10/17/18 05/18/20 busPIRone HCL [Buspar] 7.5 mg PO BID@0900,1400 10/17/18 05/18/20 Metoprolol Tartrate [Lopressor] 50 mg PO TID 05/18/20 05/18/20 Tamsulosin [Flomax] 0.4 mg PO DAILY 05/18/20 05/18/20 hydrALAZINE HCL 25 mg PO BID 05/18/20 05/18/20 Previous Rx's Medication Instructions Recorded Aspirin EC [Ecotrin Low Dose] 81 mg PO DAILY #30 tab 05/23/19 Pantoprazole [Protonix] 40 mg PO AC-BRKFST #30 tablet. 05/23/19 allopurinoL [Zyloprim] 100 mg PO DAILY #30 tab 05/23/19 Allergies Allergy/AdvReac Type Severity Reaction Status Date / Time No Known Allergies Allergy Verified 10/21/23 22:54 Review of Systems ROS Statement: Those systems with pertinent positive or pertinent negative responses have been documented in the HPI. ROS Other: All systems not noted in ROS Statement are negative. Past Medical History Past Medical History: Asthma, Cancer, Chest Pain / Angina, COPD, Hypertension, Osteoarthritis (OA), Renal Disease Additional Past Medical History / Comment(s): Severe mitral dysfunction, pleurisy x2, polycyctic kidney disease stage IV, migraines, chronic cervical and back pain, DDD, gout bilateral feet, RSD affecting legs, PATSY without device d/t kept getting respiratory infections, right lower lobe nodule, History of Any Multi-Drug Resistant Organisms: None Reported Past Surgical History: Hernia Repair, Pacemaker Additional Past Surgical History / Comment(s): Pacemaker originally placed 2001, last gen change 2017, PASCALE, umbilical hernia repair, L leg tib/fib fracture with hardware-since removed, L thumb surgery-has rods, EGD, colonoscopy, blood patch after spinal anesthesia for headache, 12/09/18 lung biopsy, Mitral Valve Repair Past Anesthesia/Blood Transfusion Reactions: Previous Problems w/ Anesthesia Additional Past Anesthesia/Blood Transfusion Reaction / Comment(s): NEVER RECI EVED BLOOD. Pt had spinal anesthesia with spinal headache and blood patch. Type of Cardiac Device: Permanent Pacemaker Device Placement Date:: 2001 Past Psychological History: Anxiety, Panic Disorder Smoking Status: Former smoker Past Alcohol Use History: None Reported Past Drug Use History: None Reported - Past Family History Father Family Medical History: Cancer, Myocardial Infarction ([place]) Additional Family Medical History / Comment(s): FATHER BONE CA AT AGE 70. HE HAD AORTIC ANEURYSM WITH SURGERY. Mother Family Medical History: Cancer, Deep Vein Thrombosis (DVT), Renal Disease Additional Family Medical History / Comment(s): MOTHER OF LYMPHOMA. MOTHER HAD TRANSPLANT OF KIDNEY. Sister(s) Family Medical History: Deep Vein Thrombosis (DVT), Pulmonary Embolus, Renal Disease Additional Family Medical History / Comment(s): POLYCYSTIC KIDNEY DISEASE WITH TRANSPLANT, General Exam Limitations: no limitations General appearance: alert, in no apparent distress Eye exam: Present: normal appearance Neck exam: Present: normal inspection Respiratory exam: Present: normal lung sounds bilaterally Cardiovascular Exam: Present: regular rate GI/Abdominal exam: Present: soft Neurological exam: Present: alert, oriented X3 Skin exam: Present: warm, dry Course Vital Signs 10/21/23 10/22/23 10/22/23 22:55 00:15 01:06 Temperature 97.6 F Pulse Rate 61 61 Pulse Rate [ 58 L Standing] Pulse Rate [ 56 L Supine] Respiratory 20 13 Rate Blood Pressure 131/85 111/69 Blood Pressure 104/74 [Standing] Blood Pressure 103/67 [Supine] O2 Sat by Pulse 97 95 Oximetry Medical Decision Making - Medical Decision Making Was pt. sent in by a medical professional or institution (, PA, BOOKMAKER MAP, urgent care, hospital, or group home...) When possible be specific @ -No Did you speak to anyone other than the patient for history (EMS, parent, family, police, friend...)? What history was obtained from this source @ -No Did you review nursing and triage notes (agree or disagree)? Why? @ -I reviewed and agree with nursing and triage notes Were old charts reviewed (outside hosp., previous admission, EMS record, old EKG, old radiological studies, urgent care reports/EKG's, group home records)? Report findings @ -Prior charts reviewed showing patient's primary medical history. For further details please see HPI. Differential Diagnosis (chest pain, altered mental status, abdominal pain women, abdominal pain men, vaginal bleeding, weakness, fever, dyspnea, syncope, headache, dizziness, GI bleed, back pain, seizure, CVA, palpatations, mental health, musculoskeletal)? @ -Differential Chest Pain: Stable Angina, Unstable Angina, STEMI, NSTEMI Aortic Dissection, Pneumothorax, Musculoskeletal, Esophageal Spasm GERD, Cholecystitis, Pancreatitis, Zoster, this is not meant to be an all-inclusive list. EKG interpreted by me (3pts min.). @ -EKG interpreted by me which shows a paced rhythm with nonspecific ST and T wave changes appears largely similar to prior however does have some new T wave inversions. Rate of 61 bpm. MT 246, QRS 101, QT/QTc 416/418. X-rays interpreted by me (1pt min.). @ -Chest x-ray revealed no evidence of acute finding. Interpreted by me. CT interpreted by me (1pt min.). @ -None done U/S interpreted by me (1pt. min.). @ -None done What testing was considered but not performed or refused? (CT, X-rays, U/S, labs)? Why? @ -None What meds were considered but not given or refused? Why? @ -None Did you discuss the management of the patient with other professionals (professionals i.e. , PA, BOOKMAKER MAP, lab, RT, psych nurse, clinical social worker, manufacturing quality engineer, teacher, international first officer, piano case and bench assembler)? Give summary @ -No Was smoking cessation discussed for >3mins.? @ -No Was critical care preformed (if so, how long)? @ -No Were there social determinants of health that impacted care today? How? (Homelessness, low income, unemployed, alcoholism, drug addiction, transportation, low edu. Level, literacy, decrease access to med. care, [facility], rehab)? @ -No Was there de-escalation of care discussed even if they declined (Discuss DNR or withdrawal of care, Hospice)? DNR status @ -No What co-morbidities impacted this encounter? (DM, HTN, Smoking, COPD, CAD, Cancer, CVA, ARF, Chemo, Hep., AIDS, mental health diagnosis, sleep apnea, morbid obesity)? @ -None Was patient admitted / discharged? Hospital course, mention meds given and route, prescriptions, significant lab abnormalities, going to OR and other pertinent info. @ -Discharge 58-year-old male presenting to the ED with complaints of near syncope. Laboratory studies reviewed. CBC largely unremarkable. Chemistry panel does show evidence of kidney disease consistent with his history with elevations in BUN at 54 creatinine at 3.6 otherwise largely unremarkable. Serology panel unremarkable. Troponin undetectable. Orthostatic vital signs largely unremarkable. At this time patient reports significant improvement of his symptoms. EKG shows sinus rhythm with nonspecific findings appears consistent with prior. Chest x-ray revealed no evidence of acute process. With patient's history and also some complaints of chest pressure which are now improved patient was offered observation stay to see cardiology however at time patient r eports feeling well and states that he would like to go home. Discharged home in stable condition. Provided 2 L of IV fluids here in the ED. Discussed return precautions with patient who verbalized agreement. Undiagnosed new problem with uncertain prognosis? @ -No Drug Therapy requiring intensive monitoring for toxicity (Heparin, Nitro, Insulin, Cardizem)? @ -No Were any procedures done? @ -No Diagnosis/symptom? @ -Near syncope Acute, or Chronic, or Acute on Chronic? @ -Acute Uncomplicated (without systemic symptoms) or Complicated (systemic symptoms)? @ -Uncomplicated Side effects of treatment? @ -No Exacerbation, Progression, or Severe Exacerbation? @ -No Poses a threat to life or bodily function? How? (Chest pain, USA, AL, pneumonia, PE, COPD, DKA, ARF, appy, cholecystitis, CVA, Diverticulitis, Homicidal, Suicidal, threat to staff... and all critical care pts) @ -Unlikely - Lab Data Result diagrams: 10/21/23 23:15 10/21/23 23:15 Lab Results 10/21/23 10/21/23 10/21/23 Range/Units 23:15 23:15 23:15 WBC 5.6 (3.8-10.6) k/uL RBC 4.54 (4.30-5.90) m/uL Hgb 13.4 (13.0-17.5) gm/dL Hct 42.2 (39.0-53.0) % MCV 93.0 (80.0-100.0) fL MCH 29.6 (25.0-35.0) pg MCHC 31.9 (31.0-37.0) g/dL RDW 13.9 (11.5-15.5) % Plt Count 209 (150-450) k/uL MPV 8.6 Neutrophils % 71 % Lymphocytes % 13 % Monocytes % 9 % Eosinophils % 6 % Basophils % 0 % Neutrophils # 4.0 (1.3-7.7) k/uL Lymphocytes # 0.7 L (1.0-4.8) k/uL Monocytes # 0.5 (0-1.0) k/uL Eosinophils # 0.3 (0-0.7) k/uL Basophils # 0.0 (0-0.2) k/uL PT (10.0-12.5) sec INR (<1.2) APTT (22.0-30.0) sec Sodium 136 L (137-145) mmol/L Potassium 3.6 (3.5-5.1) mmol/L Chloride 102 (98-107) mmol/L Carbon Dioxide 23 (22-30) mmol/L Anion Gap 11 mmol/L BUN 54 H (9-20) mg/dL Creatinine 3.60 H (0.66-1.25) mg/dL Est GFR (CKD-EPI)AfAm 21 (>60 ml/min/1.73 sqM) Est GFR (CKD-EPI)NonAf 18 (>60 ml/min/1.73 sqM) Glucose 114 H (74-99) mg/dL Calcium 9.2 (8.4-10.2) mg/dL Magnesium 1.9 (1.6-2.3) mg/dL Total Bilirubin 0.6 (0.2-1.3) mg/dL AST 22 (17-59) U/L ALT 12 (4-49) U/L Alkaline Phosphatase 66 (38-126) U/L Troponin I <0.012 (0.000-0.034) ng/mL Total Protein 6.1 L (6.3-8.2) g/dL Albumin 3.7 (3.5-5.0) g/dL Influenza Type A (PCR) (Not Detectd) Influenza Type B (PCR) (Not Detectd) RSV (PCR) (Not Detectd) SARS-CoV-2 (PCR) (Not Detectd) 10/21/23 10/22/23 Range/Units 23:31 00:17 WBC (3.8-10.6) k/uL RBC (4.30-5.90) m/uL Hgb (13.0-17.5) gm/dL Hct (39.0-53.0) % MCV (80.0-100.0) fL MCH (25.0-35.0) pg MCHC (31.0-37.0) g/dL RDW (11.5-15.5) % Plt Count (150-450) k/uL MPV Neutrophils % % Lymphocytes % % Monocytes % % Eosinophils % % Basophils % % Neutrophils # (1.3-7.7) k/uL Lymphocytes # (1.0-4.8) k/uL Monocytes # (0-1.0) k/uL Eosinophils # (0-0.7) k/uL Basophils # (0-0.2) k/uL PT 10.8 (10.0-12.5) sec INR 1.0 (<1.2) APTT 20.6 L (22.0-30.0) sec Sodium (137-145) mmol/L Potassium (3.5-5.1) mmol/L Chloride (98-107) mmol/L Carbon Dioxide (22-30) mmol/L Anion Gap mmol/L BUN (9-20) mg/dL Creatinine (0.66-1.25) mg/dL Est GFR (CKD-EPI)AfAm (>60 ml/min/1.73 sqM) Est GFR (CKD-EPI)NonAf (>60 ml/min/1.73 sqM) Glucose (74-99) mg/dL Calcium (8.4-10.2) mg/dL Magnesium (1.6-2.3) mg/dL Total Bilirubin (0.2-1.3) mg/dL AST (17-59) U/L ALT (4-49) U/L Alkaline Phosphatase (38-126) U/L Troponin I (0.000-0.034) ng/mL Total Protein (6.3-8.2) g/dL Albumin (3.5-5.0) g/dL Influenza Type A (PCR) Not Detected (Not Detectd) Influenza Type B (PCR) Not Detected (Not Detectd) RSV (PCR) Not Detected (Not Detectd) SARS-CoV-2 (PCR) Not Detected (Not Detectd) Disposition Clinical Impression: Near syncope Disposition: HOME SELF-CARE Condition: Good Additional Instructions: Please return to the Emergency Department if symptoms worsen or any other concer ns. Please follow-up with your primary care provider. Is patient prescribed a controlled substance at d/c from ED?: No Referrals: Mukesh Hernandez DO [Primary Care Provider] - 1-2 days Time of Disposition: 01:40
[2023-10-21 23:36] LABS: Basophils % (A) 0 %; Eosinophils # (A) 0.3 k/uL (0-0.7); Eosinophils % (A) 6 %; HCT 42.2 % (39.0-53.0); HGB 13.4 gm/dL (13.0-17.5); Lymphocytes # (A) 0.7 k/uL (1.0-4.8); Lymphocytes % (A) 13 %; MCH 29.6 pg (25.0-35.0); MCHC 31.9 g/dL (31.0-37.0); Mean Platelet Volume 8.6; Monocytes # (A) 0.5 k/uL (0-1.0); Monocytes % (A) 9 %; Neutrophils % (A) 71 %; Platelet Count 209 k/uL (150-450); RBC 4.54 m/uL (4.30-5.90); RDW 13.9 % (11.5-15.5); WBC 5.6 k/uL (3.8-10.6)
--- NOTE | 2023-10-21 23:51 | XR ---
EXAMINATION TYPE: XR chest 2V DATE OF EXAM: 10/21/2023 COMPARISON: Chest x-ray March 11, 2022 HISTORY: Syncope TECHNIQUE: Frontal and lateral views of the chest are obtained. FINDINGS: There is no suspicious new focal air space opacity, pleural effusion, or pneumothorax seen . The cardiac silhouette size is stable and within normal limits. Overlying sternal wires are redemo nstrated. Dual-lead pacemaker is redemonstrated. Left atrial appendage clip along with cardiac valvul ar surgical change is redemonstrated . The osseous structures are intact. IMPRESSION: No acute cardiopulmonary process. No significant change from prior.
[2023-10-22] LABS: ALT 12 U/L (4-49); AST 22 U/L (17-59); African American GFR (CKD) 21 (>60 ml/min/1.73 sqM); Albumin 3.7 g/dL (3.5-5.0); Alkaline Phosphatase 66 U/L (38-126); Anion Gap 11 mmol/L; Blood Urea Nitrogen 54 mg/dL (9-20); Calcium 9.2 mg/dL (8.4-10.2); Carbon Dioxide 23 mmol/L (22-30); Chloride 102 mmol/L (98-107); Glucose 114 mg/dL (74-99); Magnesium 1.9 mg/dL (1.6-2.3); Non-African American GFR(CKD) 18 (>60 ml/min/1.73 sqM); Potassium 3.6 mmol/L (3.5-5.1); Sodium 136 mmol/L (137-145); Total Bilirubin 0.6 mg/dL (0.2-1.3); Total Protein 6.1 g/dL (6.3-8.2)
[2023-10-22 00:55] LABS: Prothrombin Time 10.8 sec (10.0-12.5)
[2023-10-22] MEDS: SODIUM CHLORIDE 0.9% 1,000 ML IV STA (01:10)
[2023-10-22] MEDS: SODIUM CHLORIDE 0.9% 1,000 ML IV ONE (01:10)
[2023-10-22 01:15] LABS: Partial Thromboplastin Time 20.6 sec (22.0-30.0)
[2023-10-22 02:11] VITALS: BP 132/77; PULSE 61; RESP 20; TEMP 97.5
== END 2023-10-22 02:09 | disposition home or self-care (01) ==
LOC: EC 22:48
DX: R55 Syncope and collapse (principal); I99.8 Other disorder of circulatory system; Z87.891 Personal history of nicotine dependence
CPT/HCPCS: 36415; 71046; 80053; 83735; 84484; 85025; 85610; 85730; 87636; 93005; 96360; 99285

== ENCOUNTER 2024-05-16 06:19 | Emergency (ER) | payer MEDICARE ==
[2024-05-16 06:43] VITALS: RESP 20; TEMP 98.7
--- NOTE | 2024-05-16 07:13 | ED ---
Lower Extremity Injury HPI - General Chief Complaint: Extremity Injury, Lower Stated Complaint: S/P R Leg Surgery - Pain Time Seen by Provider: 05/16/24 07:12 Source: patient, RN notes reviewed Mode of arrival: wheelchair Limitations: physical limitation - History of Present Illness Initial Comments: 59-year-old male presenting to the ER with a chief complaint of right ankle pain. Patient fell from an 8 foot ladder on April 13 and had an open tib- fib fracture. Patient was seen at [facility] and underwent surgical intervention external fixation placed. Patient is taking oxycodone 5 mg at home for pain control. He states on Sunday visiting nurse came to clean wound. He states the medial screw came loose. On patient pushed the screw back into place. Throughout the night he had an increase in pain not controlled with prescribed medications. Prescribed to the ER. He also is reporting a shooting/muscle pain and posterior knee. Denies any new traumas or injuries. No other complaints. - Related Data Home Medications Medication Instructions Recorded Confirmed PARoxetine [Paxil] 20 mg PO DAILY 10/17/18 05/18/20 busPIRone HCL [Buspar] 7.5 mg PO BID@0900,1400 10/17/18 05/18/20 Metoprolol Tartrate [Lopressor] 50 mg PO TID 05/18/20 05/18/20 Tamsulosin [Flomax] 0.4 mg PO DAILY 05/18/20 05/18/20 hydrALAZINE HCL 25 mg PO BID 05/18/20 05/18/20 Previous Rx's Medication Instructions Recorded Aspirin EC [Ecotrin Low Dose] 81 mg PO DAILY #30 tab 05/23/19 Pantoprazole [Protonix] 40 mg PO AC-BRKFST #30 tablet. 05/23/19 allopurinoL [Zyloprim] 100 mg PO DAILY #30 tab 05/23/19 Allergies Allergy/AdvReac Type Severity Reaction Status Date / Time No Known Allergies Allergy Verified 05/16/24 06:43 Review of Systems ROS Statement: Those systems with pertinent positive or pertinent negative responses have been documented in the HPI. ROS Other: All systems not noted in ROS Statement are negative. Past Medical History Past Medical History: Asthma, Cancer, Chest Pain / Angina, COPD, Hypertension, Osteoarthritis (OA), Renal Disease Additional Past Medical History / Comment(s): Severe mitral dysfunction, pleurisy x2, polycyctic kidney disease stage IV, migraines, chronic cervical and back pain, DDD, gout bilateral feet, RSD affecting legs, PATSY without device d/t kept getting respiratory infections, right lower lobe nodule, History of Any Multi-Drug Resistant Organisms: None Reported Past Surgical History: Hernia Repair, Orthopedic Surgery, Pacemaker Additional Past Surgical History / Comment(s): Pacemaker originally placed 2001, last gen change 2017, PASCALE, umbilical hernia repair, L leg tib/fib fracture with hardware-since removed, L thumb surgery-has rods, EGD, colonoscopy, blood patch after spinal anesthesia for headache, 12/09/18 lung biopsy, Mitral Valve Repair Past Anesthesia/Blood Transfusion Reactions: Previous Problems w/ Anesthesia Additional Past Anesthesia/Blood Transfusion Reaction / Comment(s): NEVER RECIEVED BLOOD. Pt had spinal anesthesia with spinal headache and blood patch. Type of Cardiac Device: Permanent Pacemaker Device Placement Date:: 2001 Past Psychological History: Anxiety, Panic Disorder Smoking Status: Current every day smoker Past Alcohol Use History: None Reported Past Drug Use History: None Reported - Past Family History Father Family Medical History: Cancer, Myocardial Infarction ([place]) Additional Family Medical History / Comment(s): FATHER BONE CA AT AGE 70. HE HAD AORTIC ANEURYSM WITH SURGERY. Mother Family Medical History: Cancer, Deep Vein Thrombosis (DVT), Renal Disease Additional Family Medical History / Comment(s): MOTHER OF LYMPHOMA. MOTHER HAD TRANSPLANT OF KIDNEY. Sister(s) Family Medical History: Deep Vein Thrombosis (DVT), Pulmonary Embolus, Renal Disease Additional Family Medical History / Comment(s): POLYCYSTIC KIDNEY DISEASE WITH TRANSPLANT, General Exam Limitations: physical limitation Course Vital Signs 05/16/24 05/16/24 06:37 10:55 Temperature 98.7 F Pulse Rate 70 72 Respiratory 20 20 Rate Blood Pressure 147/71 146/84 O2 Sat by Pulse 97 97 Oximetry Medical Decision Making - Medical Decision Making Was pt. sent in by a medical professional or institution (, PA, INSTRUCTIONAL TECHNOLOGY COACH, urgent care, hospital, or [facility]...) When possible be specific @ -No Did you speak to anyone other than the patient for history (EMS, parent, family, police, friend...)? What history was obtained from this source @ -No Did you review nursing and triage notes (agree or disagree)? Why? @ -I reviewed and agree with nursing and triage notes Were old charts reviewed (outside hosp., previous admission, EMS record, old EKG, old radiological studies, urgent care reports/EKG's, [facility] records)? Report findings @ -No old charts were reviewed Differential Diagnosis (chest pain, altered mental status, abdominal pain women, abdominal pain men, vaginal bleeding, weakness, fever, dyspnea, syncope, headache, dizziness, GI bleed, back pain, seizure, CVA, palpatations, mental health, musculoskeletal)? @ -Differential Musculoskeletal: Muscular strain, contusion, ligament sprain, fracture, arthritis, septic arthritis, bursitis, cellulitis, muscle spasm, nerve compression, DVT, arterial occlusion, herpes zoster, electrolyte abnormality, tumor.... This is not meant to be in all inclusive list EKG interpreted by me (3pts min.). @ -None done X-rays interpreted by me (1pt min.). @ -Right ankle and tib-fib x-ray showing postsurgical fixation to the lower e xtremity with external fixation of the tibia and ankle. K wires are present. Comminuted fracture of distal tibia and fibula. No acute fractures identified. CT interpreted by me (1pt min.). @ -None done U/S interpreted by me (1pt. min.). @ -Ultrasound venous Doppler right lower extremity negative for evidence of DVT. What testing was considered but not performed or refused? (CT, X-rays, U/S, l abs)? Why? @ -None What meds were considered but not given or refused? Why? @ -None Did you discuss the management of the patient with other professionals (professionals i.e. , PA, INSTRUCTIONAL TECHNOLOGY COACH, lab, RT, psych nurse, social services director, inspector pawnshop detail, teacher, forward air controller/air officer, wrapper caser)? Give summary @ -No Was smoking cessation discussed for >3mins.? @ -No Was critical care preformed (if so, how long)? @ -No Were there social determinants of health that impacted care today? How? (Homelessness, low income, unemployed, alcoholism, drug addiction, transportation, low edu. Level, literacy, decrease access to med. care, nursing home, rehab)? @ -No Was there de-escalation of care discussed even if they declined (Discuss DNR or withdrawal of care, Hospice)? DNR status @ -No What co-morbidities impacted this encounter? (DM, HTN, Smoking, COPD, CAD, Cancer, CVA, ARF, Chemo, Hep., AIDS, mental health diagnosis, sleep apnea, morbid obesity)? @ -None Was patient admitted / discharged? Hospital course, mention meds given and route, prescriptions, significant lab abnormalities, going to OR and other pertinent info. @ -Discharge. 59-year-old male presenting to the ER with a chief complaint of right ankle pain. Patient has external hardware in place due to open tib-fib fracture approximately 1 month ago. He is following up with Dr. Castellano at [facility]. History and physical exam completed. Vitals within normal limits. Exam remarkable for external fixation in place to right ankle. Right lower extremity neurovascular intact. No overlying skin changes concerning of infection. Sutures in place medial malleolus. Patient has range of motion of digits. Pain to posterior knee. X-rays and ultrasound will be obtained. Ultrasound venous Doppler right lower extremity negative for acute evidence of DVT. X-ray of right ankle showing no acute fractures. Pain control in the ER with IM Dilaudid, with improvement. Upon reevaluation, patient resting comfortably in exam room no signs of acute distress. I advised patient to contact orthopedic surgeon today to notify them of situation. As patient is prescribed oxycodone, I will not be prescribing another narcotic medication. Patient is stable for discharge at this time with close outpatient follow-up with Dr. Castellano. Strict return parameters discussed. Patient discharged in stable condition with follow-up to PCP. Patient verbally expressed understanding and agreement with care plan. Case discussed with ED attending, Dr. Jacobo. Undiagnosed new problem with uncertain prognosis? @ -No Drug Therapy requiring intensive monitoring for toxicity (Heparin, Nitro, Insulin, Cardizem)? @ -No Were any procedures done? @ -No Diagnosis/symptom? @ -Intractable pain/Tibia and fibular fracture Acute, or Chronic, or Acute on Chronic? @ -Acute Uncomplicated (without systemic symptoms) or Complicated (systemic symptoms)? @ -Uncomplicated Side effects of treatment? @ -No Exacerbation, Progression, or Severe Exacerbation? @ -No Poses a threat to life or bodily function? How? (Chest pain, [place], [place], pneumonia, PE, COPD, DKA, ARF, appy, cholecystitis, CVA, Diverticulitis, Homicidal, Suicidal, threat to staff... and all critical care pts) @ -No - Radiology Data Radiology results: report reviewed, image reviewed Disposition Clinical Impression: Intractable pain, Tibia/fibula fracture Disposition: HOME SELF-CARE Condition: Stable Additional Instructions: Continue taking medications as prescribed. Call reproduction specialist as soon as you leave emergency department to notify them of your visit. Return to the ER for any new or worsening symptoms Is patient prescribed a controlled substance at d/c from ED?: No Referrals: Mukesh Hernandez DO [Primary Care Provider] - 1-2 days Chucky Castellano DO [REFERRING] - 1-2 days Time of Disposition: 10:40
[2024-05-16] MEDS: HYDROmorphone 1 MG/ML 1 ML SYRINGE IM STA ×2 (07:48→09:47)
--- NOTE | 2024-05-16 07:50 | XR ---
EXAMINATION TYPE: XR tibia fibula LT, XR ankle limited RT DATE OF EXAM: 05/16/2024 7:40 AM CLINICAL INDICATION: Male, 59 years old with history of pain -ext fixation; H COMPARISON: None TECHNIQUE: XR tibia fibula LT, XR ankle limited RT; examined in AP and lateral projections. FINDINGS/IMPRESSION: Post fixation changes to the lower extremity with external fixation of the tibia and ankle. K wires a re present. Comminuted fracture of the distal tibia and fibula present. No new fractures identified. [facility], , 05/16/2024 7:48 AM
--- NOTE | 2024-05-16 09:22 | US ---
EXAMINATION TYPE: US venous doppler duplex LE RT DATE OF EXAM: 05/16/2024 8:38 AM COMPARISON: NONE CLINICAL INDICATION: Male, 59 years old with history of posterior knee pain s/p tib fib fx; Right tib /fib fracture with recent surgery- pt having right leg pain TECHNIQUE: The lower extremity deep venous system is examined utilizing real time linear array sonog nico with graded compression, color doppler sonography, and spectral doppler. SIDE PERFORMED: Right FINDINGS: VESSELS IMAGED: Common Femoral Vein Deep Femoral Vein Greater Saphenous Vein * Femoral Vein Popliteal Vein Small Saphenous Vein * Proximal Calf Veins (* superficial vessels) Right Leg: Negative for DVT Grayscale, color doppler, spectral doppler imaging performed of the deep veins of the lower extremiti es. IMPRESSION: 1. No ultrasound evidence for deep venous thrombosis of either lower extremity. [facility], , 05/16/2024 9:19 AM
[2024-05-16 10:56] VITALS: BP 146/84; PULSE 72
== END 2024-05-16 10:56 | disposition home or self-care (01) ==
LOC: EC 06:19
CPT/HCPCS: 96372; 99284